=== PATIENT | female | born 1960 | race Caucasian/White ===

== ENCOUNTER 2016-05-10 14:48 | Inpatient (IN) ==
--- NOTE | 2016-05-10 15:36 | Emergency Department Note ---
Disposition Clinical Impression: Dehydration, Malignant neoplasm metastatic to colon, Weakness generalized Failure to thrive Qualifiers: Failure to thrive age range: in adult Qualified Code(s): R62.7 - Adult failure to thrive Disposition: Admitted As Inpatient Condition: Serious Referrals: NO,PCP [Non-Partnered Physician] - Forms: Work/School Release, ED Satisfaction Letter Time of Disposition: 17:13 Weakness HPI - General Chief complaint: ED General Medical Stated complaint: Dehydrated/nutrition from cancer center Time Seen by Provider: 05/10/16 15:34 Source: patient, family Limitations: no limitations Nursing Notes Reviewed: Yes Vital Signs Reviewed: Yes - History of Present Illness HPI Narrative: 55-year-old female with history of colorectal cancer, stage IV, presented with dehydration for the last few days and nausea to the oncology clinic to the care of Dr. Tovar, he evaluated the patient noted that she was very dehydrated and tachycardic and decided that she would be a good candidate for TPN at this time, sent her with her wheeling her wheelchair from the cancer center to [facility] ED for admission for TPN. Patient reports weight loss several pounds in last few weeks, denies chest pain abdominal pain headache, reports nausea some vomiting and some diarrhea. Pt Subjective Complaint: generalized weakness/fatigue Onset (ago): day(s) Duration: intermittent Location: generalized Pain Severity: mild Pain Scale: 6 Improves with: none Worsens with: none Context: new medication Associated symptoms: Reports: nausea/vomiting. Denies: chest pain, confusion, dark stools, diaphoresis, dysuria, easy bruising, fever/chills, loss of appetite - Related Data Home Medications Medication Instructions Recorded Confirmed Cyclosporine [Restasis] 1 drop OP BID 02/04/16 05/10/16 Fluticasone/Salmeterol [Advair 1 puff IH BID 02/04/16 05/10/16 250-50 Diskus] Omeprazole [PriLOSEC] 20 mg PO DAILY PRN 02/04/16 05/10/16 Docusate [Colace] 100 mg PO Q3-4D PRN 03/21/16 05/10/16 Multivits,Ca,Minerals/Iron/FA 1 each PO DAILY 03/21/16 05/10/16 [Women's Daily Formula Caplet] Sennosides/Docusate Sodium [Senna 1 each PO Q3-4D PRN 03/21/16 05/10/16 Plus] Bisacodyl [Dulcolax] 10 mg RC DAILY PRN 04/19/16 05/10/16 Magnesium Citrate [Citroma] 296 ml PO PRN PRN 04/19/16 05/10/16 Oxycodone HCl/Acetaminophen 1 each PO Q4-6H PRN 04/19/16 05/10/16 [Percocet 10-325 mg Tablet] Polyethylene Glycol 3350 [MiraLAX 1 scoop PO DAILY PRN 04/19/16 05/10/16 Powder Bulk 17.9 Oz] Prochlorperazine Maleate 10 mg PO Q8HR PRN 04/19/16 05/10/16 [Compazine] Dexamethasone [Decadron] 2 mg PO BID 05/10/16 05/10/16 Previous Rx's Medication Instructions Recorded Lidocaine/Prilocaine [Emla] 1 appl TP AD #30 gm 04/19/16 Magic Mouthwash 10 ml PO Q4H PRN #240 ml 04/19/16 Ondansetron HCl [Zofran] 4 mg PO Q6H PRN #60 tablet 04/19/16 Fluconazole [Diflucan] 100 mg PO DAILY #10 tablet 04/26/16 HydrOXYzine Pamoate [Vistaril] 100 mg PO BID PRN #60 capsule 04/26/16 Promethazine [Phenergan] 25 mg RC Q6HR PRN #30 supp.rect 04/27/16 Metoclopramide [Reglan] 10 mg PO Q6HR #120 tablet 05/05/16 Megestrol Acetate [Megace] 400 mg PO DAILY #300 mls 05/08/16 Dronabinol [Marinol] 5 mg PO TID #90 capsule 05/10/16 Fentanyl 50 mg TD Q72H #10 patch.td72 05/10/16 Allergies Allergy/AdvReac Type Severity Reaction Status Date / Time morphine AdvReac Abdominal Verified 04/19/16 09:44 Pain All systems ED: reviewed and negative except as stated. Constitutional: Reports: as per HPI, weakness. Denies: fever Cardiovascular: Denies: chest pain, palpitations Respiratory: Denies: cough, dyspnea Gastrointestinal: Reports: abdominal pain, nausea, vomiting, diarrhea Genitourinary: Denies: urgency, dysuria Musculoskeletal: Denies: back pain, neck pain Integumentary: Denies: rash Neurological: Reports: as per HPI, weakness. Denies: headache Psychiatric: Denies: anxiety, depression Endocrine: Reports: as per HPI, fatigue Past Medical History - Past Medical History Attestation: Yes The following information was validated with the patient. Source: patient Medical history: Reports: arthritis, asthma, cancer, other Surgical history: Reports: cholecystectomy, hysterectomy Psychiatric history: Reports: no psych history - Social History Smoking Status: Never smoker Alcohol use: Reports: rarely Drug use: Reports: none Physical Exam Constitutional: Frail cachectic female, is tachycardic in mild distress HEENT: NCAT, sclera anicteric, PERRLA bilaterally, normal external ears bilaterally, nasal septum nondeviated, average dentition, dry mucous membranes Neck: normal inspection, neck is supple, trachea midline Resp: normal chest inspection, CTA bilaterally, no resp distress CV: Tachycardia, no m/g/r GI: Moderate tenderness to palpation mid abdomen. No guarding or rigidity Back: normal inspection, no tenderness to palpation Skin: Poor skin turgor - General Limitations: no limitations General appearance: alert Course Course Narrative: 55-year-old female cachectic from the cancer center, for TPN per her oncologist , will check basic lab work, chest x-ray treated with IV fluid rehydration and antiemetics and reassessed - Reevaluation(s) Reevaluation #1: Accepted by the hospitalist, patient stable condition at the time of ED disposition, dietary and PICC line consult added Time: 17:12 Vital Signs Temperature 97.5 F L 05/10/16 15:03 Pulse Rate 124 05/10/16 15:03 Respiratory Rate 16 05/10/16 15:03 Blood Pressure 109/81 05/10/16 15:03 O2 Sat by Pulse Oximetry 99 05/10/16 15:03 Temperature 97.5 F L 05/10/16 15:03 Pulse Rate 94 05/10/16 17:03 Respiratory Rate 16 05/10/16 17:03 Blood Pressure 114/86 05/10/16 17:03 O2 Sat by Pulse Oximetry 97 05/10/16 17:03 Oxygen Delivery Oxygen Delivery Room Air Weakness - [facility] Narrative Medical decision making narrative: I examined this patient and my medical decision-making was reviewed with the RESEARCH FELLOW/PA/Advanced Practice Nurse/Resident Physician. I agree with the documented findings, disposition and treatment plan as described except to the extent set forth below. Patient was seen on arrival with Dr. Huang and myself, I agree with his evaluation and management plan, I supervised the care of the patient and stay. Patient was supposed to be a direct admit for PICC line and TPN and fluids. She is a cancer patient. Further no beds in the hospital so they sent her to the emergency department. We will go ahead and use her port which she has not place. We spoke with vascular access and they said they can put a line in her tomorrow. We will go fluids here check basic labs and then call for an admission with her. She is in agreement with this plan. - Differential Diagnosis Differential Diagnosis: Likely: anemia, hypoglycemia, sepsis/infection - Medical Records Medical records reviewed: Yes I reviewed the patient's medical records. - Lab Data Lab results reviewed: Yes I reviewed the patient's lab results. Result diagrams: 05/10/16 16:00 05/10/16 16:00 Lab Results 05/10/16 05/10/16 Range/Units 16:00 16:00 WBC 6.9 (4.3-11.1) K/mcL RBC 4.95 (3.82-4.97) M/mcL Hgb 11.9 (11.5-15.4) g/dL Hct 38.4 (35.3-44.9) % MCV 77.6 L (83.0-100.0) fL MCH 24.0 L (28.0-33.3) pg MCHC 31.0 L (31.6-35.5) g/dL RDW 18.6 H (11.5-14.5) % Plt Count 314 (140-400) K/mcL MPV 10.7 (9.4-12.4) fL Immature Gran % 0.3 (0-4) % Seg Neutrophils % 80.3 % Lymphocytes % 16.4 % Monocytes % 2.6 % Eosinophils % 0.4 % Basophils % 0.0 % Neutrophils # 5.6 (1.6-8.9) K/mcL Lymphocytes # 1.1 (0.6-4.6) K/mcL Monocytes # 0.2 (0.0-1.3) K/mcL Eosinophils # 0.0 (0.0-0.6) K/mcL Basophils # 0.0 (0.0-0.2) K/mcL Sodium 134 L (136-145) mEq/L Potassium 3.6 (3.5-4.5) mEq/L Chloride 96 L (98-109) mEq/L Carbon Dioxide 25 (19-29) mEq/L BUN 20 (7-20) mg/dL Creatinine 0.82 (0.57-1.11) mg/dL Est GFR ( Amer) > 60 (> 60) Est GFR (Non-Af Amer) > 60 (> 60) BUN/Creatinine Ratio 24 (6-26) Glucose 106 H (70-99) mg/dL Calculated Osmolality 281 (280-300) Calcium 9.4 (8.6-10.8) mg/dL Phosphorus 2.0 L (2.3-4.7) mg/dL Magnesium 1.7 (1.6-2.6) mg/dL Total Bilirubin 1.1 (0.2-1.2) mg/dL AST 25 (5-34) Units/L ALT 42 (0-55) Units/L Alkaline Phosphatase 256 H (38-126) Units/L Serum Total Protein 7.6 (6.0-8.3) g/dL Albumin 3.7 (3.5-5.0) g/dL Globulin 3.9 H (2.4-3.5) g/dL Albumin/Globulin Ratio 0.9 L (1.1-2.2) Lipase 37 (8-78) Units/L - Radiology Data Radiology results reviewed: Yes I reviewed the patient's radiology results. - EKG Data EKG attestation: Yes I reviewed and interpreted this EKG. EKG shows normal: sinus rhythm Rate: tachycardia (Rate 1 10 bpm [place] 137 QRS [address] segment depressions in V3 and V2 previous EKG) Interpretation: unchanged when compared to prior tracing (date) - Core Measures AMI Core Measures Followed: No
[2016-05-10] MEDS ORDERED: 0.9 % Sodium Chloride 1,000 ML IVC ONE (15:37)
[2016-05-10] MEDS ORDERED: Ondansetron 4 MG/2 ML VIAL IVP ONE (15:47)
[2016-05-10 16:14] LABS: Eosinophils % 0.4 %; Hematocrit 38.4 % (35.3-44.9); Hemoglobin 11.9 g/dL (11.5-15.4); Immature Granulocytes % 0.3 % (0-4); Lymphocytes # 1.1 K/mcL (0.6-4.6); Lymphocytes % 16.4 %; Mean Corpuscular Volume 77.6 fL (83.0-100.0); Mean Platelet Volume 10.7 fL (9.4-12.4); Monocytes # 0.2 K/mcL (0.0-1.3); Monocytes % 2.6 %; Neutrophils # 5.6 K/mcL (1.6-8.9); Platelet Count 314 K/mcL (140-400); Red Blood Count 4.95 M/mcL (3.82-4.97); Red Cell Distribution Width 18.6 % (11.5-14.5); Segmented Neutrophils % 80.3 %
[2016-05-10 16:26] LABS: Alanine Aminotransferase 42 Units/L (0-55); Albumin 3.7 g/dL (3.5-5.0); Albumin/Globulin Ratio 0.9 (1.1-2.2); Alkaline Phosphatase 256 Units/L (38-126); Aspartate Amino Transferase 25 Units/L (5-34); BUN/Creatinine Ratio 24 (6-26); Bilirubin,Total 1.1 mg/dL (0.2-1.2); Blood Urea Nitrogen 20 mg/dL (7-20); Calcium 9.4 mg/dL (8.6-10.8); Carbon Dioxide 25 mEq/L (19-29); Chloride 96 mEq/L (98-109); Globulin 3.9 g/dL (2.4-3.5); Glucose 106 mg/dL (70-99); Lipase 37 Units/L (8-78); Magnesium 1.7 mg/dL (1.6-2.6); Osmolality,Calculated 281 (280-300); Potassium 3.6 mEq/L (3.5-4.5); Sodium 134 mEq/L (136-145); Total Protein 7.6 g/dL (6.0-8.3); eGFR For African Americans > 60 (> 60); eGFR For Non-African Americans > 60 (> 60)
[2016-05-10] MEDS ORDERED: 0.9 % Sodium Chloride 1,000 ML IVC SCH (17:15)
[2016-05-10] MEDS ORDERED: Naloxone 0.4 MG/ML INJ IVP PRN (21:38)
[2016-05-10] MEDS ORDERED: Magic Mouthwash 10 ML UD Cup PO PRN (21:40)
[2016-05-10] MEDS ORDERED: Bisacodyl 10 MG RECTAL SUPPOSITORY RC PRN (21:40)
[2016-05-10] MEDS ORDERED: hydrOXYzine pamoate 25 MG CAPSULE PO PRN (21:40)
[2016-05-10] MEDS ORDERED: Magnesium Sulfate 1 GM in D5% in Water 100 ML IVPB ONE (21:46)
--- NOTE | 2016-05-10 21:50 | Internal Med History&Physical ---
Date of Encounter: 05/10/16 Time of Encounter: 21:47 Assessment and Plan (1) Adult failure to thrive Current visit: Yes Status: Acute Pt has intractable nausea; reduced PO intake and significant weight loss. Likely related to Metastatic disease and chemotherapy. 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 (3) Dehydration Current visit: Yes Status: Acute Possibly related to nausea and poor oral intake. IV fluids (4) Iron deficiency anemia Current visit: Yes Status: Chronic Possibly related to GI losses. Continue supplements. Qualifiers: Iron deficiency anemia type: other iron deficiency Qualified Code(s): D50.8 - Other iron deficiency anemias (5) Lung nodules Current visit: Yes Status: Chronic (6) Liver metastases Current visit: Yes Status: Chronic Internal Medicine - H&P: HPI Chief complaint: Intractable nausea Admitted From: Emergency Dept Plans for Post Hospital Care: Home History of present illness: Ms. 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 This is not also apparently had done Gastrografin study one week ago, which caused her diarrhea. Over the weekend she has been feeling nauseated with poor appetite and oral intake, with episodes of vomiting. She reports about a 20 pound weight loss in the last 2 months. She reports abdominal discomfort intermittently, but no abdominal pain and distention. She is able to pass gas but had no bowel movement in a few days. Denies hematemesis, melena , hematochezia. Denies dysuria or hematuria. Denies shortness of breath, chest pain, fever, chills. She was seen in Dr. Esteban office today and was thought to be dehydrated with failure to thrive she is admitted for volume repletion and TPN. Pat med Hx: s/p hysterectomy ; MITRAL VALVE PROLAPSE; ASTHMA; acute pancreatitis july 2013; Iron deficiency anemia Family Hx: Father: Lung cancer; Sister: Breast cancer Past Med Surg Social Fam HX - Past Medical History Medical history: arthritis, asthma, cancer, other Psychiatric history: no psych history - Past Surgical History Surgical History: cholecystectomy, hysterectomy - Social History Smoking Status: Never smoker Alcohol use: rarely Drug use: none Internal Medicine - H&P: Meds Cyclosporine [Restasis] 1 drop OP BID 02/04/16 [History] Fluticasone/Salmeterol [Advair 250-50 Diskus] 1 puff IH BID 02/04/16 [History] Omeprazole [PriLOSEC] 20 mg PO DAILY PRN 02/04/16 [History] Docusate [Colace] 100 mg PO Q3-4D PRN 03/21/16 [History] Multivits,Ca,Minerals/Iron/FA [Women's Daily Formula Caplet] 1 each PO DAILY [History] Sennosides/Docusate Sodium [Senna Plus] 1 each PO Q3-4D PRN 03/21/16 [History] Bisacodyl [Dulcolax] 10 mg RC DAILY PRN 04/19/16 [History] Lidocaine/Prilocaine [Emla] 1 appl TP AD #30 gm 04/19/16 [Rx] Magic Mouthwash 10 ml PO Q4H PRN #240 ml 04/19/16 [Rx] Magnesium Citrate [Citroma] 296 ml PO PRN PRN 04/19/16 [History] Ondansetron HCl [Zofran] 4 mg PO Q6H PRN #60 tablet 04/19/16 [Rx] Oxycodone HCl/Acetaminophen [Percocet 10-325 mg Tablet] 1 each PO Q4-6H PRN 03/07 [History] Polyethylene Glycol 3350 [MiraLAX Powder Bulk 17.9 Oz] 1 scoop PO DAILY PRN 03/07 [History] Prochlorperazine Maleate [Compazine] 10 mg PO Q8HR PRN 04/19/16 [History] Fluconazole [Diflucan] 100 mg PO DAILY #10 tablet 04/26/16 [Rx] HydrOXYzine Pamoate [Vistaril] 100 mg PO BID PRN #60 capsule 04/26/16 [Rx] Promethazine [Phenergan] 25 mg RC Q6HR PRN #30 supp.rect 04/27/16 [Rx] Metoclopramide [Reglan] 10 mg PO Q6HR #120 tablet 05/05/16 [Rx] Megestrol Acetate [Megace] 400 mg PO DAILY #300 mls 05/08/16 [Rx] Dexamethasone [Decadron] 2 mg PO BID 05/10/16 [History] Dronabinol [Marinol] 5 mg PO TID #90 capsule 05/10/16 [Rx] Fentanyl 50 mg TD Q72H #10 patch.td72 05/10/16 [Rx] Allergies morphine Adverse Reaction (Verified 04/19/16 09:44) Abdominal Pain and nausea All Systems PM: A 10-system review of systems was performed and is negative for pertinent findings except as documented above in the HPI. - Constitutional Vitals: Temp Pulse Resp BP Pulse Ox 98.3 F 85 16 115/85 100 05/10/16 19:35 05/10/16 19:35 05/10/16 19:35 05/10/16 19:35 05/10/16 19:35 Exam: General: Not in acute distress at the time of my evaluation HEENT: Oral mucosa is moist. No conjunctival palor or scleral icterus Neck: No obvious neck swellings Lungs: Clear to auscultation Cardiac: Regular rate and rhythm. No significant murmurs Abdomen: Soft, non tender. Bowel sounds present Genitourinary: No lake catheter Neurological: Alert and oriented. No gross localizing deficits Psych: Not aggressive or agitated Extremities: no significant leg edema Skin: No generalized rash Internal Med - H&P Results - Labs CBC & Chem 7: 05/11/16 05:15 05/11/16 05:15 - Impressions ITS Impressions Chest X-Ray 05/10/16 15:37 IMPRESSION: No acute process. D/ / Wesley Swann MD / Wesley Swann MD Interpreting Provider: Wesley Swann MD
[2016-05-10] MEDS: Pantoprazole 40 MG VIAL IVP SCH (22:33)
[2016-05-10] MEDS: *HR* Heparin 5,000 UNIT/ML VIAL SQ SCH (22:34)
[2016-05-10] MEDS: Ringers Solution, Lactated 1,000 ML IVC SCH (22:34)
[2016-05-10] MEDS: *HR* FentaNYL PATCH 50 MCG PATCH TD SCH (22:35)
[2016-05-11] MEDS: *HR* Heparin 5,000 UNIT/ML VIAL SQ SCH (05:20)
[2016-05-11] MEDS: *HR* OxyCODONE/APAP 10/325 TABLET PO PRN ×3 (05:20→13:51)
[2016-05-11 05:41] LABS: Mean Corpuscular HGB Conc 30.3 g/dL (31.6-35.5); Mean Corpuscular Hemoglobin 23.8 pg (28.0-33.3); Mean Corpuscular Volume 78.5 fL (83.0-100.0); Mean Platelet Volume 10.2 fL (9.4-12.4); Platelet Count 226 K/mcL (140-400); Red Blood Count 3.82 M/mcL (3.82-4.97); Red Cell Distribution Width 18.1 % (11.5-14.5)
[2016-05-11 05:43] LABS: Hemoglobin 9.1 g/dL (11.5-15.4)
[2016-05-11 05:56] LABS: BUN/Creatinine Ratio 22 (6-26); Blood Urea Nitrogen 14 mg/dL (7-20); Carbon Dioxide 24 mEq/L (19-29); Chloride 105 mEq/L (98-109); Glucose 88 mg/dL (70-99); Magnesium 1.8 mg/dL (1.6-2.6); Osmolality,Calculated 280 (280-300); Phosphorous 2.1 mg/dL (2.3-4.7); Potassium 3.6 mEq/L (3.5-4.5); Sodium 135 mEq/L (136-145); eGFR For African Americans > 60 (> 60); eGFR For Non-African Americans > 60 (> 60)
[2016-05-11 05:58] LABS: Calcium 7.8 mg/dL (8.6-10.8)
[2016-05-11] MEDS: Pantoprazole 40 MG VIAL IVP SCH (08:34)
[2016-05-11] MEDS: RESTASIS OPTHALMIC OP SCH ×2 (08:35→21:52)
[2016-05-11] MEDS: Ringers Solution, Lactated 1,000 ML IVC SCH (09:36)
[2016-05-11] MEDS ORDERED: D10% in Water 500 ML IVC PRN (10:56)
[2016-05-11] MEDS ORDERED: Potassium Phosphate 44 MEQ in 0.9 % Sodium Chloride 250 ML IVPB ONE (11:10)
[2016-05-11] MEDS ORDERED: Calcium Gluconate 1,000 MG in D5% in Water 100 ML IVPB ONE (11:11)
[2016-05-11] MEDS: Budesonide/Formoterol 80/4.5 MDI IH SCH ×2 (11:28→19:59)
[2016-05-11] MEDS: Ondansetron 4 MG/2 ML VIAL IVP PRN ×2 (12:57→19:54)
[2016-05-11] MEDS: *HR* Promethazine 25 MG/ML VIAL IVP PRN ×2 (13:43→22:27)
--- NOTE | 2016-05-11 14:02 | Internal Med Progress Note ---
Date of Encounter: 05/11/16 Time of Encounter: 14:00 - Assessment and plan (1) Dehydration Current Visit: Yes Status: Acute Assessment and plan: We will treat this with IV fluids. Replete electrolytes. Check BUN and creatinine the morning. Encourage oral hydration as much as tolerated. Treat nausea with Zofran and Phenergan. (2) Failure to thrive Current Visit: Yes Status: Acute Assessment and plan: She has had persistent nausea and severe abdominal pain her oncologist recommended TPN. We will consult nutrition and will request PICC line placement for TPN. Qualifiers: Failure to thrive age range: in adult Qualified Code(s): R62.7 - Adult failure to thrive (3) Abdominal pain Current Visit: No Status: Acute Assessment and plan: She takes oxycodone at home, she has a listed allergy to morphine. We will continue with her home meds. We will use fentanyl for severe pain uncontrolled with oral medication. Qualifiers: Abdominal location: generalized Qualified Code(s): R10.84 - Generalized abdominal pain (4) Malignant neoplasm metastatic to colon Current Visit: Yes Status: Acute Assessment and plan: Outpatient follow-up with oncology. (5) Cancer related pain Current Visit: Yes Status: Chronic (6) Liver metastases Current Visit: Yes Status: Chronic - Subjective Interval history: Pt reports severe nausea today w/ moderate abdominal pain, no fever, triggered by trying to eat, did not tolerate oral food. - Constitutional Vitals: Temp Pulse Resp BP Pulse Ox 98.3 F 83 18 134/92 98 05/11/16 11:39 05/11/16 11:39 05/11/16 11:39 05/11/16 11:39 05/11/16 11:39 General appearance: Present: A&O X 3 - Neck Neck exam general surgery: Present: supple, trachea midline. Absent: lymphadenopathy - Respiratory Respiratory exam: Present: CTAB. Absent: accessory muscle use, rales, rhonchi, wheezes - Cardiovascular Cardiovascular exam: Present: RRR, +S1, +S2. Absent: diastolic murmur, gallop, rubs, systolic murmur - GI/Abdominal GI/Abdominal exam: Present: normal bowel sounds, soft, no peritoneal signs. Absent: distended, tenderness - Extremities Exam Extremities exam: Present: warm, radial pulses palpable and symetrical. Absent : calf tenderness, cyanotic, pedal edema - Neurological Exam Neurological exam: Present: CN II-XII intact, oriented X3, no focal deficits. Absent: pronater drift, facial droop, speech deficit - Skin Skin exam: Present: dry, intact Internal Medicine: Result - Labs CBC & Chem 7: 05/11/16 05:15 05/11/16 05:15 Labs: Short CBC 05/11/16 Range/Units 05:15 WBC 5.4 (4.3-11.1) K/mcL Hgb 9.1 L D (11.5-15.4) g/dL Hct 30.0 L (35.3-44.9) % Plt Count 226 (140-400) K/mcL BMP 05/11/16 05:15 Sodium 135 L Potassium 3.6 Chloride 105 Carbon Dioxide 24 BUN 14 Creatinine 0.64 Glucose 88 Calcium 7.8 L D Consult Discharge Plan - Plan Referrals: Lambert Gandhi MD [Primary Care Provider] -
[2016-05-11] MEDS ORDERED: Bisacodyl 10 MG RECTAL SUPPOSITORY RC PRN (14:04)
[2016-05-11] MEDS ORDERED: Lidocaine -MPF 1% 5 ML AMPUL INFILT ONE (14:45)
--- NOTE | 2016-05-11 15:11 | Oncology Inp Consult Note ---
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 Last seen by Dr Tovar 05/10/16, when sent to ER for TPN consideration, dehydration and failure to thrive. Most recently seen by Dr Francisco Bruce on 04/27/16 as well for palliative radiation to spinal mets. She was treated for oral thrush and intractable nausea. She started palliative FOLFOX with Avastin cycle one on 05/04/2016 Oxaliplatin 85 mg/m day 1 area 5-FU and leucovorin 200 mg/m bolus, Avastin 5 mg per KG D1 Home 5-FU infusion 2400 mg/m over 46 hours Today, Palliative care consult ordered by me. We need to address goals of care, symptom management, as well as code status. I advised PC team. Dr Tovar to assess patient later today. We will follow along. Qualifiers: Colon location: unspecified part of colon Qualified Code(s): C18.9 - Malignant neoplasm of colon, unspecified (2) Adult failure to thrive Status: Acute (3) Dehydration Status: Acute - Data of Consult Patient: known to practice within the last 3 years Consult date: 05/11/16 Requesting Physician: Grabiel Umana MD Primary Care Provider: Lambert Gandhi MD - Consult Narrative Reason for consult: Dehydration stage IV colon cancer History of present illness: Ms. Chino is a 55 year old female patient at [facility] with Stage IV colorectal cancer with metastatic disease to the liver, bony structures, and carcinomatosis. She has recently received palliative radiation to lumbar and thoracic spine earlier this month. She was treated for oral thrush and intractable nausea as well. Oncologic history Metastatic adenocarcinoma, colorectal origin Cystic liver metastasis Bilateral subcentimeter lung nodules. Bone lesions in the T9-T10 and L2. Thickening of duodenum and proximal jejunum with constipation. She has right upper quadrant abdominal pain radiating to left side since December 2015. Has pain in the mid back and also in the posterior right axilla near the scapula Chromogranin mildly elevated at 360 on 03/21/2016 which is nonspecific Microsatellites stable 03/31/2016 Started palliative FOLFOX with Avastin cycle one on 05/04/2016 Oxaliplatin 85 mg/m day 1 area 5-FU and leucovorin 200 mg/m bolus, Avastin 5 mg per KG D1 Home 5-FU infusion 2400 mg/m over 46 hours Barium follow-through 05/04/2016 showed delayed gastric emptying. Also distention of duodenum concerning for SMA syndrome Discuss this findings. She is not interested in CT angiogram or other workup for SMA syndrome line there is no obvious evidence of obstruction Reglan 10 mg by mouth before meals and at bedtime. Advised to start with half a tablet and she did that and tolerated it well Failure to thrive massive weight loss and some abdominal pain. Mainly she has poor appetite and cannot eat much. She is in tears today and said she cannot go on like this We will admit her to the hospital for fluids and nutrition. She would be a good candidate for short-term TPN Significant iron deficiency anemia. Iron mal absorption 750 mg IV with B12 1000 g IM. Hemoglobin has improved to 11.9 on 05/10/2016 Pain control. Duragesic 50 g patch. Also Percocet. She claims Duragesic patch is helping her and she does not have to take much Percocet Chemotherapy may offer good palliation but she needs nutritional support and right now. She was sent to ER by Dr Tovar on 05/10/16 after office encounter for TPN consideration. Past Med Surg Social Fam HX - Past Medical History Medical history: arthritis, asthma, cancer, other Psychiatric history: no psych history - Past Surgical History Surgical History: cholecystectomy, hysterectomy - Social History Smoking Status: Never smoker Alcohol use: rarely Drug use: none Medications and Allergies Cyclosporine [Restasis] 1 drop OP BID 02/04/16 [History] Fluticasone/Salmeterol [Advair 250-50 Diskus] 1 puff IH BID 02/04/16 [History] Omeprazole [PriLOSEC] 20 mg PO DAILY PRN 02/04/16 [History] Docusate [Colace] 100 mg PO Q3-4D PRN 03/21/16 [History] Multivits,Ca,Minerals/Iron/FA [Women's Daily Formula Caplet] 1 each PO DAILY [History] Sennosides/Docusate Sodium [Senna Plus] 1 each PO Q3-4D PRN 03/21/16 [History] Bisacodyl [Dulcolax] 10 mg RC DAILY PRN 04/19/16 [History] Lidocaine/Prilocaine [Emla] 1 appl TP AD #30 gm 04/19/16 [Rx] Magic Mouthwash 10 ml PO Q4H PRN #240 ml 04/19/16 [Rx] Magnesium Citrate [Citroma] 296 ml PO PRN PRN 04/19/16 [History] Ondansetron HCl [Zofran] 4 mg PO Q6H PRN #60 tablet 04/19/16 [Rx] Oxycodone HCl/Acetaminophen [Percocet 10-325 mg Tablet] 1 each PO Q4-6H PRN 03/07 [History] Polyethylene Glycol 3350 [MiraLAX Powder Bulk 17.9 Oz] 1 scoop PO DAILY PRN 03/07 [History] Prochlorperazine Maleate [Compazine] 10 mg PO Q8HR PRN 04/19/16 [History] Fluconazole [Diflucan] 100 mg PO DAILY #10 tablet 04/26/16 [Rx] HydrOXYzine Pamoate [Vistaril] 100 mg PO BID PRN #60 capsule 04/26/16 [Rx] Promethazine [Phenergan] 25 mg RC Q6HR PRN #30 supp.rect 04/27/16 [Rx] Metoclopramide [Reglan] 10 mg PO Q6HR #120 tablet 05/05/16 [Rx] Megestrol Acetate [Megace] 400 mg PO DAILY #300 mls 05/08/16 [Rx] Dexamethasone [Decadron] 2 mg PO BID 05/10/16 [History] Dronabinol [Marinol] 5 mg PO TID #90 capsule 05/10/16 [Rx] Fentanyl 50 mg TD Q72H #10 patch.td72 05/10/16 [Rx] Allergies morphine Adverse Reaction (Verified 04/19/16 09:44) Abdominal Pain and nausea Gastrointestinal: Present: nausea Oncology - Exam - Constitutional Vitals: Temp Pulse Resp BP Pulse Ox 98.3 F 83 18 134/92 98 05/11/16 11:39 05/11/16 11:39 05/11/16 11:39 05/11/16 11:39 05/11/16 11:39 General appearance: no acute distress - Head Head exam: Present: atraumatic, normal inspection - Eye Eye exam: Present: normal appearance, PERRL - ENT ENT exam: Present: mucous membranes dry, normal exam - Neck Neck exam: Present: full ROM, normal inspection - Respiratory Respiratory exam: Present: CTAB - Cardiovascular Cardiovascular exam: Present: RRR, +S1, +S2 - GI/Abdominal GI/Abdominal exam: Present: normal bowel sounds, soft - Extremities Exam Extremities exam: Present: full ROM - Neurological Exam Neurological exam: Present: alert, oriented X3, no focal deficits - Psychiatric Psychiatric exam: Present: normal affect - Skin Skin exam: Present: dry, intact, warm Oncology - Results - Labs Labs: Short CBC 05/11/16 Range/Units 05:15 WBC 5.4 (4.3-11.1) K/mcL Hgb 9.1 L D (11.5-15.4) g/dL Hct 30.0 L (35.3-44.9) % Plt Count 226 (140-400) K/mcL [facility] 05/11/16 05:15 Sodium 135 L Potassium 3.6 Chloride 105 Carbon Dioxide 24 BUN 14 Creatinine 0.64 Glucose 88 Calcium 7.8 L D Consult Discharge Plan - Plan Referrals: Lambert Gandhi MD [Primary Care Provider] - 05/15/16 3:00 pm <Deepthi Tovar S - Last Filed: 05/12/16 18:18> - Data of Consult Requesting Physician: Grabiel Umana MD Primary Care Provider: Lambert Gandhi MD - Consult Narrative History of present illness: Ms. Chino is a 55 year old female Oncology - Exam - Constitutional Vitals: Temp Pulse Resp BP Pulse Ox 97.7 F 93 14 144/98 96 05/12/16 17:00 05/12/16 17:00 05/12/16 17:00 05/12/16 17:00 05/12/16 17:00 Oncology - Results - Labs Labs: [facility] 05/12/16 04:30 Sodium 133 L Potassium 3.8 Chloride 105 Carbon Dioxide 21 BUN 13 Creatinine 0.70 Glucose 155 H Calcium 8.4 L Urine 05/12/16 Range/Units 04:30 Urine Color Yellow (Yellow) Urine Clarity Cloudy A (Clear) Urine pH 6.0 (5.0-8.0) pH Units Ur Specific [place] 1.027 H (1.010-1.025) Urine Protein Trace (Neg-Trace) mg/dL Urine Glucose (UA) Normal (Normal) mg/dL - Attending Attestation Metastatic adenocarcinoma possibly GI origin She received her first cycle of chemotherapy FOLFOX Avastin on 05/04/2016. She has significant nausea even prior to that Barium follow-through showed delayed gastric emptying and also distended small bowel up to 3rd portion of duodenum concerning for SMA and do not especially given her rapid weight loss. We will continue TPN. Nausea is better since admission but still not completely better May consider NG suction to relieve nausea Order CT angiogram abdomen to characterize SMA better
[2016-05-11] MEDS: Pantoprazole 40 MG in 0.9 % Sodium Chloride Mini Bag 100 ML IVC SCH ×2 (16:47→21:28)
[2016-05-11] MEDS: *HR* Enoxaparin 40 MG/0.4 ML SYRINGE SQ SCH (16:57)
[2016-05-11] MEDS ORDERED: Clinimix E 5%-15% SOLUTION 2,000 ML with MVI, adult with vitamin K 10 ML IVC SCH (17:00)
--- NOTE | 2016-05-11 17:22 | Electrocardiograph Report ---
[place] [id number] Test Date: 2016-05-10 Pat Name: Sonya Chino Department: 104 Room: [facility] Gender: F Professional Programmer Analyst: : 1960 Requested By: Dillan Huang Order Number: [id number] Reading MD: Cody Vizcaino MD Measurements Intervals [place] Rate: 110 P: 51 OR: 137 QRS: -13 QRSD: 82 T: 28 QT: 339 QTc: 404 Interpretive Statements SINUS TACHYCARDIA BASELINE ARTIFACT LEFT ATRIAL ENLARGEMENT Electronically Signed On 05-11-2016 17:21:05 EDT by Cody Vizcaino MD
[2016-05-12] MEDS: Pantoprazole 40 MG in 0.9 % Sodium Chloride Mini Bag 100 ML IVC SCH ×3 (02:33→13:08)
[2016-05-12] MEDS: Ondansetron 4 MG/2 ML VIAL IVP PRN ×2 (04:15→10:59)
[2016-05-12 04:57] LABS: Bilirubin,Urine Negative (Negative); Blood,Urine Moderate (Negative); Clarity,Urine Cloudy (Clear); Color,Urine Yellow (Yellow); Glucose,Urine (UA) Normal (Normal); Ketones,Urine Negative (Negative); Leukocyte Esterase,Urine Negative (Negative); Nitrite,Urine Negative (Negative); Protein,Urine Trace mg/dL (Neg-Trace); Specific Gravity,Urine 1.027 (1.010-1.025); Urobilinogen,Urine Normal (Normal)
[2016-05-12 04:58] LABS: Bacteria,Urine None Seen per hpf (None-Few); Hyaline Casts,Urine None Seen per lpf (None-Few); Squamous Epithelial Cell,Urine Many per lpf (None-Few)
[2016-05-12 05:05] LABS: Ionized Calcium 1.14 mmol/L (1.15-1.35)
[2016-05-12 05:15] LABS: BUN/Creatinine Ratio 19 (6-26); Blood Urea Nitrogen 13 mg/dL (7-20); Calcium 8.4 mg/dL (8.6-10.8); Carbon Dioxide 21 mEq/L (19-29); Chloride 105 mEq/L (98-109); Glucose 155 mg/dL (70-99); Magnesium 1.9 mg/dL (1.6-2.6); Osmolality,Calculated 279 (280-300); Phosphorous 1.5 mg/dL (2.3-4.7); Potassium 3.8 mEq/L (3.5-4.5); Sodium 133 mEq/L (136-145); eGFR For African Americans > 60 (> 60); eGFR For Non-African Americans > 60 (> 60)
[2016-05-12] MEDS ORDERED: 0.9 % Sodium Chloride 1,000 ML IVC ONE (06:31)
[2016-05-12] MEDS: *HR* Promethazine 25 MG/ML VIAL IVP PRN (08:47)
[2016-05-12] MEDS ORDERED: Dexamethasone 4 MG/ML VIAL IVP ONE (10:32)
[2016-05-12] MEDS ORDERED: Fosaprepitant Dimeglumine 150 MG in 0.9 % Sodium Chloride 250 ML IVPB ONE (10:45)
[2016-05-12] MEDS ORDERED: D10% in Water 500 ML IVC PRN ×2 (10:51→10:53)
[2016-05-12] MEDS: *HR* Enoxaparin 40 MG/0.4 ML SYRINGE SQ SCH (11:00)
[2016-05-12] MEDS: RESTASIS OPTHALMIC OP SCH ×2 (11:07→21:32)
[2016-05-12] MEDS: Budesonide/Formoterol 80/4.5 MDI IH SCH ×2 (11:07→21:36)
--- NOTE | 2016-05-12 11:23 | Palliative - Consult Note ---
<Wesley Leal - Last Filed: 05/12/16 11:21> Date of Encounter: 05/12/16 Time of Encounter: 11:39 - Assessment and Plan (1) Nausea and vomiting Current Visit: Yes Status: Acute Assessment and plan: Multifactorial likely related to anticipatory nausea, labyrinthinial nausea, chemotherapy-induced nausea, nausea related to intra-abdominal tumor burden. The nausea is extremely severe and is the patient's main complaint. She has been able to eat for approximately a month. We will treat her nausea and vomiting and a multifactorial approach including scheduled Benadryl and Reglan, scheduled Decadron, scheduled Ativan. We will continue with when necessary Zofran and Phenergan. Compazine as been held. Patient is not having regular bowel movements and we will schedule her Dulcolax suppository daily, and add on a when necessary fleets enema. Advised the patient on the possibility of sedation with these medications and the patient was accepting of these side effects if it would help with her nausea. We will continually reassess. Qualifiers: Vomiting type: unspecified Vomiting Intractability: intractable Qualified Code(s): R11.2 - Nausea with vomiting, unspecified (2) Goals of care, counseling/discussion Current Visit: Yes Status: Acute Assessment and plan: I had a discussion with the patient regarding her diagnosis, long-term care plan. Records revealed the patient is currently undergoing palliative chemotherapy and radiation treatments. Discuss goals of care with the patient, she seemed to be at the point of where she would like to change her ultimate goals of care and care plan as she felt the chemotherapy was making her miserable. However she would like to discuss things with her which is certainly reasonable. We also discussed CODE STATUS as the patient is still full code. Again the patient seemed somewhat interested in pursuing a different CODE STATUS strategy but would like to discuss things with her first. The palliative care team will be available for any further discussions with the patient or family. The patient thinks she has a medical power of personal injury attorney established and stated that she wanted her be her medical power of personal injury attorney. (3) Dehydration Current Visit: Yes Status: Acute Assessment and plan: Continue fluid hydration with LR. (4) Cancer related pain Current Visit: Yes Status: Chronic Assessment and plan: Patient does report some mild low back pain related to her bony metastasis. She states her pain is under good control this time. Continue current pain regimen with fentanyl patch and Percocet for breakthrough. (5) Malignant neoplasm metastatic to colon Current Visit: Yes Status: Acute Assessment and plan: Currently receiving palliative chemotherapy and radiation at the cancer center. Will reassess goals of care as discussed above. Palliative-CN HPI - Data of Consult Consult date: 05/12/16 Requesting Physician: Grabiel Umana MD Primary Care Provider: Lambert Gandhi MD - Consult Narrative Reason for consult: Nausea/vomiting, goals of care History of present illness: Ms. Chino is a 55 year old female with history of stage IV colon cancer presented with poor by mouth intake and unrelenting nausea and vomiting. Patient states that she has not really been able to eat for the last month or so. She also reports almost constant nausea and vomiting for the past week or so since she completed her most recent round of chemotherapy. She reports she has nausea in anticipation of eating, nausea when she looks around or moves her head. She reports not having regular bowel movements, she does not remember when her last bowel movement was. She does report passing gas. She reports having a barium study approximately a week ago which revealed no bowel obstruction. She does report mild low back pain that is well-controlled at this time. Denies fever, chills, chest pain, shortness of breath CC: Grabiel Umana MD Past Med Surg Social Fam HX - Past Medical History Medical history: arthritis, asthma, cancer, other Psychiatric history: no psych history - Past Surgical History Surgical History: cholecystectomy, hysterectomy - Social History Smoking Status: Never smoker Alcohol use: rarely Drug use: none Medications and Allergies Cyclosporine [Restasis] 1 drop OP BID 02/04/16 [History] Fluticasone/Salmeterol [Advair 250-50 Diskus] 1 puff IH BID 02/04/16 [History] Omeprazole [PriLOSEC] 20 mg PO DAILY PRN 02/04/16 [History] Docusate [Colace] 100 mg PO Q3-4D PRN 03/21/16 [History] Multivits,Ca,Minerals/Iron/FA [Women's Daily Formula Caplet] 1 each PO DAILY [History] Sennosides/Docusate Sodium [Senna Plus] 1 each PO Q3-4D PRN 03/21/16 [History] Bisacodyl [Dulcolax] 10 mg RC DAILY PRN 04/19/16 [History] Lidocaine/Prilocaine [Emla] 1 appl TP AD #30 gm 04/19/16 [Rx] Magic Mouthwash 10 ml PO Q4H PRN #240 ml 04/19/16 [Rx] Magnesium Citrate [Citroma] 296 ml PO PRN PRN 04/19/16 [History] Ondansetron HCl [Zofran] 4 mg PO Q6H PRN #60 tablet 04/19/16 [Rx] Oxycodone HCl/Acetaminophen [Percocet 10-325 mg Tablet] 1 each PO Q4-6H PRN 03/07 [History] Polyethylene Glycol 3350 [MiraLAX Powder Bulk 17.9 Oz] 1 scoop PO DAILY PRN 03/07 [History] Prochlorperazine Maleate [Compazine] 10 mg PO Q8HR PRN 04/19/16 [History] Fluconazole [Diflucan] 100 mg PO DAILY #10 tablet 04/26/16 [Rx] HydrOXYzine Pamoate [Vistaril] 100 mg PO BID PRN #60 capsule 04/26/16 [Rx] Promethazine [Phenergan] 25 mg RC Q6HR PRN #30 supp.rect 04/27/16 [Rx] Metoclopramide [Reglan] 10 mg PO Q6HR #120 tablet 05/05/16 [Rx] Megestrol Acetate [Megace] 400 mg PO DAILY #300 mls 05/08/16 [Rx] Dexamethasone [Decadron] 2 mg PO BID 05/10/16 [History] Dronabinol [Marinol] 5 mg PO TID #90 capsule 05/10/16 [Rx] Fentanyl 50 mg TD Q72H #10 patch.td72 05/10/16 [Rx] Allergies morphine Adverse Reaction (Verified 04/19/16 09:44) Abdominal Pain and nausea All systems: reviewed and no additional remarkable complaints except as stated Palliative Care-Exam - Constitutional Vitals: Temp Pulse Resp BP Pulse Ox 97.9 F 100 15 126/90 97 05/12/16 04:00 05/12/16 07:00 05/12/16 07:00 05/12/16 07:00 05/12/16 07:00 General appearance: Present: no acute distress (But appears uncomfortable) - Eye Eye exam: Present: EOMI, PERRL - ENT ENT exam: Present: mucous membranes moist - Respiratory Respiratory exam: Present: CTAB. Absent: rales, rhonchi, wheezes - Cardiovascular Cardiovascular exam: Present: tachycardia. Absent: gallop, rubs, systolic murmur - GI/Abdominal Exam GI/Abdominal exam: Present: diminished bowel sounds, distended (Mild), soft. Absent: tenderness - Extremities Exam Extremities exam: Absent: pedal edema - Neurological Exam Neurological exam: Present: alert, oriented X3, no focal deficits Internal Medicine - CN: Reslt - Labs CBC & Chem 7: 05/11/16 05:15 05/12/16 04:30 Labs: BMP 05/12/16 04:30 Sodium 133 L Potassium 3.8 Chloride 105 Carbon Dioxide 21 BUN 13 Creatinine 0.70 Glucose 155 H Calcium 8.4 L Urine 05/12/16 Range/Units 04:30 Urine Color Yellow (Yellow) Urine Clarity Cloudy A (Clear) Urine pH 6.0 (5.0-8.0) pH Units Ur Specific [place] 1.027 H (1.010-1.025) Urine Protein Trace (Neg-Trace) mg/dL Urine Glucose (UA) Normal (Normal) mg/dL - Impressions Impressions KUB X-Ray 05/12/16 07:00 IMPRESSION: 1. Unremarkable bowel gas pattern. 2. Cholelithiasis. D/ / Vito Taveras MD / Vito Taveras MD Interpreting Provider: Vito Taveras MD Consult Discharge Plan - Plan Referrals: Lambert Gandhi MD [Primary Care Provider] - 05/15/16 3:00 pm Palliative Quality Palliative Quality: Screen for Code Status: Yes, Screen for Goals of Care: Yes, Screen for Pain: Yes, If Pain Regimen Started, Initiate Bowel Regimen: Yes, Screen for Nausea/Vomitting: Yes Code Status: 05/10/16 21:38 Resuscitation Status: Active [RES] Routine Comment: Resuscitation Status: Full Code <Lambert Perdomo - Last Filed: 05/12/16 11:46> - Assessment and Plan (1) Cancer related pain Current Visit: Yes Status: Chronic Palliative-CN HPI - Data of Consult Requesting Physician: Grabiel Umana MD Primary Care Provider: Lambert Gandhi MD - Consult Narrative History of present illness: Ms. Chino is a 55 year old female CC: Grabiel Umana MD Palliative Care-Exam - Constitutional Vitals: Temp Pulse Resp BP Pulse Ox 98.8 F 113 15 132/98 97 05/12/16 11:00 05/12/16 11:00 05/12/16 11:00 05/12/16 11:00 05/12/16 11:00 Internal Medicine - CN: Reslt - Labs CBC & Chem 7: 05/11/16 05:15 05/12/16 04:30 Labs: BMP 05/12/16 04:30 Sodium 133 L Potassium 3.8 Chloride 105 Carbon Dioxide 21 BUN 13 Creatinine 0.70 Glucose 155 H Calcium 8.4 L Urine 05/12/16 Range/Units 04:30 Urine Color Yellow (Yellow) Urine Clarity Cloudy A (Clear) Urine pH 6.0 (5.0-8.0) pH Units Ur Specific [place] 1.027 H (1.010-1.025) Urine Protein Trace (Neg-Trace) mg/dL Urine Glucose (UA) Normal (Normal) mg/dL - Impressions Impressions KUB X-Ray 05/12/16 07:00 IMPRESSION: 1. Unremarkable bowel gas pattern. 2. Cholelithiasis. D/ / Vito Taveras MD / Vito Taveras MD Interpreting Provider: Vito Taveras MD - Attending Attestation I examined this patient and my medical decision-making was reviewed with the CYBER SECURITY ENGINEER/PA/Advanced Practice Nurse/Resident Physician. I agree with the documented findings, disposition and treatment plan as described except to the extent set forth below. IV morphine has been added if patient cannot tolerate her oral meds Palliative Quality Code Status: 05/10/16 21:38 Resuscitation Status: Active [RES] Routine Comment: Resuscitation Status: Full Code
[2016-05-12] MEDS ORDERED: *HR* Morphine 2 MG/ML SYRINGE IVP PRN (11:36)
[2016-05-12] MEDS ORDERED: Metoclopramide 10 MG/2 ML VIAL IVP SCH ×2 (12:00→21:00)
[2016-05-12] MEDS: Bisacodyl 10 MG RECTAL SUPPOSITORY RC SCH (13:05)
[2016-05-12] MEDS: *HR* LORazepam 2 MG/ML VIAL IVP SCH ×3 (13:06→21:17)
[2016-05-12] MEDS: Metoclopramide 10 MG/2 ML VIAL IVP SCH ×2 (13:07→17:59)
[2016-05-12] MEDS: Dexamethasone 4 MG/ML VIAL IVP SCH ×3 (13:09→21:16)
[2016-05-12] MEDS ORDERED: Potassium Phosphate 44 MEQ in 0.9 % Sodium Chloride 250 ML IVPB ONE (14:56)
[2016-05-12] MEDS ORDERED: D5% in Water 1,000 ML IVC PRN (14:57)
[2016-05-12] MEDS ORDERED: *HR* Dextrose 50 % in Water (Syg) 50 ML SYRINGE IVP PRN (14:57)
[2016-05-12] MEDS ORDERED: Dextrose Gel 15 GM PO PRN ×2 (14:57)
[2016-05-12] MEDS ORDERED: Clinimix E 5%-15% SOLUTION 2,000 ML with MVI, adult with vitamin K 10 ML IVC SCH (17:00)
[2016-05-12] MEDS: Insulin LISPRO 300 UNITS/3 ML VIAL SQ SCH ×2 (17:13→21:17)
[2016-05-12] MEDS: Pantoprazole 40 MG VIAL IVP SCH (17:59)
--- NOTE | 2016-05-12 21:04 | Internal Med Progress Note ---
Date of Encounter: 05/12/16 Time of Encounter: 18:00 - Assessment and plan (1) Dehydration Current Visit: Yes Status: Acute Assessment and plan: We will treat this with IV fluids. Replete electrolytes. Check BUN and creatinine the morning. Encourage oral hydration as much as tolerated. Treat nausea with Zofran and Phenergan. (2) Failure to thrive Current Visit: Yes Status: Acute Assessment and plan: She has had persistent nausea and severe abdominal pain her oncologist recommended TPN. We will consult nutrition and will request PICC line placement for TPN. Started TPN. All check fingersticks. Qualifiers: Failure to thrive age range: in adult Qualified Code(s): R62.7 - Adult failure to thrive (3) Abdominal pain Current Visit: No Status: Acute Assessment and plan: She takes oxycodone at home, she has a listed allergy to morphine. We will continue with her home meds. We will use fentanyl for severe pain uncontrolled with oral medication. We will treat her intractable nausea and vomiting with Zofran and Phenergan. Add low-dose Ativan. I appreciate palliative service recommendations. Qualifiers: Abdominal location: generalized Qualified Code(s): R10.84 - Generalized abdominal pain (4) Malignant neoplasm metastatic to colon Current Visit: Yes Status: Acute Assessment and plan: Outpatient follow-up with oncology. (5) Cancer related pain Current Visit: Yes Status: Chronic (6) Liver metastases Current Visit: Yes Status: Chronic (7) Hypophosphatemia Current Visit: Yes Status: Acute Assessment and plan: She cannot take by mouth. Replete with IV phosphorus and magnesium. (8) Hypomagnesemia Current Visit: Yes Status: Acute - Subjective Interval history: Pt reports severe nausea today w/ moderate abdominal pain, no fever, triggered by trying to eat, did not tolerate oral food. - Constitutional Vitals: Temp Pulse Resp BP Pulse Ox 97.9 F 96 16 124/92 96 05/12/16 19:50 05/12/16 19:50 05/12/16 19:50 05/12/16 19:50 05/12/16 19:50 General appearance: Present: A&O X 3 Exam: ill-appearing - Eye Eye exam: Present: PERRL, conjuntiva pink, sclera anicteric Pupils: Present: PERRL Additional comments: Pale - Neck Neck exam general surgery: Present: supple, trachea midline. Absent: lymphadenopathy - Respiratory Respiratory exam: Present: CTAB. Absent: accessory muscle use, rales, rhonchi, wheezes - Cardiovascular Cardiovascular exam: Present: RRR, +S1, +S2. Absent: diastolic murmur, gallop, rubs, systolic murmur - GI/Abdominal GI/Abdominal exam: Present: normal bowel sounds, soft, no peritoneal signs. Absent: distended, tenderness Internal Medicine: Result - Labs CBC & Chem 7: 05/11/16 05:15 05/12/16 04:30 Labs: BMP 05/12/16 04:30 Sodium 133 L Potassium 3.8 Chloride 105 Carbon Dioxide 21 BUN 13 Creatinine 0.70 Glucose 155 H Calcium 8.4 L Urine 05/12/16 Range/Units 04:30 Urine Color Yellow (Yellow) Urine Clarity Cloudy A (Clear) Urine pH 6.0 (5.0-8.0) pH Units Ur Specific [place] 1.027 H (1.010-1.025) Urine Protein Trace (Neg-Trace) mg/dL Urine Glucose (UA) Normal (Normal) mg/dL - Impressions Impressions KUB X-Ray 05/12/16 07:00 IMPRESSION: 1. Unremarkable bowel gas pattern. 2. Cholelithiasis. D/ / Vito Taveras MD / Vito Taveras MD Interpreting Provider: Vito Taveras MD Consult Discharge Plan - Plan Referrals: Lambert Gandhi MD [Primary Care Provider] - 05/15/16 3:00 pm
[2016-05-13] MEDS: Metoclopramide 10 MG/2 ML VIAL IVP SCH ×5 (00:05→23:58)
[2016-05-13] MEDS: Insulin LISPRO 300 UNITS/3 ML VIAL SQ SCH ×6 (00:06→20:30)
[2016-05-13] MEDS: Pantoprazole 40 MG VIAL IVP SCH ×2 (05:01→17:45)
[2016-05-13 05:29] LABS: BUN/Creatinine Ratio 22 (6-26); Blood Urea Nitrogen 13 mg/dL (7-20); Calcium 8.1 mg/dL (8.6-10.8); Carbon Dioxide 23 mEq/L (19-29); Chloride 105 mEq/L (98-109); Glucose 186 mg/dL (70-99); Magnesium 1.7 mg/dL (1.6-2.6); Osmolality,Calculated 281 (280-300); Phosphorous 1.5 mg/dL (2.3-4.7); Potassium 3.8 mEq/L (3.5-4.5); Sodium 133 mEq/L (136-145); eGFR For African Americans > 60 (> 60); eGFR For Non-African Americans > 60 (> 60)
[2016-05-13] MEDS: Ringers Solution, Lactated 1,000 ML IVC SCH ×2 (05:52→19:00)
[2016-05-13] MEDS: *HR* Promethazine 25 MG/ML VIAL IVP PRN ×2 (08:18→21:42)
[2016-05-13] MEDS: *HR* Enoxaparin 40 MG/0.4 ML SYRINGE SQ SCH (09:35)
[2016-05-13] MEDS: *HR* LORazepam 2 MG/ML VIAL IVP SCH ×4 (09:36→21:27)
[2016-05-13] MEDS: Dexamethasone 4 MG/ML VIAL IVP SCH ×4 (09:37→21:28)
[2016-05-13] MEDS: Bisacodyl 10 MG RECTAL SUPPOSITORY RC SCH (09:50)
--- NOTE | 2016-05-13 10:10 | Palliative Progress Note ---
Date of Encounter: 05/13/16 Time of Encounter: 09:30 - Assessment and plan (1) Nausea and vomiting Current Visit: No Status: Acute Assessment and plan: Patient reports nausea has diminished and no active vomiting since yesterday. I/ O indicates 2000 ml of vomiting yesterday. Reports belching and passing flatus. Current regimen of scheduled Reglan helping. Also requested: Zofran x 2 in past 24 hrs Phenergan x 2 in past 24 hrs Benadryl x 3 doses in past 24 hrs. Educated on disease process and need to continue request for meds as needed. Discussed when she can have food again. I discussed that current regimen is just beginning to work and not likely going to attempt po fluids or food for couple of days yet to rest GI tract. Qualifiers: Vomiting type: unspecified Vomiting Intractability: intractable Qualified Code(s): R11.2 - Nausea with vomiting, unspecified (2) Cancer related pain Current Visit: No Status: Chronic Assessment and plan: Patient up in chair and ambulated well back to bed. Reports dull ache to lower L2 area. Tenderness to light palpation. Reports intensity at a 2/10 and no radiation of pain. Currently receiving 50 mcg patch fentanyl and morphine IV and po percocet for BTP. No request for either meds in past 24 hrs. Current regimen effective. Discussed non pharmacological aids for pain. Discussed heat pad if needed and positioning for comfort. Provided additional pillows for comfort to back. Denied desire to have heating pad or ice therapy but I instructed her to request if needed. (3) Constipation due to pain medication Current Visit: No Status: Acute Assessment and plan: Patient receiving colace and passing flatus. Patient NPO and on TPN and Fluids. Will monitor. (4) Goals of care, counseling/discussion Current Visit: Yes Status: Acute Assessment and plan: Patient is Full Code and still with generalized weakness and plans to discuss GOC with . She verbalizes that she is still unclear weather she will desire any additional chemotherapy in the future due to her nausea. I will facilitate discussion further once she is past feeling so weak and tired. (5) Dehydration Current Visit: Yes Status: Acute Assessment and plan: Fluids and TPN managed per medicine. (6) Malignant neoplasm metastatic to colon Current Visit: Yes Status: Acute - Time Spent With Patient Total time spent is greater than 50% in coordination of care (as documented) at patient's floor/unit and/or counseling patient: 25 - 35 minutes - Subjective Interval history: Patient sitting up in chair, at bedside. Chart reviewed and assessment complete. Patient reports less nausea but is experiencing belching. Reports passing gas. States that lower back with slight ache. Patient with metastatic colon cancer receiving palliative radiation to spinal mets and Oncology note reviewed. Medications and POC reviewed with patient. - Constitutional Vitals: Abnormal lab results Hgb 9.1 g/dL (11.5-15.4) L D 05/11/16 05:15 Hct 30.0 % (35.3-44.9) L 05/11/16 05:15 MCV 78.5 fL (83.0-100.0) L 05/11/16 05:15 MCH 23.8 pg (28.0-33.3) L 05/11/16 05:15 MCHC 30.3 g/dL (31.6-35.5) L 05/11/16 05:15 RDW 18.1 % (11.5-14.5) H 05/11/16 05:15 Sodium 133 mEq/L (136-145) L 05/13/16 04:19 Glucose 186 mg/dL (70-99) H 05/13/16 04:19 POC Glucose 177 (58-89) H 05/13/16 04:40 Calcium 8.1 mg/dL (8.6-10.8) L 05/13/16 04:19 Ionized Calcium 1.14 mmol/L (1.15-1.35) L 05/12/16 04:30 Phosphorus 1.5 mg/dL (2.3-4.7) L 05/13/16 04:19 Alkaline Phosphatase 256 Units/L (38-126) H 05/10/16 16:00 Globulin 3.9 g/dL (2.4-3.5) H 05/10/16 16:00 Albumin/Globulin Ratio 0.9 (1.1-2.2) L 05/10/16 16:00 Urine Clarity Cloudy (Clear) A 05/12/16 04:30 Ur Specific [place] 1.027 (1.010-1.025) H 05/12/16 04:30 Urine Blood Moderate (Negative) H 05/12/16 04:30 Urine Microscopic RBC 5-15 per hpf (0-3) H 05/12/16 04:30 Urine Microscopic WBC 5-15 per hpf (0-3) H 05/12/16 04:30 Ur Squamous Epith Cells Many per lpf (None-Few) H 05/12/16 04:30 Ur Culture Indicated? YES (NO) A 05/12/16 04:30 - Head Head exam: Present: atraumatic, normal inspection - Eye Eye exam: Present: PERRL Pupils: Present: PERRL - ENT ENT exam: Present: mucous membranes moist - Neck Neck exam: Present: full ROM - Respiratory Respiratory exam: Present: CTAB - Cardiovascular Cardiovascular exam: Present: RRR, +S1, +S2 - Expanded Cardiovascular Exam Peripheral pulses: 1+: Femoral (L) PM, Femoral (R) PM, Posterior Tibialis (L), Posterior Tibialis (R), 2+: Carotid (L) PM, Carotid (R) PM, Radial (L), Radial ( R), Dorsalis Pedis (L) PM, Dorsalis Pedis (R) PM - GI/Abdominal GI/Abdominal exam: Present: normal bowel sounds, soft, tenderness Additional comments: passing flatus - Rectal Rectal exam: Present: deferred - Extremities Exam Extremities exam: Present: full ROM - Expanded Lower Extremity Exam Hip exam: Present: full ROM Upper Leg exam: Present: full ROM Knee exam: Present: full ROM Lower leg exam: Present: full ROM Ankle exam: Present: full ROM Gait: Present: observed and normal (ambulated to the BR without diffulty) - Back Exam Back exam: Present: vertebral tenderness - Neurological Exam Neurological exam: Present: alert, CN II-XII intact, oriented X3 - Psychiatric Psychiatric exam: Present: normal affect Palliative Quality Palliative Quality: Screen for Code Status: Yes, Screen for Goals of Care: Yes, Screen for Pain: Yes, If Pain Regimen Started, Initiate Bowel Regimen: Yes, Screen for Nausea/Vomitting: Yes Code Status: Currently full code - Labs CBC & Chem 7: 05/11/16 05:15 05/13/16 04:19 Labs: Laboratory Results - last 24 hr 05/12/16 05/13/16 05/13/16 23:48 04:19 04:40 Sodium 133 L Potassium 3.8 Chloride 105 Carbon Dioxide 23 BUN 13 Creatinine 0.59 Est GFR ( Amer) > 60 Est GFR (Non-Af Amer) > 60 BUN/Creatinine Ratio 22 Glucose 186 H POC Glucose 188 H 177 H Calculated Osmolality 281 Calcium 8.1 L Phosphorus 1.5 L Magnesium 1.7 - Impressions Impressions Abdomen CTA 05/13/16 07:00 IMPRESSION: 1. Near the junction of the 2nd and 3rd portions of the duodenum there is a 3.6 cm mass lesion consistent with metastatic lesion resulting in high-grade malignant obstruction that has progressed since the small bowel follow-through 05/04/2016. 2. Interval progression of blastic skeletal metastasis, hepatic metastatic disease, and peritoneal carcinomatosis. Interval necrosis of the diffuse pulmonary metastatic nodules which appear essentially stable in size. D/ / Delvis Ribera MD / Delvis Ribera MD Interpreting Provider: Delvis Ribera MD Consult Discharge Plan - Plan Referrals: Lambert Gandhi MD [Primary Care Provider] - 05/15/16 3:00 pm
[2016-05-13] MEDS: Budesonide/Formoterol 80/4.5 MDI IH SCH ×2 (10:19→19:46)
[2016-05-13] MEDS: RESTASIS OPTHALMIC OP SCH ×2 (10:22→21:28)
[2016-05-13] MEDS ORDERED: chlorproMAZINE 25 MG TABLET PO ONE (16:25)
[2016-05-13] MEDS ORDERED: Sodium Phosphate 30 MMOL in D5% in Water 100 ML IVPB ONE (16:43)
[2016-05-13] MEDS ORDERED: chlorproMAZINE 25 MG in 0.9 % Sodium Chloride 100 ML IVPB ONE (16:52)
[2016-05-13] MEDS ORDERED: Clinimix E 5%-15% SOLUTION 2,000 ML with MVI, adult with vitamin K 10 ML IVC SCH (17:00)
[2016-05-13] MEDS: *HR* FentaNYL PATCH 50 MCG PATCH TD SCH (21:28)
--- NOTE | 2016-05-13 21:35 | Internal Med Progress Note ---
Date of Encounter: 05/13/16 Time of Encounter: 15:00 - Assessment and plan (1) Dehydration Current Visit: Yes Status: Acute Assessment and plan: We will treat this with IV fluids. Replete electrolytes. Check BUN and creatinine the morning. Encourage oral hydration as much as tolerated. Treat nausea with Zofran and Phenergan. (2) Failure to thrive Current Visit: Yes Status: Acute Assessment and plan: She has had persistent nausea and severe abdominal pain her oncologist recommended TPN. We will consult nutrition and will request PICC line placement for TPN. Started TPN. All check fingersticks. Qualifiers: Failure to thrive age range: in adult Qualified Code(s): R62.7 - Adult failure to thrive (3) Abdominal pain Current Visit: No Status: Acute Assessment and plan: She takes oxycodone at home, she has a listed allergy to morphine. We will continue with her home meds. We will use fentanyl for severe pain uncontrolled with oral medication. We will treat her intractable nausea and vomiting with Zofran and Phenergan. Add low-dose Ativan. I appreciate palliative service recommendations. Qualifiers: Abdominal location: generalized Qualified Code(s): R10.84 - Generalized abdominal pain (4) Malignant neoplasm metastatic to colon Current Visit: Yes Status: Acute Assessment and plan: Oncology consult following, will reassess treatment options with them. CT of the abdomen and pelvis shows progression through her first cycle of FolFox which she tolerated poorly. We will explore any other options with oncology. (5) Cancer related pain Current Visit: No Status: Chronic (6) Liver metastases Current Visit: Yes Status: Chronic (7) Hypophosphatemia Current Visit: Yes Status: Acute Assessment and plan: She cannot take by mouth. Replete with IV phosphorus and magnesium. (8) Hypomagnesemia Current Visit: Yes Status: Acute (9) Duodenal obstruction, acquired Current Visit: Yes Status: Acute Assessment and plan: CT of the abdomen reveals a grade duodenal obstruction. Upon review of imaging I find largely dilated and stomach and first and second part of duodenum with large amount of fluid. The complete malignant obstruction I have placed a nasal nasogastric tube which returned 2500 mL of bilious fluid. - Subjective Interval history: Pt reports severe nausea today w/ moderate abdominal pain, no fever, nausea is improved from yesterday slightly with nothing by mouth and IV nausea medication. - Constitutional Vitals: Temp Pulse Resp BP Pulse Ox 98.1 F 113 16 132/87 92 L 05/13/16 20:48 05/13/16 20:48 05/13/16 20:48 05/13/16 20:48 05/13/16 20:48 General appearance: Present: A&O X 3 - Eye Eye exam: Present: PERRL, conjuntiva pink, sclera anicteric Pupils: Present: PERRL - Respiratory Respiratory exam: Present: CTAB. Absent: accessory muscle use, rales, rhonchi, wheezes - Cardiovascular Cardiovascular exam: Present: RRR, +S1, +S2. Absent: diastolic murmur, gallop, rubs, systolic murmur - GI/Abdominal GI/Abdominal exam: Present: normal bowel sounds, soft, tenderness, no peritoneal signs. Absent: distended - Extremities Exam Extremities exam: Present: warm, radial pulses palpable and symetrical. Absent : calf tenderness, cyanotic, pedal edema - Skin Skin exam: Present: dry, intact Internal Medicine: Result - Labs CBC & Chem 7: 05/11/16 05:15 05/13/16 04:19 Labs: BMP 05/13/16 04:19 Sodium 133 L Potassium 3.8 Chloride 105 Carbon Dioxide 23 BUN 13 Creatinine 0.59 Glucose 186 H Calcium 8.1 L - Impressions Impressions Abdomen CTA 05/13/16 07:00 IMPRESSION: 1. Near the junction of the second and third portions of the duodenum there is a 3.6 cm mass lesion consistent with metastatic disease resulting in high-grade malignant obstruction that has progressed since the small bowel follow-through 05/04/2016. 2. Interval progression of blastic skeletal metastasis, hepatic metastatic disease, and peritoneal carcinomatosis. Interval necrosis of the diffuse pulmonary metastatic nodules which appear essentially stable in size. D/ / 05/13/2016 11:13:19 Delvis Ribera MD / kaiden Interpreting Provider: Delvis Ribera MD I have reviewed these images and find massive dilation of the stomach and first and second parts of the duodenum which are fluid-filled and sharp transition to a decompressed distal duodenum and small intestine consistent with high grade small bowel obstruction. Consult Discharge Plan - Plan Referrals: Lambert Gandhi MD [Primary Care Provider] - 05/15/16 3:00 pm
[2016-05-14] MEDS: Insulin LISPRO 300 UNITS/3 ML VIAL SQ SCH ×6 (00:21→21:33)
[2016-05-14 03:03] LABS: Hematocrit 28.2 % (35.3-44.9); Hemoglobin 8.8 g/dL (11.5-15.4); Immature Granulocytes % 1.4 % (0-4); Lymphocytes # 0.5 K/mcL (0.6-4.6); Lymphocytes % 5.7 %; Mean Corpuscular HGB Conc 31.2 g/dL (31.6-35.5); Mean Corpuscular Hemoglobin 24.3 pg (28.0-33.3); Mean Corpuscular Volume 77.9 fL (83.0-100.0); Mean Platelet Volume 9.5 fL (9.4-12.4); Monocytes # 0.6 K/mcL (0.0-1.3); Monocytes % 6.7 %; Neutrophils # 7.2 K/mcL (1.6-8.9); Platelet Count 195 K/mcL (140-400); Red Blood Count 3.62 M/mcL (3.82-4.97); Red Cell Distribution Width 19.2 % (11.5-14.5); Segmented Neutrophils % 86.2 %
[2016-05-14 03:16] LABS: BUN/Creatinine Ratio 20 (6-26); Blood Urea Nitrogen 11 mg/dL (7-20); Calcium 7.9 mg/dL (8.6-10.8); Carbon Dioxide 23 mEq/L (19-29); Chloride 108 mEq/L (98-109); Glucose 149 mg/dL (70-99); Magnesium 1.8 mg/dL (1.6-2.6); Osmolality,Calculated 286 (280-300); Potassium 3.7 mEq/L (3.5-4.5); Sodium 137 mEq/L (136-145); eGFR For African Americans > 60 (> 60); eGFR For Non-African Americans > 60 (> 60)
[2016-05-14 03:23] LABS: Phosphorous 2.4 mg/dL (2.3-4.7)
[2016-05-14] MEDS: Pantoprazole 40 MG VIAL IVP SCH ×2 (05:30→17:10)
[2016-05-14] MEDS: Metoclopramide 10 MG/2 ML VIAL IVP SCH ×3 (05:30→21:31)
[2016-05-14] MEDS: Budesonide/Formoterol 80/4.5 MDI IH SCH ×2 (07:33→21:07)
[2016-05-14] MEDS: Ringers Solution, Lactated 1,000 ML IVC SCH ×2 (08:37→21:31)
[2016-05-14] MEDS: *HR* LORazepam 2 MG/ML VIAL IVP SCH ×4 (08:39→21:31)
[2016-05-14] MEDS: Bisacodyl 10 MG RECTAL SUPPOSITORY RC SCH (08:40)
[2016-05-14] MEDS: *HR* Enoxaparin 40 MG/0.4 ML SYRINGE SQ SCH (08:40)
[2016-05-14] MEDS: Dexamethasone 4 MG/ML VIAL IVP SCH ×4 (08:40→21:32)
[2016-05-14] MEDS: RESTASIS OPTHALMIC OP SCH ×2 (08:41→22:35)
--- NOTE | 2016-05-14 10:33 | Palliative Progress Note ---
Date of Encounter: 05/14/16 Time of Encounter: 09:30 - Assessment and plan (1) Nausea and vomiting Current Visit: No Status: Acute Assessment and plan: Patient reports nausea has diminished due to insertion of NG. I/O indicates 2400 ml of GI drainage last night. Abdomen CTA reveals duodenal obstruction. Discussed with Dr. Umana. Current regimen of scheduled Reglan helping. Also requested: Zofran Phenergan Will await further recommendations from Oncology. Patient approved to have candy to suck on to facilitate oral comfort. Qualifiers: Vomiting type: unspecified Vomiting Intractability: intractable Qualified Code(s): R11.2 - Nausea with vomiting, unspecified (2) Cancer related pain Current Visit: No Status: Chronic Assessment and plan: Patient ambulated well back to bed. Reports dull ache to lower L2 area. Tenderness to light palpation. Reports intensity at a 3/10 and no radiation of pain. Currently receiving 50 mcg patch fentanyl and morphine IV and po percocet for BTP. No request for either meds in past 24 hrs. Current regimen effective. Discussed non pharmacological aids for pain. (3) Constipation due to pain medication Current Visit: No Status: Acute Assessment and plan: Patient with duodenal obstruction. Bowel rest. Patient NPO and on TPN and Fluids. Will monitor. (4) Goals of care, counseling/discussion Current Visit: Yes Status: Acute Assessment and plan: Patient is Full Code. Goals of care to be addressed further once Oncology has given recommendations based on Duodenal obstruction. Will continue to follow progress and address as needed. (5) Dehydration Current Visit: Yes Status: Acute Assessment and plan: Fluids and TPN managed per medicine. (6) Malignant neoplasm metastatic to colon Current Visit: Yes Status: Acute Assessment and plan: per Oncology - Time Spent With Patient Total time spent is greater than 50% in coordination of care (as documented) at patient's floor/unit and/or counseling patient: 25 - 35 minutes - Subjective Interval history: Patient ambulating in room from BR to bed. at bedside. Events from last night discussed at patient refused NG tube and reported that it was just to difficult to tolerate. Output noted and today states she feels better and no nausea related to NG drainage. Follow-up discussion regarding duodenal obstruction. I discussed with Dr. Umana and will await input from Oncology. Patient and aware that Oncology will see tomorrow and make recommendations for any additional beneficial treatment. Dr. Umana discussed possible palliative PEG placement for management of nausea related to obstruction. - Constitutional Vitals: Abnormal lab results RBC 3.62 M/mcL (3.82-4.97) L 05/14/16 02:55 Hgb 8.8 g/dL (11.5-15.4) L 05/14/16 02:55 Hct 28.2 % (35.3-44.9) L 05/14/16 02:55 MCV 77.9 fL (83.0-100.0) L 05/14/16 02:55 MCH 24.3 pg (28.0-33.3) L 05/14/16 02:55 MCHC 31.2 g/dL (31.6-35.5) L 05/14/16 02:55 RDW 19.2 % (11.5-14.5) H 05/14/16 02:55 Lymphocytes # 0.5 K/mcL (0.6-4.6) L 05/14/16 02:55 Creatinine 0.56 mg/dL (0.57-1.11) L 05/14/16 02:55 Glucose 149 mg/dL (70-99) H 05/14/16 02:55 POC Glucose 128 (58-89) H 05/13/16 16:38 Calcium 7.9 mg/dL (8.6-10.8) L 05/14/16 02:55 Ionized Calcium 1.14 mmol/L (1.15-1.35) L 05/12/16 04:30 Alkaline Phosphatase 256 Units/L (38-126) H 05/10/16 16:00 Globulin 3.9 g/dL (2.4-3.5) H 05/10/16 16:00 Albumin/Globulin Ratio 0.9 (1.1-2.2) L 05/10/16 16:00 Urine Clarity Cloudy (Clear) A 05/12/16 04:30 Ur Specific [place] 1.027 (1.010-1.025) H 05/12/16 04:30 Urine Blood Moderate (Negative) H 05/12/16 04:30 Urine Microscopic RBC 5-15 per hpf (0-3) H 05/12/16 04:30 Urine Microscopic WBC 5-15 per hpf (0-3) H 05/12/16 04:30 Ur Squamous Epith Cells Many per lpf (None-Few) H 05/12/16 04:30 Ur Culture Indicated? YES (NO) A 05/12/16 04:30 - Head Head exam: Present: atraumatic, normal inspection, normocephalic - Eye Eye exam: Present: PERRL Pupils: Present: PERRL - ENT ENT exam: Present: mucous membranes dry (ice chips for rinsing mouth) - Neck Neck exam: Present: full ROM - Respiratory Respiratory exam: Present: CTAB - Cardiovascular Cardiovascular exam: Present: RRR, +S1, +S2 - GI/Abdominal GI/Abdominal exam: Present: diminished bowel sounds, soft, tenderness - Extremities Exam Extremities exam: Present: full ROM - Back Exam Back exam: Present: full ROM, vertebral tenderness - Neurological Exam Neurological exam: Present: alert, CN II-XII intact, oriented X3 - Psychiatric Psychiatric exam: Present: normal affect - Skin Skin exam: Present: normal color, warm Palliative Quality Palliative Quality: Screen for Code Status: Yes, Screen for Goals of Care: Yes, Screen for Pain: Yes, If Pain Regimen Started, Initiate Bowel Regimen: Yes, Screen for Nausea/Vomitting: Yes - Labs CBC & Chem 7: 05/14/16 02:55 05/14/16 02:55 Labs: Laboratory Results - last 24 hr 05/13/16 05/13/16 05/13/16 07:34 11:31 16:38 WBC RBC Hgb Hct MCV MCH MCHC RDW Plt Count MPV Immature Gran % Seg Neutrophils % Lymphocytes % Monocytes % Eosinophils % Basophils % Neutrophils # Lymphocytes # Monocytes # Eosinophils # Basophils # Sodium Potassium Chloride Carbon Dioxide BUN Creatinine Est GFR ( Amer) Est GFR (Non-Af Amer) BUN/Creatinine Ratio Glucose POC Glucose 144 H 142 H 128 H Calculated Osmolality Calcium Phosphorus Magnesium 05/14/16 05/14/16 02:55 02:55 WBC 8.4 D RBC 3.62 L Hgb 8.8 L Hct 28.2 L MCV 77.9 L MCH 24.3 L MCHC 31.2 L RDW 19.2 H Plt Count 195 MPV 9.5 Immature Gran % 1.4 Seg Neutrophils % 86.2 Lymphocytes % 5.7 Monocytes % 6.7 Eosinophils % 0.0 Basophils % 0.0 Neutrophils # 7.2 Lymphocytes # 0.5 L Monocytes # 0.6 Eosinophils # 0.0 Basophils # 0.0 Sodium 137 Potassium 3.7 Chloride 108 Carbon Dioxide 23 BUN 11 Creatinine 0.56 L Est GFR ( Amer) > 60 Est GFR (Non-Af Amer) > 60 BUN/Creatinine Ratio 20 Glucose 149 H POC Glucose Calculated Osmolality 286 Calcium 7.9 L Phosphorus 2.4 D Magnesium 1.8 - Impressions Impressions Abdomen CTA 05/13/16 07:00 IMPRESSION: 1. Near the junction of the second and third portions of the duodenum there is a 3.6 cm mass lesion consistent with metastatic disease resulting in high-grade malignant obstruction that has progressed since the small bowel follow-through 05/04/2016. 2. Interval progression of blastic skeletal metastasis, hepatic metastatic disease, and peritoneal carcinomatosis. Interval necrosis of the diffuse pulmonary metastatic nodules which appear essentially stable in size. D/ / 05/13/2016 11:13:19 Delvis Ribera MD / [email or web address] Interpreting Provider: Delvis Ribera MD Consult Discharge Plan - Plan Referrals: Lambert Gandhi MD [Primary Care Provider] - 05/15/16 3:00 pm
[2016-05-14] MEDS ORDERED: Clinimix E 5%-15% SOLUTION 2,000 ML, Amino Acids 10% 0 ML with MVI, adult with vitami... IVC SCH (17:00)
[2016-05-14] MEDS: Clinimix E 5%-15% SOLUTION 2,000 ML with MVI, adult with vitamin K 10 ML IVC SCH (17:12)
--- NOTE | 2016-05-14 19:45 | Internal Med Progress Note ---
Date of Encounter: 05/14/16 Time of Encounter: 10:00 - Assessment and plan (1) Dehydration Current Visit: Yes Status: Acute Assessment and plan: We will treat this with IV fluids. Replete electrolytes. Check BUN and creatinine the morning. Encourage oral hydration as much as tolerated. Treat nausea with Zofran and Phenergan. (2) Failure to thrive Current Visit: Yes Status: Acute Assessment and plan: She has had persistent nausea and severe abdominal pain her oncologist recommended TPN. We will consult nutrition and will request PICC line placement for TPN. Started TPN. All check fingersticks. Qualifiers: Failure to thrive age range: in adult Qualified Code(s): R62.7 - Adult failure to thrive (3) Abdominal pain Current Visit: No Status: Acute Assessment and plan: She takes oxycodone at home, she has a listed allergy to morphine. We will continue with her home meds. We will use fentanyl for severe pain uncontrolled with oral medication. We will treat her intractable nausea and vomiting with Zofran and Phenergan. Add low-dose Ativan. I appreciate palliative service recommendations. Qualifiers: Abdominal location: generalized Qualified Code(s): R10.84 - Generalized abdominal pain (4) Malignant neoplasm metastatic to colon Current Visit: Yes Status: Acute Assessment and plan: Oncology consult following, will reassess treatment options with them. CT of the abdomen and pelvis shows progression through her first cycle of FolFox which she tolerated poorly. We will explore any other options with oncology. (5) Cancer related pain Current Visit: No Status: Chronic (6) Liver metastases Current Visit: Yes Status: Chronic (7) Hypophosphatemia Current Visit: Yes Status: Acute Assessment and plan: She cannot take by mouth. Replete with IV phosphorus and magnesium. (8) Hypomagnesemia Current Visit: Yes Status: Acute (9) Duodenal obstruction, acquired Current Visit: Yes Status: Acute Assessment and plan: she decided to discontinue her NG tube. At this point is draining gastrostomy tube would be an option as a palliative measure. We will discuss this with the patient family and oncology service. CT of the abdomen reveals a grade duodenal obstruction. Upon review of imaging I find largely dilated and stomach and first and second part of duodenum with large amount of fluid. The complete malignant obstruction I have placed a nasal nasogastric tube which returned 2500 mL of bilious fluid. - Subjective Interval history: Pt reports mild nausea today w/ moderate abdominal pain, no fever, nausea is improved from yesterday briefly after tube suction last night. She however did not tolerate the NG tube overnight and therefore it was discontinued. - Constitutional Vitals: Temp Pulse Resp BP Pulse Ox 97.8 F 95 18 126/80 97 05/14/16 16:00 05/14/16 16:00 05/14/16 16:00 05/14/16 16:00 05/14/16 16:00 General appearance: Present: A&O X 3 - Head Head exam: Present: atraumatic, normocephalic - Respiratory Respiratory exam: Present: CTAB. Absent: accessory muscle use, rales, rhonchi, wheezes - Cardiovascular Cardiovascular exam: Present: RRR, +S1, +S2. Absent: diastolic murmur, gallop, rubs, systolic murmur - GI/Abdominal GI/Abdominal exam: Present: diminished bowel sounds, soft, no peritoneal signs. Absent: distended, tenderness - Extremities Exam Extremities exam: Present: warm, radial pulses palpable and symetrical. Absent : calf tenderness, cyanotic, pedal edema Internal Medicine: Result - Labs CBC & Chem 7: 05/14/16 02:55 05/14/16 02:55 Labs: Short CBC 05/14/16 Range/Units 02:55 WBC 8.4 D (4.3-11.1) K/mcL Hgb 8.8 L (11.5-15.4) g/dL Hct 28.2 L (35.3-44.9) % Plt Count 195 (140-400) K/mcL Neutrophils # 7.2 (1.6-8.9) K/mcL BMP 05/14/16 02:55 Sodium 137 Potassium 3.7 Chloride 108 Carbon Dioxide 23 BUN 11 Creatinine 0.56 L Glucose 149 H Calcium 7.9 L Consult Discharge Plan - Plan Referrals: Lambert Gandhi MD [Primary Care Provider] - 05/15/16 3:00 pm
[2016-05-14] MEDS: *HR* Promethazine 25 MG/ML VIAL IVP PRN (22:27)
[2016-05-15] MEDS: Metoclopramide 10 MG/2 ML VIAL IVP SCH ×2 (00:49→05:23)
[2016-05-15] MEDS: Insulin LISPRO 300 UNITS/3 ML VIAL SQ SCH ×6 (00:49→21:11)
[2016-05-15 03:08] LABS: Hematocrit 29.6 % (35.3-44.9); Immature Granulocytes % 1.6 % (0-4); Immature Platelets 3.5 % (1.1-6.1); Lymphocytes # 0.5 K/mcL (0.6-4.6); Lymphocytes % 8.1 %; Mean Corpuscular HGB Conc 30.4 g/dL (31.6-35.5); Mean Corpuscular Hemoglobin 24.3 pg (28.0-33.3); Mean Platelet Volume 10.1 fL (9.4-12.4); Monocytes # 0.5 K/mcL (0.0-1.3); Neutrophils # 4.5 K/mcL (1.6-8.9); Nucleated Red Blood Cells 0.5 /100 WBC (0); Platelet Count 183 K/mcL (140-400); Red Cell Distribution Width 19.8 % (11.5-14.5); Segmented Neutrophils % 81.3 %
[2016-05-15 03:20] LABS: BUN/Creatinine Ratio 27 (6-26); Blood Urea Nitrogen 15 mg/dL (7-20); Calcium 8.1 mg/dL (8.6-10.8); Carbon Dioxide 22 mEq/L (19-29); Chloride 108 mEq/L (98-109); Glucose 143 mg/dL (70-99); Osmolality,Calculated 285 (280-300); Potassium 4.2 mEq/L (3.5-4.5); Sodium 136 mEq/L (136-145); eGFR For African Americans > 60 (> 60); eGFR For Non-African Americans > 60 (> 60)
[2016-05-15] MEDS: Pantoprazole 40 MG VIAL IVP SCH ×2 (05:23→17:27)
[2016-05-15] MEDS: Clinimix E 5%-15% SOLUTION 2,000 ML with MVI, adult with vitamin K 10 ML IVC SCH (08:44)
[2016-05-15] MEDS: *HR* LORazepam 2 MG/ML VIAL IVP SCH (10:53)
[2016-05-15] MEDS: Dexamethasone 4 MG/ML VIAL IVP SCH ×4 (10:54→21:08)
[2016-05-15] MEDS: Budesonide/Formoterol 80/4.5 MDI IH SCH ×2 (10:56→19:33)
[2016-05-15] MEDS: Hyoscyamine 0.5 MG/ML MLS IVP SCH ×4 (11:02→21:09)
[2016-05-15] MEDS: Bisacodyl 10 MG RECTAL SUPPOSITORY RC SCH (11:02)
[2016-05-15] MEDS: RESTASIS OPTHALMIC OP SCH ×2 (11:03→23:46)
[2016-05-15] MEDS: *HR* Enoxaparin 40 MG/0.4 ML SYRINGE SQ SCH (11:03)
--- NOTE | 2016-05-15 11:22 | Palliative Progress Note ---
Date of Encounter: 05/15/16 Time of Encounter: 11:20 - Assessment and plan (1) Cancer related pain Current Visit: No Status: Chronic Assessment and plan: Pain is under good control at this time. Will leave pain medications where they are at, had the patient on morphine, however she does have an allergy to it in that it causes increased abdominal pain so this is been stopped and she never got a dose. He continues to get her pills by mouth when she can tolerate it. We will consider using low-dose Dilaudid if necessary. (2) Dehydration Current Visit: Yes Status: Acute (3) Failure to thrive Current Visit: Yes Status: Acute Assessment and plan: The patient is currently on TPN, she is reporting feeling hungry. Feeding will be per the hospitalist team however. Qualifiers: Failure to thrive age range: in adult Qualified Code(s): R62.7 - Adult failure to thrive (4) Nausea and vomiting Current Visit: No Status: Acute Assessment and plan: This is markedly improved over Sunday. Patient did transiently have an NG tube in and vomited 2 L of fluid on Sunday and had 2-1/2 L roughly removed by tube on Sunday feeling much better on Sunday and continues to feel better today. Patient did have a CT scan which showed a high obstruction with possible to watch him and possibly complete obstruction therefore the scheduled Reglan has been stopped, placed with scheduled Phenergan, when necessary Zofran continues to be available also increase the Decadron and added Levsin to decrease the fluid in the stomach. (This is because the patient did not want to keep the NG tube in) the patient is waiting to hear from radiation and medical oncology as to what they have to offer today. At the time of this dictation radiation oncology is currently meeting with the patient. Qualifiers: Vomiting type: unspecified Vomiting Intractability: intractable Qualified Code(s): R11.2 - Nausea with vomiting, unspecified (5) Goals of care, counseling/discussion Current Visit: Yes Status: Acute Assessment and plan: Issues O status at this time is full she is reconsidering her CODE STATUS. Also care she wishes to talk to oncology and radiation oncology that what they have to offer. She may also wish to get a second opinion from Dr. James Kumar who is currently at the [facility] [place] at the [facility]. She is not sure of this but she had seen him in the past. We will decide what her goals of care are depending on what is offered to her. She does understand that she has metastatic colon cancer and all treatments at this time are palliative. So now understands where hospice fits in the picture and had a lot of questions regarding that this is an ongoing discussion. (6) Constipation due to pain medication Current Visit: No Status: Acute Assessment and plan: Continue Dulcolax suppositories constipation may in part be due to high-grade obstruction in the proximal to watch him. (7) Colon cancer Current Visit: No Status: Acute Assessment and plan: Patient is currently awaiting opinions from radiation oncology and medical oncology as to what further treatments that are available. Depending on what is available she may decide to discontinue aggressive care versus possible hospice care. Qualifiers: Colon location: unspecified part of colon Qualified Code(s): C18.9 - Malignant neoplasm of colon, unspecified - Time Spent With Patient Total time spent is greater than 50% in coordination of care (as documented) at patient's floor/unit and/or counseling patient: Greater than 35 minutes - Subjective Interval history: The patient is feeling much better today less nausea pain is under good control. She is able to open up her eyes move her head around and get up and walk around without too much trouble with nausea. Her bowels did move on Sunday , he has passed a very small amount of gas since then but cannot recall exactly when. - Constitutional Vitals: Abnormal lab results RBC 3.70 M/mcL (3.82-4.97) L 05/15/16 02:58 Hgb 9.0 g/dL (11.5-15.4) L 05/15/16 02:58 Hct 29.6 % (35.3-44.9) L 05/15/16 02:58 MCV 80.0 fL (83.0-100.0) L 05/15/16 02:58 MCH 24.3 pg (28.0-33.3) L 05/15/16 02:58 MCHC 30.4 g/dL (31.6-35.5) L 05/15/16 02:58 RDW 19.8 % (11.5-14.5) H 05/15/16 02:58 Lymphocytes # 0.5 K/mcL (0.6-4.6) L 05/15/16 02:58 Nucleated RBCs/100 WBC 0.5 /100 WBC (0) H 05/15/16 02:58 Creatinine 0.55 mg/dL (0.57-1.11) L 05/15/16 02:58 BUN/Creatinine Ratio 27 (6-26) H 05/15/16 02:58 Glucose 143 mg/dL (70-99) H 05/15/16 02:58 POC Glucose 158 (58-89) H 05/14/16 21:03 Calcium 8.1 mg/dL (8.6-10.8) L 05/15/16 02:58 Ionized Calcium 1.14 mmol/L (1.15-1.35) L 05/12/16 04:30 Phosphorus 2.0 mg/dL (2.3-4.7) L 05/15/16 02:58 Alkaline Phosphatase 256 Units/L (38-126) H 05/10/16 16:00 Globulin 3.9 g/dL (2.4-3.5) H 05/10/16 16:00 Albumin/Globulin Ratio 0.9 (1.1-2.2) L 05/10/16 16:00 Urine Clarity Cloudy (Clear) A 05/12/16 04:30 Ur Specific [place] 1.027 (1.010-1.025) H 05/12/16 04:30 Urine Blood Moderate (Negative) H 05/12/16 04:30 Urine Microscopic RBC 5-15 per hpf (0-3) H 05/12/16 04:30 Urine Microscopic WBC 5-15 per hpf (0-3) H 05/12/16 04:30 Ur Squamous Epith Cells Many per lpf (None-Few) H 05/12/16 04:30 Ur Culture Indicated? YES (NO) A 05/12/16 04:30 General appearance: Present: no acute distress - Head Head exam: Present: atraumatic, normal inspection - Eye Eye exam: Present: normal appearance - ENT ENT exam: Present: mucous membranes moist - Respiratory Respiratory exam: Present: CTAB - Cardiovascular Cardiovascular exam: Present: RRR, tachycardia - GI/Abdominal GI/Abdominal exam: Present: normal bowel sounds, soft. Absent: distended (No real distention instantly no hyperactive bowel sounds at this time. I also do not hear any high-pitched tinkles.), tenderness - Extremities Exam Extremities exam: Present: normal inspection. Absent: pedal edema, tenderness - Psychiatric Psychiatric exam: Present: normal affect, normal mood. Absent: agitated, anxious - Skin Skin exam: Present: dry, warm Palliative Quality Palliative Quality: Screen for Code Status: Yes, Screen for Goals of Care: Yes, Screen for Pain: Yes, If Pain Regimen Started, Initiate Bowel Regimen: Yes, Screen for Nausea/Vomitting: Yes - Labs CBC & Chem 7: 05/15/16 02:58 05/15/16 02:58 Labs: Laboratory Results - last 24 hr 05/13/16 05/14/16 05/14/16 21:24 00:14 04:18 WBC RBC Hgb Hct MCV MCH MCHC RDW Plt Count MPV Immature Gran % Seg Neutrophils % Lymphocytes % Monocytes % Eosinophils % Basophils % Neutrophils # Lymphocytes # Monocytes # Eosinophils # Basophils # Nucleated RBCs/100 WBC Immature Plt Fraction Sodium Potassium Chloride Carbon Dioxide BUN Creatinine Est GFR ( Amer) Est GFR (Non-Af Amer) BUN/Creatinine Ratio Glucose POC Glucose 191 H 164 H 153 H Calculated Osmolality Calcium Phosphorus Magnesium 05/14/16 05/14/16 05/14/16 07:06 11:59 16:14 WBC RBC Hgb Hct MCV MCH MCHC RDW Plt Count MPV Immature Gran % Seg Neutrophils % Lymphocytes % Monocytes % Eosinophils % Basophils % Neutrophils # Lymphocytes # Monocytes # Eosinophils # Basophils # Nucleated RBCs/100 WBC Immature Plt Fraction Sodium Potassium Chloride Carbon Dioxide BUN Creatinine Est GFR ( Amer) Est GFR (Non-Af Amer) BUN/Creatinine Ratio Glucose POC Glucose 146 H 134 H 97 H Calculated Osmolality Calcium Phosphorus Magnesium 05/14/16 05/15/16 05/15/16 21:03 02:58 02:58 WBC 5.6 RBC 3.70 L Hgb 9.0 L Hct 29.6 L MCV 80.0 L MCH 24.3 L MCHC 30.4 L RDW 19.8 H Plt Count 183 MPV 10.1 Immature Gran % 1.6 Seg Neutrophils % 81.3 Lymphocytes % 8.1 Monocytes % 9.0 Eosinophils % 0.0 Basophils % 0.0 Neutrophils # 4.5 Lymphocytes # 0.5 L Monocytes # 0.5 Eosinophils # 0.0 Basophils # 0.0 Nucleated RBCs/100 WBC 0.5 H Immature Plt Fraction 3.5 Sodium 136 Potassium 4.2 Chloride 108 Carbon Dioxide 22 BUN 15 Creatinine 0.55 L Est GFR ( Amer) > 60 Est GFR (Non-Af Amer) > 60 BUN/Creatinine Ratio 27 H Glucose 143 H POC Glucose 158 H Calculated Osmolality 285 Calcium 8.1 L Phosphorus 2.0 L Magnesium 2.0 Consult Discharge Plan - Plan Referrals: Lambert Gandhi MD [Primary Care Provider] - 05/15/16 3:00 pm
--- NOTE | 2016-05-15 11:52 | RAD Oncology Progress Note ---
Radiation Oncology Dictation Date of Service: 05/15/16 - Progress Note Comments: Ms. Chino was seen in the hospital today. Patient has duodenal obstruction. Patient recently had FOLFOX chemotherapy. Patient decompressed with an NG tube. She has had that removed and is taking ice chips without nausea. CT scan consistent with complete obstruction. Patient has bowel sounds distal to obstruction. I would recommend surgical bypass procedure or jejunal feeding tube depending on the opinion of surgery. If surgery is not an option, I would recommend radiating the obstruction/mass. Surgical consult placed. Encouraged patient to pursue treatment for obstruction as a palliative goal. Her side effects from her initial chemotherapy were likely secondary to obstruction AND chemotherapy side effects. Encouraged patient to reserve decision for final chemotherapy after obstruction has been treated. Dr. Tovar/[facility] to place surgical consult.
[2016-05-15] MEDS: (ADVAIR 250/50) IH SCH ×2 (13:16→23:45)
[2016-05-15] MEDS: *HR* Promethazine 25 MG/ML VIAL IVP SCH ×3 (13:16→23:47)
--- NOTE | 2016-05-15 13:37 | Oncology Inp Progress Note ---
<EsmeLeticia E - Last Filed: 05/15/16 13:35> Date of Encounter: 05/15/16 Time of Encounter: 11:20 (1) Failure to thrive Current Visit: Yes Status: Acute Assessment and plan: Currently receiving TPN Qualifiers: Failure to thrive age range: in adult Qualified Code(s): R62.7 - Adult failure to thrive (2) Duodenal obstruction, acquired Current Visit: Yes Status: Acute Assessment and plan: Surgical consult. Spoke with Dr. Aleman (3) Malignant neoplasm metastatic to colon Current Visit: Yes Status: Acute (4) Liver metastases Current Visit: Yes Status: Chronic Oncology: Subj Interval history: Patient seen and examined at bedside. Patient states that she is feeling much better. Nausea is being controlled very well with anti-emetics She denies having pain. Remains weak. She feels nausea following chemotherapy was all caused by treatment, tried to explain to her that it could have been associated with obstruction. SHe had NG on with 2400 ML and 550ml on 05/14 but this was removed at about 1 AM secondary to patients demand to have it removed. She stated that yesterday was the best she had felt for a long time. Spoke with the patient regarding surgical consult, to consider diversion. She was also seen by Dr. Gomez, radiation oncology -see his note. Patient very emotional during visit. Concerned about future treatments and quality of life. - Constitutional Vitals: Vital Signs Temp Pulse Resp BP Pulse Ox 05/15/16 12:32 98.1 F 94 16 108/75 97 05/15/16 09:00 98 05/15/16 08:03 98.4 F 112 18 109/77 97 05/15/16 06:16 99.4 F 73 14 116/71 98 05/14/16 20:19 97.9 F 92 20 129/83 94 L 05/14/16 16:00 97.8 F 95 18 126/80 97 Intake and Output 05/14/16 05/15/16 05/15/16 23:59 07:59 15:59 Intake Total 1160 / 1160 2099 / 2099 Output Total 50 / 50 Balance 1160 / 1160 2099 / 2099 -50 / -50 Intake: IV Fluids 1160 / 1160 2099 / 2099 Clinimix E 5%-15% 160 / 160 1850 / 1850 SOLUTION 2,000 ML @ 158 mls/hr IVC .[id number] PEPE with M.v.i. Adult 10 ml Rx#:[id number] Lactated Ringers 1,000 ML 1000 / 1000 @ 80 mls/hr IVC .[id number] PEPE Rx#:[id number] Intralipid 20% 250 ML @ 250 / 250 21 mls/hr IVPB DAILY@1700 [facility] Rx#:[id number] Output: Urine 50 / 50 Other: Weight 60.2 kg Blood Glucose* 158 151 100 Patient Weight 05/15/16 23:59 Weight 60.2 kg General appearance: cooperative, no acute distress - Head Head exam: Present: normal inspection - ENT ENT exam: Present: mucous membranes dry - Respiratory Respiratory exam: Present: CTAB - Cardiovascular Cardiovascular exam: Present: RRR - GI/Abdominal GI/Abdominal exam: Present: soft - Extremities Exam Extremities exam: Present: normal inspection - Neurological Exam Neurological exam: Present: alert, oriented X3 - Psychiatric Psychiatric exam: Present: anxious Oncology: Obj Data - Labs CBC & Chem 7: 05/15/16 02:58 05/15/16 02:58 Labs: Laboratory Results - last 24 hr 05/13/16 05/14/16 05/14/16 21:24 00:14 04:18 WBC RBC Hgb Hct MCV MCH MCHC RDW Plt Count MPV Immature Gran % Seg Neutrophils % Lymphocytes % Monocytes % Eosinophils % Basophils % Neutrophils # Lymphocytes # Monocytes # Eosinophils # Basophils # Nucleated RBCs/100 WBC Immature Plt Fraction Sodium Potassium Chloride Carbon Dioxide BUN Creatinine Est GFR ( Amer) Est GFR (Non-Af Amer) BUN/Creatinine Ratio Glucose POC Glucose 191 H 164 H 153 H Calculated Osmolality Calcium Phosphorus Magnesium 05/14/16 05/14/16 05/14/16 07:06 11:59 16:14 WBC RBC Hgb Hct MCV MCH MCHC RDW Plt Count MPV Immature Gran % Seg Neutrophils % Lymphocytes % Monocytes % Eosinophils % Basophils % Neutrophils # Lymphocytes # Monocytes # Eosinophils # Basophils # Nucleated RBCs/100 WBC Immature Plt Fraction Sodium Potassium Chloride Carbon Dioxide BUN Creatinine Est GFR ( Amer) Est GFR (Non-Af Amer) BUN/Creatinine Ratio Glucose POC Glucose 146 H 134 H 97 H Calculated Osmolality Calcium Phosphorus Magnesium 05/14/16 05/15/16 05/15/16 21:03 00:17 02:58 WBC RBC Hgb Hct MCV MCH MCHC RDW Plt Count MPV Immature Gran % Seg Neutrophils % Lymphocytes % Monocytes % Eosinophils % Basophils % Neutrophils # Lymphocytes # Monocytes # Eosinophils # Basophils # Nucleated RBCs/100 WBC Immature Plt Fraction Sodium 136 Potassium 4.2 Chloride 108 Carbon Dioxide 22 BUN 15 Creatinine 0.55 L Est GFR ( Amer) > 60 Est GFR (Non-Af Amer) > 60 BUN/Creatinine Ratio 27 H Glucose 143 H POC Glucose 158 H 147 H Calculated Osmolality 285 Calcium 8.1 L Phosphorus 2.0 L Magnesium 2.0 05/15/16 05/15/16 05/15/16 02:58 04:37 08:06 WBC 5.6 RBC 3.70 L Hgb 9.0 L Hct 29.6 L MCV 80.0 L MCH 24.3 L MCHC 30.4 L RDW 19.8 H Plt Count 183 MPV 10.1 Immature Gran % 1.6 Seg Neutrophils % 81.3 Lymphocytes % 8.1 Monocytes % 9.0 Eosinophils % 0.0 Basophils % 0.0 Neutrophils # 4.5 Lymphocytes # 0.5 L Monocytes # 0.5 Eosinophils # 0.0 Basophils # 0.0 Nucleated RBCs/100 WBC 0.5 H Immature Plt Fraction 3.5 Sodium Potassium Chloride Carbon Dioxide BUN Creatinine Est GFR ( Amer) Est GFR (Non-Af Amer) BUN/Creatinine Ratio Glucose POC Glucose 151 H 82 Calculated Osmolality Calcium Phosphorus Magnesium 05/15/16 05/15/16 09:07 12:35 WBC RBC Hgb Hct MCV MCH MCHC RDW Plt Count MPV Immature Gran % Seg Neutrophils % Lymphocytes % Monocytes % Eosinophils % Basophils % Neutrophils # Lymphocytes # Monocytes # Eosinophils # Basophils # Nucleated RBCs/100 WBC Immature Plt Fraction Sodium Potassium Chloride Carbon Dioxide BUN Creatinine Est GFR ( Amer) Est GFR (Non-Af Amer) BUN/Creatinine Ratio Glucose POC Glucose 80 100 H Calculated Osmolality Calcium Phosphorus Magnesium Consult Discharge Plan - Plan Referrals: Lambert Gandhi MD [Primary Care Provider] - 05/15/16 3:00 pm <Deepthi Tovar S - Last Filed: 05/16/16 08:37> - Constitutional Vitals: Vital Signs Temp Pulse Resp BP Pulse Ox 05/16/16 07:00 98.9 F 121 17 148/105 96 05/15/16 20:00 98.6 F 92 16 118/78 96 05/15/16 16:00 98.6 F 97 18 105/73 97 05/15/16 12:32 98.1 F 94 16 108/75 97 05/15/16 09:00 98 Intake and Output 05/15/16 05/16/16 05/16/16 23:59 07:59 15:59 Intake Total 0 / 0 2260 / 2260 Output Total 900 / 900 Balance 0 / 0 1360 / 1360 Intake: IV Fluids 2260 / 2260 Clinimix E 5%-15% 2009 SOLUTION 2,000 ML @ 50 mls/hr IVC .Q24H PEPE with M.v.i. Adult 10 ml Rx#: [id number] Intralipid 20% 250 ML @ 250 / 250 21 mls/hr IVPB DAILY@1700 PEPE Rx#:[id number] Oral 0 / 0 Output: Emesis 900 / 900 Other: Meal NPO Percent of Meal Consumed 0% Blood Glucose* 188 72 Oncology: Obj Data - Labs CBC & Chem 7: 05/16/16 05:35 05/16/16 05:35 Labs: Laboratory Results - last 24 hr 05/15/16 05/15/16 05/15/16 00:17 04:37 08:06 WBC RBC Hgb Hct MCV MCH MCHC RDW Plt Count MPV Immature Gran % Seg Neutrophils % Lymphocytes % Monocytes % Eosinophils % Basophils % Neutrophils # Lymphocytes # Monocytes # Eosinophils # Basophils # Nucleated RBCs/100 WBC Platelet Estimate Immature Plt Fraction Hypochromasia Anisocytosis Sodium Potassium Chloride Carbon Dioxide BUN Creatinine Est GFR ( Amer) Est GFR (Non-Af Amer) BUN/Creatinine Ratio Glucose POC Glucose 147 H 151 H 82 Calculated Osmolality Calcium Phosphorus Magnesium 05/15/16 05/15/16 05/15/16 09:07 12:35 15:59 WBC RBC Hgb Hct MCV MCH MCHC RDW Plt Count MPV Immature Gran % Seg Neutrophils % Lymphocytes % Monocytes % Eosinophils % Basophils % Neutrophils # Lymphocytes # Monocytes # Eosinophils # Basophils # Nucleated RBCs/100 WBC Platelet Estimate Immature Plt Fraction Hypochromasia Anisocytosis Sodium Potassium Chloride Carbon Dioxide BUN Creatinine Est GFR ( Amer) Est GFR (Non-Af Amer) BUN/Creatinine Ratio Glucose POC Glucose 80 100 H 95 H Calculated Osmolality Calcium Phosphorus Magnesium 05/15/16 05/15/1605/16/17 20:22 23:35 05:35 WBC 7.5 RBC 4.28 Hgb 10.6 L D Hct 34.5 L MCV 80.6 L MCH 24.8 L MCHC 30.7 L RDW 21.3 H Plt Count 203 MPV 9.8 Immature Gran % 0.9 Seg Neutrophils % 77.3 Lymphocytes % 9.5 Monocytes % 12.3 Eosinophils % 0.0 Basophils % 0.0 Neutrophils # 5.8 Lymphocytes # 0.7 Monocytes # 0.9 Eosinophils # 0.0 Basophils # 0.0 Nucleated RBCs/100 WBC 0.5 H Platelet Estimate Normal Immature Plt Fraction 3.4 Hypochromasia Present A Anisocytosis 2+ A Sodium Potassium Chloride Carbon Dioxide BUN Creatinine Est GFR ( Amer) Est GFR (Non-Af Amer) BUN/Creatinine Ratio Glucose POC Glucose 188 H 182 H Calculated Osmolality Calcium Phosphorus Magnesium 05/16/16 05:35 WBC RBC Hgb Hct MCV MCH MCHC RDW Plt Count MPV Immature Gran % Seg Neutrophils % Lymphocytes % Monocytes % Eosinophils % Basophils % Neutrophils # Lymphocytes # Monocytes # Eosinophils # Basophils # Nucleated RBCs/100 WBC Platelet Estimate Immature Plt Fraction Hypochromasia Anisocytosis Sodium 133 L Potassium 4.0 Chloride 104 Carbon Dioxide 21 BUN 19 Creatinine 0.61 Est GFR ( Amer) > 60 Est GFR (Non-Af Amer) > 60 BUN/Creatinine Ratio 31 H Glucose 155 H POC Glucose Calculated Osmolality 281 Calcium 8.0 L Phosphorus 1.8 L Magnesium 2.0 - Attending Attestation I examined this patient and my medical decision-making was reviewed with the Advanced Practice Nurse. I agree with the documented findings, disposition and treatment plan as described except to the extent set forth below. 1. Metastatic adenocarcinoma most likely GI primary She has widespread metastatic disease including liver metastasis and peritoneal metastasis. Her liver metastasis is increased since March 2016 She got first dose of chemotherapy FOLFOX Avastin 5 mg per KG on 05/04/2016 2. She has a section with the second part of duodenum with a hugely distended stomach. Her nausea got better after NG tube and aspiration of about 2400 mL of gastric juices. She is very uncomfortable with NG tube and was removed subsequently Treatment decision is more complex. The first priority is to relieve that obstruction which improves her nausea Dr. Gomez is planning to do 5 days of palliative radiation to the mass that is compressing the second part of duodenum She was examined by Dr. Frias. Palliative gastrojejunostomy is a good option to relieve obstruction. But with her peritoneal metastasis and recent Avastin wound healing may be a issue Dr. Gama will be talking to her as well on 05/16/2016 Currently nutrition is maintained through TPN If the radiation helps and if she can at least empty the gastric juices into the small bowel , will help the nausea and minimize electrolyte and fluid imbalance She is not interested in leaving NG tube in. The other option is to do a PEG tube and draining gastric juices that way which can lead to electrolyte and fluid imbalance We may wait for another 2 weeks to see if the radiation is going to relieve some of the obstruction. If not GJ would be the best option
[2016-05-15] MEDS ORDERED: Potassium Phosphate 44 MEQ in 0.9 % Sodium Chloride 250 ML IVPB ONE (15:19)
--- NOTE | 2016-05-15 16:18 | General Surgery Consult Note ---
Date of Encounter: 05/15/16 Time of Encounter: 15:00 Assessment and Plan (1) Duodenal obstruction Current Visit: Yes Status: Acute The patient has metastatic colorectal cancer with no evidence of obstruction of the colon. 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 Palliative exploration with gastrojejunostomy is reasonable. If the patient chooses a PEG tube for symptomatic decompression she will deteriorate rapidly. The patient also understands that palliative gastrojejunostomy may not adequately relieve her symptoms and she may not recover. I discussed the risks and benefits with her and she wishes to consider these options. History of Present Illness Consult date: 05/15/16 Reason for consult: other (Duodenal obstruction secondary to metastatic colorectal carcinoma) History of present illness: The patient became ill just after Thanksgiving. She initially had nausea back pain and a cough. She had upper endoscopy that really did not show much. She was referred to pulmonology. A CAT scan demonstrated possible metastatic disease. She underwent a metastatic workup with CAT scan of the head, neck, chest, abdomen. She has liver metastasis as well as pulmonary and bone metastasis. She has undergone 1 round of chemotherapy as well as radiation therapy to her spine. She has developed progressive nausea. Recent workup demonstrates a obstructing lesion in the duodenum with massive gastric distention. She also appears to have peritoneal metastasis. She has hepatic metastasis as well as a metastasis in the root of mesentery compressing the duodenum or directly invading the duodenum. General surgery consult to see if a palliative procedure is reasonable. The patient complains bitterly of nausea and vomiting. She has lost 40 pounds. Past Med Surg Social Fam HX - Past Medical History Medical history: arthritis, asthma, cancer, other Psychiatric history: no psych history - Past Surgical History Surgical History: cholecystectomy, hysterectomy - Social History Smoking Status: Never smoker Alcohol use: rarely Drug use: none Medications and Allergies Cyclosporine [Restasis] 1 drop OP BID 02/04/16 [History] Fluticasone/Salmeterol [Advair 250-50 Diskus] 1 puff IH BID 02/04/16 [History] Omeprazole [PriLOSEC] 20 mg PO DAILY PRN 02/04/16 [History] Docusate [Colace] 100 mg PO Q3-4D PRN 03/21/16 [History] Multivits,Ca,Minerals/Iron/FA [Women's Daily Formula Caplet] 1 each PO DAILY [History] Sennosides/Docusate Sodium [Senna Plus] 1 each PO Q3-4D PRN 03/21/16 [History] Bisacodyl [Dulcolax] 10 mg RC DAILY PRN 04/19/16 [History] Lidocaine/Prilocaine [Emla] 1 appl TP AD #30 gm 04/19/16 [Rx] Magic Mouthwash 10 ml PO Q4H PRN #240 ml 04/19/16 [Rx] Magnesium Citrate [Citroma] 296 ml PO PRN PRN 04/19/16 [History] Ondansetron HCl [Zofran] 4 mg PO Q6H PRN #60 tablet 04/19/16 [Rx] Oxycodone HCl/Acetaminophen [Percocet 10-325 mg Tablet] 1 each PO Q4-6H PRN 03/07 [History] Polyethylene Glycol 3350 [MiraLAX Powder Bulk 17.9 Oz] 1 scoop PO DAILY PRN 03/07 [History] Prochlorperazine Maleate [Compazine] 10 mg PO Q8HR PRN 04/19/16 [History] Fluconazole [Diflucan] 100 mg PO DAILY #10 tablet 04/26/16 [Rx] HydrOXYzine Pamoate [Vistaril] 100 mg PO BID PRN #60 capsule 04/26/16 [Rx] Promethazine [Phenergan] 25 mg RC Q6HR PRN #30 supp.rect 04/27/16 [Rx] Metoclopramide [Reglan] 10 mg PO Q6HR #120 tablet 05/05/16 [Rx] Megestrol Acetate [Megace] 400 mg PO DAILY #300 mls 05/08/16 [Rx] Dexamethasone [Decadron] 2 mg PO BID 05/10/16 [History] Dronabinol [Marinol] 5 mg PO TID #90 capsule 05/10/16 [Rx] Fentanyl 50 mg TD Q72H #10 patch.td72 05/10/16 [Rx] Allergies morphine Adverse Reaction (Verified 04/19/16 09:44) Abdominal Pain and nausea Review of Systems All systems PM: reviewed and no additional remarkable complaints except as stated All systems PM: A 10-system review of systems was performed and is negative for pertinent findings except as documented above in the HPI. General Surgery Exam Initial Vital Signs Temp Pulse Resp BP Pulse Ox 97.5 F L 124 16 109/81 99 05/10/16 15:03 05/10/16 15:03 05/10/16 15:03 05/10/16 15:03 05/10/16 15:03 - General physical appearance well developed, well nourished, no distress - Neck no masses, no bruits, trachea midline, no lymphadectomy, no venous distension - Respiratory normal expansion, normal respiratory effort, clear to percussion, clear to auscultation - Cardiovascular Cardiovascular exam: Present: RRR, 15, 16 - Abdomen Abdomen general surgery: Present: bowel sounds present, soft, non tender - Integumentary Integumentary general surgery: Present: warm and dry, no abnormal pigmentation - Neurologic Present: CN 2-12 grossly intact, normal coordination, normal sensation - Psychiatric Psychiatric general surgery: Present: appropriate, oriented to person, oriented to place, oriented to time, speech is normal, memory intact - Additional Findings The patient appears dehydrated and somewhat emaciated Exam Initial Vital Signs Temp Pulse Resp BP Pulse Ox 97.5 F L 124 16 109/81 99 05/10/16 15:03 05/10/16 15:03 05/10/16 15:03 05/10/16 15:03 05/10/16 15:03 Results - Labs 05/15/16 02:58 05/15/16 02:58 Abnormal lab results RBC 3.70 M/mcL (3.82-4.97) L 05/15/16 02:58 Hgb 9.0 g/dL (11.5-15.4) L 05/15/16 02:58 Hct 29.6 % (35.3-44.9) L 05/15/16 02:58 MCV 80.0 fL (83.0-100.0) L 05/15/16 02:58 MCH 24.3 pg (28.0-33.3) L 05/15/16 02:58 MCHC 30.4 g/dL (31.6-35.5) L 05/15/16 02:58 RDW 19.8 % (11.5-14.5) H 05/15/16 02:58 Lymphocytes # 0.5 K/mcL (0.6-4.6) L 05/15/16 02:58 Nucleated RBCs/100 WBC 0.5 /100 WBC (0) H 05/15/16 02:58 Creatinine 0.55 mg/dL (0.57-1.11) L 05/15/16 02:58 BUN/Creatinine Ratio 27 (6-26) H 05/15/16 02:58 Glucose 143 mg/dL (70-99) H 05/15/16 02:58 POC Glucose 100 (58-89) H 05/15/16 12:35 Calcium 8.1 mg/dL (8.6-10.8) L 05/15/16 02:58 Ionized Calcium 1.14 mmol/L (1.15-1.35) L 05/12/16 04:30 Phosphorus 2.0 mg/dL (2.3-4.7) L 05/15/16 02:58 Alkaline Phosphatase 256 Units/L (38-126) H 05/10/16 16:00 Globulin 3.9 g/dL (2.4-3.5) H 05/10/16 16:00 Albumin/Globulin Ratio 0.9 (1.1-2.2) L 05/10/16 16:00 Urine Clarity Cloudy (Clear) A 05/12/16 04:30 Ur Specific [place] 1.027 (1.010-1.025) H 05/12/16 04:30 Urine Blood Moderate (Negative) H 05/12/16 04:30 Urine Microscopic RBC 5-15 per hpf (0-3) H 05/12/16 04:30 Urine Microscopic WBC 5-15 per hpf (0-3) H 05/12/16 04:30 Ur Squamous Epith Cells Many per lpf (None-Few) H 05/12/16 04:30 Ur Culture Indicated? YES (NO) A 05/12/16 04:30 Diabetes panel 05/15/16 Range/Units 02:58 Sodium 136 (136-145) mEq/L Potassium 4.2 (3.5-4.5) mEq/L Chloride 108 (98-109) mEq/L Carbon Dioxide 22 (19-29) mEq/L BUN 15 (7-20) mg/dL Creatinine 0.55 L (0.57-1.11) mg/dL Glucose 143 H (70-99) mg/dL Calcium 8.1 L (8.6-10.8) mg/dL Calcium panel 05/15/16 Range/Units 02:58 Calcium 8.1 L (8.6-10.8) mg/dL Phosphorus 2.0 L (2.3-4.7) mg/dL Pituitary panel 05/15/16 Range/Units 02:58 Sodium 136 (136-145) mEq/L Potassium 4.2 (3.5-4.5) mEq/L Chloride 108 (98-109) mEq/L Carbon Dioxide 22 (19-29) mEq/L BUN 15 (7-20) mg/dL Creatinine 0.55 L (0.57-1.11) mg/dL Glucose 143 H (70-99) mg/dL Calcium 8.1 L (8.6-10.8) mg/dL Adrenal panel 05/15/16 Range/Units 02:58 Sodium 136 (136-145) mEq/L Potassium 4.2 (3.5-4.5) mEq/L Chloride 108 (98-109) mEq/L Carbon Dioxide 22 (19-29) mEq/L BUN 15 (7-20) mg/dL Creatinine 0.55 L (0.57-1.11) mg/dL Glucose 143 H (70-99) mg/dL Calcium 8.1 L (8.6-10.8) mg/dL All other labs normal. - Imaging Abdominal x-ray: image reviewed (I personally reviewed the KUB) CT scan - abdomen: image reviewed (I personally reviewed the CTA of the abdomen that clearly demonstrated duodenal mass resulting in gastric outlet obstruction and duodenal obstruction.) Consult Discharge Plan - Plan Referrals: Lambert Gandhi MD [Primary Care Provider] - 05/15/16 3:00 pm
[2016-05-15] MEDS ORDERED: Clinimix E 5%-15% SOLUTION 2,000 ML with MVI, adult with vitamin K 10 ML IVC SCH (17:00)
[2016-05-15] MEDS: *HR* LORazepam 2 MG/ML VIAL IVP PRN (21:27)
[2016-05-15] MEDS: Ondansetron 4 MG/2 ML VIAL IVP PRN (21:27)
--- NOTE | 2016-05-15 23:02 | Internal Med Progress Note ---
Date of Encounter: 05/15/16 Time of Encounter: 16:00 - Assessment and plan (1) Dehydration Current Visit: Yes Status: Acute Assessment and plan: We will treat this with IV fluids. Replete electrolytes. Check BUN and creatinine the morning. Encourage oral hydration as much as tolerated. Treat nausea with Zofran and Phenergan. (2) Failure to thrive Current Visit: Yes Status: Acute Assessment and plan: She has had persistent nausea and severe abdominal pain her oncologist recommended TPN. Continue with TPN. Follow-up with nutrition. Check fingerstick blood glucose. Check and replete magnesium and phosphorus daily. Qualifiers: Failure to thrive age range: in adult Qualified Code(s): R62.7 - Adult failure to thrive (3) Abdominal pain Current Visit: No Status: Acute Assessment and plan: She takes oxycodone at home, she has a listed allergy to morphine. We will continue with her home meds. We will use fentanyl for severe pain uncontrolled with oral medication. We will treat her intractable nausea and vomiting with Zofran and Phenergan. Add low-dose Ativan. I appreciate palliative service recommendations. Qualifiers: Abdominal location: generalized Qualified Code(s): R10.84 - Generalized abdominal pain (4) Malignant neoplasm metastatic to colon Current Visit: Yes Status: Acute Assessment and plan: Oncology following, will reassess treatment options with them. CT of the abdomen and pelvis shows progression through her first cycle of chemotherapy which she tolerated poorly. We will explore any other options with oncology. Gen. surgery consult for options on palliative hormonal bypass surgery. I have discussed the case with the general surgeon and a appreciated their recommendations. (5) Cancer related pain Current Visit: No Status: Chronic (6) Liver metastases Current Visit: Yes Status: Chronic (7) Hypophosphatemia Current Visit: Yes Status: Acute Assessment and plan: She cannot take by mouth. Replete with IV phosphorus and magnesium. (8) Hypomagnesemia Current Visit: Yes Status: Acute (9) Duodenal obstruction, acquired Current Visit: Yes Status: Acute Assessment and plan: Gen. surgery consulted for options on stricture bypass surgery. 05/13/2016: she decided to discontinue her NG tube. CT of the abdomen reveals a grade duodenal obstruction. Upon review of imaging I find largely dilated and stomach and first and second part of duodenum with large amount of fluid. The complete malignant obstruction I have placed a nasal nasogastric tube which returned 2500 mL of bilious fluid. - Subjective Interval history: Pt reports mild nausea today and mild abdominal pain, no fever, nausea is improved from yesterday briefly after nasogastric tube insertion 2 nights ago. She however did not tolerate the NG tube overnight and therefore it was discontinued. - Constitutional Vitals: Temp Pulse Resp BP Pulse Ox 98.6 F 92 16 118/78 96 05/15/16 20:00 05/15/16 20:00 05/15/16 20:00 05/15/16 20:00 05/15/16 20:00 General appearance: Present: A&O X 3 - Eye Eye exam: Present: PERRL, conjuntiva pink, sclera anicteric Pupils: Present: PERRL - Respiratory Respiratory exam: Present: CTAB. Absent: accessory muscle use, rales, rhonchi, wheezes - Cardiovascular Cardiovascular exam: Present: RRR, +S1, +S2. Absent: diastolic murmur, gallop, rubs, systolic murmur - GI/Abdominal GI/Abdominal exam: Present: normal bowel sounds, soft, no peritoneal signs. Absent: distended, tenderness - Extremities Exam Extremities exam: Present: warm, radial pulses palpable and symetrical. Absent : calf tenderness, cyanotic, pedal edema - Skin Skin exam: Present: pallor Internal Medicine: Result - Labs CBC & Chem 7: 05/15/16 02:58 05/15/16 02:58 Labs: Short CBC 05/15/16 Range/Units 02:58 WBC 5.6 (4.3-11.1) K/mcL Hgb 9.0 L (11.5-15.4) g/dL Hct 29.6 L (35.3-44.9) % Plt Count 183 (140-400) K/mcL Neutrophils # 4.5 (1.6-8.9) K/mcL BMP 05/15/16 02:58 Sodium 136 Potassium 4.2 Chloride 108 Carbon Dioxide 22 BUN 15 Creatinine 0.55 L Glucose 143 H Calcium 8.1 L Consult Discharge Plan - Plan Referrals: Lambert Gandhi MD [Primary Care Provider] - 05/15/16 3:00 pm
[2016-05-15] MEDS: Ringers Solution, Lactated 1,000 ML IVC SCH (23:43)
[2016-05-16] MEDS: *HR* LORazepam 2 MG/ML VIAL IVP PRN ×3 (01:29→19:55)
[2016-05-16] MEDS: Insulin LISPRO 300 UNITS/3 ML VIAL SQ SCH ×4 (03:07→12:12)
[2016-05-16 05:39] LABS: Hematocrit 34.5 % (35.3-44.9); Immature Granulocytes % 0.9 % (0-4); Immature Platelets 3.4 % (1.1-6.1); Lymphocytes # 0.7 K/mcL (0.6-4.6); Lymphocytes % 9.5 %; Mean Corpuscular HGB Conc 30.7 g/dL (31.6-35.5); Mean Corpuscular Hemoglobin 24.8 pg (28.0-33.3); Mean Corpuscular Volume 80.6 fL (83.0-100.0); Mean Platelet Volume 9.8 fL (9.4-12.4); Monocytes # 0.9 K/mcL (0.0-1.3); Monocytes % 12.3 %; Neutrophils # 5.8 K/mcL (1.6-8.9); Nucleated Red Blood Cells 0.5 /100 WBC (0); Platelet Count 203 K/mcL (140-400); Red Blood Count 4.28 M/mcL (3.82-4.97); Red Cell Distribution Width 21.3 % (11.5-14.5); Segmented Neutrophils % 77.3 %
[2016-05-16] MEDS: Pantoprazole 40 MG VIAL IVP SCH ×2 (05:41→17:40)
[2016-05-16] MEDS: *HR* Promethazine 25 MG/ML VIAL IVP SCH ×4 (05:42→23:52)
[2016-05-16 05:46] LABS: Hemoglobin 10.6 g/dL (11.5-15.4)
[2016-05-16 05:50] LABS: BUN/Creatinine Ratio 31 (6-26); Blood Urea Nitrogen 19 mg/dL (7-20); Carbon Dioxide 21 mEq/L (19-29); Chloride 104 mEq/L (98-109); Glucose 155 mg/dL (70-99); Osmolality,Calculated 281 (280-300); Phosphorous 1.8 mg/dL (2.3-4.7); Sodium 133 mEq/L (136-145); eGFR For African Americans > 60 (> 60); eGFR For Non-African Americans > 60 (> 60)
[2016-05-16 06:09] LABS: Anisocytosis 2+ (Not Present); Hypochromasia Present (Not Present); Platelet Estimate Normal (Normal)
[2016-05-16] MEDS: Dexamethasone 4 MG/ML VIAL IVP SCH ×4 (08:12→21:46)
[2016-05-16] MEDS: *HR* Enoxaparin 40 MG/0.4 ML SYRINGE SQ SCH (08:13)
[2016-05-16] MEDS: Bisacodyl 10 MG RECTAL SUPPOSITORY RC SCH (08:13)
[2016-05-16] MEDS: (ADVAIR 250/50) IH SCH ×2 (08:13→21:42)
[2016-05-16] MEDS: Hyoscyamine 0.5 MG/ML MLS IVP SCH (08:13)
[2016-05-16] MEDS: RESTASIS OPTHALMIC OP SCH ×2 (08:14→21:42)
--- NOTE | 2016-05-16 09:42 | Palliative Progress Note ---
<JaguarWesley miller - Last Filed: 05/16/16 10:08> Date of Encounter: 05/16/16 Time of Encounter: 10:09 - Assessment and plan (1) Nausea and vomiting Current Visit: No Status: Acute Assessment and plan: Patient had a recurrence of her significant nausea and vomiting overnight. Patient had approximately 1 L of nonbloody emesis. Patient remained significantly nauseous. She did this point is refusing an NG, however is ordered in the case that she may want it. Patient was started on Levsin yesterday in attempt to control secretions however this is ineffective so we have discontinued this and initiated octreotide. Patient was evaluated by surgery who gave the option of surgical intervention to bypass her duodenal obstruction. Patient and family are still debating on whether to proceed with surgery. Otherwise we will continue symptomatic relief with scheduled promethazine, octreotide, and Benadryl, when necessary Zofran and Ativan. Qualifiers: Vomiting type: unspecified Vomiting Intractability: intractable Qualified Code(s): R11.2 - Nausea with vomiting, unspecified (2) Goals of care, counseling/discussion Current Visit: Yes Status: Acute Assessment and plan: Patient's main goal of her care at this time is to relieve nausea and vomiting and have the least amount of procedures possible. We discussed the option of surgical intervention to relieve her obstruction as discussed above. Patient and family are still deliberating. We will hold off on further CODE STATUS discussion until the patient makes a determination about whether she would like to proceed with surgical intervention or not. (3) Dehydration Current Visit: Yes Status: Acute Assessment and plan: Continue fluid hydration and TPN. (4) Cancer related pain Current Visit: No Status: Chronic Assessment and plan: Pain is under good control this time with the fentanyl patch. Patient is currently not requiring any analgesics for breakthrough pain. (5) Malignant neoplasm metastatic to colon Current Visit: Yes Status: Acute - Time Spent With Patient Total time spent is greater than 50% in coordination of care (as documented) at patient's floor/unit and/or counseling patient: - Subjective Interval history: Patient seen and examined at bedside. Patient is extremely nauseous today and had episodes of vomiting overnight. Patient is lying still with her eyes closed. She denies any pain at this time. - Constitutional Vitals: Abnormal lab results Hgb 10.6 g/dL (11.5-15.4) L D 05/16/16 05:35 Hct 34.5 % (35.3-44.9) L 05/16/16 05:35 MCV 80.6 fL (83.0-100.0) L 05/16/16 05:35 MCH 24.8 pg (28.0-33.3) L 05/16/16 05:35 MCHC 30.7 g/dL (31.6-35.5) L 05/16/16 05:35 RDW 21.3 % (11.5-14.5) H 05/16/16 05:35 Nucleated RBCs/100 WBC 0.5 /100 WBC (0) H 05/16/16 05:35 Hypochromasia Present (Not Present) A 05/16/16 05:35 Anisocytosis 2+ (Not Present) A 05/16/16 05:35 Sodium 133 mEq/L (136-145) L 05/16/16 05:35 BUN/Creatinine Ratio 31 (6-26) H 05/16/16 05:35 Glucose 155 mg/dL (70-99) H 05/16/16 05:35 POC Glucose 182 (58-89) H 05/15/16 23:35 Calcium 8.0 mg/dL (8.6-10.8) L 05/16/16 05:35 Ionized Calcium 1.14 mmol/L (1.15-1.35) L 05/12/16 04:30 Phosphorus 1.8 mg/dL (2.3-4.7) L 05/16/16 05:35 Alkaline Phosphatase 256 Units/L (38-126) H 05/10/16 16:00 Globulin 3.9 g/dL (2.4-3.5) H 05/10/16 16:00 Albumin/Globulin Ratio 0.9 (1.1-2.2) L 05/10/16 16:00 Urine Clarity Cloudy (Clear) A 05/12/16 04:30 Ur Specific [place] 1.027 (1.010-1.025) H 05/12/16 04:30 Urine Blood Moderate (Negative) H 05/12/16 04:30 Urine Microscopic RBC 5-15 per hpf (0-3) H 05/12/16 04:30 Urine Microscopic WBC 5-15 per hpf (0-3) H 05/12/16 04:30 Ur Squamous Epith Cells Many per lpf (None-Few) H 05/12/16 04:30 Ur Culture Indicated? YES (NO) A 05/12/16 04:30 - ENT ENT exam: Present: mucous membranes dry - Respiratory Respiratory exam: Present: CTAB. Absent: rales, rhonchi, wheezes - Cardiovascular Cardiovascular exam: Present: tachycardia. Absent: gallop, irregular rhythm, rubs, systolic murmur - GI/Abdominal GI/Abdominal exam: Present: distended (mildly), soft Additional comments: Patient had normoactive bowel sounds in the epigastric region. Hypoactive bowel sounds in all other areas. - Neurological Exam Neurological exam: Present: alert, CN II-XII intact, oriented X3, no focal deficits Palliative Quality Palliative Quality: Screen for Code Status: Yes, Screen for Goals of Care: Yes, Screen for Pain: Yes, If Pain Regimen Started, Initiate Bowel Regimen: Yes, Screen for Nausea/Vomitting: Yes - Labs CBC & Chem 7: 05/16/16 05:35 05/16/16 05:35 Labs: Laboratory Results - last 24 hr 05/15/16 05/15/16 05/15/16 00:17 04:37 08:06 WBC RBC Hgb Hct MCV MCH MCHC RDW Plt Count MPV Immature Gran % Seg Neutrophils % Lymphocytes % Monocytes % Eosinophils % Basophils % Neutrophils # Lymphocytes # Monocytes # Eosinophils # Basophils # Nucleated RBCs/100 WBC Platelet Estimate Immature Plt Fraction Hypochromasia Anisocytosis Sodium Potassium Chloride Carbon Dioxide BUN Creatinine Est GFR ( Amer) Est GFR (Non-Af Amer) BUN/Creatinine Ratio Glucose POC Glucose 147 H 151 H 82 Calculated Osmolality Calcium Phosphorus Magnesium 05/15/16 05/15/16 05/15/16 09:07 12:35 15:59 WBC RBC Hgb Hct MCV MCH MCHC RDW Plt Count MPV Immature Gran % Seg Neutrophils % Lymphocytes % Monocytes % Eosinophils % Basophils % Neutrophils # Lymphocytes # Monocytes # Eosinophils # Basophils # Nucleated RBCs/100 WBC Platelet Estimate Immature Plt Fraction Hypochromasia Anisocytosis Sodium Potassium Chloride Carbon Dioxide BUN Creatinine Est GFR ( Amer) Est GFR (Non-Af Amer) BUN/Creatinine Ratio Glucose POC Glucose 80 100 H 95 H Calculated Osmolality Calcium Phosphorus Magnesium 05/15/16 05/15/16 05/16/16 20:22 23:35 05:35 WBC 7.5 RBC 4.28 Hgb 10.6 L D Hct 34.5 L MCV 80.6 L MCH 24.8 L MCHC 30.7 L RDW 21.3 H Plt Count 203 MPV 9.8 Immature Gran % 0.9 Seg Neutrophils % 77.3 Lymphocytes % 9.5 Monocytes % 12.3 Eosinophils % 0.0 Basophils % 0.0 Neutrophils # 5.8 Lymphocytes # 0.7 Monocytes # 0.9 Eosinophils # 0.0 Basophils # 0.0 Nucleated RBCs/100 WBC 0.5 H Platelet Estimate Normal Immature Plt Fraction 3.4 Hypochromasia Present A Anisocytosis 2+ A Sodium Potassium Chloride Carbon Dioxide BUN Creatinine Est GFR ( Amer) Est GFR (Non-Af Amer) BUN/Creatinine Ratio Glucose POC Glucose 188 H 182 H Calculated Osmolality Calcium Phosphorus Magnesium 05/16/16 05:35 WBC RBC Hgb Hct MCV MCH MCHC RDW Plt Count MPV Immature Gran % Seg Neutrophils % Lymphocytes % Monocytes % Eosinophils % Basophils % Neutrophils # Lymphocytes # Monocytes # Eosinophils # Basophils # Nucleated RBCs/100 WBC Platelet Estimate Immature Plt Fraction Hypochromasia Anisocytosis Sodium 133 L Potassium 4.0 Chloride 104 Carbon Dioxide 21 BUN 19 Creatinine 0.61 Est GFR ( Amer) > 60 Est GFR (Non-Af Amer) > 60 BUN/Creatinine Ratio 31 H Glucose 155 H POC Glucose Calculated Osmolality 281 Calcium 8.0 L Phosphorus 1.8 L Magnesium 2.0 Consult Discharge Plan - Plan Referrals: Lambert Gandhi MD [Primary Care Provider] - 05/15/16 3:00 pm <Lambert Perdomo - Last Filed: 05/16/16 10:32> - Assessment and plan (1) Cancer related pain Current Visit: No Status: Chronic (2) Dehydration Current Visit: Yes Status: Acute (3) Failure to thrive Current Visit: Yes Status: Acute Qualifiers: Failure to thrive age range: in adult Qualified Code(s): R62.7 - Adult failure to thrive (4) Nausea and vomiting Current Visit: No Status: Acute Qualifiers: Vomiting type: unspecified Vomiting Intractability: intractable Qualified Code(s): R11.2 - Nausea with vomiting, unspecified (5) Goals of care, counseling/discussion Current Visit: Yes Status: Acute (6) Constipation due to pain medication Current Visit: No Status: Acute (7) Colon cancer Current Visit: No Status: Acute Qualifiers: Colon location: unspecified part of colon Qualified Code(s): C18.9 - Malignant neoplasm of colon, unspecified - Time Spent With Patient Total time spent is greater than 50% in coordination of care (as documented) at patient's floor/unit and/or counseling patient: - Constitutional Vitals: Abnormal lab results Hgb 10.6 g/dL (11.5-15.4) L D 05/16/16 05:35 Hct 34.5 % (35.3-44.9) L 05/16/16 05:35 MCV 80.6 fL (83.0-100.0) L 05/16/16 05:35 MCH 24.8 pg (28.0-33.3) L 05/16/16 05:35 MCHC 30.7 g/dL (31.6-35.5) L 05/16/16 05:35 RDW 21.3 % (11.5-14.5) H 05/16/16 05:35 Nucleated RBCs/100 WBC 0.5 /100 WBC (0) H 05/16/16 05:35 Hypochromasia Present (Not Present) A 05/16/16 05:35 Anisocytosis 2+ (Not Present) A 05/16/16 05:35 Sodium 133 mEq/L (136-145) L 05/16/16 05:35 BUN/Creatinine Ratio 31 (6-26) H 05/16/16 05:35 Glucose 155 mg/dL (70-99) H 05/16/16 05:35 POC Glucose 182 (58-89) H 05/15/16 23:35 Calcium 8.0 mg/dL (8.6-10.8) L 05/16/16 05:35 Ionized Calcium 1.14 mmol/L (1.15-1.35) L 05/12/16 04:30 Phosphorus 1.8 mg/dL (2.3-4.7) L 05/16/16 05:35 Alkaline Phosphatase 256 Units/L (38-126) H 05/10/16 16:00 Globulin 3.9 g/dL (2.4-3.5) H 05/10/16 16:00 Albumin/Globulin Ratio 0.9 (1.1-2.2) L 05/10/16 16:00 Urine Clarity Cloudy (Clear) A 05/12/16 04:30 Ur Specific [place] 1.027 (1.010-1.025) H 05/12/16 04:30 Urine Blood Moderate (Negative) H 05/12/16 04:30 Urine Microscopic RBC 5-15 per hpf (0-3) H 05/12/16 04:30 Urine Microscopic WBC 5-15 per hpf (0-3) H 05/12/16 04:30 Ur Squamous Epith Cells Many per lpf (None-Few) H 05/12/16 04:30 Ur Culture Indicated? YES (NO) A 05/12/16 04:30 - Attending Attestation I examined this patient and my medical decision-making was reviewed with the METAL SPRAYER/PA/Advanced Practice Nurse/Resident Physician. I agree with the documented findings, disposition and treatment plan as described except to the extent set forth below. - Labs CBC & Chem 7: 05/16/16 05:35 05/16/16 05:35 Labs: Laboratory Results - last 24 hr 05/15/16 05/15/16 05/15/16 00:17 04:37 08:06 WBC RBC Hgb Hct MCV MCH MCHC RDW Plt Count MPV Immature Gran % Seg Neutrophils % Lymphocytes % Monocytes % Eosinophils % Basophils % Neutrophils # Lymphocytes # Monocytes # Eosinophils # Basophils # Nucleated RBCs/100 WBC Platelet Estimate Immature Plt Fraction Hypochromasia Anisocytosis Sodium Potassium Chloride Carbon Dioxide BUN Creatinine Est GFR ( Amer) Est GFR (Non-Af Amer) BUN/Creatinine Ratio Glucose POC Glucose 147 H 151 H 82 Calculated Osmolality Calcium Phosphorus Magnesium 05/15/16 05/15/16 05/15/16 09:07 12:35 15:59 WBC RBC Hgb Hct MCV MCH MCHC RDW Plt Count MPV Immature Gran % Seg Neutrophils % Lymphocytes % Monocytes % Eosinophils % Basophils % Neutrophils # Lymphocytes # Monocytes # Eosinophils # Basophils # Nucleated RBCs/100 WBC Platelet Estimate Immature Plt Fraction Hypochromasia Anisocytosis Sodium Potassium Chloride Carbon Dioxide BUN Creatinine Est GFR ( Amer) Est GFR (Non-Af Amer) BUN/Creatinine Ratio Glucose POC Glucose 80 100 H 95 H Calculated Osmolality Calcium Phosphorus Magnesium 05/15/16 05/15/16 05/16/16 20:22 23:35 05:35 WBC 7.5 RBC 4.28 Hgb 10.6 L D Hct 34.5 L MCV 80.6 L MCH 24.8 L MCHC 30.7 L RDW 21.3 H Plt Count 203 MPV 9.8 Immature Gran % 0.9 Seg Neutrophils % 77.3 Lymphocytes % 9.5 Monocytes % 12.3 Eosinophils % 0.0 Basophils % 0.0 Neutrophils # 5.8 Lymphocytes # 0.7 Monocytes # 0.9 Eosinophils # 0.0 Basophils # 0.0 Nucleated RBCs/100 WBC 0.5 H Platelet Estimate Normal Immature Plt Fraction 3.4 Hypochromasia Present A Anisocytosis 2+ A Sodium Potassium Chloride Carbon Dioxide BUN Creatinine Est GFR ( Amer) Est GFR (Non-Af Amer) BUN/Creatinine Ratio Glucose POC Glucose 188 H 182 H Calculated Osmolality Calcium Phosphorus Magnesium 05/16/16 05:35 WBC RBC Hgb Hct MCV MCH MCHC RDW Plt Count MPV Immature Gran % Seg Neutrophils % Lymphocytes % Monocytes % Eosinophils % Basophils % Neutrophils # Lymphocytes # Monocytes # Eosinophils # Basophils # Nucleated RBCs/100 WBC Platelet Estimate Immature Plt Fraction Hypochromasia Anisocytosis Sodium 133 L Potassium 4.0 Chloride 104 Carbon Dioxide 21 BUN 19 Creatinine 0.61 Est GFR ( Amer) > 60 Est GFR (Non-Af Amer) > 60 BUN/Creatinine Ratio 31 H Glucose 155 H POC Glucose Calculated Osmolality 281 Calcium 8.0 L Phosphorus 1.8 L Magnesium 2.0
[2016-05-16] MEDS ORDERED: Clinimix E 5%-15% SOLUTION 2,000 ML with MVI, adult with vitamin K 10 ML, Sodium Phos... IVC SCH (17:00)
--- NOTE | 2016-05-16 17:16 | Event Note ---
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 An opportunity to at length review the patient's CT scan images and reports, laboratory studies, prior EGD studies, and previous history and physical examinations. I will also at length performed a physical examination at the bedside. Patient denies any abdominal pain but has had abdominal distention and currently has an NG tube placed. She does not really have any bowel sounds on examination and has some mild distention. No upper abdominal incisions are noted on examination. There are no neck masses or lymphadenopathy present and no clubbing, cyanosis, or edema of the extremities. No cervical lymphadenopathy is appreciated. I have gone over the different types of procedures that can be performed to help alleviate her abdominal distention including PEG tube placement, jejunostomy feeding tubes, prolonged NG tube decompression and TPN while waiting for the chemotherapeutic agent effects to resolve, versus a gastrojejunostomy bypass. I also had the opportunity to talk with oncology regarding her treatment with Avastin. She had a low dose one time treatment on 05/02/2016. Given the risks and benefits of the various procedures and the comorbidities associated with that medication with respect to wound healing and healing of anastomosis I think the most appropriate and best course would be for her to undergo a gastrojejunostomy with the understanding that there would possibly be problems with wound healing or even possible problems with anastomotic leak. Overall I think this will give her the best possibility of quality of life given her cancer diagnosis. I will view my discussion with Dr. Aleman and the patient would like to think about what she would like to do next. Either myself or Dr. Aleman would be happy to perform the surgical procedure and I think it should be performed while she is an inpatient. Patient and verbalized their understanding.
[2016-05-16] MEDS: Ringers Solution, Lactated 1,000 ML IVC SCH (17:27)
--- NOTE | 2016-05-16 17:55 | Internal Med Progress Note ---
Date of Encounter: 05/16/16 Time of Encounter: 17:53 - Assessment and plan (1) Dehydration Current Visit: Yes Status: Acute Assessment and plan: We will treat this with IV fluids. Replete electrolytes. Check BUN and creatinine the morning. Encourage oral hydration as much as tolerated. Treat nausea with Zofran and Phenergan. 05/16/2016 will continue IV fluids labs in AM (2) Failure to thrive Current Visit: Yes Status: Acute Assessment and plan: She has had persistent nausea and severe abdominal pain her oncologist recommended TPN. Continue with TPN. Follow-up with nutrition. Check fingerstick blood glucose. Check and replete magnesium and phosphorus daily. 05/16/2016 secondary to duodenal obstruction. presently on TPN will cont TPN labs in AM. Qualifiers: Failure to thrive age range: in adult Qualified Code(s): R62.7 - Adult failure to thrive (3) Malignant neoplasm metastatic to colon Current Visit: Yes Status: Acute Assessment and plan: Oncology following, will reassess treatment options with them. CT of the abdomen and pelvis shows progression through her first cycle of chemotherapy which she tolerated poorly. We will explore any other options with oncology. Gen. surgery consult for options on palliative hormonal bypass surgery. I have discussed the case with the general surgeon and a appreciated their recommendations. 05/16/2016 Surgery on board and will wait for recommendations. (4) Hypophosphatemia Current Visit: Yes Status: Acute Assessment and plan: She cannot take by mouth. Replete with IV phosphorus and magnesium. 05/16/2016 will work with nutrition and will replace via TPN - Subjective Interval history: seen and examined. patient has occasional nausea. denies vomiting. at bedside. - Constitutional Vitals: Temp Pulse Resp BP Pulse Ox 98.0 F 96 14 128/96 96 05/16/16 11:18 05/16/16 15:00 05/16/16 15:00 05/16/16 15:00 05/16/16 15:00 General appearance: Present: A&O X 3 - Head Head exam: Present: atraumatic, normocephalic - Eye Eye exam: Present: PERRL, conjuntiva pink, sclera anicteric Pupils: Present: PERRL - Neck Neck exam general surgery: Present: supple, trachea midline. Absent: lymphadenopathy - Respiratory Respiratory exam: Present: CTAB. Absent: accessory muscle use, rales, rhonchi, wheezes - Cardiovascular Cardiovascular exam: Present: RRR, +S1, +S2. Absent: diastolic murmur, gallop, rubs, systolic murmur - GI/Abdominal GI/Abdominal exam: Present: normal bowel sounds, soft, no peritoneal signs. Absent: distended, tenderness - Extremities Exam Extremities exam: Present: warm, radial pulses palpable and symetrical. Absent : calf tenderness, cyanotic, pedal edema - Neurological Exam Neurological exam: Present: CN II-XII intact, oriented X3, no focal deficits. Absent: pronater drift, facial droop, speech deficit - Skin Skin exam: Present: dry, intact Internal Medicine: Result - Labs CBC & Chem 7: 05/16/16 05:35 05/16/16 05:35 Labs: Short CBC 05/16/16 Range/Units 05:35 WBC 7.5 (4.3-11.1) K/mcL Hgb 10.6 L D (11.5-15.4) g/dL Hct 34.5 L (35.3-44.9) % Plt Count 203 (140-400) K/mcL Neutrophils # 5.8 (1.6-8.9) K/mcL BMP 05/16/16 05:35 Sodium 133 L Potassium 4.0 Chloride 104 Carbon Dioxide 21 BUN 19 Creatinine 0.61 Glucose 155 H Calcium 8.0 L Consult Discharge Plan - Plan Referrals: Lambert Gandhi MD [Primary Care Provider] - 05/15/16 3:00 pm
[2016-05-16] MEDS: *HR* FentaNYL PATCH 50 MCG PATCH TD SCH (21:44)
[2016-05-17] MEDS: *HR* LORazepam 2 MG/ML VIAL IVP PRN ×2 (03:33→16:32)
[2016-05-17 04:13] LABS: BUN/Creatinine Ratio 28 (6-26); Blood Urea Nitrogen 17 mg/dL (7-20); Calcium 7.7 mg/dL (8.6-10.8); Carbon Dioxide 24 mEq/L (19-29); Chloride 106 mEq/L (98-109); Glucose 208 mg/dL (70-99); Osmolality,Calculated 286 (280-300); Potassium 4.1 mEq/L (3.5-4.5); Sodium 134 mEq/L (136-145); eGFR For African Americans > 60 (> 60); eGFR For Non-African Americans > 60 (> 60)
[2016-05-17] MEDS: Ringers Solution, Lactated 1,000 ML IVC SCH ×2 (05:31→23:20)
[2016-05-17] MEDS: Pantoprazole 40 MG VIAL IVP SCH (05:31)
[2016-05-17] MEDS: *HR* Promethazine 25 MG/ML VIAL IVP SCH (05:32)
--- NOTE | 2016-05-17 08:58 | Palliative Progress Note ---
Date of Encounter: 05/17/16 Time of Encounter: 07:40 - Assessment and plan (1) Cancer related pain Current Visit: No Status: Chronic Assessment and plan: Under good control at this time continue current medications. (2) Dehydration Current Visit: Yes Status: Acute Assessment and plan: On TPN, this will continue for the time being. This is being monitored by the hospitalist team. (3) Failure to thrive Current Visit: Yes Status: Acute Assessment and plan: The patient is currently on TPN, her nausea prevents her from feeling hungry at this point in time, patient is actively weighing surgical options. Qualifiers: Failure to thrive age range: in adult Qualified Code(s): R62.7 - Adult failure to thrive (4) Nausea and vomiting Current Visit: No Status: Acute Assessment and plan: This is markedly improved since yesterday. With the replacement of an NG tube. Patient is actively weighing her options. One of these options is a option which would bypass the obstruction and allow her stomach to drain into the small bowel. Discussed with her all the different options (after reviewing the notes from surgery and oncology) venting gastrostomy, the surgical option and medical only options and have recommended, based on her goals that she take the surgical option. At this point, I believe that the surgical option offered the best opportunity for her to achieve her goals having less nausea and possibly even being able to eat. She understands that there are no promises, he understands that surgery not achieve her goals, is actively weighing her options and will give her decision to surgery probably sometime today. Qualifiers: Vomiting type: unspecified Vomiting Intractability: intractable Qualified Code(s): R11.2 - Nausea with vomiting, unspecified (5) Goals of care, counseling/discussion Current Visit: Yes Status: Acute Assessment and plan: The patient is currently full code, we have had a code discussion with her, but since she is actively considering surgery we will table this discussion until after she has 80 decision regarding surgery, if she opts for surgery we will leave CODE STATUS where it is, revisit after the surgery. Goals of care he has made it clear to me that her #1 goal is to be as free of nausea as she can. He is under good control at this time she would like to have the least number of and the least invasive of procedures. I explained to her this morning that her goals are in conflict with each other at this time in that her stomach seems to be the most effective treatment for her and this is been established now twice with the NG tube coming out in between the medical option is not providing enough relief. I therefore recommended either the surgical option or to consider a venting gastrostomy the surgical option is not available to her does not work. At this time she is considering surgery which I have recommended I have assured her that regardless of her decisions will continue to work with her. She is hospice eligible, however at this time she is still seeking aggressive treatment and it is not appropriate for her. Hospice has been discussed with her, and she understands where in the treatment plan it fits for her right now. We will continue to follow this issue. (6) Constipation due to pain medication Current Visit: No Status: Acute Assessment and plan: Continue Dulcolax suppositories constipation may in part be due to high-grade obstruction in the proximal to watch him. (7) Colon cancer Current Visit: No Status: Acute Assessment and plan: Patient is currently awaiting opinions from radiation oncology and medical oncology as to what further treatments that are available. At this time the treatment of her nausea is the #1 concern, still wishes to have options available for the overall treatment she does understand that the treatment is palliative in nature.. Qualifiers: Colon location: unspecified part of colon Qualified Code(s): C18.9 - Malignant neoplasm of colon, unspecified - Time Spent With Patient Total time spent is greater than 50% in coordination of care (as documented) at patient's floor/unit and/or counseling patient: - Subjective Interval history: The patient is feeling better this morning with the NG tube and she is tolerating the NG tube. Is under control nausea is under reasonable control patient continues to be on TPN patient is considering surgery.. - Constitutional Vitals: Abnormal lab results Hgb 10.6 g/dL (11.5-15.4) L D 05/16/16 05:35 Hct 34.5 % (35.3-44.9) L 05/16/16 05:35 MCV 80.6 fL (83.0-100.0) L 05/16/16 05:35 MCH 24.8 pg (28.0-33.3) L 05/16/16 05:35 MCHC 30.7 g/dL (31.6-35.5) L 05/16/16 05:35 RDW 21.3 % (11.5-14.5) H 05/16/16 05:35 Nucleated RBCs/100 WBC 0.5 /100 WBC (0) H 05/16/16 05:35 Hypochromasia Present (Not Present) A 05/16/16 05:35 Anisocytosis 2+ (Not Present) A 05/16/16 05:35 Sodium 134 mEq/L (136-145) L 05/17/16 03:40 BUN/Creatinine Ratio 28 (6-26) H 05/17/16 03:40 Glucose 208 mg/dL (70-99) H 05/17/16 03:40 POC Glucose 212 (58-89) H 05/16/16 20:31 Calcium 7.7 mg/dL (8.6-10.8) L 05/17/16 03:40 Ionized Calcium 1.14 mmol/L (1.15-1.35) L 05/12/16 04:30 Alkaline Phosphatase 256 Units/L (38-126) H 05/10/16 16:00 Globulin 3.9 g/dL (2.4-3.5) H 05/10/16 16:00 Albumin/Globulin Ratio 0.9 (1.1-2.2) L 05/10/16 16:00 Urine Clarity Cloudy (Clear) A 05/12/16 04:30 Ur Specific [place] 1.027 (1.010-1.025) H 05/12/16 04:30 Urine Blood Moderate (Negative) H 05/12/16 04:30 Urine Microscopic RBC 5-15 per hpf (0-3) H 05/12/16 04:30 Urine Microscopic WBC 5-15 per hpf (0-3) H 05/12/16 04:30 Ur Squamous Epith Cells Many per lpf (None-Few) H 05/12/16 04:30 Ur Culture Indicated? YES (NO) A 05/12/16 04:30 General appearance: Present: no acute distress - Head Head exam: Present: atraumatic, normal inspection - Eye Eye exam: Present: normal appearance - ENT ENT exam: Present: mucous membranes dry - Neck Neck exam: Present: normal inspection - Respiratory Respiratory exam: Present: CTAB - Cardiovascular Cardiovascular exam: Present: RRR - GI/Abdominal GI/Abdominal exam: Present: hypoactive bowel sounds, soft. Absent: tenderness - Extremities Exam Extremities exam: Present: normal inspection. Absent: pedal edema, tenderness - Neurological Exam Neurological exam: Present: alert, oriented X3 - Psychiatric Psychiatric exam: Present: normal affect, normal mood. Absent: agitated, anxious - Skin Skin exam: Present: dry, warm Palliative Quality Palliative Quality: Screen for Code Status: Yes, Screen for Goals of Care: Yes, Screen for Pain: Yes, If Pain Regimen Started, Initiate Bowel Regimen: Yes, Screen for Nausea/Vomitting: Yes - Labs CBC & Chem 7: 05/16/16 05:35 05/17/16 03:40 Labs: Laboratory Results - last 24 hr 05/16/16 05/16/16 05/16/16 07:35 09:00 16:16 Sodium Potassium Chloride Carbon Dioxide BUN Creatinine Est GFR ( Amer) Est GFR (Non-Af Amer) BUN/Creatinine Ratio Glucose POC Glucose 72 95 H 76 Calculated Osmolality Calcium Phosphorus 05/16/16 05/17/16 20:31 03:40 Sodium 134 L Potassium 4.1 Chloride 106 Carbon Dioxide 24 BUN 17 Creatinine 0.61 Est GFR ( Amer) > 60 Est GFR (Non-Af Amer) > 60 BUN/Creatinine Ratio 28 H Glucose 208 H POC Glucose 212 H Calculated Osmolality 286 Calcium 7.7 L Phosphorus 3.0 D Consult Discharge Plan - Plan Referrals: Lambert Gandhi MD [Primary Care Provider] - 05/15/16 3:00 pm
[2016-05-17] MEDS: (ADVAIR 250/50) IH SCH (09:33)
[2016-05-17] MEDS: Dexamethasone 4 MG/ML VIAL IVP SCH ×4 (09:36→20:48)
--- NOTE | 2016-05-17 10:37 | Event Note ---
Date of Encounter: 05/17/16 Time of Encounter: 10:36 Risks, benefits, alternatives and expected outcomes reviewed with the patient regarding gastrojejunostomy and she is in agreement to proceed with surgery with Dr. Aleman this afternoon. Consent completed.
[2016-05-17] MEDS: Bisacodyl 10 MG RECTAL SUPPOSITORY RC SCH (12:15)
[2016-05-17] MEDS: *HR* Enoxaparin 40 MG/0.4 ML SYRINGE SQ SCH (12:15)
[2016-05-17] MEDS: RESTASIS OPTHALMIC OP SCH (12:15)
[2016-05-17] MEDS ORDERED: *HR* Promethazine 25 MG/ML VIAL IVP PRN (13:46)
--- NOTE | 2016-05-17 14:27 | Internal Med Progress Note ---
Date of Encounter: 05/17/16 Time of Encounter: 14:25 - Assessment and plan (1) Malignant neoplasm metastatic to colon Current Visit: Yes Status: Acute Assessment and plan: Oncology following, will reassess treatment options with them. CT of the abdomen and pelvis shows progression through her first cycle of chemotherapy which she tolerated poorly. We will explore any other options with oncology. Gen. surgery consult for options on palliative hormonal bypass surgery. I have discussed the case with the general surgeon and a appreciated their recommendations. 05/16/2016 Surgery on board and will wait for recommendations. 05/17/2016. Patient and family had a long talk with surgery department. patient is going for surgery this evening. (2) Dehydration Current Visit: Yes Status: Acute Assessment and plan: We will treat this with IV fluids. Replete electrolytes. Check BUN and creatinine the morning. Encourage oral hydration as much as tolerated. Treat nausea with Zofran and Phenergan. 05/16/2016 will continue IV fluids labs in AM 05/17/2016 Will continue IV fluids for now. BUN/creatinine is within normal limits. (3) Failure to thrive Current Visit: Yes Status: Acute Assessment and plan: She has had persistent nausea and severe abdominal pain her oncologist recommended TPN. Continue with TPN. Follow-up with nutrition. Check fingerstick blood glucose. Check and replete magnesium and phosphorus daily. 05/16/2016 secondary to duodenal obstruction. presently on TPN will cont TPN labs in AM. Qualifiers: Failure to thrive age range: in adult Qualified Code(s): R62.7 - Adult failure to thrive (4) Hypophosphatemia Current Visit: Yes Status: Acute Assessment and plan: She cannot take by mouth. Replete with IV phosphorus and magnesium. 05/16/2016 will work with nutrition and will replace via TPN - Subjective Interval history: seen and examined. patient has occasional nausea. denies vomiting. at bedside. 05/17/2016. Patient seen and examined. Patient has still occasional nausea. Noted that NG tube is placed in. Patient denies vomiting, abdominal pain or diarrhea. - Constitutional Vitals: Temp Pulse Resp BP Pulse Ox 98.9 F 96 18 119/74 97 05/17/16 12:12 05/17/16 12:12 05/17/16 12:12 05/17/16 12:12 05/17/16 12:12 General appearance: Present: A&O X 3 - Head Head exam: Present: atraumatic, normocephalic - Eye Eye exam: Present: PERRL, conjuntiva pink, sclera anicteric Pupils: Present: PERRL - Neck Neck exam general surgery: Present: supple, trachea midline. Absent: lymphadenopathy - Respiratory Respiratory exam: Present: CTAB. Absent: accessory muscle use, rales, rhonchi, wheezes - Cardiovascular Cardiovascular exam: Present: RRR, +S1, +S2. Absent: diastolic murmur, gallop, rubs, systolic murmur - GI/Abdominal GI/Abdominal exam: Present: normal bowel sounds, soft, no peritoneal signs. Absent: distended, tenderness - Extremities Exam Extremities exam: Present: warm, radial pulses palpable and symetrical. Absent : calf tenderness, cyanotic, pedal edema - Neurological Exam Neurological exam: Present: CN II-XII intact, oriented X3, no focal deficits. Absent: pronater drift, facial droop, speech deficit - Skin Skin exam: Present: dry, intact Internal Medicine: Result - Labs CBC & Chem 7: 05/16/16 05:35 05/17/16 03:40 Labs: BMP 05/17/16 03:40 Sodium 134 L Potassium 4.1 Chloride 106 Carbon Dioxide 24 BUN 17 Creatinine 0.61 Glucose 208 H Calcium 7.7 L Consult Discharge Plan - Plan Referrals: Lambert Gandhi MD [Primary Care Provider] - 05/15/16 3:00 pm
[2016-05-17] MEDS ORDERED: CefOXitin 1,000 MG VIAL ONE (15:11)
[2016-05-17] MEDS ORDERED: *HR* FentaNYL (PF) 100 MCG/2 ML VIAL ONE (16:43)
[2016-05-17] MEDS ORDERED: *HR* Propofol 200 MG/20 ML VIAL IVP ONE (16:44)
--- NOTE | 2016-05-17 16:44 | Anesthesia Evaluation PreOp ---
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) Anesthesia History: Problems (Neck and throat pain from past intubation) : No Alcohol Use: rarely Drug use: none Medications and Allergies Cyclosporine [Restasis] 1 drop OP BID 02/04/16 [History] Fluticasone/Salmeterol [Advair 250-50 Diskus] 1 puff IH BID 02/04/16 [History] Omeprazole [PriLOSEC] 20 mg PO DAILY PRN 02/04/16 [History] Docusate [Colace] 100 mg PO Q3-4D PRN 03/21/16 [History] Multivits,Ca,Minerals/Iron/FA [Women's Daily Formula Caplet] 1 each PO DAILY [History] Sennosides/Docusate Sodium [Senna Plus] 1 each PO Q3-4D PRN 03/21/16 [History] Bisacodyl [Dulcolax] 10 mg RC DAILY PRN 04/19/16 [History] Lidocaine/Prilocaine [Emla] 1 appl TP AD #30 gm 04/19/16 [Rx] Magic Mouthwash 10 ml PO Q4H PRN #240 ml 04/19/16 [Rx] Magnesium Citrate [Citroma] 296 ml PO PRN PRN 04/19/16 [History] Ondansetron HCl [Zofran] 4 mg PO Q6H PRN #60 tablet 04/19/16 [Rx] Oxycodone HCl/Acetaminophen [Percocet 10-325 mg Tablet] 1 each PO Q4-6H PRN 03/07 [History] Polyethylene Glycol 3350 [MiraLAX Powder Bulk 17.9 Oz] 1 scoop PO DAILY PRN 03/07 [History] Prochlorperazine Maleate [Compazine] 10 mg PO Q8HR PRN 04/19/16 [History] Fluconazole [Diflucan] 100 mg PO DAILY #10 tablet 04/26/16 [Rx] HydrOXYzine Pamoate [Vistaril] 100 mg PO BID PRN #60 capsule 04/26/16 [Rx] Promethazine [Phenergan] 25 mg RC Q6HR PRN #30 supp.rect 04/27/16 [Rx] Metoclopramide [Reglan] 10 mg PO Q6HR #120 tablet 05/05/16 [Rx] Megestrol Acetate [Megace] 400 mg PO DAILY #300 mls 05/08/16 [Rx] Dexamethasone [Decadron] 2 mg PO BID 05/10/16 [History] Dronabinol [Marinol] 5 mg PO TID #90 capsule 05/10/16 [Rx] Fentanyl 50 mg TD Q72H #10 patch.td72 05/10/16 [Rx] Allergies morphine Adverse Reaction (Verified 04/19/16 09:44) Abdominal Pain and nausea - Meds/Allergy Pre-op Review Medications Reviewed: Yes Allergies Reviewed: Yes Beta Blockers on Current Med List: No Anesthesia Results - Labs 05/16/16 05:35 05/17/16 03:40 Laboratory Tests 05/16/16 05/16/16 05/17/16 05:35 05:35 03:40 Hgb 10.6 L D Hct 34.5 L Plt Count 203 Sodium 134 L Potassium 4.1 BUN 17 Creatinine 0.61 Magnesium 2.0 - Imaging EKG: report reviewed (Sinus Tach) Anesthesia Exam O2 Sat Weight 58.5 kg O2 Sat by Pulse Oximetry 96 O2 Sat by Pulse Oximetry 97 O2 Sat by Pulse Oximetry 97 O2 Sat by Pulse Oximetry 96 O2 Sat by Pulse Oximetry 96 Vital Signs Temp Pulse Resp BP Pulse Ox 97.5 F L 124 16 109/81 99 05/10/16 15:03 05/10/16 15:03 05/10/16 15:03 05/10/16 15:03 05/10/16 15:03 Height: 5'3 Weight: 128 lbs NPO (# of Hours): MN Pain Scale: 2 - HEENT Pupil (Motor): Pupils equal, EOMI Mallampati: III Teeth: Normal Oral Opening: Less than or equal to 3 - DRILL OPERATOR LOC: Oriented DRILL OPERATOR Motor: Normal RUE, Normal LUE, Normal RLE, Normal LLE, Normal Face DRILL OPERATOR Sensory: Normal: RUE, LUE, RLE, LLE, Face - Cardiac Rhythm: Regular Murmur: None JVD: No Carotid Bruit: No - Pulmonary Breath Sounds: bilateral Clear Respiratory Effort: Symmetrical Anesthesia Assess/Plan ASA Score: 3 (Asthma Adenocarcinoma mets to liver lungs, and colon Anemia) Modified Hammond Scale for Level of Consciousness: Cooperative, oriented, and tranquil Anesthetic Plan: General Monitoring Plan: Standard Monitors Recovery Plan: PACU (Discused GA, agrees to proceed)
[2016-05-17] MEDS ORDERED: *HR* Midazolam HCl 2 MG/2 ML VIAL ONE (16:53)
[2016-05-17] MEDS ORDERED: Dexamethasone 4 MG/ML VIAL ONE (16:54)
[2016-05-17] MEDS ORDERED: Ondansetron 4 MG/2 ML VIAL ONE (16:54)
[2016-05-17] MEDS ORDERED: Clinimix E 5%-15% SOLUTION 2,000 ML with MVI, adult with vitamin K 10 ML, Sodium Phos... IVC SCH ×3 (17:00→19:23)
[2016-05-17] MEDS ORDERED: CefOXitin 2,000 MG VIAL IVPB ONE (17:17)
[2016-05-17] MEDS ORDERED: *HR* Rocuronium Bromide 50 MG/5 ML VIAL ONE (17:24)
[2016-05-17] MEDS ORDERED: *HR* HYDROmorphone 2 MG/ML SYRINGE ONE (17:35)
[2016-05-17] MEDS ORDERED: Ondansetron 4 MG/2 ML VIAL IVP ONE (18:16)
[2016-05-17] MEDS ORDERED: *HR* HYDROmorphone (PF) 1 MG/ML SYRINGE IVP PRN (18:16)
--- NOTE | 2016-05-17 18:16 | Operative Note ---
Date of procedure: 05/17/16 Pre-op diagnosis: Duodenal obstruction from metastatic colorectal cancer Post-op diagnosis: same Procedure: Gastrojejunostomy, palliative Anesthesia: EULOGIO Surgeon: Enrique Aleman Estimated blood loss (cc): 10 Condition: stable Disposition: PACU Procedure in Detail: After informed consent the patient was taken to the major operative suite placed in the supine position and given adequate general endotracheal anesthesia. Timeout was taken patient was identified. I made a small midline incision from just above to just below the umbilicus. I entered the abdomen. 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 I found an area of the antrum of the stomach and grasped this with [place]. I found the ligament of Treitz and followed down the jejunum 20 or 30 cm and then brought this into parallel orientation with the antrum. This was an antecolic anastomosis secondary to the root of the mesentery being obstructed with metastatic tumor. The jejunum was ranged in isoperistaltic fashion. I placed a back wall of 2-0 silk stitches. The stomach was tremendously thickened and hypertrophic secondary to chronic obstruction. 8 stitches were placed on the back wall of the anastomosis as seromuscular. I then opened the jejunum and opened the stomach with electrocautery. The mucosal anastomosis was carried out with 2-0 chromic. Running locking stitch was used on the back wall and baseball stitch on the front wall. This gave an excellent technical anastomosis. The front seromuscular stitches were placed with 2-0 silk proximally 10 were used. His gave an excellent technical result for gastrojejunostomy. The abdomen was irrigated with copious amounts of antibiotic containing solution. The midline was closed with looped 0 PDS. The skin with interrupted 2-0 Vicryl and skin clips. She tolerated the procedure well.
--- NOTE | 2016-05-17 18:50 | Anesthesia Evaluation Post Op ---
Date of Encounter: 05/17/16 Time of Encounter: 19:00 - Vital Signs Vital Signs: Vital Signs/O2 Sat/Glucose, Most Current Temp Pulse Resp BP Pulse Ox 05/17/16 18:41 68 12 117/76 99 05/17/16 18:31 67 10 114/77 100 05/17/16 18:21 98.5 F 72 10 111/75 100 05/17/16 16:00 18 121/79 96 05/17/16 15:43 98.7 F 90 18 121/79 96 - Lungs Lungs: Clear Ascult./Percussion - Airway Airway: Non-obstructed - Cardiovascular Regular Rate - Mental Status Mental Status: Alert & Oriented, Answers Appropriately - Pain Pain Scale: 1 - Nausea Vomiting Nausea Vomiting: Not Present - Hydration Hydration: NPO - Discharge PostOp Status: Transfer Patient to floor
[2016-05-17] MEDS ORDERED: Magic Mouthwash 10 ML UD Cup PO PRN (19:23)
[2016-05-17] MEDS ORDERED: D10% in Water 500 ML IVC PRN (19:23)
[2016-05-17] MEDS ORDERED: Dextrose Gel 15 GM PO PRN ×2 (19:23)
[2016-05-17] MEDS ORDERED: Naloxone 0.4 MG/ML INJ IVP PRN (19:23)
[2016-05-17] MEDS ORDERED: D5% in Water 1,000 ML IVC PRN (19:23)
[2016-05-17] MEDS ORDERED: *HR* Dextrose 50 % in Water (Syg) 50 ML SYRINGE IVP PRN (19:23)
[2016-05-17] MEDS: *HR* HYDROmorphone (PF) 1 MG/ML SYRINGE IVP PRN ×2 (20:44→23:20)
[2016-05-17] MEDS: ADVAIR 250/50 IH SCH (20:49)
[2016-05-17] MEDS: RESTASIS OPTH OP SCH (20:50)
[2016-05-17] MEDS: cefOXitin 2,000 MG in D5% in Water (Mini-Bag+) 100 ML IVPB SCH (23:31)
[2016-05-17] MEDS: Ondansetron 4 MG/2 ML VIAL IVP PRN (23:31)
[2016-05-18] MEDS: *HR* HYDROmorphone (PF) 1 MG/ML SYRINGE IVP PRN ×8 (03:50→23:41)
[2016-05-18 03:55] LABS: Hematocrit 29.9 % (35.3-44.9); Immature Granulocytes % 0.4 % (0-4); Lymphocytes # 0.3 K/mcL (0.6-4.6); Lymphocytes % 3.6 %; Mean Corpuscular HGB Conc 30.1 g/dL (31.6-35.5); Mean Corpuscular Hemoglobin 24.8 pg (28.0-33.3); Mean Corpuscular Volume 82.4 fL (83.0-100.0); Mean Platelet Volume 9.6 fL (9.4-12.4); Monocytes # 0.4 K/mcL (0.0-1.3); Monocytes % 6.3 %; Neutrophils # 6.3 K/mcL (1.6-8.9); Platelet Count 143 K/mcL (140-400); Red Blood Count 3.63 M/mcL (3.82-4.97); Red Cell Distribution Width 21.4 % (11.5-14.5); Segmented Neutrophils % 89.7 %
[2016-05-18 04:07] LABS: Magnesium 1.8 mg/dL (1.6-2.6); Phosphorous 3.1 mg/dL (2.3-4.7)
[2016-05-18 04:09] LABS: Alanine Aminotransferase 26 Units/L (0-55); Albumin 2.1 g/dL (3.5-5.0); Albumin/Globulin Ratio 0.8 (1.1-2.2); Alkaline Phosphatase 223 Units/L (38-126); Aspartate Amino Transferase 16 Units/L (5-34); BUN/Creatinine Ratio 32 (6-26); Bilirubin,Total 0.4 mg/dL (0.2-1.2); Blood Urea Nitrogen 20 mg/dL (7-20); Calcium 7.8 mg/dL (8.6-10.8); Carbon Dioxide 24 mEq/L (19-29); Chloride 102 mEq/L (98-109); Globulin 2.6 g/dL (2.4-3.5); Glucose 231 mg/dL (70-99); Osmolality,Calculated 282 (280-300); Potassium 4.2 mEq/L (3.5-4.5); Sodium 131 mEq/L (136-145); Total Protein 4.7 g/dL (6.0-8.3); eGFR For African Americans > 60 (> 60); eGFR For Non-African Americans > 60 (> 60)
[2016-05-18] MEDS: Pantoprazole 40 MG VIAL IVP SCH ×2 (06:05→17:58)
[2016-05-18] MEDS: cefOXitin 2,000 MG in D5% in Water (Mini-Bag+) 100 ML IVPB SCH (08:27)
[2016-05-18] MEDS: *HR* Enoxaparin 40 MG/0.4 ML SYRINGE SQ SCH (08:27)
[2016-05-18] MEDS: Dexamethasone 4 MG/ML VIAL IVP SCH (08:29)
[2016-05-18] MEDS: ADVAIR 250/50 IH SCH (08:30)
[2016-05-18] MEDS: RESTASIS OPTH OP SCH ×2 (08:30→23:32)
[2016-05-18] MEDS: Ringers Solution, Lactated 1,000 ML IVC SCH ×2 (08:52→21:49)
[2016-05-18] MEDS ORDERED: D10% in Water 500 ML IVC PRN (09:02)
--- NOTE | 2016-05-18 09:37 | General Surgery Progress Note ---
Date of Encounter: 05/18/16 Time of Encounter: 09:35 - Assessment and Plan (1) Duodenal obstruction, acquired Current Visit: Yes Status: Acute POD#1 Gastrojejunostomy, palliative Pt. tolerated the procedure well. Having expected post-op ileus. No bowel sounds yet. NG in place. Will follow NG output and remove when appropriate. Ambulate TID if she tolerates. Afebrile. WBC 7.0 Plan: NPO, antiemetics, pain control, ambulate TID, TPN (managed by flower shop laborer/designer), NG to LIWS, trend WBC. Subjective Patient reports: afebrile Narrative: Patient seen and examined. POD#1 Gastrojejunostomy, palliative. Feeling sore this am, as expected. No bowel sounds either, but this is an expected post-op ileus. Objective Vital Signs - Last 8 Hours Temp Pulse Resp BP Pulse Ox 05/18/16 08:42 98 05/18/16 07:54 97.9 F 76 18 108/68 99 05/18/16 05:19 97.5 F L 83 17 120/87 96 Intake and Output 05/17/16 05/18/16 05/18/16 23:59 07:59 15:59 Intake Total 1100 / 1100 Output Total 560 / 560 350 / 350 300 / 300 Balance -560 / -560 -350 / -350 800 / 800 Intake: IV Fluids 1100 / 1100 Lactated Ringers 1,000 ML 1000 / 1000 @ 80 mls/hr IVC .[id number] PEPE Rx#:[id number] Mefoxin 2,000 MG In 100 / 100 Dextrose 5% (Minibag+) 100 ML 100 ML @ 200 mls/ hr IVPB Q8HR PEPE Rx#: [id number] Output: Urine 250 / 250 350 / 350 Estimated Blood Loss 10 / 10 Gastric Drainage 300 / 300 300 / 300 Left Nare 300 / 300 Other: Weight 61.7 kg Blood Glucose* 86 Patient Weight 05/18/16 23:59 Weight 61.7 kg - General physical appearance chronically ill - Eyes normal ocular movement - Neck Neck exam: trachea midline - Respiratory clear to auscultation - Cardiovascular Cardiovascular exam: Present: RRR, no murmurs/rubs/gallops - Abdomen Abdomen: Present: soft. Absent: bowel sounds present (expected post-op ileus) - Incision Incision: Present: clean and dry, intact - Neurologic CN 2-12 grossly intact - Psychiatric oriented to time, oriented to person, oriented to place - Labs 05/18/16 03:39 05/18/16 03:39 Diabetes panel 05/18/16 Range/Units 03:39 Sodium 131 L (136-145) mEq/L Potassium 4.2 (3.5-4.5) mEq/L Chloride 102 (98-109) mEq/L Carbon Dioxide 24 (19-29) mEq/L BUN 20 (7-20) mg/dL Creatinine 0.62 (0.57-1.11) mg/dL Glucose 231 H (70-99) mg/dL Calcium 7.8 L (8.6-10.8) mg/dL AST 16 (5-34) Units/L ALT 26 (0-55) Units/L Alkaline Phosphatase 223 H (38-126) Units/L Albumin 2.1 L (3.5-5.0) g/dL Calcium panel 05/18/16 05/18/16 Range/Units 03:39 03:39 Calcium 7.8 L (8.6-10.8) mg/dL Phosphorus 3.1 (2.3-4.7) mg/dL Albumin 2.1 L (3.5-5.0) g/dL Pituitary panel 05/18/16 Range/Units 03:39 Sodium 131 L (136-145) mEq/L Potassium 4.2 (3.5-4.5) mEq/L Chloride 102 (98-109) mEq/L Carbon Dioxide 24 (19-29) mEq/L BUN 20 (7-20) mg/dL Creatinine 0.62 (0.57-1.11) mg/dL Glucose 231 H (70-99) mg/dL Calcium 7.8 L (8.6-10.8) mg/dL Adrenal panel 05/18/16 Range/Units 03:39 Sodium 131 L (136-145) mEq/L Potassium 4.2 (3.5-4.5) mEq/L Chloride 102 (98-109) mEq/L Carbon Dioxide 24 (19-29) mEq/L BUN 20 (7-20) mg/dL Creatinine 0.62 (0.57-1.11) mg/dL Glucose 231 H (70-99) mg/dL Calcium 7.8 L (8.6-10.8) mg/dL Total Bilirubin 0.4 (0.2-1.2) mg/dL AST 16 (5-34) Units/L ALT 26 (0-55) Units/L Alkaline Phosphatase 223 H (38-126) Units/L Albumin 2.1 L (3.5-5.0) g/dL - VTE Documentation of Mechanical Device: Intermittent pneumatic compression device Consult Discharge Plan - Plan Referrals: Lambert Gandhi MD [Primary Care Provider] - 05/15/16 3:00 pm - Attending Attestation I examined this patient and my medical decision-making was reviewed with the LITHARGE SUPERVISOR/PA/Advanced Practice Nurse/Resident Physician. I agree with the documented findings, disposition and treatment plan as described except to the extent set forth below. The patient is seen and evaluated on morning rounds with the resident. She is comfortable and stable. There are no bowel sounds. We will continue nasogastric tube drainage today. Enrique Aleman MD FACS
--- NOTE | 2016-05-18 09:38 | Palliative Progress Note ---
<Wesley Leal - Last Filed: 05/18/16 09:35> Date of Encounter: 05/17/16 Time of Encounter: 09:35 - Assessment and plan (1) Nausea and vomiting Current Visit: No Status: Acute Assessment and plan: Improved after procedure. NG tube is in place, will be managed by surgery team. We will continue with antinausea medicines at this time, we will reevaluate the patient is able to eat. Patient is having some nausea when her Decadron was administered so we will decrease this to her home dose. (2) Goals of care, counseling/discussion Current Visit: Yes Status: Acute Assessment and plan: CODE STATUS was discussed yesterday and patient would ultimately like to be a DNR CCA however we have held off on making superficial change given her surgery yesterday in the immediate postop period. We will allow the patient recovered from surgery and discuss this at a later time. The plan was discussed with the patient verbalized understanding. (3) Dehydration Current Visit: Yes Status: Acute Assessment and plan: Continue fluid hydration and TPN. (4) Cancer related pain Current Visit: No Status: Chronic Assessment and plan: Pain related to cancer is under good control this time with the fentanyl patch. Patient is having some postoperative pain is well-controlled with Dilaudid. (5) Malignant neoplasm metastatic to colon Current Visit: Yes Status: Acute - Time Spent With Patient Total time spent is greater than 50% in coordination of care (as documented) at patient's floor/unit and/or counseling patient: - Subjective Interval history: Patient seen and examined at bedside. Patient is postop day 1 from palliative intestinal bypass procedure. Patient states she is feeling pretty good, she has mild pain at her surgical incision sites. She states her nausea is improved. She denies any vomiting since the procedure. - Constitutional Vitals: Abnormal lab results RBC 3.63 M/mcL (3.82-4.97) L 05/18/16 03:39 Hgb 9.0 g/dL (11.5-15.4) L D 05/18/16 03:39 Hct 29.9 % (35.3-44.9) L 05/18/16 03:39 MCV 82.4 fL (83.0-100.0) L 05/18/16 03:39 MCH 24.8 pg (28.0-33.3) L 05/18/16 03:39 MCHC 30.1 g/dL (31.6-35.5) L 05/18/16 03:39 RDW 21.4 % (11.5-14.5) H 05/18/16 03:39 Lymphocytes # 0.3 K/mcL (0.6-4.6) L 05/18/16 03:39 Nucleated RBCs/100 WBC 0.5 /100 WBC (0) H 05/16/16 05:35 Hypochromasia Present (Not Present) A 05/16/16 05:35 Anisocytosis 2+ (Not Present) A 05/16/16 05:35 Sodium 131 mEq/L (136-145) L 05/18/16 03:39 BUN/Creatinine Ratio 32 (6-26) H 05/18/16 03:39 Glucose 231 mg/dL (70-99) H 05/18/16 03:39 POC Glucose 212 (58-89) H 05/16/16 20:31 Calcium 7.8 mg/dL (8.6-10.8) L 05/18/16 03:39 Ionized Calcium 1.14 mmol/L (1.15-1.35) L 05/12/16 04:30 Alkaline Phosphatase 223 Units/L (38-126) H 05/18/16 03:39 Serum Total Protein 4.7 g/dL (6.0-8.3) L 05/18/16 03:39 Albumin 2.1 g/dL (3.5-5.0) L 05/18/16 03:39 Albumin/Globulin Ratio 0.8 (1.1-2.2) L 05/18/16 03:39 Urine Clarity Cloudy (Clear) A 05/12/16 04:30 Ur Specific [place] 1.027 (1.010-1.025) H 05/12/16 04:30 Urine Blood Moderate (Negative) H 05/12/16 04:30 Urine Microscopic RBC 5-15 per hpf (0-3) H 05/12/16 04:30 Urine Microscopic WBC 5-15 per hpf (0-3) H 05/12/16 04:30 Ur Squamous Epith Cells Many per lpf (None-Few) H 05/12/16 04:30 Ur Culture Indicated? YES (NO) A 05/12/16 04:30 - ENT ENT exam: Present: mucous membranes dry - Respiratory Respiratory exam: Present: CTAB. Absent: rales, rhonchi, wheezes - Cardiovascular Cardiovascular exam: Present: RRR. Absent: gallop, rubs, systolic murmur - GI/Abdominal GI/Abdominal exam: Present: hypoactive bowel sounds, soft. Absent: distended, tenderness - Extremities Exam Extremities exam: Absent: pedal edema - Neurological Exam Neurological exam: Present: alert, CN II-XII intact, oriented X3, no focal deficits Palliative Quality Palliative Quality: Screen for Code Status: Yes, Screen for Goals of Care: Yes, Screen for Pain: Yes, If Pain Regimen Started, Initiate Bowel Regimen: Yes, Screen for Nausea/Vomitting: Yes - Labs CBC & Chem 7: 05/18/16 03:39 05/18/16 03:39 Labs: Laboratory Results - last 24 hr 05/18/16 05/18/16 05/18/16 03:39 03:39 03:39 WBC 7.0 RBC 3.63 L Hgb 9.0 L D Hct 29.9 L MCV 82.4 L MCH 24.8 L MCHC 30.1 L RDW 21.4 H Plt Count 143 MPV 9.6 Immature Gran % 0.4 Seg Neutrophils % 89.7 Lymphocytes % 3.6 Monocytes % 6.3 Eosinophils % 0.0 Basophils % 0.0 Neutrophils # 6.3 Lymphocytes # 0.3 L Monocytes # 0.4 Eosinophils # 0.0 Basophils # 0.0 Sodium 131 L Potassium 4.2 Chloride 102 Carbon Dioxide 24 BUN 20 Creatinine 0.62 Est GFR ( Amer) > 60 Est GFR (Non-Af Amer) > 60 BUN/Creatinine Ratio 32 H Glucose 231 H Calculated Osmolality 282 Calcium 7.8 L Phosphorus 3.1 Magnesium 1.8 Total Bilirubin 0.4 AST 16 ALT 26 Alkaline Phosphatase 223 H Serum Total Protein 4.7 L Albumin 2.1 L Globulin 2.6 Albumin/Globulin Ratio 0.8 L Consult Discharge Plan - Plan Referrals: Lambert Gandhi MD [Primary Care Provider] - 05/15/16 3:00 pm <Lambert Perdomo - Last Filed: 05/18/16 10:34> Date of Encounter: 05/17/16 - Assessment and plan (1) Cancer related pain Current Visit: No Status: Chronic (2) Dehydration Current Visit: Yes Status: Acute (3) Failure to thrive Current Visit: Yes Status: Acute Qualifiers: Failure to thrive age range: in adult Qualified Code(s): R62.7 - Adult failure to thrive (4) Nausea and vomiting Current Visit: No Status: Acute Qualifiers: Vomiting type: unspecified Vomiting Intractability: intractable Qualified Code(s): R11.2 - Nausea with vomiting, unspecified (5) Goals of care, counseling/discussion Current Visit: Yes Status: Acute (6) Constipation due to pain medication Current Visit: No Status: Acute (7) Colon cancer Current Visit: No Status: Acute Qualifiers: Colon location: unspecified part of colon Qualified Code(s): C18.9 - Malignant neoplasm of colon, unspecified - Time Spent With Patient Total time spent is greater than 50% in coordination of care (as documented) at patient's floor/unit and/or counseling patient: - Constitutional Vitals: Abnormal lab results RBC 3.63 M/mcL (3.82-4.97) L 05/18/16 03:39 Hgb 9.0 g/dL (11.5-15.4) L D 05/18/16 03:39 Hct 29.9 % (35.3-44.9) L 05/18/16 03:39 MCV 82.4 fL (83.0-100.0) L 05/18/16 03:39 MCH 24.8 pg (28.0-33.3) L 05/18/16 03:39 MCHC 30.1 g/dL (31.6-35.5) L 05/18/16 03:39 RDW 21.4 % (11.5-14.5) H 05/18/16 03:39 Lymphocytes # 0.3 K/mcL (0.6-4.6) L 05/18/16 03:39 Nucleated RBCs/100 WBC 0.5 /100 WBC (0) H 05/16/16 05:35 Hypochromasia Present (Not Present) A 05/16/16 05:35 Anisocytosis 2+ (Not Present) A 05/16/16 05:35 Sodium 131 mEq/L (136-145) L 05/18/16 03:39 BUN/Creatinine Ratio 32 (6-26) H 05/18/16 03:39 Glucose 231 mg/dL (70-99) H 05/18/16 03:39 POC Glucose 212 (58-89) H 05/16/16 20:31 Calcium 7.8 mg/dL (8.6-10.8) L 05/18/16 03:39 Ionized Calcium 1.14 mmol/L (1.15-1.35) L 05/12/16 04:30 Alkaline Phosphatase 223 Units/L (38-126) H 05/18/16 03:39 Serum Total Protein 4.7 g/dL (6.0-8.3) L 05/18/16 03:39 Albumin 2.1 g/dL (3.5-5.0) L 05/18/16 03:39 Albumin/Globulin Ratio 0.8 (1.1-2.2) L 05/18/16 03:39 Urine Clarity Cloudy (Clear) A 05/12/16 04:30 Ur Specific [place] 1.027 (1.010-1.025) H 05/12/16 04:30 Urine Blood Moderate (Negative) H 05/12/16 04:30 Urine Microscopic RBC 5-15 per hpf (0-3) H 05/12/16 04:30 Urine Microscopic WBC 5-15 per hpf (0-3) H 05/12/16 04:30 Ur Squamous Epith Cells Many per lpf (None-Few) H 05/12/16 04:30 Ur Culture Indicated? YES (NO) A 05/12/16 04:30 - Attending Attestation I examined this patient and my medical decision-making was reviewed with the HAIR PREPARER/PA/Advanced Practice Nurse/Resident Physician. I agree with the documented findings, disposition and treatment plan as described except to the extent set forth below. - Labs CBC & Chem 7: 05/18/16 03:39 05/18/16 03:39 Labs: Laboratory Results - last 24 hr 05/18/16 05/18/16 05/18/16 03:39 03:39 03:39 WBC 7.0 RBC 3.63 L Hgb 9.0 L D Hct 29.9 L MCV 82.4 L MCH 24.8 L MCHC 30.1 L RDW 21.4 H Plt Count 143 MPV 9.6 Immature Gran % 0.4 Seg Neutrophils % 89.7 Lymphocytes % 3.6 Monocytes % 6.3 Eosinophils % 0.0 Basophils % 0.0 Neutrophils # 6.3 Lymphocytes # 0.3 L Monocytes # 0.4 Eosinophils # 0.0 Basophils # 0.0 Sodium 131 L Potassium 4.2 Chloride 102 Carbon Dioxide 24 BUN 20 Creatinine 0.62 Est GFR ( Amer) > 60 Est GFR (Non-Af Amer) > 60 BUN/Creatinine Ratio 32 H Glucose 231 H Calculated Osmolality 282 Calcium 7.8 L Phosphorus 3.1 Magnesium 1.8 Total Bilirubin 0.4 AST 16 ALT 26 Alkaline Phosphatase 223 H Serum Total Protein 4.7 L Albumin 2.1 L Globulin 2.6 Albumin/Globulin Ratio 0.8 L
--- NOTE | 2016-05-18 14:16 | Internal Med Progress Note ---
Date of Encounter: 05/17/16 Time of Encounter: 14:13 - Assessment and plan (1) Malignant neoplasm metastatic to colon Current Visit: Yes Status: Acute Assessment and plan: Oncology following, will reassess treatment options with them. CT of the abdomen and pelvis shows progression through her first cycle of chemotherapy which she tolerated poorly. We will explore any other options with oncology. Gen. surgery consult for options on palliative hormonal bypass surgery. I have discussed the case with the general surgeon and a appreciated their recommendations. 05/16/2016 Surgery on board and will wait for recommendations. 05/17/2016. Patient and family had a long talk with surgery department. patient is going for surgery this evening. 05/18/2016 Postoperative day #1 Patient underwent surgery yesterday. She had a duodenal obstruction from metastatic colon cancer. She underwent gastrojejunostomy which is mainly for palliative reasons. Patient appears more alert and answers all questions appropriately. Surgery on the board and we will follow their recommendations. (2) Dehydration Current Visit: Yes Status: Acute Assessment and plan: We will treat this with IV fluids. Replete electrolytes. Check BUN and creatinine the morning. Encourage oral hydration as much as tolerated. Treat nausea with Zofran and Phenergan. 05/16/2016 will continue IV fluids labs in AM 05/17/2016 Will continue IV fluids for now. BUN/creatinine is within normal limits. 05/18/2016. We will continue IV fluids. Will continue TPN. (3) Failure to thrive Current Visit: Yes Status: Acute Assessment and plan: She has had persistent nausea and severe abdominal pain her oncologist recommended TPN. Continue with TPN. Follow-up with nutrition. Check fingerstick blood glucose. Check and replete magnesium and phosphorus daily. 05/16/2016 secondary to duodenal obstruction. presently on TPN will cont TPN labs in AM. Qualifiers: Failure to thrive age range: in adult Qualified Code(s): R62.7 - Adult failure to thrive (4) Hypophosphatemia Current Visit: Yes Status: Acute Assessment and plan: She cannot take by mouth. Replete with IV phosphorus and magnesium. 05/16/2016 will work with nutrition and will replace via TPN - Subjective Interval history: seen and examined. patient has occasional nausea. denies vomiting. at bedside. 05/17/2016. Patient seen and examined. Patient has still occasional nausea. Noted that NG tube is placed in. Patient denies vomiting, abdominal pain or diarrhea. 05/18/2016 Patient seen and examined. Postoperative day1 Patient denies any nausea, vomiting, abdominal pain She is taking ice chips. - Constitutional Vitals: Temp Pulse Resp BP Pulse Ox 97.6 F 81 18 101/70 95 05/18/16 12:00 05/18/16 12:00 05/18/16 12:00 05/18/16 12:00 05/18/16 12:00 General appearance: Present: A&O X 3 - Head Head exam: Present: atraumatic, normocephalic - Eye Eye exam: Present: PERRL, conjuntiva pink, sclera anicteric Pupils: Present: PERRL - Neck Neck exam general surgery: Present: supple, trachea midline. Absent: lymphadenopathy - Respiratory Respiratory exam: Present: CTAB. Absent: accessory muscle use, rales, rhonchi, wheezes - Cardiovascular Cardiovascular exam: Present: RRR, +S1, +S2. Absent: diastolic murmur, gallop, rubs, systolic murmur - GI/Abdominal GI/Abdominal exam: Present: normal bowel sounds, soft, no peritoneal signs. Absent: distended, tenderness - Extremities Exam Extremities exam: Present: warm, radial pulses palpable and symetrical. Absent : calf tenderness, cyanotic, pedal edema - Neurological Exam Neurological exam: Present: CN II-XII intact, oriented X3, no focal deficits. Absent: pronater drift, facial droop, speech deficit - Skin Skin exam: Present: dry, intact Internal Medicine: Result - Labs CBC & Chem 7: 05/18/16 03:39 05/18/16 03:39 Labs: Short CBC 05/18/16 Range/Units 03:39 WBC 7.0 (4.3-11.1) K/mcL Hgb 9.0 L D (11.5-15.4) g/dL Hct 29.9 L (35.3-44.9) % Plt Count 143 (140-400) K/mcL Neutrophils # 6.3 (1.6-8.9) K/mcL BMP 05/18/16 03:39 Sodium 131 L Potassium 4.2 Chloride 102 Carbon Dioxide 24 BUN 20 Creatinine 0.62 Glucose 231 H Calcium 7.8 L Liver Function 05/18/16 Range/Units 03:39 Total Bilirubin 0.4 (0.2-1.2) mg/dL AST 16 (5-34) Units/L ALT 26 (0-55) Units/L Alkaline Phosphatase 223 H (38-126) Units/L Albumin 2.1 L (3.5-5.0) g/dL - VTE Documentation of Mechanical Device: Intermittent pneumatic compression device Consult Discharge Plan - Plan Referrals: Lambert Gandhi MD [Primary Care Provider] - 05/15/16 3:00 pm
[2016-05-18] MEDS ORDERED: Clinimix E 5%-15% SOLUTION 2,000 ML with MVI, adult with vitamin K 10 ML, Sodium Phos... IVC SCH (17:00)
[2016-05-18] MEDS: Dexamethasone 10 MG/ML VIAL IVP SCH (21:47)
[2016-05-19] MEDS: *HR* HYDROmorphone (PF) 1 MG/ML SYRINGE IVP PRN ×7 (02:55→21:03)
[2016-05-19] MEDS: Ondansetron 4 MG/2 ML VIAL IVP PRN ×2 (06:28→13:45)
[2016-05-19 06:45] LABS: Basophils % 0.1 %; Eosinophils % 0.1 %; Hematocrit 33.7 % (35.3-44.9); Hemoglobin 10.2 g/dL (11.5-15.4); Immature Granulocytes % 0.9 % (0-4); Lymphocytes # 0.6 K/mcL (0.6-4.6); Lymphocytes % 8.2 %; Mean Corpuscular HGB Conc 30.3 g/dL (31.6-35.5); Mean Corpuscular Hemoglobin 25.1 pg (28.0-33.3); Mean Corpuscular Volume 82.8 fL (83.0-100.0); Mean Platelet Volume 11.3 fL (9.4-12.4); Monocytes # 0.7 K/mcL (0.0-1.3); Monocytes % 10.7 %; Neutrophils # 5.5 K/mcL (1.6-8.9); Platelet Count 167 K/mcL (140-400); Red Blood Count 4.07 M/mcL (3.82-4.97); Red Cell Distribution Width 22.1 % (11.5-14.5)
--- NOTE | 2016-05-19 08:17 | General Surgery Progress Note ---
Date of Encounter: 05/22/16 Time of Encounter: 08:15 - Assessment and Plan (1) Duodenal obstruction, acquired Current Visit: Yes Status: Acute POD#2 Gastrojejunostomy, palliative Pt. tolerated the procedure well. Having expected post-op ileus, but beginning to have bowel sounds today. Still no BM or flatus yet. NG in place. Apparently the sump was covered overnight which blocks the inflow of air and the NG tube does not function properly. This am the NG was fixed. She will require one more day of NG to LIWS. If she tolerates this well and has minimal NG output and no nausea will place NG to gravity tomorrow with the hope that the NG tube can be removed on Sunday. Ambulate TID if she tolerates. Afebrile. WBC 7.0>6.9 Plan: NPO, antiemetics, pain control, ambulate TID, TPN (managed by household manager), NG to LIWS, trend WBC. Subjective Patient reports: no flatus, no bowel movement Narrative: Patient seen and examined. She does have some bowel sounds this am, but no flatus or bm. Objective Vital Signs - Last 8 Hours Temp Pulse Resp BP Pulse Ox 05/19/16 07:06 97.8 F 85 16 108/66 97 05/19/16 05:30 98.9 F 75 14 95/66 96 Intake and Output 05/18/16 05/19/16 05/19/16 23:59 07:59 15:59 Intake Total 1000 / 1000 Output Total 200 / 200 600 / 600 Balance 800 / 800 -600 / -600 Intake: IV Fluids 1000 / 1000 Lactated Ringers 1,000 ML 1000 / 1000 @ 80 mls/hr IVC .[id number] PEPE Rx#:[id number] Oral 0 / 0 Output: Urine 0 / 0 600 / 600 Gastric Drainage 200 / 200 Left Nare 200 / 200 Other: Meal NPO # Voids 1 Weight 61.4 kg Blood Glucose* 157 97 Patient Weight 05/19/16 23:59 Weight 61.4 kg - Additional Exam - General physical appearance chronically ill - Eyes normal ocular movement - Neck Neck exam: trachea midline - Respiratory clear to auscultation - Cardiovascular Cardiovascular exam: Present: RRR, no murmurs/rubs/gallops - Abdomen Abdomen: Present: soft. Absent: bowel sounds present (expected post-op ileus) - Incision Incision: Present: clean and dry, intact - Neurologic CN 2-12 grossly intact - Psychiatric oriented to time, oriented to person, oriented to place - Labs 05/19/16 06:17 05/22/16 03:20 - VTE Documentation of Mechanical Device: Intermittent pneumatic compression device Consult Discharge Plan - Plan Referrals: Lambert Gandhi MD [Primary Care Provider] - - Attending Attestation I examined this patient and my medical decision-making was reviewed with the NEW CAR SALESPERSON/PA/Advanced Practice Nurse/Resident Physician. I agree with the documented findings, disposition and treatment plan as described except to the extent set forth below. The patient is seen and evaluated with the resident on morning rounds. She has had palliative gastrojejunostomy. Nasogastric tube is falling off area and I will remove the nasogastric tube today. We will keep her nothing by mouth until she is passing flatus. Enrique Aleman MD FACS
[2016-05-19 09:00] LABS: Alanine Aminotransferase 46 Units/L (0-55); Albumin 2.3 g/dL (3.5-5.0); Albumin/Globulin Ratio 0.8 (1.1-2.2); Alkaline Phosphatase 275 Units/L (38-126); Aspartate Amino Transferase 27 Units/L (5-34); BUN/Creatinine Ratio 35 (6-26); Bilirubin,Total 0.2 mg/dL (0.2-1.2); Blood Urea Nitrogen 19 mg/dL (7-20); Calcium 7.6 mg/dL (8.6-10.8); Carbon Dioxide 22 mEq/L (19-29); Globulin 2.9 g/dL (2.4-3.5); Glucose 86 mg/dL (70-99); Magnesium 1.9 mg/dL (1.6-2.6); Phosphorous 2.6 mg/dL (2.3-4.7); Total Protein 5.2 g/dL (6.0-8.3); Triglycerides 113 mg/dL (< 150); eGFR For African Americans > 60 (> 60); eGFR For Non-African Americans > 60 (> 60)
[2016-05-19] MEDS: *HR* Enoxaparin 40 MG/0.4 ML SYRINGE SQ SCH (09:27)
[2016-05-19] MEDS: Pantoprazole 40 MG VIAL IVP SCH ×2 (09:27→17:22)
[2016-05-19] MEDS: Dexamethasone 10 MG/ML VIAL IVP SCH ×2 (09:28→21:03)
[2016-05-19] MEDS: ADVAIR 250/50 IH SCH ×2 (09:29→20:54)
[2016-05-19] MEDS: RESTASIS OPTH OP SCH ×2 (09:29→20:58)
[2016-05-19 10:30] LABS: Chloride 105 mEq/L (98-109); Osmolality,Calculated 278 (280-300); Potassium 3.9 mEq/L (3.5-4.5); Sodium 133 mEq/L (136-145)
[2016-05-19] MEDS: *HR* Promethazine 25 MG/ML VIAL IVP PRN ×2 (11:08→17:20)
--- NOTE | 2016-05-19 12:08 | Event Note ---
Date of Encounter: 05/18/16 Time of Encounter: 11:00 Patient will uneventful night. Surgical noted some bowel sounds, no flatus as of yet. Patient getting ready to get out of bed to bathroom. She does report nausea and "funny feeling like a head hart" immediantly after receiving Dilaudid , and is still requiring some antiemetics. She states these have been helpful. Discussed with bedside nurse Janelle boyce,ministering IV pain medication slowly to avoid the sensation she has been experiencing. and son at bedside with no questions.
[2016-05-19] MEDS: Ringers Solution, Lactated 1,000 ML IVC SCH (13:44)
--- NOTE | 2016-05-19 16:44 | Internal Med Progress Note ---
Date of Encounter: 05/19/16 Time of Encounter: 16:41 - Assessment and plan (1) Malignant neoplasm metastatic to colon Current Visit: Yes Status: Acute Assessment and plan: Oncology following, will reassess treatment options with them. CT of the abdomen and pelvis shows progression through her first cycle of chemotherapy which she tolerated poorly. We will explore any other options with oncology. Gen. surgery consult for options on palliative hormonal bypass surgery. I have discussed the case with the general surgeon and a appreciated their recommendations. 05/16/2016 Surgery on board and will wait for recommendations. 05/17/2016. Patient and family had a long talk with surgery department. patient is going for surgery this evening. 05/18/2016 Postoperative day #1 Patient underwent surgery yesterday. She had a duodenal obstruction from metastatic colon cancer. She underwent gastrojejunostomy which is mainly for palliative reasons. Patient appears more alert and answers all questions appropriately. Surgery on the board and we will follow their recommendations. 05/01/2016. Postoperative day #2. Patient underwent surgery for metastatic neoplasm of colon: As a debulking procedure. Patient tolerated procedure well. Currently she is taking total parenteral nutrition. Surgery/dietitian to manage total parenteral nutrition. (2) Dehydration Current Visit: Yes Status: Acute Assessment and plan: We will treat this with IV fluids. Replete electrolytes. Check BUN and creatinine the morning. Encourage oral hydration as much as tolerated. Treat nausea with Zofran and Phenergan. 05/16/2016 will continue IV fluids labs in AM 05/17/2016 Will continue IV fluids for now. BUN/creatinine is within normal limits. 05/18/2016. We will continue IV fluids. Will continue TPN. (3) Failure to thrive Current Visit: Yes Status: Acute Assessment and plan: She has had persistent nausea and severe abdominal pain her oncologist recommended TPN. Continue with TPN. Follow-up with nutrition. Check fingerstick blood glucose. Check and replete magnesium and phosphorus daily. 05/16/2016 secondary to duodenal obstruction. presently on TPN will cont TPN labs in AM. Qualifiers: Failure to thrive age range: in adult Qualified Code(s): R62.7 - Adult failure to thrive (4) Hypophosphatemia Current Visit: Yes Status: Acute Assessment and plan: She cannot take by mouth. Replete with IV phosphorus and magnesium. 05/16/2016 will work with nutrition and will replace via TPN - Subjective Interval history: seen and examined. patient has occasional nausea. denies vomiting. at bedside. 05/17/2016. Patient seen and examined. Patient has still occasional nausea. Noted that NG tube is placed in. Patient denies vomiting, abdominal pain or diarrhea. 05/18/2016 Patient seen and examined. Postoperative day1 Patient denies any nausea, vomiting, abdominal pain She is taking ice chips. 05/19/2016. Patient seen and examined. Postoperative day 2. Patient denies any chest pain, nausea, vomiting, abdominal pain. Her appetite is much better as compared to yesterday. - Constitutional Vitals: Temp Pulse Resp BP Pulse Ox 98.1 F 89 15 108/85 97 05/19/16 15:13 05/19/16 15:13 05/19/16 15:13 05/19/16 15:13 05/19/16 07:06 General appearance: Present: A&O X 3, no acute distress, answers questions appropriately - Head Head exam: Present: atraumatic, normocephalic - Eye Eye exam: Present: PERRL, conjuntiva pink, sclera anicteric Pupils: Present: PERRL - Neck Neck exam general surgery: Present: supple, trachea midline. Absent: lymphadenopathy - Respiratory Respiratory exam: Present: CTAB. Absent: accessory muscle use, rales, rhonchi, wheezes - Cardiovascular Cardiovascular exam: Present: RRR, +S1, +S2. Absent: diastolic murmur, gallop, rubs, systolic murmur - GI/Abdominal GI/Abdominal exam: Present: normal bowel sounds, soft, no peritoneal signs. Absent: distended, tenderness - Extremities Exam Extremities exam: Present: warm, radial pulses palpable and symetrical. Absent : calf tenderness, cyanotic, pedal edema - Neurological Exam Neurological exam: Present: CN II-XII intact, oriented X3, no focal deficits. Absent: pronater drift, facial droop, speech deficit - Skin Skin exam: Present: dry, intact Internal Medicine: Result - Labs CBC & Chem 7: 05/19/16 06:17 05/19/16 06:17 Labs: Short CBC 05/19/16 Range/Units 06:17 WBC 6.9 (4.3-11.1) K/mcL Hgb 10.2 L (11.5-15.4) g/dL Hct 33.7 L (35.3-44.9) % Plt Count 167 (140-400) K/mcL Neutrophils # 5.5 (1.6-8.9) K/mcL BMP 05/19/16 06:17 Sodium 133 L Potassium 3.9 Chloride 105 Carbon Dioxide 22 BUN 19 Creatinine 0.54 L Glucose 86 Calcium 7.6 L Liver Function 05/19/16 Range/Units 06:17 Total Bilirubin 0.2 (0.2-1.2) mg/dL AST 27 (5-34) Units/L ALT 46 (0-55) Units/L Alkaline Phosphatase 275 H (38-126) Units/L Albumin 2.3 L (3.5-5.0) g/dL - VTE Documentation of Mechanical Device: Intermittent pneumatic compression device Consult Discharge Plan - Plan Referrals: Lambert Gandhi MD [Primary Care Provider] - 05/15/16 3:00 pm
[2016-05-19] MEDS ORDERED: Clinimix E 5%-15% SOLUTION 2,000 ML with MVI, adult with vitamin K 10 ML, Trace Eleme... IVC SCH (17:00)
[2016-05-19] MEDS: *HR* FentaNYL PATCH 50 MCG PATCH TD SCH (21:01)
[2016-05-20] MEDS: *HR* HYDROmorphone (PF) 1 MG/ML SYRINGE IVP PRN ×7 (03:06→21:40)
[2016-05-20] MEDS: Ringers Solution, Lactated 1,000 ML IVC SCH ×2 (03:06→21:41)
[2016-05-20 03:34] LABS: BUN/Creatinine Ratio 33 (6-26); Blood Urea Nitrogen 19 mg/dL (7-20); Calcium 7.8 mg/dL (8.6-10.8); Carbon Dioxide 24 mEq/L (19-29); Chloride 105 mEq/L (98-109); Glucose 116 mg/dL (70-99); Osmolality,Calculated 287 (280-300); Phosphorous 3.1 mg/dL (2.3-4.7); Sodium 137 mEq/L (136-145); eGFR For African Americans > 60 (> 60); eGFR For Non-African Americans > 60 (> 60)
[2016-05-20] MEDS: *HR* LORazepam 2 MG/ML VIAL IVP PRN (04:36)
[2016-05-20] MEDS: Pantoprazole 40 MG VIAL IVP SCH ×2 (06:09→17:09)
[2016-05-20] MEDS: Dexamethasone 10 MG/ML VIAL IVP SCH ×2 (08:30→21:40)
[2016-05-20] MEDS: *HR* Enoxaparin 40 MG/0.4 ML SYRINGE SQ SCH (08:33)
[2016-05-20] MEDS: RESTASIS OPTH OP SCH ×2 (08:34→21:31)
--- NOTE | 2016-05-20 08:53 | Palliative Progress Note ---
<MelWesley Ramos - Last Filed: 05/20/16 08:50> Date of Encounter: 05/20/16 Time of Encounter: 08:50 - Assessment and plan (1) Nausea and vomiting Current Visit: No Status: Acute Assessment and plan: Improved after procedure. Patient is progressing nicely, feels like she has not this time. She does have hypoactive bowel sounds. NG tube is in place, will be managed by surgery team. We will continue with antinausea medicines at this time, we will reevaluate the patient is able to eat. Qualifiers: Vomiting type: unspecified Vomiting Intractability: intractable Qualified Code(s): R11.2 - Nausea with vomiting, unspecified (2) Goals of care, counseling/discussion Current Visit: Yes Status: Acute Assessment and plan: CODE STATUS was discussed again today the patient, she reiterated her wish to be a DNR CCA. The state DNR form has been filled out to reflect this and the orders were in place in the computer. This change was passed along to the primary team as well as the surgery team. Patient continues to wish to pursue any options that may help alleviate her symptoms. (3) Dehydration Current Visit: Yes Status: Acute Assessment and plan: Continue fluid hydration and TPN. (4) Cancer related pain Current Visit: No Status: Chronic Assessment and plan: Pain related to cancer is under good control this time with the fentanyl patch. Patient is having some postoperative pain is well-controlled with Dilaudid. (5) Malignant neoplasm metastatic to colon Current Visit: Yes Status: Acute - Time Spent With Patient Total time spent is greater than 50% in coordination of care (as documented) at patient's floor/unit and/or counseling patient: - Subjective Interval history: Patient seen and examined at bedside. Patient is postop day 3 from palliative intestinal bypass procedure. Patient states she is feeling pretty good, she feels like she continues to improve. She has minimal pain at her surgical incision site that is well controlled with pain medication. She thinks she may have passed a small amount of gas yesterday but is not regularly passing gas at this time. She denies nausea at this time and feels like she is beginning to get an appetite back. - Constitutional Vitals: Abnormal lab results Hgb 10.2 g/dL (11.5-15.4) L 05/19/16 06:17 Hct 33.7 % (35.3-44.9) L 05/19/16 06:17 MCV 82.8 fL (83.0-100.0) L 05/19/16 06:17 MCH 25.1 pg (28.0-33.3) L 05/19/16 06:17 MCHC 30.3 g/dL (31.6-35.5) L 05/19/16 06:17 RDW 22.1 % (11.5-14.5) H 05/19/16 06:17 Nucleated RBCs/100 WBC 0.5 /100 WBC (0) H 05/16/16 05:35 Hypochromasia Present (Not Present) A 05/16/16 05:35 Anisocytosis 2+ (Not Present) A 05/16/16 05:35 BUN/Creatinine Ratio 33 (6-26) H 05/20/16 03:10 Glucose 116 mg/dL (70-99) H 05/20/16 03:10 Calcium 7.8 mg/dL (8.6-10.8) L 05/20/16 03:10 Ionized Calcium 1.14 mmol/L (1.15-1.35) L 05/12/16 04:30 Alkaline Phosphatase 275 Units/L (38-126) H 05/19/16 06:17 Serum Total Protein 5.2 g/dL (6.0-8.3) L 05/19/16 06:17 Albumin 2.3 g/dL (3.5-5.0) L 05/19/16 06:17 Albumin/Globulin Ratio 0.8 (1.1-2.2) L 05/19/16 06:17 Urine Clarity Cloudy (Clear) A 05/12/16 04:30 Ur Specific [place] 1.027 (1.010-1.025) H 05/12/16 04:30 Urine Blood Moderate (Negative) H 05/12/16 04:30 Urine Microscopic RBC 5-15 per hpf (0-3) H 05/12/16 04:30 Urine Microscopic WBC 5-15 per hpf (0-3) H 05/12/16 04:30 Ur Squamous Epith Cells Many per lpf (None-Few) H 05/12/16 04:30 Ur Culture Indicated? YES (NO) A 05/12/16 04:30 - ENT ENT exam: Present: mucous membranes moist - Respiratory Respiratory exam: Present: CTAB. Absent: rales, respiratory distress, rhonchi, wheezes, tachypnea - Cardiovascular Cardiovascular exam: Present: RRR. Absent: gallop, rubs, systolic murmur - GI/Abdominal GI/Abdominal exam: Present: hypoactive bowel sounds, soft. Absent: distended, tenderness - Extremities Exam Extremities exam: Present: pedal edema (Trace) - Neurological Exam Neurological exam: Present: alert, oriented X3, no focal deficits Palliative Quality Palliative Quality: Screen for Code Status: Yes, Screen for Goals of Care: Yes, Screen for Pain: Yes, If Pain Regimen Started, Initiate Bowel Regimen: Yes, Screen for Nausea/Vomitting: Yes Code Status: 05/20/16 08:49 CODE [Resuscitation Status: Active] [RES] Routine Comment: Resuscitation Status: DNR-Comfort Care-Arrest - Labs CBC & Chem 7: 05/19/16 06:17 05/20/16 03:10 Labs: Laboratory Results - last 24 hr 05/18/16 05/19/16 05/19/16 23:30 06:17 07:07 Sodium 133 L Potassium 3.9 Chloride 105 Carbon Dioxide 22 BUN 19 Creatinine 0.54 L Est GFR ( Amer) > 60 Est GFR (Non-Af Amer) > 60 BUN/Creatinine Ratio 35 H Glucose 86 POC Glucose 157 H 97 H Calculated Osmolality 278 L Calcium 7.6 L Phosphorus 2.6 Magnesium 1.9 Total Bilirubin 0.2 AST 27 ALT 46 Alkaline Phosphatase 275 H Serum Total Protein 5.2 L Albumin 2.3 L Globulin 2.9 Albumin/Globulin Ratio 0.8 L Prealbumin Triglycerides 113 05/19/16 05/19/16 05/20/16 11:40 16:19 00:51 Sodium Potassium Chloride Carbon Dioxide BUN Creatinine Est GFR ( Amer) Est GFR (Non-Af Amer) BUN/Creatinine Ratio Glucose POC Glucose 91 H 82 207 H Calculated Osmolality Calcium Phosphorus Magnesium Total Bilirubin AST ALT Alkaline Phosphatase Serum Total Protein Albumin Globulin Albumin/Globulin Ratio Prealbumin Triglycerides 05/20/16 05/20/16 05/20/16 03:10 03:10 07:47 Sodium 137 Potassium 4.0 Chloride 105 Carbon Dioxide 24 BUN 19 Creatinine 0.57 Est GFR ( Amer) > 60 Est GFR (Non-Af Amer) > 60 BUN/Creatinine Ratio 33 H Glucose 116 H POC Glucose 74 Calculated Osmolality 287 Calcium 7.8 L Phosphorus 3.1 Magnesium Total Bilirubin AST ALT Alkaline Phosphatase Serum Total Protein Albumin Globulin Albumin/Globulin Ratio Prealbumin 21.0 Triglycerides Consult Discharge Plan - Plan Referrals: Lambert Gandhi MD [Primary Care Provider] - 05/15/16 3:00 pm <Lambert Perdomo - Last Filed: 05/20/16 09:02> Date of Encounter: 05/20/16 - Assessment and plan (1) Cancer related pain Current Visit: No Status: Chronic (2) Dehydration Current Visit: Yes Status: Acute (3) Failure to thrive Current Visit: Yes Status: Acute Qualifiers: Failure to thrive age range: in adult Qualified Code(s): R62.7 - Adult failure to thrive (4) Nausea and vomiting Current Visit: No Status: Acute Qualifiers: Vomiting type: unspecified Vomiting Intractability: intractable Qualified Code(s): R11.2 - Nausea with vomiting, unspecified (5) Goals of care, counseling/discussion Current Visit: Yes Status: Acute (6) Constipation due to pain medication Current Visit: No Status: Acute (7) Colon cancer Current Visit: No Status: Acute Qualifiers: Colon location: unspecified part of colon Qualified Code(s): C18.9 - Malignant neoplasm of colon, unspecified - Time Spent With Patient Total time spent is greater than 50% in coordination of care (as documented) at patient's floor/unit and/or counseling patient: - Constitutional Vitals: Abnormal lab results Hgb 10.2 g/dL (11.5-15.4) L 05/19/16 06:17 Hct 33.7 % (35.3-44.9) L 05/19/16 06:17 MCV 82.8 fL (83.0-100.0) L 05/19/16 06:17 MCH 25.1 pg (28.0-33.3) L 05/19/16 06:17 MCHC 30.3 g/dL (31.6-35.5) L 05/19/16 06:17 RDW 22.1 % (11.5-14.5) H 05/19/16 06:17 Nucleated RBCs/100 WBC 0.5 /100 WBC (0) H 05/16/16 05:35 Hypochromasia Present (Not Present) A 05/16/16 05:35 Anisocytosis 2+ (Not Present) A 05/16/16 05:35 BUN/Creatinine Ratio 33 (6-26) H 05/20/16 03:10 Glucose 116 mg/dL (70-99) H 05/20/16 03:10 Calcium 7.8 mg/dL (8.6-10.8) L 05/20/16 03:10 Ionized Calcium 1.14 mmol/L (1.15-1.35) L 05/12/16 04:30 Alkaline Phosphatase 275 Units/L (38-126) H 05/19/16 06:17 Serum Total Protein 5.2 g/dL (6.0-8.3) L 05/19/16 06:17 Albumin 2.3 g/dL (3.5-5.0) L 05/19/16 06:17 Albumin/Globulin Ratio 0.8 (1.1-2.2) L 05/19/16 06:17 Urine Clarity Cloudy (Clear) A 05/12/16 04:30 Ur Specific [place] 1.027 (1.010-1.025) H 05/12/16 04:30 Urine Blood Moderate (Negative) H 05/12/16 04:30 Urine Microscopic RBC 5-15 per hpf (0-3) H 05/12/16 04:30 Urine Microscopic WBC 5-15 per hpf (0-3) H 05/12/16 04:30 Ur Squamous Epith Cells Many per lpf (None-Few) H 05/12/16 04:30 Ur Culture Indicated? YES (NO) A 05/12/16 04:30 - Attending Attestation I examined this patient and my medical decision-making was reviewed with the ONLINE MEDIA DIRECTOR/PA/Advanced Practice Nurse/Resident Physician. I agree with the documented findings, disposition and treatment plan as described except to the extent set forth below. Palliative Quality Code Status: 05/20/16 08:49 CODE [Resuscitation Status: Active] [RES] Routine Comment: Resuscitation Status: DNR-Comfort Care-Arrest - Labs CBC & Chem 7: 05/19/16 06:17 05/20/16 03:10 Labs: Laboratory Results - last 24 hr 05/18/16 05/19/16 05/19/16 23:30 06:17 07:07 Sodium 133 L Potassium 3.9 Chloride 105 Carbon Dioxide BUN Creatinine Est GFR ( Amer) Est GFR (Non-Af Amer) BUN/Creatinine Ratio Glucose POC Glucose 157 H 97 H Calculated Osmolality 278 L Calcium Phosphorus Prealbumin 05/19/16 05/19/16 05/20/16 11:40 16:19 00:51 Sodium Potassium Chloride Carbon Dioxide BUN Creatinine Est GFR ( Amer) Est GFR (Non-Af Amer) BUN/Creatinine Ratio Glucose POC Glucose 91 H 82 207 H Calculated Osmolality Calcium Phosphorus Prealbumin 05/20/16 05/20/16 05/20/16 03:10 03:10 07:47 Sodium 137 Potassium 4.0 Chloride 105 Carbon Dioxide 24 BUN 19 Creatinine 0.57 Est GFR ( Amer) > 60 Est GFR (Non-Af Amer) > 60 BUN/Creatinine Ratio 33 H Glucose 116 H POC Glucose 74 Calculated Osmolality 287 Calcium 7.8 L Phosphorus 3.1 Prealbumin 21.0
--- NOTE | 2016-05-20 14:04 | Internal Med Progress Note ---
Date of Encounter: 05/20/16 Time of Encounter: 14:02 - Assessment and plan (1) Malignant neoplasm metastatic to colon Current Visit: Yes Status: Acute Assessment and plan: Oncology following, will reassess treatment options with them. CT of the abdomen and pelvis shows progression through her first cycle of chemotherapy which she tolerated poorly. We will explore any other options with oncology. Gen. surgery consult for options on palliative hormonal bypass surgery. I have discussed the case with the general surgeon and a appreciated their recommendations. 05/16/2016 Surgery on board and will wait for recommendations. 05/17/2016. Patient and family had a long talk with surgery department. patient is going for surgery this evening. 05/18/2016 Postoperative day #1 Patient underwent surgery yesterday. She had a duodenal obstruction from metastatic colon cancer. She underwent gastrojejunostomy which is mainly for palliative reasons. Patient appears more alert and answers all questions appropriately. Surgery on the board and we will follow their recommendations. 05/01/2016. Postoperative day #2. Patient underwent surgery for metastatic neoplasm of colon: As a debulking procedure. Patient tolerated procedure well. Currently she is taking total parenteral nutrition. Surgery/dietitian to manage total parenteral nutrition. 05/20/2016 Post operative Day 3 No new complaints ongoing paraentral nutrition. (2) Dehydration Current Visit: Yes Status: Acute Assessment and plan: We will treat this with IV fluids. Replete electrolytes. Check BUN and creatinine the morning. Encourage oral hydration as much as tolerated. Treat nausea with Zofran and Phenergan. 05/16/2016 will continue IV fluids labs in AM 05/17/2016 Will continue IV fluids for now. BUN/creatinine is within normal limits. 05/18/2016. We will continue IV fluids. Will continue TPN. (3) Failure to thrive Current Visit: Yes Status: Acute Assessment and plan: She has had persistent nausea and severe abdominal pain her oncologist recommended TPN. Continue with TPN. Follow-up with nutrition. Check fingerstick blood glucose. Check and replete magnesium and phosphorus daily. 05/16/2016 secondary to duodenal obstruction. presently on TPN will cont TPN labs in AM. Qualifiers: Failure to thrive age range: in adult Qualified Code(s): R62.7 - Adult failure to thrive (4) Hypophosphatemia Current Visit: Yes Status: Acute Assessment and plan: She cannot take by mouth. Replete with IV phosphorus and magnesium. 05/16/2016 will work with nutrition and will replace via TPN - Subjective Interval history: seen and examined. patient has occasional nausea. denies vomiting. at bedside. 05/17/2016. Patient seen and examined. Patient has still occasional nausea. Noted that NG tube is placed in. Patient denies vomiting, abdominal pain or diarrhea. 05/18/2016 Patient seen and examined. Postoperative day1 Patient denies any nausea, vomiting, abdominal pain She is taking ice chips. 05/19/2016. Patient seen and examined. Postoperative day 2. Patient denies any chest pain, nausea, vomiting, abdominal pain. Her appetite is much better as compared to yesterday. 05/20/2016 seen and examined Post operative Day : 3 walking around the floor with support no new complaints. - Constitutional Vitals: Temp Pulse Resp BP Pulse Ox 97.6 F 73 14 100/68 95 05/20/16 04:41 05/20/16 07:00 05/20/16 07:00 05/20/16 07:00 05/20/16 07:00 General appearance: Present: A&O X 3, no acute distress, answers questions appropriately - Head Head exam: Present: atraumatic, normocephalic - Eye Eye exam: Present: PERRL, conjuntiva pink, sclera anicteric Pupils: Present: PERRL - Neck Neck exam general surgery: Present: supple, trachea midline. Absent: lymphadenopathy - Respiratory Respiratory exam: Present: CTAB. Absent: accessory muscle use, rales, rhonchi, wheezes - Cardiovascular Cardiovascular exam: Present: RRR, +S1, +S2. Absent: diastolic murmur, gallop, rubs, systolic murmur - GI/Abdominal GI/Abdominal exam: Present: normal bowel sounds, soft, no peritoneal signs. Absent: distended, tenderness - Extremities Exam Extremities exam: Present: warm, radial pulses palpable and symetrical. Absent : calf tenderness, cyanotic, pedal edema - Neurological Exam Neurological exam: Present: CN II-XII intact, oriented X3, no focal deficits. Absent: pronater drift, facial droop, speech deficit - Skin Skin exam: Present: dry, intact Internal Medicine: Result - Labs CBC & Chem 7: 05/19/16 06:17 05/20/16 03:10 Labs: [facility] 05/20/16 03:10 Sodium 137 Potassium 4.0 Chloride 105 Carbon Dioxide 24 BUN 19 Creatinine 0.57 Glucose 116 H Calcium 7.8 L - VTE Documentation of Mechanical Device: Intermittent pneumatic compression device Consult Discharge Plan - Plan Referrals: Lambert Gandhi MD [Primary Care Provider] - 05/15/16 3:00 pm
[2016-05-20] MEDS: ADVAIR 250/50 IH SCH ×2 (15:29→21:31)
--- NOTE | 2016-05-20 16:45 | General Surgery Progress Note ---
Date of Encounter: 05/20/16 Time of Encounter: 16:45 - Assessment and Plan (1) H/O bypass gastrojejunostomy Current Visit: Yes Status: Acute ngt with still decent amount of output, some may be ice chips no flatus or bm does have bowel sounds abdominal pain well controlled incision D/C/I no nausea await return of bowel function told pt ok to chew gum OOB ambulate (2) Weakness generalized Current Visit: Yes Status: Acute (3) Duodenal obstruction Current Visit: Yes Status: Acute bypassed with gastrojejunostomy (4) Liver metastases Current Visit: Yes Status: Chronic (5) Colon cancer Current Visit: No Status: Acute Qualifiers: Colon location: unspecified part of colon Qualified Code(s): C18.9 - Malignant neoplasm of colon, unspecified Subjective Narrative: pain improved no nausea no flatus or bm Objective Vital Signs - Last 8 Hours Temp Pulse Resp BP Pulse Ox 05/20/16 15:00 97.5 F L 78 17 104/73 97 Intake and Output 05/20/16 05/20/16 05/20/16 07:59 15:59 23:59 Intake Total 1000 / 1000 Output Total 200 / 200 Balance 1000 / 1000 -200 / -200 Intake: IV Fluids 1000 / 1000 Lactated Ringers 1,000 ML 1000 / 1000 @ 80 mls/hr IVC .[id number] PEPE Rx#:[id number] Output: Gastric Drainage 200 / 200 Other: Weight 62.2 kg Blood Glucose* 74 Patient Weight 05/20/16 23:59 Weight 62.2 kg - General physical appearance well developed, well nourished, no distress - Eyes PERRL, normal ocular movement - ENT normal mucosa - Neck Neck exam: trachea midline - Respiratory normal expansion, clear to auscultation - Cardiovascular Cardiovascular exam: Present: RRR - Abdomen Abdomen: Present: bowel sounds present, soft, tender (appropriate post op tenderness) - Incision Incision: Present: clean and dry, intact - Integumentary no rash, no growths - Neurologic CN 2-12 grossly intact - Musculoskeletal normal posture - Psychiatric oriented to time, oriented to person, memory intact - Labs 05/19/16 06:17 05/20/16 03:10 BMP 05/20/16 Range/Units 03:10 Sodium 137 (136-145) mEq/L Potassium 4.0 (3.5-4.5) mEq/L Chloride 105 (98-109) mEq/L Carbon Dioxide 24 (19-29) mEq/L BUN 19 (7-20) mg/dL Creatinine 0.57 (0.57-1.11) mg/dL Glucose 116 H (70-99) mg/dL Calcium 7.8 L (8.6-10.8) mg/dL Vital Signs Temp Pulse Resp BP Pulse Ox 05/20/16 15:00 97.5 F L 78 17 104/73 97 05/20/16 07:00 73 14 100/68 95 05/20/16 04:41 97.6 F 73 16 103/73 97 05/19/16 20:25 97.1 F L 78 16 107/70 96 Intake and Output 05/20/16 05/20/16 05/20/16 07:59 15:59 23:59 Intake Total 1000 / 1000 Output Total 200 / 200 Balance 1000 / 1000 -200 / -200 Intake: IV Fluids 1000 / 1000 Lactated Ringers 1,000 ML 1000 / 1000 @ 80 mls/hr IVC .[id number] PEPE Rx#:[id number] Output: Gastric Drainage 200 / 200 Other: Weight 62.2 kg Blood Glucose* 74 Patient Weight 05/20/16 23:59 Weight 62.2 kg - VTE Documentation of Mechanical Device: Intermittent pneumatic compression device Consult Discharge Plan - Plan Referrals: Lambert Gandhi MD [Primary Care Provider] - 05/15/16 3:00 pm
[2016-05-20] MEDS ORDERED: Clinimix E 5%-15% SOLUTION 2,000 ML with MVI, adult with vitamin K 10 ML, Trace Eleme... IVC SCH (17:00)
[2016-05-21] MEDS: *HR* HYDROmorphone (PF) 1 MG/ML SYRINGE IVP PRN ×7 (00:28→23:43)
[2016-05-21] MEDS: Pantoprazole 40 MG VIAL IVP SCH ×2 (05:54→17:29)
--- NOTE | 2016-05-21 08:07 | Palliative Progress Note ---
Date of Encounter: 05/21/16 Time of Encounter: 07:00 - Assessment and plan (1) Cancer related pain Current Visit: No Status: Chronic Assessment and plan: Under good control at this time continue current medications. Surgery is managing pain medications due to postop status. (2) Dehydration Current Visit: Yes Status: Acute Assessment and plan: On TPN, this will continue for the time being. This is being monitored by the hospitalist team. (3) Failure to thrive Current Visit: Yes Status: Acute Assessment and plan: The patient is currently on TPN, patient is postop, doing well awaiting the removal of the NG tube and trying to eat. Will be per surgery team. Qualifiers: Failure to thrive age range: in adult Qualified Code(s): R62.7 - Adult failure to thrive (4) Nausea and vomiting Current Visit: No Status: Acute Assessment and plan: Under good control at this time with the NG tube and medications. The patient is hoping to remove the NG tube soon this will be per the surgery team.. Qualifiers: Vomiting type: unspecified Vomiting Intractability: intractable Qualified Code(s): R11.2 - Nausea with vomiting, unspecified (5) Goals of care, counseling/discussion Current Visit: Yes Status: Acute Assessment and plan: The patient requested prior to surgery that she be made DNR CCA, I explained to her that she would need remain a full code during surgery after surgery, at her request we did change the CODE STATUS. I sent a text message to the surgeon of record Dr. Aleman to let him know as well. She understands that all treatment she has received is palliative in nature. She is hospice eligible, however at this time she is still seeking aggressive treatment and it is not appropriate for her. Hospice has been discussed with her, and she understands where in the treatment plan it fits for her right now. We will continue to follow this issue. (6) Constipation due to pain medication Current Visit: No Status: Acute Assessment and plan: No flatus no BM at this time. Surgery is watching. (7) Colon cancer Current Visit: No Status: Acute Assessment and plan: Patient is currently postop. All other plans are on hold until after the immediate postoperative period... Qualifiers: Colon location: unspecified part of colon Qualified Code(s): C18.9 - Malignant neoplasm of colon, unspecified - Time Spent With Patient Total time spent is greater than 50% in coordination of care (as documented) at patient's floor/unit and/or counseling patient: - Subjective Interval history: The patient is feeling better this morning she is tolerating the NG tube, but states that most of her discomfort is coming from the NG tube and not the incision. As been up and walking reading exercises. He would like to get her to the NG tube as soon as possible. She denies any nausea this morning. Pain is under good control as already noted is primarily from the NG tube and not from the surgical incision. - Constitutional Vitals: Abnormal lab results Hgb 10.2 g/dL (11.5-15.4) L 05/19/16 06:17 Hct 33.7 % (35.3-44.9) L 05/19/16 06:17 MCV 82.8 fL (83.0-100.0) L 05/19/16 06:17 MCH 25.1 pg (28.0-33.3) L 05/19/16 06:17 MCHC 30.3 g/dL (31.6-35.5) L 05/19/16 06:17 RDW 22.1 % (11.5-14.5) H 05/19/16 06:17 Nucleated RBCs/100 WBC 0.5 /100 WBC (0) H 05/16/16 05:35 Hypochromasia Present (Not Present) A 05/16/16 05:35 Anisocytosis 2+ (Not Present) A 05/16/16 05:35 BUN/Creatinine Ratio 33 (6-26) H 05/20/16 03:10 Glucose 116 mg/dL (70-99) H 05/20/16 03:10 Calcium 7.8 mg/dL (8.6-10.8) L 05/20/16 03:10 Ionized Calcium 1.14 mmol/L (1.15-1.35) L 05/12/16 04:30 Alkaline Phosphatase 275 Units/L (38-126) H 05/19/16 06:17 Serum Total Protein 5.2 g/dL (6.0-8.3) L 05/19/16 06:17 Albumin 2.3 g/dL (3.5-5.0) L 05/19/16 06:17 Albumin/Globulin Ratio 0.8 (1.1-2.2) L 05/19/16 06:17 Urine Clarity Cloudy (Clear) A 05/12/16 04:30 Ur Specific [place] 1.027 (1.010-1.025) H 05/12/16 04:30 Urine Blood Moderate (Negative) H 05/12/16 04:30 Urine Microscopic RBC 5-15 per hpf (0-3) H 05/12/16 04:30 Urine Microscopic WBC 5-15 per hpf (0-3) H 05/12/16 04:30 Ur Squamous Epith Cells Many per lpf (None-Few) H 05/12/16 04:30 Ur Culture Indicated? YES (NO) A 05/12/16 04:30 General appearance: Present: no acute distress - Head Head exam: Present: atraumatic, normal inspection - Eye Eye exam: Present: normal appearance - ENT ENT exam: Present: mucous membranes moist - Respiratory Respiratory exam: Present: CTAB - Cardiovascular Cardiovascular exam: Present: RRR - GI/Abdominal GI/Abdominal exam: Present: hypoactive bowel sounds, soft. Absent: tenderness ( Wound is healing well) - Extremities Exam Extremities exam: Absent: tenderness - Neurological Exam Neurological exam: Present: alert, oriented X3 - Psychiatric Psychiatric exam: Present: normal affect, normal mood. Absent: agitated, anxious - Skin Skin exam: Present: dry, warm Palliative Quality Palliative Quality: Screen for Code Status: Yes, Screen for Goals of Care: Yes, Screen for Pain: Yes, If Pain Regimen Started, Initiate Bowel Regimen: Yes, Screen for Nausea/Vomitting: Yes Code Status: 05/20/16 08:49 CODE [Resuscitation Status: Active] [RES] Routine Comment: Resuscitation Status: DNR-Comfort Care-Arrest - Labs CBC & Chem 7: 05/19/16 06:17 05/20/16 03:10 Labs: Laboratory Results - last 24 hr 05/20/16 07:47 POC Glucose 74 Consult Discharge Plan - Plan Referrals: Lambert Gandhi MD [Primary Care Provider] - 05/15/16 3:00 pm
[2016-05-21] MEDS: Dexamethasone 10 MG/ML VIAL IVP SCH ×2 (08:16→20:52)
[2016-05-21] MEDS: *HR* Enoxaparin 40 MG/0.4 ML SYRINGE SQ SCH (08:17)
--- NOTE | 2016-05-21 11:09 | General Surgery Progress Note ---
Date of Encounter: 05/21/16 Time of Encounter: 10:40 - Assessment and Plan (1) H/O bypass gastrojejunostomy Current Visit: Yes Status: Acute ngt with still decent amount of output, some may be ice chips no flatus or bm no bowel sounds today abdominal pain well controlled incision D/C/I no nausea await return of bowel function OOB ambulate wash incision with soap and water daily, apply abd and tape, change daily (2) Weakness generalized Current Visit: Yes Status: Acute (3) Duodenal obstruction Current Visit: Yes Status: Acute bypassed with gastrojejunostomy awaiting return of bowel function (4) Liver metastases Current Visit: Yes Status: Chronic (5) Colon cancer Current Visit: No Status: Acute Qualifiers: Colon location: unspecified part of colon Qualified Code(s): C18.9 - Malignant neoplasm of colon, unspecified Subjective Narrative: patient with no significant complaints of pain, has runny nose today no nausea or emesis no flatus or bm ambulating Objective Vital Signs - Last 8 Hours Temp Pulse Resp BP Pulse Ox 05/21/16 07:00 86 15 136/90 96 05/21/16 04:41 98.4 F 79 17 122/80 97 Intake and Output 05/20/16 05/21/16 05/21/16 23:59 07:59 15:59 Intake Total 1000 / 1000 0 / 0 Output Total 1000 / 1000 Balance 0 / 0 0 / 0 Intake: IV Fluids 1000 / 1000 Lactated Ringers 1,000 ML 1000 / 1000 @ 80 mls/hr IVC .[id number] [facility] Rx#:[id number] Oral 0 / 0 Output: Gastric Drainage 1000 / 1000 Other: # Voids 1 Blood Glucose* 119 - General physical appearance well developed, no distress, no pain - Eyes PERRL, normal ocular movement - ENT normal mucosa, normocephalic - Neck Neck exam: trachea midline - Respiratory normal expansion, clear to auscultation - Cardiovascular Cardiovascular exam: Present: RRR - Abdomen Abdomen: Present: soft, tender (appropriate post op tenderness). Absent: bowel sounds present - Incision Incision: Present: clean and dry, intact - Integumentary no rash, no growths - Neurologic CN 2-12 grossly intact - Musculoskeletal normal gait, normal posture - Psychiatric oriented to time, oriented to person, oriented to place, speech is normal, memory intact - Labs 05/19/16 06:17 05/20/16 03:10 - VTE Documentation of Mechanical Device: Intermittent pneumatic compression device Consult Discharge Plan - Plan Referrals: Lambert Gandhi MD [Primary Care Provider] - 05/15/16 3:00 pm
[2016-05-21] MEDS: RESTASIS OPTH OP SCH ×2 (13:17→20:50)
[2016-05-21] MEDS: ADVAIR 250/50 IH SCH ×2 (13:18→20:49)
[2016-05-21] MEDS: Ringers Solution, Lactated 1,000 ML IVC SCH (14:14)
--- NOTE | 2016-05-21 15:06 | Internal Med Progress Note ---
Date of Encounter: 05/21/16 Time of Encounter: 15:04 - Assessment and plan (1) Malignant neoplasm metastatic to colon Current Visit: Yes Status: Acute Assessment and plan: Oncology following, will reassess treatment options with them. CT of the abdomen and pelvis shows progression through her first cycle of chemotherapy which she tolerated poorly. We will explore any other options with oncology. Gen. surgery consult for options on palliative hormonal bypass surgery. I have discussed the case with the general surgeon and a appreciated their recommendations. 05/16/2016 Surgery on board and will wait for recommendations. 05/17/2016. Patient and family had a long talk with surgery department. patient is going for surgery this evening. 05/18/2016 Postoperative day #1 Patient underwent surgery yesterday. She had a duodenal obstruction from metastatic colon cancer. She underwent gastrojejunostomy which is mainly for palliative reasons. Patient appears more alert and answers all questions appropriately. Surgery on the board and we will follow their recommendations. 05/01/2016. Postoperative day #2. Patient underwent surgery for metastatic neoplasm of colon: As a debulking procedure. Patient tolerated procedure well. Currently she is taking total parenteral nutrition. Surgery/dietitian to manage total parenteral nutrition. 05/20/2016 Post operative Day 3 No new complaints ongoing paraentral nutrition. 05/21/2016. Postoperative day 4 Patient was occasionally nauseous. Surgery on the board. We will follow the recommendations from surgery. (2) Dehydration Current Visit: Yes Status: Acute Assessment and plan: We will treat this with IV fluids. Replete electrolytes. Check BUN and creatinine the morning. Encourage oral hydration as much as tolerated. Treat nausea with Zofran and Phenergan. 05/16/2016 will continue IV fluids labs in AM 05/17/2016 Will continue IV fluids for now. BUN/creatinine is within normal limits. 05/18/2016. We will continue IV fluids. Will continue TPN. (3) Failure to thrive Current Visit: Yes Status: Acute Assessment and plan: She has had persistent nausea and severe abdominal pain her oncologist recommended TPN. Continue with TPN. Follow-up with nutrition. Check fingerstick blood glucose. Check and replete magnesium and phosphorus daily. 05/16/2016 secondary to duodenal obstruction. presently on TPN will cont TPN labs in AM. Qualifiers: Failure to thrive age range: in adult Qualified Code(s): R62.7 - Adult failure to thrive (4) Hypophosphatemia Current Visit: Yes Status: Acute Assessment and plan: She cannot take by mouth. Replete with IV phosphorus and magnesium. 05/16/2016 will work with nutrition and will replace via TPN - Subjective Interval history: seen and examined. patient has occasional nausea. denies vomiting. at bedside. 05/17/2016. Patient seen and examined. Patient has still occasional nausea. Noted that NG tube is placed in. Patient denies vomiting, abdominal pain or diarrhea. 05/18/2016 Patient seen and examined. Postoperative day1 Patient denies any nausea, vomiting, abdominal pain She is taking ice chips. 05/19/2016. Patient seen and examined. Postoperative day 2. Patient denies any chest pain, nausea, vomiting, abdominal pain. Her appetite is much better as compared to yesterday. 05/20/2016 seen and examined Post operative Day : 3 walking around the floor with support no new complaints. 05/21/2016 Seen and examined. Postoperative day: 4 Walking around the floor. She was occasionally nauseous. Surgery on the board - Constitutional Vitals: Temp Pulse Resp BP Pulse Ox 98.4 F 86 15 136/90 96 05/21/16 04:41 05/21/16 07:00 05/21/16 07:00 05/21/16 07:00 05/21/16 07:00 General appearance: Present: A&O X 3, no acute distress, answers questions appropriately - Head Head exam: Present: atraumatic, normocephalic - Eye Eye exam: Present: PERRL, conjuntiva pink, sclera anicteric Pupils: Present: PERRL - Neck Neck exam general surgery: Present: supple, trachea midline. Absent: lymphadenopathy - Respiratory Respiratory exam: Present: CTAB. Absent: accessory muscle use, rales, rhonchi, wheezes - Cardiovascular Cardiovascular exam: Present: RRR, +S1, +S2. Absent: diastolic murmur, gallop, rubs, systolic murmur - GI/Abdominal GI/Abdominal exam: Present: normal bowel sounds, soft, no peritoneal signs. Absent: distended, tenderness - Extremities Exam Extremities exam: Present: warm, radial pulses palpable and symetrical. Absent : calf tenderness, cyanotic, pedal edema - Neurological Exam Neurological exam: Present: CN II-XII intact, oriented X3, no focal deficits. Absent: pronater drift, facial droop, speech deficit - Skin Skin exam: Present: dry, intact Internal Medicine: Result - Labs CBC & Chem 7: 05/19/16 06:17 05/20/16 03:10 - VTE Documentation of Mechanical Device: Intermittent pneumatic compression device Consult Discharge Plan - Plan Referrals: Lambert Gandhi MD [Primary Care Provider] - 05/15/16 3:00 pm
[2016-05-21] MEDS ORDERED: Clinimix E 5%-15% SOLUTION 2,000 ML with MVI, adult with vitamin K 10 ML, Trace Eleme... IVC SCH (17:00)
[2016-05-22] MEDS: *HR* HYDROmorphone (PF) 1 MG/ML SYRINGE IVP PRN ×4 (02:26→14:25)
[2016-05-22 03:43] LABS: BUN/Creatinine Ratio 36 (6-26); Blood Urea Nitrogen 20 mg/dL (7-20); Calcium 7.8 mg/dL (8.6-10.8); Carbon Dioxide 24 mEq/L (19-29); Chloride 103 mEq/L (98-109); Glucose 118 mg/dL (70-99); Magnesium 1.9 mg/dL (1.6-2.6); Osmolality,Calculated 282 (280-300); Phosphorous 3.4 mg/dL (2.3-4.7); Potassium 4.1 mEq/L (3.5-4.5); Sodium 134 mEq/L (136-145); eGFR For African Americans > 60 (> 60); eGFR For Non-African Americans > 60 (> 60)
[2016-05-22] MEDS: Pantoprazole 40 MG VIAL IVP SCH ×2 (04:48→18:24)
[2016-05-22] MEDS: Dexamethasone 10 MG/ML VIAL IVP SCH ×2 (08:56→22:18)
[2016-05-22] MEDS: Metoclopramide 20 MG in 0.9 % Sodium Chloride 50 ML IVPB SCH ×2 (08:56→18:22)
[2016-05-22] MEDS: *HR* Enoxaparin 40 MG/0.4 ML SYRINGE SQ SCH (08:57)
[2016-05-22] MEDS: *HR* LORazepam 2 MG/ML VIAL IVP PRN ×2 (09:42→22:20)
[2016-05-22] MEDS: ADVAIR 250/50 IH SCH ×2 (10:11→22:07)
[2016-05-22] MEDS: RESTASIS OPTH OP SCH ×2 (10:12→22:07)
--- NOTE | 2016-05-22 10:30 | Palliative Progress Note ---
Date of Encounter: 05/22/16 Time of Encounter: 08:40 - Assessment and plan (1) Cancer related pain Current Visit: No Status: Chronic Assessment and plan: Under good control at this time continue current medications. Surgery is managing pain medications due to postop status. No changes today. (2) Dehydration Current Visit: Yes Status: Acute Assessment and plan: On TPN, this will continue for the time being. This is being monitored by the hospitalist team. NG tube should be coming out today. Advancement of diet per surgery. (3) Failure to thrive Current Visit: Yes Status: Acute Assessment and plan: The patient is currently on TPN, NG tube coming out today, advancement of diet per surgery. Qualifiers: Failure to thrive age range: in adult Qualified Code(s): R62.7 - Adult failure to thrive (4) Nausea and vomiting Current Visit: No Status: Acute Assessment and plan: Under good control at this time NG tube coming out this morning continue to watch closely. Qualifiers: Vomiting type: unspecified Vomiting Intractability: intractable Qualified Code(s): R11.2 - Nausea with vomiting, unspecified (5) Goals of care, counseling/discussion Current Visit: Yes Status: Acute Assessment and plan: ER comfort care arrest, patient's goals are to return home. NG tube coming out today advancement of diet per surgery. He is very motivated and would like to eat as soon as they will allow it. (6) Constipation due to pain medication Current Visit: No Status: Acute (7) Colon cancer Current Visit: No Status: Acute Qualifiers: Colon location: unspecified part of colon Qualified Code(s): C18.9 - Malignant neoplasm of colon, unspecified - Time Spent With Patient Total time spent is greater than 50% in coordination of care (as documented) at patient's floor/unit and/or counseling patient: - Subjective Interval history: The patient is feeling better this morning she is tolerating the NG tube, she is very excited as she was just told by the surgeon that she will begin be able to get the NG tube out this morning. Other complaints other than getting the NG tube out.. - Constitutional Vitals: Abnormal lab results Hgb 10.2 g/dL (11.5-15.4) L 05/19/16 06:17 Hct 33.7 % (35.3-44.9) L 05/19/16 06:17 MCV 82.8 fL (83.0-100.0) L 05/19/16 06:17 MCH 25.1 pg (28.0-33.3) L 05/19/16 06:17 MCHC 30.3 g/dL (31.6-35.5) L 05/19/16 06:17 RDW 22.1 % (11.5-14.5) H 05/19/16 06:17 Nucleated RBCs/100 WBC 0.5 /100 WBC (0) H 05/16/16 05:35 Hypochromasia Present (Not Present) A 05/16/16 05:35 Anisocytosis 2+ (Not Present) A 05/16/16 05:35 Sodium 134 mEq/L (136-145) L 05/22/16 03:20 Creatinine 0.55 mg/dL (0.57-1.11) L 05/22/16 03:20 BUN/Creatinine Ratio 36 (6-26) H 05/22/16 03:20 Glucose 118 mg/dL (70-99) H 05/22/16 03:20 POC Glucose 183 (58-89) H 05/21/16 23:59 Calcium 7.8 mg/dL (8.6-10.8) L 05/22/16 03:20 Ionized Calcium 1.14 mmol/L (1.15-1.35) L 05/12/16 04:30 Alkaline Phosphatase 275 Units/L (38-126) H 05/19/16 06:17 Serum Total Protein 5.2 g/dL (6.0-8.3) L 05/19/16 06:17 Albumin 2.3 g/dL (3.5-5.0) L 05/19/16 06:17 Albumin/Globulin Ratio 0.8 (1.1-2.2) L 05/19/16 06:17 Urine Clarity Cloudy (Clear) A 05/12/16 04:30 Ur Specific [place] 1.027 (1.010-1.025) H 05/12/16 04:30 Urine Blood Moderate (Negative) H 05/12/16 04:30 Urine Microscopic RBC 5-15 per hpf (0-3) H 05/12/16 04:30 Urine Microscopic WBC 5-15 per hpf (0-3) H 05/12/16 04:30 Ur Squamous Epith Cells Many per lpf (None-Few) H 05/12/16 04:30 Ur Culture Indicated? YES (NO) A 05/12/16 04:30 Palliative Quality Palliative Quality: Screen for Code Status: Yes, Screen for Goals of Care: Yes, Screen for Pain: Yes, If Pain Regimen Started, Initiate Bowel Regimen: Yes, Screen for Nausea/Vomitting: Yes Code Status: 05/20/16 08:49 CODE [Resuscitation Status: Active] [RES] Routine Comment: Resuscitation Status: DNR-Comfort Care-Arrest - Labs CBC & Chem 7: 05/19/16 06:17 05/22/16 03:20 Labs: Laboratory Results - last 24 hr 05/21/16 05/21/16 05/21/16 01:09 05:42 11:38 Sodium Potassium Chloride Carbon Dioxide BUN Creatinine Est GFR ( Amer) Est GFR (Non-Af Amer) BUN/Creatinine Ratio Glucose POC Glucose 164 H 119 H 109 H Calculated Osmolality Calcium Phosphorus Magnesium 05/21/16 05/22/16 23:59 03:20 Sodium 134 L Potassium 4.1 Chloride 103 Carbon Dioxide 24 BUN 20 Creatinine 0.55 L Est GFR ( Amer) > 60 Est GFR (Non-Af Amer) > 60 BUN/Creatinine Ratio 36 H Glucose 118 H POC Glucose 183 H Calculated Osmolality 282 Calcium 7.8 L Phosphorus 3.4 Magnesium 1.9 Consult Discharge Plan - Plan Referrals: Lambert Gandhi MD [Primary Care Provider] -
[2016-05-22] MEDS ORDERED: Acetaminophen 325 MG TABLET PO ONE (10:45)
--- NOTE | 2016-05-22 11:45 | General Surgery Progress Note ---
Date of Encounter: 05/22/16 Time of Encounter: 11:40 - Assessment and Plan (1) Duodenal obstruction, acquired Current Visit: Yes Status: Acute POD#5 Gastrojejunostomy, palliative Pt. tolerated the procedure well. Bowel sounds present. No flatus or bm yet. NG has had substantial drop off during past few days. Will remove NG today and keep patient NPO. Will give Reglan to stimulate bowels Afebrile. Plan: Reglan 20mg IV q8h x 4 doses, NPO, antiemetics, pain control, ambulate TID, TPN@ 50ml/hr (managed by cigarette catcher), protonix, lovenox. Subjective Narrative: Patient seen and examined. NG output has dropped off. Patient with good bowel sounds. No flatus or bm yet. denies n/v. Objective Vital Signs - Last 8 Hours Temp Pulse Resp BP Pulse Ox 05/22/16 10:55 97.4 F L 88 16 115/70 98 05/22/16 07:30 97.7 F 72 16 110/74 100 05/22/16 04:51 98.9 F 81 15 122/85 96 Intake and Output 05/21/16 05/22/16 05/22/16 23:59 07:59 15:59 Intake Total 250 / 250 54 / 54 Output Total 250 / 250 650 / 650 300 / 300 Balance -250 / -250 -400 / -400 -246 / -246 Intake: IV Fluids 250 / 250 54 / 54 Intralipid 20% 250 ML @ 250 / 250 21 mls/hr IVPB DAILY@1700 [facility] Rx#:[id number] Reglan 20 MG In 0.9 % 54 / 54 Sodium Chloride 50 ML @ 108 mls/hr IVPB Q8H [facility] Rx#:[id number] Output: Gastric Drainage 250 / 250 650 / 650 300 / 300 Left Nare 300 / 300 Other: Weight 63.1 kg Blood Glucose* 153 72 Patient Weight 05/22/16 23:59 Weight 63.1 kg - Additional Exam - General physical appearance chronically ill - Eyes normal ocular movement - Neck Neck exam: trachea midline - Respiratory clear to auscultation - Cardiovascular Cardiovascular exam: Present: RRR, no murmurs/rubs/gallops - Abdomen Abdomen: Present: soft. Absent: bowel sounds present (expected post-op ileus) - Incision Incision: Present: clean and dry, intact - Neurologic CN 2-12 grossly intact - Psychiatric oriented to time, oriented to person, oriented to place - Labs 05/19/16 06:17 05/22/16 03:20 Diabetes panel 05/22/16 Range/Units 03:20 Sodium 134 L (136-145) mEq/L Potassium 4.1 (3.5-4.5) mEq/L Chloride 103 (98-109) mEq/L Carbon Dioxide 24 (19-29) mEq/L BUN 20 (7-20) mg/dL Creatinine 0.55 L (0.57-1.11) mg/dL Glucose 118 H (70-99) mg/dL Calcium 7.8 L (8.6-10.8) mg/dL Calcium panel 05/22/16 Range/Units 03:20 Calcium 7.8 L (8.6-10.8) mg/dL Phosphorus 3.4 (2.3-4.7) mg/dL Pituitary panel 05/22/16 Range/Units 03:20 Sodium 134 L (136-145) mEq/L Potassium 4.1 (3.5-4.5) mEq/L Chloride 103 (98-109) mEq/L Carbon Dioxide 24 (19-29) mEq/L BUN 20 (7-20) mg/dL Creatinine 0.55 L (0.57-1.11) mg/dL Glucose 118 H (70-99) mg/dL Calcium 7.8 L (8.6-10.8) mg/dL Adrenal panel 05/22/16 Range/Units 03:20 Sodium 134 L (136-145) mEq/L Potassium 4.1 (3.5-4.5) mEq/L Chloride 103 (98-109) mEq/L Carbon Dioxide 24 (19-29) mEq/L BUN 20 (7-20) mg/dL Creatinine 0.55 L (0.57-1.11) mg/dL Glucose 118 H (70-99) mg/dL Calcium 7.8 L (8.6-10.8) mg/dL - VTE Documentation of Mechanical Device: Intermittent pneumatic compression device Consult Discharge Plan - Plan Referrals: Lambert Gandhi MD [Primary Care Provider] - - Attending Attestation I examined this patient and my medical decision-making was reviewed with the POLITICAL DIRECTOR/PA/Advanced Practice Nurse/Resident Physician. I agree with the documented findings, disposition and treatment plan as described except to the extent set forth below. The patient is seen and evaluated on morning rounds with the resident. She is recovering her bowel function. Nasogastric tube drainage has fallen off. I will remove the nasogastric tube today. Enrique Aleman MD FACS
[2016-05-22] MEDS ORDERED: Clinimix E 5%-15% SOLUTION 2,000 ML with MVI, adult with vitamin K 10 ML, Trace Eleme... IVC SCH (17:00)
--- NOTE | 2016-05-22 17:15 | Internal Med Progress Note ---
Date of Encounter: 05/22/16 Time of Encounter: 17:13 - Assessment and plan (1) Malignant neoplasm metastatic to colon Current Visit: Yes Status: Acute Assessment and plan: Oncology following, will reassess treatment options with them. CT of the abdomen and pelvis shows progression through her first cycle of chemotherapy which she tolerated poorly. We will explore any other options with oncology. Gen. surgery consult for options on palliative hormonal bypass surgery. I have discussed the case with the general surgeon and a appreciated their recommendations. 05/16/2016 Surgery on board and will wait for recommendations. 05/17/2016. Patient and family had a long talk with surgery department. patient is going for surgery this evening. 05/18/2016 Postoperative day #1 Patient underwent surgery yesterday. She had a duodenal obstruction from metastatic colon cancer. She underwent gastrojejunostomy which is mainly for palliative reasons. Patient appears more alert and answers all questions appropriately. Surgery on the board and we will follow their recommendations. 05/01/2016. Postoperative day #2. Patient underwent surgery for metastatic neoplasm of colon: As a debulking procedure. Patient tolerated procedure well. Currently she is taking total parenteral nutrition. Surgery/dietitian to manage total parenteral nutrition. 05/20/2016 Post operative Day 3 No new complaints ongoing paraentral nutrition. 05/21/2016. Postoperative day 4 Patient was occasionally nauseous. Surgery on the board. We will follow the recommendations from surgery. 05/22/2016 Post operative day:5 off NG tube plan is to start clear liquid by tomorrow all questions answered. (2) Dehydration Current Visit: Yes Status: Acute Assessment and plan: We will treat this with IV fluids. Replete electrolytes. Check BUN and creatinine the morning. Encourage oral hydration as much as tolerated. Treat nausea with Zofran and Phenergan. 05/16/2016 will continue IV fluids labs in AM 05/17/2016 Will continue IV fluids for now. BUN/creatinine is within normal limits. 05/18/2016. We will continue IV fluids. Will continue TPN. (3) Failure to thrive Current Visit: Yes Status: Acute Assessment and plan: She has had persistent nausea and severe abdominal pain her oncologist recommended TPN. Continue with TPN. Follow-up with nutrition. Check fingerstick blood glucose. Check and replete magnesium and phosphorus daily. 05/16/2016 secondary to duodenal obstruction. presently on TPN will cont TPN labs in AM. Qualifiers: Failure to thrive age range: in adult Qualified Code(s): R62.7 - Adult failure to thrive (4) Hypophosphatemia Current Visit: Yes Status: Acute Assessment and plan: She cannot take by mouth. Replete with IV phosphorus and magnesium. 05/16/2016 will work with nutrition and will replace via TPN - Subjective Interval history: seen and examined. patient has occasional nausea. denies vomiting. at bedside. 05/17/2016. Patient seen and examined. Patient has still occasional nausea. Noted that NG tube is placed in. Patient denies vomiting, abdominal pain or diarrhea. 05/18/2016 Patient seen and examined. Postoperative day1 Patient denies any nausea, vomiting, abdominal pain She is taking ice chips. 05/19/2016. Patient seen and examined. Postoperative day 2. Patient denies any chest pain, nausea, vomiting, abdominal pain. Her appetite is much better as compared to yesterday. 05/20/2016 seen and examined Post operative Day : 3 walking around the floor with support no new complaints. 05/21/2016 Seen and examined. Postoperative day: 4 Walking around the floor. She was occasionally nauseous. Surgery on the board 05/22/2016 seen and examined. postoperative day:5 walking around the floor. Off NG noted surgery on the board. - Constitutional Vitals: Temp Pulse Resp BP Pulse Ox 98.1 F 88 14 98/68 98 05/22/16 14:44 05/22/16 10:55 05/22/16 14:44 05/22/16 14:44 05/22/16 10:55 General appearance: Present: A&O X 3, no acute distress, answers questions appropriately - Head Head exam: Present: atraumatic, normocephalic - Eye Eye exam: Present: PERRL, conjuntiva pink, sclera anicteric Pupils: Present: PERRL - Neck Neck exam general surgery: Present: supple, trachea midline. Absent: lymphadenopathy - Respiratory Respiratory exam: Present: CTAB. Absent: accessory muscle use, rales, rhonchi, wheezes - Cardiovascular Cardiovascular exam: Present: RRR, +S1, +S2. Absent: diastolic murmur, gallop, rubs, systolic murmur - GI/Abdominal GI/Abdominal exam: Present: normal bowel sounds, soft, no peritoneal signs. Absent: distended, tenderness - Extremities Exam Extremities exam: Present: warm, radial pulses palpable and symetrical. Absent : calf tenderness, cyanotic, pedal edema - Neurological Exam Neurological exam: Present: CN II-XII intact, oriented X3, no focal deficits. Absent: pronater drift, facial droop, speech deficit - Skin Skin exam: Present: dry, intact Internal Medicine: Result - Labs CBC & Chem 7: 05/19/16 06:17 05/22/16 03:20 Labs: BMP 05/22/16 03:20 Sodium 134 L Potassium 4.1 Chloride 103 Carbon Dioxide 24 BUN 20 Creatinine 0.55 L Glucose 118 H Calcium 7.8 L - VTE Documentation of Mechanical Device: Intermittent pneumatic compression device Consult Discharge Plan - Plan Referrals: Lambert Gandhi MD [Primary Care Provider] -
[2016-05-22] MEDS: *HR* FentaNYL PATCH 50 MCG PATCH TD SCH (22:19)
[2016-05-23] MEDS: Metoclopramide 20 MG in 0.9 % Sodium Chloride 50 ML IVPB SCH (00:06)
[2016-05-23] MEDS: Pantoprazole 40 MG VIAL IVP SCH ×2 (05:26→17:17)
[2016-05-23] MEDS: *HR* LORazepam 2 MG/ML VIAL IVP PRN ×2 (05:33→17:19)
[2016-05-23 05:51] LABS: Hematocrit 31.5 % (35.3-44.9); Hemoglobin 9.8 g/dL (11.5-15.4); Immature Granulocytes % 1.6 % (0-4); Lymphocytes # 0.5 K/mcL (0.6-4.6); Lymphocytes % 10.5 %; Mean Corpuscular HGB Conc 31.1 g/dL (31.6-35.5); Mean Corpuscular Hemoglobin 25.9 pg (28.0-33.3); Mean Corpuscular Volume 83.1 fL (83.0-100.0); Monocytes # 0.6 K/mcL (0.0-1.3); Monocytes % 12.6 %; Neutrophils # 3.7 K/mcL (1.6-8.9); Platelet Count 199 K/mcL (140-400); Red Blood Count 3.79 M/mcL (3.82-4.97); Red Cell Distribution Width 23.2 % (11.5-14.5); Segmented Neutrophils % 75.3 %
[2016-05-23 06:10] LABS: Anisocytosis 2+ (Not Present); Microcytosis Present (Not Present); Platelet Estimate Normal (Normal)
[2016-05-23 06:12] LABS: BUN/Creatinine Ratio 35 (6-26); Blood Urea Nitrogen 19 mg/dL (7-20); Calcium 7.8 mg/dL (8.6-10.8); Carbon Dioxide 22 mEq/L (19-29); Chloride 105 mEq/L (98-109); Glucose 99 mg/dL (70-99); Osmolality,Calculated 282 (280-300); Potassium 3.9 mEq/L (3.5-4.5); Sodium 135 mEq/L (136-145); eGFR For African Americans > 60 (> 60); eGFR For Non-African Americans > 60 (> 60)
[2016-05-23 06:16] LABS: Alanine Aminotransferase 42 Units/L (0-55); Albumin 2.1 g/dL (3.5-5.0); Albumin/Globulin Ratio 0.7 (1.1-2.2); Alkaline Phosphatase 343 Units/L (38-126); Aspartate Amino Transferase 19 Units/L (5-34); BUN/Creatinine Ratio 35 (6-26); Bilirubin,Total 0.4 mg/dL (0.2-1.2); Blood Urea Nitrogen 19 mg/dL (7-20); Calcium 7.9 mg/dL (8.6-10.8); Carbon Dioxide 22 mEq/L (19-29); Chloride 104 mEq/L (98-109); Globulin 3.1 g/dL (2.4-3.5); Glucose 102 mg/dL (70-99); Osmolality,Calculated 280 (280-300); Potassium 3.9 mEq/L (3.5-4.5); Sodium 134 mEq/L (136-145); Total Protein 5.2 g/dL (6.0-8.3); eGFR For African Americans > 60 (> 60); eGFR For Non-African Americans > 60 (> 60)
[2016-05-23] MEDS: Dexamethasone 10 MG/ML VIAL IVP SCH ×2 (09:31→22:13)
[2016-05-23] MEDS: RESTASIS OPTH OP SCH ×2 (09:34→22:17)
[2016-05-23] MEDS: *HR* Enoxaparin 40 MG/0.4 ML SYRINGE SQ SCH (09:34)
--- NOTE | 2016-05-23 09:53 | Palliative Progress Note ---
<Wesley Leal - Last Filed: 05/23/16 09:51> Date of Encounter: 05/23/16 Time of Encounter: 08:30 - Assessment and plan (1) Nausea and vomiting Current Visit: No Status: Acute Assessment and plan: Improved after procedure. Patient is progressing nicely, NG was removed yesterday and a clear liquid diet has been placed this morning per surgery. Patient received Reglan. Will reevaluate patient's nausea and vomiting after she is able to begin her clear liquid diet. Qualifiers: Vomiting type: unspecified Vomiting Intractability: intractable Qualified Code(s): R11.2 - Nausea with vomiting, unspecified (2) Goals of care, counseling/discussion Current Visit: Yes Status: Acute Assessment and plan: Patient's goals of care continue to return home. CODE STATUS remains DNR CCA. (3) Dehydration Current Visit: Yes Status: Acute Assessment and plan: Improving. Continue fluid hydration and TPN, encourage by mouth intake as tolerated. (4) Cancer related pain Current Visit: No Status: Chronic Assessment and plan: Pain related to cancer is under good control this time with the fentanyl patch. Postsurgical pain is minimal this time. (5) Malignant neoplasm metastatic to colon Current Visit: Yes Status: Acute - Time Spent With Patient Total time spent is greater than 50% in coordination of care (as documented) at patient's floor/unit and/or counseling patient: - Subjective Interval history: Patient seen and examined at bedside. Patient states she feels pretty good today. Patient on the NG tube removed yesterday. She states she feels hungry at this time. Denies pain, nausea, vomiting, flatus, bowel movement. Patient has been up walking around frequently. - Constitutional Vitals: Abnormal lab results RBC 3.79 M/mcL (3.82-4.97) L 05/23/16 05:25 Hgb 9.8 g/dL (11.5-15.4) L 05/23/16 05:25 Hct 31.5 % (35.3-44.9) L 05/23/16 05:25 MCH 25.9 pg (28.0-33.3) L 05/23/16 05:25 MCHC 31.1 g/dL (31.6-35.5) L 05/23/16 05:25 RDW 23.2 % (11.5-14.5) H 05/23/16 05:25 Lymphocytes # 0.5 K/mcL (0.6-4.6) L 05/23/16 05:25 Nucleated RBCs/100 WBC 0.5 /100 WBC (0) H 05/16/16 05:35 Hypochromasia Present (Not Present) A 05/16/16 05:35 Anisocytosis 2+ (Not Present) A 05/23/16 05:25 Microcytosis Present (Not Present) A 05/23/16 05:25 Sodium 134 mEq/L (136-145) L 05/23/16 05:25 Creatinine 0.54 mg/dL (0.57-1.11) L 05/23/16 05:25 BUN/Creatinine Ratio 35 (6-26) H 05/23/16 05:25 Glucose 102 mg/dL (70-99) H 05/23/16 05:25 POC Glucose 98 (58-89) H 05/22/16 16:39 Calcium 7.9 mg/dL (8.6-10.8) L 05/23/16 05:25 Ionized Calcium 1.14 mmol/L (1.15-1.35) L 05/12/16 04:30 Alkaline Phosphatase 343 Units/L (38-126) H 05/23/16 05:25 Serum Total Protein 5.2 g/dL (6.0-8.3) L 05/23/16 05:25 Albumin 2.1 g/dL (3.5-5.0) L 05/23/16 05:25 Albumin/Globulin Ratio 0.7 (1.1-2.2) L 05/23/16 05:25 Urine Clarity Cloudy (Clear) A 05/12/16 04:30 Ur Specific Steele 1.027 (1.010-1.025) H 05/12/16 04:30 Urine Blood Moderate (Negative) H 05/12/16 04:30 Urine Microscopic RBC 5-15 per hpf (0-3) H 05/12/16 04:30 Urine Microscopic WBC 5-15 per hpf (0-3) H 05/12/16 04:30 Ur Squamous Epith Cells Many per lpf (None-Few) H 05/12/16 04:30 Ur Culture Indicated? YES (NO) A 05/12/16 04:30 - ENT ENT exam: Present: mucous membranes moist - Respiratory Respiratory exam: Present: CTAB. Absent: rales, rhonchi, wheezes - Cardiovascular Cardiovascular exam: Present: RRR. Absent: gallop, rubs, systolic murmur - GI/Abdominal GI/Abdominal exam: Present: normal bowel sounds, soft. Absent: distended, tenderness - Extremities Exam Extremities exam: Absent: pedal edema - Neurological Exam Neurological exam: Present: alert, CN II-XII intact, oriented X3, no focal deficits Palliative Quality Palliative Quality: Screen for Code Status: Yes, Screen for Goals of Care: Yes, Screen for Pain: Yes, If Pain Regimen Started, Initiate Bowel Regimen: Yes, Screen for Nausea/Vomitting: Yes Code Status: 05/20/16 08:49 CODE [Resuscitation Status: Active] [RES] Routine Comment: Resuscitation Status: DNR-Comfort Care-Arrest - Labs CBC & Chem 7: 05/23/16 05:25 05/23/16 05:25 Labs: Laboratory Results - last 24 hr 05/22/16 05/22/16 05/22/16 04:50 11:02 16:39 WBC RBC Hgb Hct MCV MCH MCHC RDW Plt Count MPV Immature Gran % Seg Neutrophils % Lymphocytes % Monocytes % Eosinophils % Basophils % Neutrophils # Lymphocytes # Monocytes # Eosinophils # Basophils # Platelet Estimate Anisocytosis Microcytosis Sodium Potassium Chloride Carbon Dioxide BUN Creatinine Est GFR ( Amer) Est GFR (Non-Af Amer) BUN/Creatinine Ratio Glucose POC Glucose 153 H 72 98 H Calculated Osmolality Calcium Total Bilirubin AST ALT Alkaline Phosphatase Serum Total Protein Albumin Globulin Albumin/Globulin Ratio 05/23/16 05/23/16 05/23/16 05:25 05:25 05:25 WBC 4.9 RBC 3.79 L Hgb 9.8 L Hct 31.5 L MCV 83.1 MCH 25.9 L MCHC 31.1 L RDW 23.2 H Plt Count 199 MPV 11.0 Immature Gran % 1.6 Seg Neutrophils % 75.3 Lymphocytes % 10.5 Monocytes % 12.6 Eosinophils % 0.0 Basophils % 0.0 Neutrophils # 3.7 Lymphocytes # 0.5 L Monocytes # 0.6 Eosinophils # 0.0 Basophils # 0.0 Platelet Estimate Normal Anisocytosis 2+ A Microcytosis Present A Sodium 135 L 134 L Potassium 3.9 3.9 Chloride 105 104 Carbon Dioxide 22 22 BUN 19 19 Creatinine 0.55 L 0.54 L Est GFR ( Amer) > 60 > 60 Est GFR (Non-Af Amer) > 60 > 60 BUN/Creatinine Ratio 35 H 35 H Glucose 99 102 H POC Glucose Calculated Osmolality 282 280 Calcium 7.8 L 7.9 L Total Bilirubin 0.4 AST 19 ALT 42 Alkaline Phosphatase 343 H Serum Total Protein 5.2 L Albumin 2.1 L Globulin 3.1 Albumin/Globulin Ratio 0.7 L Consult Discharge Plan - Plan Referrals: Lambert Gandhi MD [Primary Care Provider] - <Lambert Perdomo - Last Filed: 05/23/16 10:09> Date of Encounter: 05/23/16 - Assessment and plan (1) Cancer related pain Current Visit: No Status: Chronic (2) Dehydration Current Visit: Yes Status: Acute (3) Failure to thrive Current Visit: Yes Status: Acute Qualifiers: Failure to thrive age range: in adult Qualified Code(s): R62.7 - Adult failure to thrive (4) Nausea and vomiting Current Visit: No Status: Acute Qualifiers: Vomiting type: unspecified Vomiting Intractability: intractable Qualified Code(s): R11.2 - Nausea with vomiting, unspecified (5) Goals of care, counseling/discussion Current Visit: Yes Status: Acute (6) Constipation due to pain medication Current Visit: No Status: Acute (7) Colon cancer Current Visit: No Status: Acute Qualifiers: Colon location: unspecified part of colon Qualified Code(s): C18.9 - Malignant neoplasm of colon, unspecified - Time Spent With Patient Total time spent is greater than 50% in coordination of care (as documented) at patient's floor/unit and/or counseling patient: - Constitutional Vitals: Abnormal lab results RBC 3.79 M/mcL (3.82-4.97) L 05/23/16 05:25 Hgb 9.8 g/dL (11.5-15.4) L 05/23/16 05:25 Hct 31.5 % (35.3-44.9) L 05/23/16 05:25 MCH 25.9 pg (28.0-33.3) L 05/23/16 05:25 MCHC 31.1 g/dL (31.6-35.5) L 05/23/16 05:25 RDW 23.2 % (11.5-14.5) H 05/23/16 05:25 Lymphocytes # 0.5 K/mcL (0.6-4.6) L 05/23/16 05:25 Nucleated RBCs/100 WBC 0.5 /100 WBC (0) H 05/16/16 05:35 Hypochromasia Present (Not Present) A 05/16/16 05:35 Anisocytosis 2+ (Not Present) A 05/23/16 05:25 Microcytosis Present (Not Present) A 05/23/16 05:25 Sodium 134 mEq/L (136-145) L 05/23/16 05:25 Creatinine 0.54 mg/dL (0.57-1.11) L 05/23/16 05:25 BUN/Creatinine Ratio 35 (6-26) H 05/23/16 05:25 Glucose 102 mg/dL (70-99) H 05/23/16 05:25 POC Glucose 98 (58-89) H 05/22/16 16:39 Calcium 7.9 mg/dL (8.6-10.8) L 05/23/16 05:25 Ionized Calcium 1.14 mmol/L (1.15-1.35) L 05/12/16 04:30 Alkaline Phosphatase 343 Units/L (38-126) H 05/23/16 05:25 Serum Total Protein 5.2 g/dL (6.0-8.3) L 05/23/16 05:25 Albumin 2.1 g/dL (3.5-5.0) L 05/23/16 05:25 Albumin/Globulin Ratio 0.7 (1.1-2.2) L 05/23/16 05:25 Urine Clarity Cloudy (Clear) A 05/12/16 04:30 Ur Specific Steele 1.027 (1.010-1.025) H 05/12/16 04:30 Urine Blood Moderate (Negative) H 05/12/16 04:30 Urine Microscopic RBC 5-15 per hpf (0-3) H 05/12/16 04:30 Urine Microscopic WBC 5-15 per hpf (0-3) H 05/12/16 04:30 Ur Squamous Epith Cells Many per lpf (None-Few) H 05/12/16 04:30 Ur Culture Indicated? YES (NO) A 05/12/16 04:30 - Attending Attestation I examined this patient and my medical decision-making was reviewed with the BOILERS INSPECTOR/PA/Advanced Practice Nurse/Resident Physician. I agree with the documented findings, disposition and treatment plan as described except to the extent set forth below. Palliative Quality Code Status: 05/20/16 08:49 CODE [Resuscitation Status: Active] [RES] Routine Comment: Resuscitation Status: DNR-Comfort Care-Arrest - Labs CBC & Chem 7: 05/23/16 05:25 05/23/16 05:25 Labs: Laboratory Results - last 24 hr 05/22/16 05/22/16 05/22/16 04:50 11:02 16:39 WBC RBC Hgb Hct MCV MCH MCHC RDW Plt Count MPV Immature Gran % Seg Neutrophils % Lymphocytes % Monocytes % Eosinophils % Basophils % Neutrophils # Lymphocytes # Monocytes # Eosinophils # Basophils # Platelet Estimate Anisocytosis Microcytosis Sodium Potassium Chloride Carbon Dioxide BUN Creatinine Est GFR ( Amer) Est GFR (Non-Af Amer) BUN/Creatinine Ratio Glucose POC Glucose 153 H 72 98 H Calculated Osmolality Calcium Total Bilirubin AST ALT Alkaline Phosphatase Serum Total Protein Albumin Globulin Albumin/Globulin Ratio 05/23/16 05/23/16 05/23/16 05:25 05:25 05:25 WBC 4.9 RBC 3.79 L Hgb 9.8 L Hct 31.5 L MCV 83.1 MCH 25.9 L MCHC 31.1 L RDW 23.2 H Plt Count 199 MPV 11.0 Immature Gran % 1.6 Seg Neutrophils % 75.3 Lymphocytes % 10.5 Monocytes % 12.6 Eosinophils % 0.0 Basophils % 0.0 Neutrophils # 3.7 Lymphocytes # 0.5 L Monocytes # 0.6 Eosinophils # 0.0 Basophils # 0.0 Platelet Estimate Normal Anisocytosis 2+ A Microcytosis Present A Sodium 135 L 134 L Potassium 3.9 3.9 Chloride 105 104 Carbon Dioxide 22 22 BUN 19 19 Creatinine 0.55 L 0.54 L Est GFR ( Amer) > 60 > 60 Est GFR (Non-Af Amer) > 60 > 60 BUN/Creatinine Ratio 35 H 35 H Glucose 99 102 H POC Glucose Calculated Osmolality 282 280 Calcium 7.8 L 7.9 L Total Bilirubin 0.4 AST 19 ALT 42 Alkaline Phosphatase 343 H Serum Total Protein 5.2 L Albumin 2.1 L Globulin 3.1 Albumin/Globulin Ratio 0.7 L
--- NOTE | 2016-05-23 10:52 | General Surgery Progress Note ---
Date of Encounter: 05/23/16 Time of Encounter: 10:45 - Assessment and Plan (1) Duodenal obstruction, acquired Current Visit: Yes Status: Acute POD#6 Gastrojejunostomy, palliative Pt. tolerated the procedure well. Bowel sounds present. She is having flatus, but no BM yet. She has tolerated NG removal without nausea/vomiting. Will advance diet to clear liquid diet. Afebrile. Plan: clear liquid diet, antiemetics, pain control, ambulate TID, TPN@50ml/hr ( managed by black top paver operator), protonix, lovenox. Subjective Narrative: Patient seen and examined. Well this morning. Tolerated NG removal. Not having any nausea or vomiting. Passing flatus, no BM yet. Will advance feeds to clear liquids. Objective Vital Signs - Last 8 Hours Temp Pulse Resp BP Pulse Ox 05/23/16 08:00 97.1 F L 77 16 108/71 97 05/23/16 04:00 97.4 F L 76 16 113/75 98 Intake and Output 05/22/16 05/23/16 05/23/16 23:59 07:59 15:59 Intake Total 54 / 54 304 / 304 Output Total 450 / 450 Balance 54 / 54 -146 / -146 Intake: IV Fluids 54 / 54 304 / 304 Intralipid 20% 250 ML @ 250 / 250 21 mls/hr IVPB DAILY@1700 [facility] Rx#:[id number] Reglan 20 MG In 0.9 % 54 / 54 54 / 54 Sodium Chloride 50 ML @ 108 mls/hr IVPB Q8H [facility] Rx#:[id number] Output: Urine 450 / 450 Other: Weight 58.7 kg Blood Glucose* 98 89 Patient Weight 05/23/16 23:59 Weight 58.7 kg - Additional Exam - General physical appearance chronically ill - Eyes normal ocular movement - Neck Neck exam: trachea midline - Respiratory clear to auscultation - Cardiovascular Cardiovascular exam: Present: RRR, no murmurs/rubs/gallops - Abdomen Abdomen: Present: soft. Absent: bowel sounds present - Incision Incision: Present: clean and dry, intact - Neurologic CN 2-12 grossly intact - Psychiatric oriented to time, oriented to person, oriented to place - Labs 05/24/16 05:15 05/24/16 05:15 Diabetes panel 05/23/16 05/23/16 Range/Units 05:25 05:25 Sodium 135 L 134 L (136-145) mEq/L Potassium 3.9 3.9 (3.5-4.5) mEq/L Chloride 105 104 (98-109) mEq/L Carbon Dioxide 22 22 (19-29) mEq/L BUN 19 19 (7-20) mg/dL Creatinine 0.55 L 0.54 L (0.57-1.11) mg/dL Glucose 99 102 H (70-99) mg/dL Calcium 7.8 L 7.9 L (8.6-10.8) mg/dL AST 19 (5-34) Units/L ALT 42 (0-55) Units/L Alkaline Phosphatase 343 H (38-126) Units/L Albumin 2.1 L (3.5-5.0) g/dL Calcium panel 05/23/16 05/23/16 Range/Units 05:25 05:25 Calcium 7.8 L 7.9 L (8.6-10.8) mg/dL Albumin 2.1 L (3.5-5.0) g/dL Pituitary panel 05/23/16 05/23/16 Range/Units 05:25 05:25 Sodium 135 L 134 L (136-145) mEq/L Potassium 3.9 3.9 (3.5-4.5) mEq/L Chloride 105 104 (98-109) mEq/L Carbon Dioxide 22 22 (19-29) mEq/L BUN 19 19 (7-20) mg/dL Creatinine 0.55 L 0.54 L (0.57-1.11) mg/dL Glucose 99 102 H (70-99) mg/dL Calcium 7.8 L 7.9 L (8.6-10.8) mg/dL Adrenal panel 05/23/16 05/23/16 Range/Units 05:25 05:25 Sodium 135 L 134 L (136-145) mEq/L Potassium 3.9 3.9 (3.5-4.5) mEq/L Chloride 105 104 (98-109) mEq/L Carbon Dioxide 22 22 (19-29) mEq/L BUN 19 19 (7-20) mg/dL Creatinine 0.55 L 0.54 L (0.57-1.11) mg/dL Glucose 99 102 H (70-99) mg/dL Calcium 7.8 L 7.9 L (8.6-10.8) mg/dL Total Bilirubin 0.4 (0.2-1.2) mg/dL AST 19 (5-34) Units/L ALT 42 (0-55) Units/L Alkaline Phosphatase 343 H (38-126) Units/L Albumin 2.1 L (3.5-5.0) g/dL - VTE Documentation of Mechanical Device: Intermittent pneumatic compression device Consult Discharge Plan - Plan Referrals: Lambert Gandhi MD [Primary Care Provider] - - Attending Attestation I examined this patient and my medical decision-making was reviewed with the NAPPER TENDER/PA/Advanced Practice Nurse/Resident Physician. I agree with the documented findings, disposition and treatment plan as described except to the extent set forth below. The patient is seen and evaluated on morning rounds with a resident. Improved off NG Doing well Enrique Aleman MD FACS
[2016-05-23] MEDS: Ondansetron 4 MG/2 ML VIAL IVP PRN ×2 (13:22→22:25)
[2016-05-23] MEDS ORDERED: Clinimix E 5%-15% SOLUTION 2,000 ML with MVI, adult with vitamin K 10 ML, Trace Eleme... IVC SCH (17:00)
--- NOTE | 2016-05-23 18:20 | Internal Med Progress Note ---
Date of Encounter: 05/23/16 Time of Encounter: 18:17 - Assessment and plan (1) Malignant neoplasm metastatic to colon Current Visit: Yes Status: Acute Assessment and plan: Oncology following, will reassess treatment options with them. CT of the abdomen and pelvis shows progression through her first cycle of chemotherapy which she tolerated poorly. We will explore any other options with oncology. Gen. surgery consult for options on palliative hormonal bypass surgery. I have discussed the case with the general surgeon and a appreciated their recommendations. 05/16/2016 Surgery on board and will wait for recommendations. 05/17/2016. Patient and family had a long talk with surgery department. patient is going for surgery this evening. 05/18/2016 Postoperative day #1 Patient underwent surgery yesterday. She had a duodenal obstruction from metastatic colon cancer. She underwent gastrojejunostomy which is mainly for palliative reasons. Patient appears more alert and answers all questions appropriately. Surgery on the board and we will follow their recommendations. 05/01/2016. Postoperative day #2. Patient underwent surgery for metastatic neoplasm of colon: As a debulking procedure. Patient tolerated procedure well. Currently she is taking total parenteral nutrition. Surgery/dietitian to manage total parenteral nutrition. 05/20/2016 Post operative Day 3 No new complaints ongoing paraentral nutrition. 05/21/2016. Postoperative day 4 Patient was occasionally nauseous. Surgery on the board. We will follow the recommendations from surgery. 05/22/2016 Post operative day:5 off NG tube plan is to start clear liquid by tomorrow all questions answered. 05/23/2016 POD : 6 started clear liquid. did not finish even half of the liquid served. has nausea. did not vomit. if we discharge her, possibility that she will return back is almost 100% close observation will update surgery tomorrow and will treat her symptomatically. (2) Dehydration Current Visit: Yes Status: Acute Assessment and plan: We will treat this with IV fluids. Replete electrolytes. Check BUN and creatinine the morning. Encourage oral hydration as much as tolerated. Treat nausea with Zofran and Phenergan. 05/16/2016 will continue IV fluids labs in AM 05/17/2016 Will continue IV fluids for now. BUN/creatinine is within normal limits. 05/18/2016. We will continue IV fluids. Will continue TPN. (3) Failure to thrive Current Visit: Yes Status: Acute Assessment and plan: She has had persistent nausea and severe abdominal pain her oncologist recommended TPN. Continue with TPN. Follow-up with nutrition. Check fingerstick blood glucose. Check and replete magnesium and phosphorus daily. 05/16/2016 secondary to duodenal obstruction. presently on TPN will cont TPN labs in AM. Qualifiers: Failure to thrive age range: in adult Qualified Code(s): R62.7 - Adult failure to thrive (4) Hypophosphatemia Current Visit: Yes Status: Acute Assessment and plan: She cannot take by mouth. Replete with IV phosphorus and magnesium. 05/16/2016 will work with nutrition and will replace via TPN - Subjective Interval history: seen and examined. patient has occasional nausea. denies vomiting. at bedside. 05/17/2016. Patient seen and examined. Patient has still occasional nausea. Noted that NG tube is placed in. Patient denies vomiting, abdominal pain or diarrhea. 05/18/2016 Patient seen and examined. Postoperative day1 Patient denies any nausea, vomiting, abdominal pain She is taking ice chips. 05/19/2016. Patient seen and examined. Postoperative day 2. Patient denies any chest pain, nausea, vomiting, abdominal pain. Her appetite is much better as compared to yesterday. 05/20/2016 seen and examined Post operative Day : 3 walking around the floor with support no new complaints. 05/21/2016 Seen and examined. Postoperative day: 4 Walking around the floor. She was occasionally nauseous. Surgery on the board 05/22/2016 seen and examined. postoperative day:5 walking around the floor. Off NG noted surgery on the board. 05/23/2016 POD : 6 started clear liquid today has nausea. feels like vomiting but did not vomit. will continue to observe - Constitutional Vitals: Temp Pulse Resp BP Pulse Ox 98.6 F 84 18 117/79 97 05/23/16 17:02 05/23/16 17:02 05/23/16 17:02 05/23/16 17:02 05/23/16 17:02 General appearance: Present: A&O X 3, no acute distress, answers questions appropriately - Head Head exam: Present: atraumatic, normocephalic - Eye Eye exam: Present: PERRL, conjuntiva pink, sclera anicteric Pupils: Present: PERRL - Neck Neck exam general surgery: Present: supple, trachea midline. Absent: lymphadenopathy - Respiratory Respiratory exam: Present: CTAB. Absent: accessory muscle use, rales, rhonchi, wheezes - Cardiovascular Cardiovascular exam: Present: RRR, +S1, +S2. Absent: diastolic murmur, gallop, rubs, systolic murmur - GI/Abdominal GI/Abdominal exam: Present: normal bowel sounds, soft, no peritoneal signs. Absent: distended, tenderness - Extremities Exam Extremities exam: Present: warm, radial pulses palpable and symetrical. Absent : calf tenderness, cyanotic, pedal edema - Neurological Exam Neurological exam: Present: CN II-XII intact, oriented X3, no focal deficits. Absent: pronater drift, facial droop, speech deficit - Skin Skin exam: Present: dry, intact Internal Medicine: Result - Labs CBC & Chem 7: 05/23/16 05:25 05/23/16 05:25 Labs: Short CBC 05/23/16 Range/Units 05:25 WBC 4.9 (4.3-11.1) K/mcL Hgb 9.8 L (11.5-15.4) g/dL Hct 31.5 L (35.3-44.9) % Plt Count 199 (140-400) K/mcL Neutrophils # 3.7 (1.6-8.9) K/mcL BMP 05/23/16 05/23/16 05:25 05:25 Sodium 135 L 134 L Potassium 3.9 3.9 Chloride 105 104 Carbon Dioxide 22 22 BUN 19 19 Creatinine 0.55 L 0.54 L Glucose 99 102 H Calcium 7.8 L 7.9 L Liver Function 05/23/16 Range/Units 05:25 Total Bilirubin 0.4 (0.2-1.2) mg/dL AST 19 (5-34) Units/L ALT 42 (0-55) Units/L Alkaline Phosphatase 343 H (38-126) Units/L Albumin 2.1 L (3.5-5.0) g/dL - VTE Documentation of Mechanical Device: Intermittent pneumatic compression device Consult Discharge Plan - Plan Referrals: Lambert Gandhi MD [Primary Care Provider] -
[2016-05-23] MEDS: ADVAIR 250/50 IH SCH (22:17)
[2016-05-24] MEDS: Ondansetron 4 MG/2 ML VIAL IVP PRN (05:21)
[2016-05-24] MEDS: Pantoprazole 40 MG VIAL IVP SCH ×2 (05:21→17:33)
[2016-05-24 05:27] LABS: Eosinophils % 0.2 %; Hematocrit 33.1 % (35.3-44.9); Hemoglobin 10.2 g/dL (11.5-15.4); Immature Granulocytes % 1.6 % (0-4); Lymphocytes # 0.5 K/mcL (0.6-4.6); Mean Corpuscular HGB Conc 30.8 g/dL (31.6-35.5); Mean Corpuscular Hemoglobin 25.8 pg (28.0-33.3); Mean Corpuscular Volume 83.8 fL (83.0-100.0); Mean Platelet Volume 10.2 fL (9.4-12.4); Monocytes # 0.5 K/mcL (0.0-1.3); Monocytes % 8.7 %; Platelet Count 200 K/mcL (140-400); Red Blood Count 3.95 M/mcL (3.82-4.97); Red Cell Distribution Width 23.9 % (11.5-14.5); Segmented Neutrophils % 80.5 %
[2016-05-24 05:36] LABS: Neutrophils # 4.7 K/mcL (1.6-8.9)
[2016-05-24 05:43] LABS: Alanine Aminotransferase 51 Units/L (0-55); Albumin 2.3 g/dL (3.5-5.0); Albumin/Globulin Ratio 0.8 (1.1-2.2); Alkaline Phosphatase 350 Units/L (38-126); Aspartate Amino Transferase 21 Units/L (5-34); BUN/Creatinine Ratio 40 (6-26); Bilirubin,Total 0.4 mg/dL (0.2-1.2); Blood Urea Nitrogen 25 mg/dL (7-20); Calcium 7.7 mg/dL (8.6-10.8); Carbon Dioxide 24 mEq/L (19-29); Chloride 103 mEq/L (98-109); Glucose 143 mg/dL (70-99); Osmolality,Calculated 281 (280-300); Potassium 4.2 mEq/L (3.5-4.5); Sodium 132 mEq/L (136-145); Total Protein 5.3 g/dL (6.0-8.3); eGFR For African Americans > 60 (> 60); eGFR For Non-African Americans > 60 (> 60)
[2016-05-24 06:25] LABS: Anisocytosis 2+ (Not Present); Microcytosis Present (Not Present); Ovalocytes 1+ (Not Present)
[2016-05-24 06:26] LABS: Platelet Estimate Normal (Normal)
--- NOTE | 2016-05-24 07:29 | General Surgery Progress Note ---
Date of Encounter: 05/24/16 Time of Encounter: 07:27 - Assessment and Plan (1) Duodenal obstruction, acquired Current Visit: Yes Status: Acute POD#7 Gastrojejunostomy, palliative Pt. tolerated the procedure well. Bowel sounds present. She is having flatus. She has began having bowel movements (diarrhea). She is having nausea. NG remains out. Continue clear diet. Afebrile. We will continue the Reglan for 36 hours. Plan: Reglan, clear liquid diet, antiemetics, pain control, ambulate TID, TPN@50ml/hr (managed by fixed wing aircraft flight engineer), protonix, lovenox. Subjective Patient reports: flatus, diarrhea, nausea, afebrile Narrative: Patient seen and examined. She is having nausea this am. She has not had any emesis. She has good bowel sounds, is passing flatus, and is having diarrhea. Objective Vital Signs - Last 8 Hours Temp Pulse Resp BP Pulse Ox 05/24/16 05:24 97.3 F L 85 16 100/64 98 Intake and Output 05/23/16 05/23/16 05/24/16 15:59 23:59 07:59 Intake Total 120 / 120 240 / 240 120 / 120 Balance 120 / 120 240 / 240 120 / 120 Intake: Oral 120 / 120 240 / 240 120 / 120 Infusion Intake 0 / 0 Other: Meal Lunch Percent of Meal Consumed 50% # Voids 0 1 Weight 57.8 kg Blood Glucose* 99 155 130 Patient Weight 05/24/16 23:59 Weight 57.8 kg - General physical appearance moderate distress, chronically ill - Eyes normal ocular movement - Neck Neck exam: trachea midline - Respiratory normal expansion, clear to auscultation - Cardiovascular Cardiovascular exam: Present: RRR, no murmurs/rubs/gallops - Abdomen Abdomen: Present: bowel sounds present, soft - Neurologic CN 2-12 grossly intact - Psychiatric oriented to time, oriented to person, oriented to place - Labs 05/24/16 05:15 05/24/16 05:15 Diabetes panel 05/24/16 Range/Units 05:15 Sodium 132 L (136-145) mEq/L Potassium 4.2 (3.5-4.5) mEq/L Chloride 103 (98-109) mEq/L Carbon Dioxide 24 (19-29) mEq/L BUN 25 H (7-20) mg/dL Creatinine 0.62 (0.57-1.11) mg/dL Glucose 143 H (70-99) mg/dL Calcium 7.7 L (8.6-10.8) mg/dL AST 21 (5-34) Units/L ALT 51 (0-55) Units/L Alkaline Phosphatase 350 H (38-126) Units/L Albumin 2.3 L (3.5-5.0) g/dL Calcium panel 05/24/16 Range/Units 05:15 Calcium 7.7 L (8.6-10.8) mg/dL Albumin 2.3 L (3.5-5.0) g/dL Pituitary panel 05/24/16 Range/Units 05:15 Sodium 132 L (136-145) mEq/L Potassium 4.2 (3.5-4.5) mEq/L Chloride 103 (98-109) mEq/L Carbon Dioxide 24 (19-29) mEq/L BUN 25 H (7-20) mg/dL Creatinine 0.62 (0.57-1.11) mg/dL Glucose 143 H (70-99) mg/dL Calcium 7.7 L (8.6-10.8) mg/dL Adrenal panel 05/24/16 Range/Units 05:15 Sodium 132 L (136-145) mEq/L Potassium 4.2 (3.5-4.5) mEq/L Chloride 103 (98-109) mEq/L Carbon Dioxide 24 (19-29) mEq/L BUN 25 H (7-20) mg/dL Creatinine 0.62 (0.57-1.11) mg/dL Glucose 143 H (70-99) mg/dL Calcium 7.7 L (8.6-10.8) mg/dL Total Bilirubin 0.4 (0.2-1.2) mg/dL AST 21 (5-34) Units/L ALT 51 (0-55) Units/L Alkaline Phosphatase 350 H (38-126) Units/L Albumin 2.3 L (3.5-5.0) g/dL - VTE Documentation of Mechanical Device: Intermittent pneumatic compression device Consult Discharge Plan - Plan Referrals: Lambert Gandhi MD [Primary Care Provider] - - Attending Attestation I examined this patient and my medical decision-making was reviewed with the EXTRUDING MACHINE OPERATOR/PA/Advanced Practice Nurse/Resident Physician. I agree with the documented findings, disposition and treatment plan as described except to the extent set forth below. The patient was seen and evaluated with the resident on morning rounds. She is stable but nauseated. She is passing flatus and diarrhea. She is not taking much by mouth intake. Continue supportive care. Enrique Aleman MD FACS
--- NOTE | 2016-05-24 08:48 | Oncology Inp Progress Note ---
Date of Encounter: 05/23/16 Time of Encounter: 18:30 (1) Duodenal obstruction, acquired Current Visit: Yes Status: Acute Assessment and plan: Status post-gastrojejunostomy. Currently on TPN. Hopefully with bowel sounds being active she may be able to be eat betterbe able to go off of TPN (2) Liver metastases Current Visit: Yes Status: Chronic Assessment and plan: Metastatic adenocarcinoma most likely GI primary. If she gets better maze to resume chemotherapy FOLFOX. She just received one cycle of chemotherapy. Hold Avastin for at least the next 6 weeks or so. Oncology: Subj Interval history: Patient was sleeping. Talked to the . She is resting better. Nausea is manageable and NG tube out. Passing flatus. Appetite not good but able to tolerate liquid feedings. - Constitutional Vitals: Vital Signs Temp Pulse Resp BP Pulse Ox 05/24/16 05:24 97.3 F L 85 16 100/64 98 05/23/16 19:43 97.3 F L 62 16 101/71 97 05/23/16 17:02 98.6 F 84 18 117/79 97 05/23/16 12:00 96.4 F L 85 16 109/79 97 Intake and Output 05/23/16 05/24/16 05/24/16 23:59 07:59 15:59 Intake Total 240 / 240 120 / 120 Balance 240 / 240 120 / 120 Intake: Oral 240 / 240 120 / 120 Infusion Intake 0 / 0 Other: # Voids 0 1 Weight 57.8 kg Blood Glucose* 155 130 Patient Weight 05/24/16 23:59 Weight 57.8 kg Oncology: Obj Data - Labs CBC & Chem 7: 05/24/16 05:15 05/24/16 05:15 Labs: Laboratory Results - last 24 hr 05/23/16 05/23/16 05/23/16 00:21 06:25 12:26 WBC RBC Hgb Hct MCV MCH MCHC RDW Plt Count MPV Immature Gran % Seg Neutrophils % Lymphocytes % Monocytes % Eosinophils % Basophils % Neutrophils # Lymphocytes # Monocytes # Eosinophils # Basophils # Platelet Estimate Anisocytosis Microcytosis Ovalocytes Sodium Potassium Chloride Carbon Dioxide BUN Creatinine Est GFR ( Amer) Est GFR (Non-Af Amer) BUN/Creatinine Ratio Glucose POC Glucose 191 H 89 99 H Calculated Osmolality Calcium Total Bilirubin AST ALT Alkaline Phosphatase Serum Total Protein Albumin Globulin Albumin/Globulin Ratio 05/23/16 05/24/16 05/24/16 18:20 00:02 05:15 WBC 5.8 RBC 3.95 Hgb 10.2 L Hct 33.1 L MCV 83.8 MCH 25.8 L MCHC 30.8 L RDW 23.9 H Plt Count 200 MPV 10.2 Immature Gran % 1.6 Seg Neutrophils % 80.5 Lymphocytes % 9.0 Monocytes % 8.7 Eosinophils % 0.2 Basophils % 0.0 Neutrophils # 4.7 Lymphocytes # 0.5 L Monocytes # 0.5 Eosinophils # 0.0 Basophils # 0.0 Platelet Estimate Normal Anisocytosis 2+ A Microcytosis Present A Ovalocytes 1+ A Sodium Potassium Chloride Carbon Dioxide BUN Creatinine Est GFR ( Amer) Est GFR (Non-Af Amer) BUN/Creatinine Ratio Glucose POC Glucose 108 H 155 H Calculated Osmolality Calcium Total Bilirubin AST ALT Alkaline Phosphatase Serum Total Protein Albumin Globulin Albumin/Globulin Ratio 05/24/16 05/24/16 05:15 05:34 WBC RBC Hgb Hct MCV MCH MCHC RDW Plt Count MPV Immature Gran % Seg Neutrophils % Lymphocytes % Monocytes % Eosinophils % Basophils % Neutrophils # Lymphocytes # Monocytes # Eosinophils # Basophils # Platelet Estimate Anisocytosis Microcytosis Ovalocytes Sodium 132 L Potassium 4.2 Chloride 103 Carbon Dioxide 24 BUN 25 H Creatinine 0.62 Est GFR ( Amer) > 60 Est GFR (Non-Af Amer) > 60 BUN/Creatinine Ratio 40 H Glucose 143 H POC Glucose 130 H Calculated Osmolality 281 Calcium 7.7 L Total Bilirubin 0.4 AST 21 ALT 51 Alkaline Phosphatase 350 H Serum Total Protein 5.3 L Albumin 2.3 L Globulin 3.0 Albumin/Globulin Ratio 0.8 L Consult Discharge Plan - Plan Referrals: Lambert Gandhi MD [Primary Care Provider] -
[2016-05-24] MEDS: *HR* LORazepam 2 MG/ML VIAL IVP PRN ×2 (09:12→20:25)
[2016-05-24] MEDS: Metoclopramide 20 MG in 0.9 % Sodium Chloride 50 ML IVPB SCH ×3 (09:19→23:31)
[2016-05-24] MEDS: Dexamethasone 10 MG/ML VIAL IVP SCH ×2 (09:23→22:35)
[2016-05-24] MEDS: *HR* Enoxaparin 40 MG/0.4 ML SYRINGE SQ SCH (09:25)
[2016-05-24] MEDS: RESTASIS OPTH OP SCH ×2 (09:33→22:35)
--- NOTE | 2016-05-24 09:45 | Palliative Progress Note ---
Date of Encounter: 05/24/16 Time of Encounter: 09:00 - Assessment and plan (1) Cancer related pain Current Visit: No Status: Chronic Assessment and plan: Under good control at this time continue current medications. Surgery is managing pain medications due to postop status. He well overall. Continue current medications (2) Dehydration Current Visit: Yes Status: Acute Assessment and plan: On TPN, this will continue for the time being. Now tolerating clears tube is out.. (3) Failure to thrive Current Visit: Yes Status: Acute Assessment and plan: The patient is currently on TPN, NG tube is out, advancement of diet per surgery.. Qualifiers: Failure to thrive age range: in adult Qualified Code(s): R62.7 - Adult failure to thrive (4) Nausea and vomiting Current Visit: No Status: Acute Assessment and plan: Having some nausea at this time but not actual vomiting. Patient is on Reglan, when necessary Zofran as well as Ativan. I believe that a lot of this is a 20 nausea and I recommended her using the Ativan. Qualifiers: Vomiting type: unspecified Vomiting Intractability: intractable Qualified Code(s): R11.2 - Nausea with vomiting, unspecified (5) Goals of care, counseling/discussion Current Visit: Yes Status: Acute Assessment and plan: ER comfort care arrest, patient's goals are to return home. sHe is very motivated and is not progressing as fast as she would like and she views this as a setback. Discussed this with her at length and pointed out the amount of progress she has made thus far. Radha follow. (6) Constipation due to pain medication Current Visit: No Status: Acute Assessment and plan: She is passing gas and having very small amounts of stool. Surgery is following per the patient's surgery is very happy with the progress she has made thus far. (7) Colon cancer Current Visit: No Status: Acute Assessment and plan: Patient is currently postop. Her oncology the patient will be able to return to chemotherapy if she desires after the postop period. Qualifiers: Colon location: unspecified part of colon Qualified Code(s): C18.9 - Malignant neoplasm of colon, unspecified - Time Spent With Patient Total time spent is greater than 50% in coordination of care (as documented) at patient's floor/unit and/or counseling patient: - Subjective Interval history: The patient is feeling she has had a small setback this morning. NG tube is out and she is tolerating that well, however she is trying to eat she is doing like something is not quite right in her stomach. Not sure if it is really nausea or not, also seems to be an anticipatory aspect to it. She is passing gas and actually having small amounts of bowel movement. He states surgery overall is happy with the progress... - Constitutional Vitals: Abnormal lab results Hgb 10.2 g/dL (11.5-15.4) L 05/24/16 05:15 Hct 33.1 % (35.3-44.9) L 05/24/16 05:15 MCH 25.8 pg (28.0-33.3) L 05/24/16 05:15 MCHC 30.8 g/dL (31.6-35.5) L 05/24/16 05:15 RDW 23.9 % (11.5-14.5) H 05/24/16 05:15 Lymphocytes # 0.5 K/mcL (0.6-4.6) L 05/24/16 05:15 Nucleated RBCs/100 WBC 0.5 /100 WBC (0) H 05/16/16 05:35 Hypochromasia Present (Not Present) A 05/16/16 05:35 Anisocytosis 2+ (Not Present) A 05/24/16 05:15 Microcytosis Present (Not Present) A 05/24/16 05:15 Ovalocytes 1+ (Not Present) A 05/24/16 05:15 Sodium 132 mEq/L (136-145) L 05/24/16 05:15 BUN 25 mg/dL (7-20) H 05/24/16 05:15 BUN/Creatinine Ratio 40 (6-26) H 05/24/16 05:15 Glucose 143 mg/dL (70-99) H 05/24/16 05:15 POC Glucose 130 (58-89) H 05/24/16 05:34 Calcium 7.7 mg/dL (8.6-10.8) L 05/24/16 05:15 Ionized Calcium 1.14 mmol/L (1.15-1.35) L 05/12/16 04:30 Alkaline Phosphatase 350 Units/L (38-126) H 05/24/16 05:15 Serum Total Protein 5.3 g/dL (6.0-8.3) L 05/24/16 05:15 Albumin 2.3 g/dL (3.5-5.0) L 05/24/16 05:15 Albumin/Globulin Ratio 0.8 (1.1-2.2) L 05/24/16 05:15 Urine Clarity Cloudy (Clear) A 05/12/16 04:30 Ur Specific [place] 1.027 (1.010-1.025) H 05/12/16 04:30 Urine Blood Moderate (Negative) H 05/12/16 04:30 Urine Microscopic RBC 5-15 per hpf (0-3) H 05/12/16 04:30 Urine Microscopic WBC 5-15 per hpf (0-3) H 05/12/16 04:30 Ur Squamous Epith Cells Many per lpf (None-Few) H 05/12/16 04:30 Ur Culture Indicated? YES (NO) A 05/12/16 04:30 General appearance: Present: no acute distress - Head Head exam: Present: atraumatic, normal inspection - ENT ENT exam: Present: mucous membranes moist - Respiratory Respiratory exam: Present: CTAB - Cardiovascular Cardiovascular exam: Present: RRR - GI/Abdominal GI/Abdominal exam: Present: normal bowel sounds, soft, tenderness (In area of incision.) - Extremities Exam Extremities exam: Present: normal inspection. Absent: tenderness - Neurological Exam Neurological exam: Present: alert, oriented X3 - Psychiatric Psychiatric exam: Present: anxious (At times), normal affect, normal mood. Absent: agitated - Skin Skin exam: Present: dry, warm Palliative Quality Palliative Quality: Screen for Code Status: Yes, Screen for Goals of Care: Yes, Screen for Pain: Yes, If Pain Regimen Started, Initiate Bowel Regimen: Yes, Screen for Nausea/Vomitting: Yes Code Status: 05/20/16 08:49 CODE [Resuscitation Status: Active] [RES] Routine Comment: Resuscitation Status: DNR-Comfort Care-Arrest - Labs CBC & Chem 7: 05/24/16 05:15 05/24/16 05:15 Labs: Laboratory Results - last 24 hr 05/23/16 05/23/16 05/23/16 00:21 06:25 12:26 WBC RBC Hgb Hct MCV MCH MCHC RDW Plt Count MPV Immature Gran % Seg Neutrophils % Lymphocytes % Monocytes % Eosinophils % Basophils % Neutrophils # Lymphocytes # Monocytes # Eosinophils # Basophils # Platelet Estimate Anisocytosis Microcytosis Ovalocytes Sodium Potassium Chloride Carbon Dioxide BUN Creatinine Est GFR ( Amer) Est GFR (Non-Af Amer) BUN/Creatinine Ratio Glucose POC Glucose 191 H 89 99 H Calculated Osmolality Calcium Total Bilirubin AST ALT Alkaline Phosphatase Serum Total Protein Albumin Globulin Albumin/Globulin Ratio 05/23/16 05/24/16 05/24/16 18:20 00:02 05:15 WBC 5.8 RBC 3.95 Hgb 10.2 L Hct 33.1 L MCV 83.8 MCH 25.8 L MCHC 30.8 L RDW 23.9 H Plt Count 200 MPV 10.2 Immature Gran % 1.6 Seg Neutrophils % 80.5 Lymphocytes % 9.0 Monocytes % 8.7 Eosinophils % 0.2 Basophils % 0.0 Neutrophils # 4.7 Lymphocytes # 0.5 L Monocytes # 0.5 Eosinophils # 0.0 Basophils # 0.0 Platelet Estimate Normal Anisocytosis 2+ A Microcytosis Present A Ovalocytes 1+ A Sodium Potassium Chloride Carbon Dioxide BUN Creatinine Est GFR ( Amer) Est GFR (Non-Af Amer) BUN/Creatinine Ratio Glucose POC Glucose 108 H 155 H Calculated Osmolality Calcium Total Bilirubin AST ALT Alkaline Phosphatase Serum Total Protein Albumin Globulin Albumin/Globulin Ratio 05/24/16 05/24/16 05:15 05:34 WBC RBC Hgb Hct MCV MCH MCHC RDW Plt Count MPV Immature Gran % Seg Neutrophils % Lymphocytes % Monocytes % Eosinophils % Basophils % Neutrophils # Lymphocytes # Monocytes # Eosinophils # Basophils # Platelet Estimate Anisocytosis Microcytosis Ovalocytes Sodium 132 L Potassium 4.2 Chloride 103 Carbon Dioxide 24 BUN 25 H Creatinine 0.62 Est GFR ( Amer) > 60 Est GFR (Non-Af Amer) > 60 BUN/Creatinine Ratio 40 H Glucose 143 H POC Glucose 130 H Calculated Osmolality 281 Calcium 7.7 L Total Bilirubin 0.4 AST 21 ALT 51 Alkaline Phosphatase 350 H Serum Total Protein 5.3 L Albumin 2.3 L Globulin 3.0 Albumin/Globulin Ratio 0.8 L Consult Discharge Plan - Plan Referrals: Lambert Gandhi MD [Primary Care Provider] -
[2016-05-24] MEDS: ADVAIR 250/50 IH SCH ×3 (14:58→22:35)
[2016-05-24] MEDS ORDERED: Clinimix E 5%-15% SOLUTION 2,000 ML with MVI, adult with vitamin K 10 ML, Sodium Phos... IVC SCH (17:00)
[2016-05-25] MEDS: Pantoprazole 40 MG VIAL IVP SCH ×2 (05:35→17:18)
[2016-05-25 05:49] LABS: Basophils % 0.2 %; Eosinophils % 0.3 %; Hematocrit 32.9 % (35.3-44.9); Hemoglobin 10.2 g/dL (11.5-15.4); Lymphocytes # 0.6 K/mcL (0.6-4.6); Lymphocytes % 10.5 %; Mean Corpuscular Volume 83.9 fL (83.0-100.0); Monocytes # 0.5 K/mcL (0.0-1.3); Monocytes % 7.7 %; Neutrophils # 4.8 K/mcL (1.6-8.9); Platelet Count 199 K/mcL (140-400); Red Blood Count 3.92 M/mcL (3.82-4.97); Red Cell Distribution Width 24.2 % (11.5-14.5); Segmented Neutrophils % 79.3 %
[2016-05-25 06:02] LABS: Alanine Aminotransferase 45 Units/L (0-55); Albumin 2.2 g/dL (3.5-5.0); Albumin/Globulin Ratio 0.7 (1.1-2.2); Alkaline Phosphatase 384 Units/L (38-126); Aspartate Amino Transferase 23 Units/L (5-34); BUN/Creatinine Ratio 40 (6-26); Bilirubin,Total 0.5 mg/dL (0.2-1.2); Blood Urea Nitrogen 23 mg/dL (7-20); Calcium 7.8 mg/dL (8.6-10.8); Carbon Dioxide 21 mEq/L (19-29); Chloride 104 mEq/L (98-109); Globulin 3.1 g/dL (2.4-3.5); Glucose 125 mg/dL (70-99); Osmolality,Calculated 283 (280-300); Phosphorous 3.3 mg/dL (2.3-4.7); Potassium 4.1 mEq/L (3.5-4.5); Sodium 134 mEq/L (136-145); Total Protein 5.3 g/dL (6.0-8.3); eGFR For African Americans > 60 (> 60); eGFR For Non-African Americans > 60 (> 60)
[2016-05-25 06:37] LABS: Anisocytosis 1+ (Not Present); Hypochromasia Present (Not Present); Macrocytosis Present (Not Present)
[2016-05-25 06:38] LABS: Large Platelets Present (Not Present); Ovalocytes 1+ (Not Present); Platelet Estimate Normal (Normal)
--- NOTE | 2016-05-25 07:55 | General Surgery Progress Note ---
Date of Encounter: 05/25/16 Time of Encounter: 07:44 - Assessment and Plan (1) Duodenal obstruction, acquired Current Visit: Yes Status: Acute POD#8 Gastrojejunostomy, palliative Normal bowel sounds present. She is having flatus and diarrhea. Her nausea is improved from yesterday, but still persists. Will advance diet to full liquids. Afebrile. Plan: full liquid diet, antiemetics, pain control, ambulate TID, TPN@50ml/hr (managed by doctor of audiology), protonix, lovenox. Subjective Narrative: She is crying this am. Nausea is less than yesterday but she is upset that it is still persisting. She feels like the clear liquids are not satisfactory. She has normal bowel sounds and is having diarrhea. Objective Vital Signs - Last 8 Hours Temp Pulse Resp BP Pulse Ox 05/25/16 05:47 98.9 F 70 14 97/59 93 Intake and Output 05/24/16 05/24/16 05/25/16 15:59 23:59 07:59 Intake Total 308 / 308 120 / 120 Balance 308 / 308 120 / 120 Intake: IV Fluids 108 / 108 Reglan 20 MG In 0.9 % 108 / 108 Sodium Chloride 50 ML @ 108 mls/hr IVPB Q8H PEPE Rx#:[id number] Oral 200 / 200 120 / 120 Other: Weight 57.5 kg Blood Glucose* 85 99 Patient Weight 05/25/16 23:59 Weight 57.5 kg - General physical appearance chronically ill - Eyes normal ocular movement - Neck Neck exam: trachea midline - Respiratory normal expansion, clear to auscultation - Cardiovascular Cardiovascular exam: Present: RRR - Abdomen Abdomen: Present: bowel sounds present, soft - Neurologic CN 2-12 grossly intact - Psychiatric oriented to time, oriented to person, oriented to place - Labs 05/25/16 05:30 05/26/16 06:15 Diabetes panel 05/25/16 Range/Units 05:30 Sodium 134 L (136-145) mEq/L Potassium 4.1 (3.5-4.5) mEq/L Chloride 104 (98-109) mEq/L Carbon Dioxide 21 (19-29) mEq/L BUN 23 H (7-20) mg/dL Creatinine 0.58 (0.57-1.11) mg/dL Glucose 125 H (70-99) mg/dL Calcium 7.8 L (8.6-10.8) mg/dL AST 23 (5-34) Units/L ALT 45 (0-55) Units/L Alkaline Phosphatase 384 H (38-126) Units/L Albumin 2.2 L (3.5-5.0) g/dL Calcium panel 05/25/16 Range/Units 05:30 Calcium 7.8 L (8.6-10.8) mg/dL Phosphorus 3.3 (2.3-4.7) mg/dL Albumin 2.2 L (3.5-5.0) g/dL Pituitary panel 05/25/16 Range/Units 05:30 Sodium 134 L (136-145) mEq/L Potassium 4.1 (3.5-4.5) mEq/L Chloride 104 (98-109) mEq/L Carbon Dioxide 21 (19-29) mEq/L BUN 23 H (7-20) mg/dL Creatinine 0.58 (0.57-1.11) mg/dL Glucose 125 H (70-99) mg/dL Calcium 7.8 L (8.6-10.8) mg/dL Adrenal panel 05/25/16 Range/Units 05:30 Sodium 134 L (136-145) mEq/L Potassium 4.1 (3.5-4.5) mEq/L Chloride 104 (98-109) mEq/L Carbon Dioxide 21 (19-29) mEq/L BUN 23 H (7-20) mg/dL Creatinine 0.58 (0.57-1.11) mg/dL Glucose 125 H (70-99) mg/dL Calcium 7.8 L (8.6-10.8) mg/dL Total Bilirubin 0.5 (0.2-1.2) mg/dL AST 23 (5-34) Units/L ALT 45 (0-55) Units/L Alkaline Phosphatase 384 H (38-126) Units/L Albumin 2.2 L (3.5-5.0) g/dL - VTE Documentation of Mechanical Device: Intermittent pneumatic compression device Consult Discharge Plan - Plan Referrals: Lambert Gandhi MD [Primary Care Provider] - - Attending Attestation I examined this patient and my medical decision-making was reviewed with the STEM ROLLER/PA/Advanced Practice Nurse/Resident Physician. I agree with the documented findings, disposition and treatment plan as described except to the extent set forth below. The patient is seen and evaluated with the resident on morning rounds. She continues to complain of nausea. She is slowly progressing with her diet. She has had no other vomiting. Her gastrojejunostomy appears to be open Enrique Aleman MD FACS
--- NOTE | 2016-05-25 10:02 | Palliative Progress Note ---
<Wesley Leal - Last Filed: 05/25/16 10:00> Date of Encounter: 05/25/16 Time of Encounter: 10:00 - Assessment and plan (1) Nausea and vomiting Current Visit: No Status: Acute Assessment and plan: Improved after procedure. Patient is progressing nicely despite her frustrations. She is now on a full liquid diet and tolerating this well. We will continue to supplement. Continue with current antinausea regimen, advance diet per surgery. Qualifiers: Vomiting type: unspecified Vomiting Intractability: intractable Qualified Code(s): R11.2 - Nausea with vomiting, unspecified (2) Goals of care, counseling/discussion Current Visit: Yes Status: Acute Assessment and plan: Patient's goals of care continue to return home. CODE STATUS remains DNR CCA. (3) Dehydration Current Visit: Yes Status: Acute Assessment and plan: Improving. Continue fluid hydration and TPN, encourage by mouth intake as tolerated. (4) Cancer related pain Current Visit: No Status: Chronic Assessment and plan: Pain related to cancer is under good control this time with the fentanyl patch. Postsurgical pain is nonexistent at this time. (5) Malignant neoplasm metastatic to colon Current Visit: Yes Status: Acute - Time Spent With Patient Total time spent is greater than 50% in coordination of care (as documented) at patient's floor/unit and/or counseling patient: - Subjective Interval history: Patient seen and examined at bedside. Patient states she feels ok today. Patient denies nausea but states that she feels extremely hungry. The current clear liquid diet from yesterday did not satisfy her hunger and this is frustrating to her. She denies pain, vomiting. - Constitutional Vitals: Abnormal lab results Hgb 10.2 g/dL (11.5-15.4) L 05/25/16 05:30 Hct 32.9 % (35.3-44.9) L 05/25/16 05:30 MCH 26.0 pg (28.0-33.3) L 05/25/16 05:30 MCHC 31.0 g/dL (31.6-35.5) L 05/25/16 05:30 RDW 24.2 % (11.5-14.5) H 05/25/16 05:30 Nucleated RBCs/100 WBC 0.5 /100 WBC (0) H 05/16/16 05:35 Large Platelets Present (Not Present) A 05/25/16 05:30 Hypochromasia Present (Not Present) A 05/25/16 05:30 Anisocytosis 1+ (Not Present) A 05/25/16 05:30 Microcytosis Present (Not Present) A 05/24/16 05:15 Macrocytosis Present (Not Present) A 05/25/16 05:30 Ovalocytes 1+ (Not Present) A 05/25/16 05:30 Sodium 134 mEq/L (136-145) L 05/25/16 05:30 BUN 23 mg/dL (7-20) H 05/25/16 05:30 BUN/Creatinine Ratio 40 (6-26) H 05/25/16 05:30 Glucose 125 mg/dL (70-99) H 05/25/16 05:30 POC Glucose 139 (58-89) H 05/25/16 00:04 Calcium 7.8 mg/dL (8.6-10.8) L 05/25/16 05:30 Ionized Calcium 1.14 mmol/L (1.15-1.35) L 05/12/16 04:30 Alkaline Phosphatase 384 Units/L (38-126) H 05/25/16 05:30 Serum Total Protein 5.3 g/dL (6.0-8.3) L 05/25/16 05:30 Albumin 2.2 g/dL (3.5-5.0) L 05/25/16 05:30 Albumin/Globulin Ratio 0.7 (1.1-2.2) L 05/25/16 05:30 Urine Clarity Cloudy (Clear) A 05/12/16 04:30 Ur Specific Mcintosh 1.027 (1.010-1.025) H 05/12/16 04:30 Urine Blood Moderate (Negative) H 05/12/16 04:30 Urine Microscopic RBC 5-15 per hpf (0-3) H 05/12/16 04:30 Urine Microscopic WBC 5-15 per hpf (0-3) H 05/12/16 04:30 Ur Squamous Epith Cells Many per lpf (None-Few) H 05/12/16 04:30 Ur Culture Indicated? YES (NO) A 05/12/16 04:30 - ENT ENT exam: Present: mucous membranes moist - Respiratory Respiratory exam: Present: CTAB. Absent: rales, rhonchi, wheezes - Cardiovascular Cardiovascular exam: Present: RRR. Absent: gallop, rubs, systolic murmur - GI/Abdominal GI/Abdominal exam: Present: normal bowel sounds, soft. Absent: distended, tenderness - Extremities Exam Extremities exam: Absent: pedal edema - Neurological Exam Neurological exam: Present: alert, CN II-XII intact, oriented X3, no focal deficits Palliative Quality Palliative Quality: Screen for Code Status: Yes, Screen for Goals of Care: Yes, Screen for Pain: Yes, If Pain Regimen Started, Initiate Bowel Regimen: Yes, Screen for Nausea/Vomitting: Yes Code Status: 05/20/16 08:49 CODE [Resuscitation Status: Active] [RES] Routine Comment: Resuscitation Status: DNR-Comfort Care-Arrest - Labs CBC & Chem 7: 05/25/16 05:30 05/25/16 05:30 Labs: Laboratory Results - last 24 hr 05/24/16 05/25/16 05/25/16 14:39 00:04 05:30 WBC 6.1 RBC 3.92 Hgb 10.2 L Hct 32.9 L MCV 83.9 MCH 26.0 L MCHC 31.0 L RDW 24.2 H Plt Count 199 MPV 11.0 Immature Gran % 2.0 Seg Neutrophils % 79.3 Lymphocytes % 10.5 Monocytes % 7.7 Eosinophils % 0.3 Basophils % 0.2 Neutrophils # 4.8 Lymphocytes # 0.6 Monocytes # 0.5 Eosinophils # 0.0 Basophils # 0.0 Platelet Estimate Normal Large Platelets Present A Hypochromasia Present A Anisocytosis 1+ A Macrocytosis Present A Ovalocytes 1+ A Sodium Potassium Chloride Carbon Dioxide BUN Creatinine Est GFR ( Amer) Est GFR (Non-Af Amer) BUN/Creatinine Ratio Glucose POC Glucose 85 139 H Calculated Osmolality Calcium Phosphorus Total Bilirubin AST ALT Alkaline Phosphatase Serum Total Protein Albumin Globulin Albumin/Globulin Ratio 05/25/16 05:30 WBC RBC Hgb Hct MCV MCH MCHC RDW Plt Count MPV Immature Gran % Seg Neutrophils % Lymphocytes % Monocytes % Eosinophils % Basophils % Neutrophils # Lymphocytes # Monocytes # Eosinophils # Basophils # Platelet Estimate Large Platelets Hypochromasia Anisocytosis Macrocytosis Ovalocytes Sodium 134 L Potassium 4.1 Chloride 104 Carbon Dioxide 21 BUN 23 H Creatinine 0.58 Est GFR ( Amer) > 60 Est GFR (Non-Af Amer) > 60 BUN/Creatinine Ratio 40 H Glucose 125 H POC Glucose Calculated Osmolality 283 Calcium 7.8 L Phosphorus 3.3 Total Bilirubin 0.5 AST 23 ALT 45 Alkaline Phosphatase 384 H Serum Total Protein 5.3 L Albumin 2.2 L Globulin 3.1 Albumin/Globulin Ratio 0.7 L Consult Discharge Plan - Plan Referrals: Lambert Gandhi MD [Primary Care Provider] - <Lambert Perdomo - Last Filed: 05/25/16 10:19> Date of Encounter: 05/25/16 - Assessment and plan (1) Cancer related pain Current Visit: No Status: Chronic (2) Dehydration Current Visit: Yes Status: Acute (3) Failure to thrive Current Visit: Yes Status: Acute Qualifiers: Failure to thrive age range: in adult Qualified Code(s): R62.7 - Adult failure to thrive (4) Nausea and vomiting Current Visit: No Status: Acute Qualifiers: Vomiting type: unspecified Vomiting Intractability: intractable Qualified Code(s): R11.2 - Nausea with vomiting, unspecified (5) Goals of care, counseling/discussion Current Visit: Yes Status: Acute (6) Constipation due to pain medication Current Visit: No Status: Acute (7) Colon cancer Current Visit: No Status: Acute Qualifiers: Colon location: unspecified part of colon Qualified Code(s): C18.9 - Malignant neoplasm of colon, unspecified - Time Spent With Patient Total time spent is greater than 50% in coordination of care (as documented) at patient's floor/unit and/or counseling patient: - Constitutional Vitals: Abnormal lab results Hgb 10.2 g/dL (11.5-15.4) L 05/25/16 05:30 Hct 32.9 % (35.3-44.9) L 05/25/16 05:30 MCH 26.0 pg (28.0-33.3) L 05/25/16 05:30 MCHC 31.0 g/dL (31.6-35.5) L 05/25/16 05:30 RDW 24.2 % (11.5-14.5) H 05/25/16 05:30 Nucleated RBCs/100 WBC 0.5 /100 WBC (0) H 05/16/16 05:35 Large Platelets Present (Not Present) A 05/25/16 05:30 Hypochromasia Present (Not Present) A 05/25/16 05:30 Anisocytosis 1+ (Not Present) A 05/25/16 05:30 Microcytosis Present (Not Present) A 05/24/16 05:15 Macrocytosis Present (Not Present) A 05/25/16 05:30 Ovalocytes 1+ (Not Present) A 05/25/16 05:30 Sodium 134 mEq/L (136-145) L 05/25/16 05:30 BUN 23 mg/dL (7-20) H 05/25/16 05:30 BUN/Creatinine Ratio 40 (6-26) H 05/25/16 05:30 Glucose 125 mg/dL (70-99) H 05/25/16 05:30 POC Glucose 139 (58-89) H 05/25/16 00:04 Calcium 7.8 mg/dL (8.6-10.8) L 05/25/16 05:30 Ionized Calcium 1.14 mmol/L (1.15-1.35) L 05/12/16 04:30 Alkaline Phosphatase 384 Units/L (38-126) H 05/25/16 05:30 Serum Total Protein 5.3 g/dL (6.0-8.3) L 05/25/16 05:30 Albumin 2.2 g/dL (3.5-5.0) L 05/25/16 05:30 Albumin/Globulin Ratio 0.7 (1.1-2.2) L 05/25/16 05:30 Urine Clarity Cloudy (Clear) A 05/12/16 04:30 Ur Specific Mcintosh 1.027 (1.010-1.025) H 05/12/16 04:30 Urine Blood Moderate (Negative) H 05/12/16 04:30 Urine Microscopic RBC 5-15 per hpf (0-3) H 05/12/16 04:30 Urine Microscopic WBC 5-15 per hpf (0-3) H 05/12/16 04:30 Ur Squamous Epith Cells Many per lpf (None-Few) H 05/12/16 04:30 Ur Culture Indicated? YES (NO) A 05/12/16 04:30 - Attending Attestation I examined this patient and my medical decision-making was reviewed with the CHIEF EMBALMER/PA/Advanced Practice Nurse/Resident Physician. I agree with the documented findings, disposition and treatment plan as described except to the extent set forth below. Palliative Quality Code Status: 05/20/16 08:49 CODE [Resuscitation Status: Active] [RES] Routine Comment: Resuscitation Status: DNR-Comfort Care-Arrest - Labs CBC & Chem 7: 05/25/16 05:30 05/25/16 05:30 Labs: Laboratory Results - last 24 hr 05/24/16 05/25/16 05/25/16 14:39 00:04 05:30 WBC 6.1 RBC 3.92 Hgb 10.2 L Hct 32.9 L MCV 83.9 MCH 26.0 L MCHC 31.0 L RDW 24.2 H Plt Count 199 MPV 11.0 Immature Gran % 2.0 Seg Neutrophils % 79.3 Lymphocytes % 10.5 Monocytes % 7.7 Eosinophils % 0.3 Basophils % 0.2 Neutrophils # 4.8 Lymphocytes # 0.6 Monocytes # 0.5 Eosinophils # 0.0 Basophils # 0.0 Platelet Estimate Normal Large Platelets Present A Hypochromasia Present A Anisocytosis 1+ A Macrocytosis Present A Ovalocytes 1+ A Sodium Potassium Chloride Carbon Dioxide BUN Creatinine Est GFR ( Amer) Est GFR (Non-Af Amer) BUN/Creatinine Ratio Glucose POC Glucose 85 139 H Calculated Osmolality Calcium Phosphorus Total Bilirubin AST ALT Alkaline Phosphatase Serum Total Protein Albumin Globulin Albumin/Globulin Ratio 05/25/16 05:30 WBC RBC Hgb Hct MCV MCH MCHC RDW Plt Count MPV Immature Gran % Seg Neutrophils % Lymphocytes % Monocytes % Eosinophils % Basophils % Neutrophils # Lymphocytes # Monocytes # Eosinophils # Basophils # Platelet Estimate Large Platelets Hypochromasia Anisocytosis Macrocytosis Ovalocytes Sodium 134 L Potassium 4.1 Chloride 104 Carbon Dioxide 21 BUN 23 H Creatinine 0.58 Est GFR ( Amer) > 60 Est GFR (Non-Af Amer) > 60 BUN/Creatinine Ratio 40 H Glucose 125 H POC Glucose Calculated Osmolality 283 Calcium 7.8 L Phosphorus 3.3 Total Bilirubin 0.5 AST 23 ALT 45 Alkaline Phosphatase 384 H Serum Total Protein 5.3 L Albumin 2.2 L Globulin 3.1 Albumin/Globulin Ratio 0.7 L
[2016-05-25] MEDS: Dexamethasone 10 MG/ML VIAL IVP SCH ×2 (10:50→21:03)
[2016-05-25] MEDS: *HR* Enoxaparin 40 MG/0.4 ML SYRINGE SQ SCH (10:55)
[2016-05-25] MEDS: ADVAIR 250/50 IH SCH ×2 (10:55→21:04)
[2016-05-25] MEDS: RESTASIS OPTH OP SCH ×2 (10:57→21:04)
[2016-05-25] MEDS: *HR* LORazepam 2 MG/ML VIAL IVP PRN ×2 (14:33→21:04)
[2016-05-25] MEDS: Ondansetron 4 MG/2 ML VIAL IVP PRN ×2 (14:37→21:04)
--- NOTE | 2016-05-25 16:34 | Internal Med Progress Note ---
Date of Encounter: 05/25/16 Time of Encounter: 16:32 - Assessment and plan (1) Malignant neoplasm metastatic to colon Current Visit: Yes Status: Acute Assessment and plan: Oncology following, will reassess treatment options with them. CT of the abdomen and pelvis shows progression through her first cycle of chemotherapy which she tolerated poorly. We will explore any other options with oncology. Gen. surgery consult for options on palliative hormonal bypass surgery. I have discussed the case with the general surgeon and a appreciated their recommendations. 05/16/2016 Surgery on board and will wait for recommendations. 05/17/2016. Patient and family had a long talk with surgery department. patient is going for surgery this evening. 05/18/2016 Postoperative day #1 Patient underwent surgery yesterday. She had a duodenal obstruction from metastatic colon cancer. She underwent gastrojejunostomy which is mainly for palliative reasons. Patient appears more alert and answers all questions appropriately. Surgery on the board and we will follow their recommendations. 05/01/2016. Postoperative day #2. Patient underwent surgery for metastatic neoplasm of colon: As a debulking procedure. Patient tolerated procedure well. Currently she is taking total parenteral nutrition. Surgery/dietitian to manage total parenteral nutrition. 05/20/2016 Post operative Day 3 No new complaints ongoing paraentral nutrition. 05/21/2016. Postoperative day 4 Patient was occasionally nauseous. Surgery on the board. We will follow the recommendations from surgery. 05/22/2016 Post operative day:5 off NG tube plan is to start clear liquid by tomorrow all questions answered. 05/23/2016 POD : 6 started clear liquid. did not finish even half of the liquid served. has nausea. did not vomit. if we discharge her, possibility that she will return back is almost 100% close observation will update surgery tomorrow and will treat her symptomatically. 05/25/2016 no vomiting. started full liquid and will see how she tolerates. will observe closely. (2) Dehydration Current Visit: Yes Status: Acute Assessment and plan: We will treat this with IV fluids. Replete electrolytes. Check BUN and creatinine the morning. Encourage oral hydration as much as tolerated. Treat nausea with Zofran and Phenergan. 05/16/2016 will continue IV fluids labs in AM 05/17/2016 Will continue IV fluids for now. BUN/creatinine is within normal limits. 05/18/2016. We will continue IV fluids. Will continue TPN. (3) Failure to thrive Current Visit: Yes Status: Acute Assessment and plan: She has had persistent nausea and severe abdominal pain her oncologist recommended TPN. Continue with TPN. Follow-up with nutrition. Check fingerstick blood glucose. Check and replete magnesium and phosphorus daily. 05/16/2016 secondary to duodenal obstruction. presently on TPN will cont TPN labs in AM. Qualifiers: Failure to thrive age range: in adult Qualified Code(s): R62.7 - Adult failure to thrive (4) Hypophosphatemia Current Visit: Yes Status: Acute Assessment and plan: She cannot take by mouth. Replete with IV phosphorus and magnesium. 05/16/2016 will work with nutrition and will replace via TPN - Subjective Interval history: seen and examined. patient has occasional nausea. denies vomiting. at bedside. 05/17/2016. Patient seen and examined. Patient has still occasional nausea. Noted that NG tube is placed in. Patient denies vomiting, abdominal pain or diarrhea. 05/18/2016 Patient seen and examined. Postoperative day1 Patient denies any nausea, vomiting, abdominal pain She is taking ice chips. 05/19/2016. Patient seen and examined. Postoperative day 2. Patient denies any chest pain, nausea, vomiting, abdominal pain. Her appetite is much better as compared to yesterday. 05/20/2016 seen and examined Post operative Day : 3 walking around the floor with support no new complaints. 05/21/2016 Seen and examined. Postoperative day: 4 Walking around the floor. She was occasionally nauseous. Surgery on the board 05/22/2016 seen and examined. postoperative day:5 walking around the floor. Off NG noted surgery on the board. 05/23/2016 POD : 6 started clear liquid today has nausea. feels like vomiting but did not vomit. will continue to observe 05/25/2016 POD: Day 7 sitting up in bed and walking around in hallway. but has persistent nausea. started on full liquid and will see how she tolerates. - Constitutional Vitals: Temp Pulse Resp BP Pulse Ox 99.4 F 70 16 109/76 93 05/25/16 15:00 05/25/16 05:47 05/25/16 15:00 05/25/16 15:00 05/25/16 05:47 General appearance: Present: A&O X 3, no acute distress, answers questions appropriately - Head Head exam: Present: atraumatic, normocephalic - Eye Eye exam: Present: PERRL, conjuntiva pink, sclera anicteric Pupils: Present: PERRL - Neck Neck exam general surgery: Present: supple, trachea midline. Absent: lymphadenopathy - Respiratory Respiratory exam: Present: CTAB. Absent: accessory muscle use, rales, rhonchi, wheezes - Cardiovascular Cardiovascular exam: Present: RRR, +S1, +S2. Absent: diastolic murmur, gallop, rubs, systolic murmur - GI/Abdominal GI/Abdominal exam: Present: normal bowel sounds, soft, no peritoneal signs. Absent: distended, tenderness - Extremities Exam Extremities exam: Present: warm, radial pulses palpable and symetrical. Absent : calf tenderness, cyanotic, pedal edema - Neurological Exam Neurological exam: Present: CN II-XII intact, oriented X3, no focal deficits. Absent: pronater drift, facial droop, speech deficit - Skin Skin exam: Present: dry, intact Internal Medicine: Result - Labs CBC & Chem 7: 05/25/16 05:30 05/25/16 05:30 Labs: Short CBC 05/25/16 Range/Units 05:30 WBC 6.1 (4.3-11.1) K/mcL Hgb 10.2 L (11.5-15.4) g/dL Hct 32.9 L (35.3-44.9) % Plt Count 199 (140-400) K/mcL Neutrophils # 4.8 (1.6-8.9) K/mcL BMP 05/25/16 05:30 Sodium 134 L Potassium 4.1 Chloride 104 Carbon Dioxide 21 BUN 23 H Creatinine 0.58 Glucose 125 H Calcium 7.8 L Liver Function 05/25/16 Range/Units 05:30 Total Bilirubin 0.5 (0.2-1.2) mg/dL AST 23 (5-34) Units/L ALT 45 (0-55) Units/L Alkaline Phosphatase 384 H (38-126) Units/L Albumin 2.2 L (3.5-5.0) g/dL - VTE Documentation of Mechanical Device: Intermittent pneumatic compression device Consult Discharge Plan - Plan Referrals: Lambert Gandhi MD [Primary Care Provider] -
--- NOTE | 2016-05-25 16:41 | Internal Med Progress Note ---
Date of Encounter: 05/25/16 Time of Encounter: 16:39 - Assessment and plan (1) Malignant neoplasm metastatic to colon Current Visit: Yes Status: Acute Assessment and plan: Oncology following, will reassess treatment options with them. CT of the abdomen and pelvis shows progression through her first cycle of chemotherapy which she tolerated poorly. We will explore any other options with oncology. Gen. surgery consult for options on palliative hormonal bypass surgery. I have discussed the case with the general surgeon and a appreciated their recommendations. 05/16/2016 Surgery on board and will wait for recommendations. 05/17/2016. Patient and family had a long talk with surgery department. patient is going for surgery this evening. 05/18/2016 Postoperative day #1 Patient underwent surgery yesterday. She had a duodenal obstruction from metastatic colon cancer. She underwent gastrojejunostomy which is mainly for palliative reasons. Patient appears more alert and answers all questions appropriately. Surgery on the board and we will follow their recommendations. 05/01/2016. Postoperative day #2. Patient underwent surgery for metastatic neoplasm of colon: As a debulking procedure. Patient tolerated procedure well. Currently she is taking total parenteral nutrition. Surgery/dietitian to manage total parenteral nutrition. 05/20/2016 Post operative Day 3 No new complaints ongoing paraentral nutrition. 05/21/2016. Postoperative day 4 Patient was occasionally nauseous. Surgery on the board. We will follow the recommendations from surgery. 05/22/2016 Post operative day:5 off NG tube plan is to start clear liquid by tomorrow all questions answered. 05/23/2016 POD : 6 started clear liquid. did not finish even half of the liquid served. has nausea. did not vomit. if we discharge her, possibility that she will return back is almost 100% close observation will update surgery tomorrow and will treat her symptomatically. 05/24/2016 clear liquid tolerating well will closely observe. (2) Dehydration Current Visit: Yes Status: Acute Assessment and plan: We will treat this with IV fluids. Replete electrolytes. Check BUN and creatinine the morning. Encourage oral hydration as much as tolerated. Treat nausea with Zofran and Phenergan. 05/16/2016 will continue IV fluids labs in AM 05/17/2016 Will continue IV fluids for now. BUN/creatinine is within normal limits. 05/18/2016. We will continue IV fluids. Will continue TPN. (3) Failure to thrive Current Visit: Yes Status: Acute Assessment and plan: She has had persistent nausea and severe abdominal pain her oncologist recommended TPN. Continue with TPN. Follow-up with nutrition. Check fingerstick blood glucose. Check and replete magnesium and phosphorus daily. 05/16/2016 secondary to duodenal obstruction. presently on TPN will cont TPN labs in AM. Qualifiers: Failure to thrive age range: in adult Qualified Code(s): R62.7 - Adult failure to thrive (4) Hypophosphatemia Current Visit: Yes Status: Acute Assessment and plan: She cannot take by mouth. Replete with IV phosphorus and magnesium. 05/16/2016 will work with nutrition and will replace via TPN - Subjective Interval history: seen and examined. patient has occasional nausea. denies vomiting. at bedside. 05/17/2016. Patient seen and examined. Patient has still occasional nausea. Noted that NG tube is placed in. Patient denies vomiting, abdominal pain or diarrhea. 05/18/2016 Patient seen and examined. Postoperative day1 Patient denies any nausea, vomiting, abdominal pain She is taking ice chips. 05/19/2016. Patient seen and examined. Postoperative day 2. Patient denies any chest pain, nausea, vomiting, abdominal pain. Her appetite is much better as compared to yesterday. 05/20/2016 seen and examined Post operative Day : 3 walking around the floor with support no new complaints. 05/21/2016 Seen and examined. Postoperative day: 4 Walking around the floor. She was occasionally nauseous. Surgery on the board 05/22/2016 seen and examined. postoperative day:5 walking around the floor. Off NG noted surgery on the board. 05/23/2016 POD : 6 started clear liquid today has nausea. feels like vomiting but did not vomit. will continue to observe 05/24/2016 tolerating well will closely observe This is retrospective note sign ed on 05/25/2016 but patient was seen on 05/24/2016 - Constitutional Vitals: Temp Pulse Resp BP Pulse Ox 99.4 F 70 16 109/76 93 05/25/16 15:00 05/25/16 05:47 05/25/16 15:00 05/25/16 15:00 05/25/16 05:47 General appearance: Present: A&O X 3, no acute distress, answers questions appropriately - Head Head exam: Present: atraumatic, normocephalic - Eye Eye exam: Present: PERRL, conjuntiva pink, sclera anicteric Pupils: Present: PERRL - Neck Neck exam general surgery: Present: supple, trachea midline. Absent: lymphadenopathy - Respiratory Respiratory exam: Present: CTAB. Absent: accessory muscle use, rales, rhonchi, wheezes - Cardiovascular Cardiovascular exam: Present: RRR, +S1, +S2. Absent: diastolic murmur, gallop, rubs, systolic murmur - GI/Abdominal GI/Abdominal exam: Present: normal bowel sounds, soft, no peritoneal signs. Absent: distended, tenderness - Extremities Exam Extremities exam: Present: warm, radial pulses palpable and symetrical. Absent : calf tenderness, cyanotic, pedal edema - Neurological Exam Neurological exam: Present: CN II-XII intact, oriented X3, no focal deficits. Absent: pronater drift, facial droop, speech deficit - Skin Skin exam: Present: dry, intact Internal Medicine: Result - Labs CBC & Chem 7: 05/25/16 05:30 05/25/16 05:30 Labs: Short CBC 05/25/16 Range/Units 05:30 WBC 6.1 (4.3-11.1) K/mcL Hgb 10.2 L (11.5-15.4) g/dL Hct 32.9 L (35.3-44.9) % Plt Count 199 (140-400) K/mcL Neutrophils # 4.8 (1.6-8.9) K/mcL BMP 05/25/16 05:30 Sodium 134 L Potassium 4.1 Chloride 104 Carbon Dioxide 21 BUN 23 H Creatinine 0.58 Glucose 125 H Calcium 7.8 L Liver Function 05/25/16 Range/Units 05:30 Total Bilirubin 0.5 (0.2-1.2) mg/dL AST 23 (5-34) Units/L ALT 45 (0-55) Units/L Alkaline Phosphatase 384 H (38-126) Units/L Albumin 2.2 L (3.5-5.0) g/dL - VTE Documentation of Mechanical Device: Intermittent pneumatic compression device Consult Discharge Plan - Plan Referrals: Lambert Gandhi MD [Primary Care Provider] -
[2016-05-25] MEDS ORDERED: Clinimix E 5%-15% SOLUTION 2,000 ML with MVI, adult with vitamin K 10 ML IVC SCH ×2 (17:00)
[2016-05-25] MEDS: *HR* FentaNYL PATCH 50 MCG PATCH TD SCH (21:04)
[2016-05-26] MEDS: Ondansetron 4 MG/2 ML VIAL IVP PRN (02:34)
[2016-05-26] MEDS: Pantoprazole 40 MG VIAL IVP SCH ×2 (06:07→17:19)
[2016-05-26 06:43] LABS: BUN/Creatinine Ratio 27 (6-26); Blood Urea Nitrogen 16 mg/dL (7-20); Calcium 7.9 mg/dL (8.6-10.8); Carbon Dioxide 25 mEq/L (19-29); Chloride 104 mEq/L (98-109); Glucose 121 mg/dL (70-99); Magnesium 1.9 mg/dL (1.6-2.6); Osmolality,Calculated 280 (280-300); Phosphorous 2.9 mg/dL (2.3-4.7); Potassium 4.2 mEq/L (3.5-4.5); Sodium 134 mEq/L (136-145); eGFR For African Americans > 60 (> 60); eGFR For Non-African Americans > 60 (> 60)
[2016-05-26] MEDS: Dexamethasone 10 MG/ML VIAL IVP SCH ×2 (09:02→21:26)
[2016-05-26] MEDS: *HR* Enoxaparin 40 MG/0.4 ML SYRINGE SQ SCH (09:02)
[2016-05-26] MEDS: ADVAIR 250/50 IH SCH ×2 (09:04→21:39)
[2016-05-26] MEDS: RESTASIS OPTH OP SCH ×2 (09:04→21:39)
--- NOTE | 2016-05-26 10:42 | Palliative Progress Note ---
Date of Encounter: 05/26/16 Time of Encounter: 10:39 - Assessment and plan (1) Adult failure to thrive Current Visit: Yes Status: Acute Assessment and plan: Ms. Chino has very little oral intake. She describes her eating technique and "licking the spoon". Night cycle TPN managed per Dietitian. Discussed options for stimulating appetite. (2) Nausea and vomiting Current Visit: No Status: Acute Assessment and plan: Nausea requiring the use of Zofran 1-2 times per day. Consider changing to oral Zofran to test patient's tolerance. Recommend discontinuing Benadryl. Qualifiers: Vomiting type: unspecified Vomiting Intractability: intractable Qualified Code(s): R11.2 - Nausea with vomiting, unspecified (3) Goals of care, counseling/discussion Current Visit: Yes Status: Acute Assessment and plan: Goals of care established. Plan to return home with home health care. Discussed case in PCR rounds and with surgery team. Advance to oral medications as tolerated. Encourage activity and food as tolerated. Discussed with dietitian. Appetite is not likely to return in the next 1-2 days. (4) Abdominal pain Current Visit: No Status: Acute Assessment and plan: Pain currently managed with the use of Fentanyl patch. She has PRN hydromorphone, but has not used a dose since 05/22/16. Recommend changing to oral medications (home med was Percocet every 4 hours as needed). Percocet for severe pain, acetaminophen for mild-moderate pain. Qualifiers: Abdominal location: generalized Qualified Code(s): R10.84 - Generalized abdominal pain (5) Cancer related pain Current Visit: No Status: Chronic Assessment and plan: Continue with Fentanyl patch. (6) Anxiety about health Current Visit: Yes Status: Acute Assessment and plan: Anxiety related to prognosis and food aversion. Will d/c IV lorazepam and switch to oral hydroxyzine (home medication) for management of anxiety. 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 (7) Weakness generalized Current Visit: Yes Status: Acute Assessment and plan: Physical therapy consult per patient request. - Time Spent With Patient Total time spent is greater than 50% in coordination of care (as documented) at patient's floor/unit and/or counseling patient: - Subjective Interval history: Ms. Chino is sitting up in bed with spouse at bedside. Denies abdominal pain related to surgery. Continues to have a food aversion and describes her eating techniques as "licking the spoon". - Constitutional Vitals: Abnormal lab results Hgb 10.2 g/dL (11.5-15.4) L 05/25/16 05:30 Hct 32.9 % (35.3-44.9) L 05/25/16 05:30 MCH 26.0 pg (28.0-33.3) L 05/25/16 05:30 MCHC 31.0 g/dL (31.6-35.5) L 05/25/16 05:30 RDW 24.2 % (11.5-14.5) H 05/25/16 05:30 Nucleated RBCs/100 WBC 0.5 /100 WBC (0) H 05/16/16 05:35 Large Platelets Present (Not Present) A 05/25/16 05:30 Hypochromasia Present (Not Present) A 05/25/16 05:30 Anisocytosis 1+ (Not Present) A 05/25/16 05:30 Microcytosis Present (Not Present) A 05/24/16 05:15 Macrocytosis Present (Not Present) A 05/25/16 05:30 Ovalocytes 1+ (Not Present) A 05/25/16 05:30 Sodium 134 mEq/L (136-145) L 05/26/16 06:15 BUN/Creatinine Ratio 27 (6-26) H 05/26/16 06:15 Glucose 121 mg/dL (70-99) H 05/26/16 06:15 POC Glucose 98 (58-89) H 05/25/16 18:19 Calcium 7.9 mg/dL (8.6-10.8) L 05/26/16 06:15 Ionized Calcium 1.14 mmol/L (1.15-1.35) L 05/12/16 04:30 Alkaline Phosphatase 384 Units/L (38-126) H 05/25/16 05:30 Serum Total Protein 5.3 g/dL (6.0-8.3) L 05/25/16 05:30 Albumin 2.2 g/dL (3.5-5.0) L 05/25/16 05:30 Albumin/Globulin Ratio 0.7 (1.1-2.2) L 05/25/16 05:30 Urine Clarity Cloudy (Clear) A 05/12/16 04:30 Ur Specific [place] 1.027 (1.010-1.025) H 05/12/16 04:30 Urine Blood Moderate (Negative) H 05/12/16 04:30 Urine Microscopic RBC 5-15 per hpf (0-3) H 05/12/16 04:30 Urine Microscopic WBC 5-15 per hpf (0-3) H 05/12/16 04:30 Ur Squamous Epith Cells Many per lpf (None-Few) H 05/12/16 04:30 Ur Culture Indicated? YES (NO) A 05/12/16 04:30 General appearance: Present: cooperative, no acute distress - Respiratory Respiratory exam: Present: CTAB - Cardiovascular Cardiovascular exam: Present: RRR. Absent: tachycardia - GI/Abdominal GI/Abdominal exam: Present: normal bowel sounds, soft. Absent: firm, guarding, tenderness - Extremities Exam Extremities exam: Present: normal inspection - Neurological Exam Neurological exam: Present: alert, oriented X3, no focal deficits, strengths equal and symetr throughout - Psychiatric Psychiatric exam: Present: anxious. Absent: agitated - Skin Skin exam: Present: dry, warm Palliative Quality Palliative Quality: Screen for Code Status: Yes, Screen for Goals of Care: Yes, Screen for Pain: Yes, If Pain Regimen Started, Initiate Bowel Regimen: Yes, Screen for Nausea/Vomitting: Yes Code Status: 05/20/16 08:49 CODE [Resuscitation Status: Active] [RES] Routine Comment: Resuscitation Status: DNR-Comfort Care-Arrest - Labs CBC & Chem 7: 05/25/16 05:30 05/26/16 06:15 Labs: Laboratory Results - last 24 hr 05/25/16 05/25/16 05/25/16 05:42 11:46 18:19 Sodium Potassium Chloride Carbon Dioxide BUN Creatinine Est GFR ( Amer) Est GFR (Non-Af Amer) BUN/Creatinine Ratio Glucose POC Glucose 99 H 91 H 98 H Calculated Osmolality Calcium Phosphorus Magnesium Prealbumin 05/26/16 05/26/16 06:15 06:15 Sodium 134 L Potassium 4.2 Chloride 104 Carbon Dioxide 25 BUN 16 Creatinine 0.60 Est GFR ( Amer) > 60 Est GFR (Non-Af Amer) > 60 BUN/Creatinine Ratio 27 H Glucose 121 H POC Glucose Calculated Osmolality 280 Calcium 7.9 L Phosphorus 2.9 Magnesium 1.9 Prealbumin 25.0 Consult Discharge Plan - Plan Referrals: Lambert Gandhi MD [Primary Care Provider] -
[2016-05-26] MEDS ORDERED: *HR* OxyCODONE/APAP 5/325 TABLET PO PRN (11:42)
[2016-05-26] MEDS ORDERED: hydrOXYzine pamoate 25 MG CAPSULE PO PRN (11:42)
[2016-05-26] MEDS ORDERED: Acetaminophen 325 MG TABLET PO PRN (11:48)
--- NOTE | 2016-05-26 13:12 | General Surgery Progress Note ---
Date of Encounter: 05/26/16 Time of Encounter: 07:05 - Assessment and Plan (1) Duodenal obstruction, acquired Current Visit: Yes Status: Acute POD#8 Gastrojejunostomy, palliative Normal bowel sounds present. She is having flatus and diarrhea. Her nausea is improved from yesterday, but still persists. Will advance diet to full liquids. Afebrile. Plan: full liquid diet, antiemetics, pain control, ambulate TID, TPN@50ml/hr (managed by parts classifier), protonix, lovenox. 05/26/2016 The patient has had interval improvement in her nausea but she still has early satiety. There is no evidence of vomiting. Discharge under palliative care is a reasonable option Subjective Narrative: The patient has improved her complaints overnight. She is still not able to eat very much. She is not having any vomiting the palliative team is exploring the possibility of sending her home. I think this is completely reasonable. Objective Vital Signs - Last 8 Hours Temp Pulse Resp BP Pulse Ox 05/26/16 07:00 97.8 F 78 15 108/89 96 Intake and Output 05/25/16 05/26/16 05/26/16 23:59 07:59 15:59 Intake Total 100 / 100 200 / 200 Balance 100 / 100 200 / 200 Intake: Oral 100 / 100 200 / 200 Other: Meal Dinner Breakfast Percent of Meal Consumed 5% Weight 56.6 kg Blood Glucose* 98 140 101 Patient Weight 05/26/16 23:59 Weight 56.6 kg - General physical appearance chronically ill - Respiratory normal expansion, normal respiratory effort, clear to percussion, clear to auscultation - Cardiovascular Cardiovascular exam: Present: RRR, distant heart sounds - Abdomen Abdomen: Present: distended - Incision Incision: Present: clean and dry - Psychiatric oriented to time, oriented to person, oriented to place, speech is normal, memory intact - Labs 05/25/16 05:30 05/26/16 06:15 Diabetes panel 05/26/16 Range/Units 06:15 Sodium 134 L (136-145) mEq/L Potassium 4.2 (3.5-4.5) mEq/L Chloride 104 (98-109) mEq/L Carbon Dioxide 25 (19-29) mEq/L BUN 16 (7-20) mg/dL Creatinine 0.60 (0.57-1.11) mg/dL Glucose 121 H (70-99) mg/dL Calcium 7.9 L (8.6-10.8) mg/dL Calcium panel 05/26/16 Range/Units 06:15 Calcium 7.9 L (8.6-10.8) mg/dL Phosphorus 2.9 (2.3-4.7) mg/dL Pituitary panel 05/26/16 Range/Units 06:15 Sodium 134 L (136-145) mEq/L Potassium 4.2 (3.5-4.5) mEq/L Chloride 104 (98-109) mEq/L Carbon Dioxide 25 (19-29) mEq/L BUN 16 (7-20) mg/dL Creatinine 0.60 (0.57-1.11) mg/dL Glucose 121 H (70-99) mg/dL Calcium 7.9 L (8.6-10.8) mg/dL Adrenal panel 05/26/16 Range/Units 06:15 Sodium 134 L (136-145) mEq/L Potassium 4.2 (3.5-4.5) mEq/L Chloride 104 (98-109) mEq/L Carbon Dioxide 25 (19-29) mEq/L BUN 16 (7-20) mg/dL Creatinine 0.60 (0.57-1.11) mg/dL Glucose 121 H (70-99) mg/dL Calcium 7.9 L (8.6-10.8) mg/dL - VTE Documentation of Mechanical Device: Intermittent pneumatic compression device Consult Discharge Plan - Plan Referrals: Lambert Gandhi MD [Primary Care Provider] -
[2016-05-26] MEDS ORDERED: Clinimix E 5%-15% SOLUTION 2,000 ML with MVI, adult with vitamin K 10 ML IVC SCH ×2 (17:00)
--- NOTE | 2016-05-26 17:12 | Internal Med Progress Note ---
Date of Encounter: 05/26/16 Time of Encounter: 17:09 - Assessment and plan (1) Malignant neoplasm metastatic to colon Current Visit: Yes Status: Acute Assessment and plan: Oncology following, will reassess treatment options with them. CT of the abdomen and pelvis shows progression through her first cycle of chemotherapy which she tolerated poorly. We will explore any other options with oncology. Gen. surgery consult for options on palliative hormonal bypass surgery. I have discussed the case with the general surgeon and a appreciated their recommendations. 05/16/2016 Surgery on board and will wait for recommendations. 05/17/2016. Patient and family had a long talk with surgery department. patient is going for surgery this evening. 05/18/2016 Postoperative day #1 Patient underwent surgery yesterday. She had a duodenal obstruction from metastatic colon cancer. She underwent gastrojejunostomy which is mainly for palliative reasons. Patient appears more alert and answers all questions appropriately. Surgery on the board and we will follow their recommendations. 05/01/2016. Postoperative day #2. Patient underwent surgery for metastatic neoplasm of colon: As a debulking procedure. Patient tolerated procedure well. Currently she is taking total parenteral nutrition. Surgery/dietitian to manage total parenteral nutrition. 05/20/2016 Post operative Day 3 No new complaints ongoing paraentral nutrition. 05/21/2016. Postoperative day 4 Patient was occasionally nauseous. Surgery on the board. We will follow the recommendations from surgery. 05/22/2016 Post operative day:5 off NG tube plan is to start clear liquid by tomorrow all questions answered. 05/23/2016 POD : 6 started clear liquid. did not finish even half of the liquid served. has nausea. did not vomit. if we discharge her, possibility that she will return back is almost 100% close observation will update surgery tomorrow and will treat her symptomatically. 05/24/2016 clear liquid tolerating well will closely observe. This is a retrospective note from 05/24/2016 05/26/2016 Patient seen and examined. She is very tired. Postoperative day 8: Gastrojejunostomy, palliative Patient has persistent nausea. In last 24 hours patient denied any vomiting. Presently on TPN. Management of TPN as per dietitian. Patient had suicidal thoughts yesterday. Symptoms this morning she denies any suicidal thoughts. Very supportive family. At this point I do not think we should involve psychiatry. Would like to observe her very closely for next 24 hours. 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 (2) Dehydration Current Visit: Yes Status: Acute Assessment and plan: We will treat this with IV fluids. Replete electrolytes. Check BUN and creatinine the morning. Encourage oral hydration as much as tolerated. Treat nausea with Zofran and Phenergan. 05/16/2016 will continue IV fluids labs in AM 05/17/2016 Will continue IV fluids for now. BUN/creatinine is within normal limits. 05/18/2016. We will continue IV fluids. Will continue TPN. (3) Failure to thrive Current Visit: Yes Status: Acute Assessment and plan: She has had persistent nausea and severe abdominal pain her oncologist recommended TPN. Continue with TPN. Follow-up with nutrition. Check fingerstick blood glucose. Check and replete magnesium and phosphorus daily. 05/16/2016 secondary to duodenal obstruction. presently on TPN will cont TPN labs in AM. Qualifiers: Failure to thrive age range: in adult Qualified Code(s): R62.7 - Adult failure to thrive (4) Hypophosphatemia Current Visit: Yes Status: Acute Assessment and plan: She cannot take by mouth. Replete with IV phosphorus and magnesium. 05/16/2016 will work with nutrition and will replace via TPN - Subjective Interval history: seen and examined. patient has occasional nausea. denies vomiting. at bedside. 05/17/2016. Patient seen and examined. Patient has still occasional nausea. Noted that NG tube is placed in. Patient denies vomiting, abdominal pain or diarrhea. 05/18/2016 Patient seen and examined. Postoperative day1 Patient denies any nausea, vomiting, abdominal pain She is taking ice chips. 05/19/2016. Patient seen and examined. Postoperative day 2. Patient denies any chest pain, nausea, vomiting, abdominal pain. Her appetite is much better as compared to yesterday. 05/20/2016 seen and examined Post operative Day : 3 walking around the floor with support no new complaints. 05/21/2016 Seen and examined. Postoperative day: 4 Walking around the floor. She was occasionally nauseous. Surgery on the board 05/22/2016 seen and examined. postoperative day:5 walking around the floor. Off NG noted surgery on the board. 05/23/2016 POD : 6 started clear liquid today has nausea. feels like vomiting but did not vomit. will continue to observe 05/24/2016 tolerating well will closely observe This is retrospective note sign ed on 05/25/2016 but patient was seen on 05/24/2016 05/26/2016 seen and examined Patient is very emotionally depressed. Noted she had very stormy day in terms of her emotions. She expressed couple of times to commit suicide. This morning she denies any kind of suicidal thought. Surgery on the board. At this point I do not think we should involve psychiatry but would like to observe her for next 24-48 hours. - Constitutional Vitals: Temp Pulse Resp BP Pulse Ox 97.6 F 73 16 93/73 97 05/26/16 15:00 05/26/16 15:00 05/26/16 15:00 05/26/16 15:00 05/26/16 15:00 General appearance: Present: A&O X 3, no acute distress, answers questions appropriately - Head Head exam: Present: atraumatic, normocephalic - Eye Eye exam: Present: PERRL, conjuntiva pink, sclera anicteric Pupils: Present: PERRL - Neck Neck exam general surgery: Present: supple, trachea midline. Absent: lymphadenopathy - Respiratory Respiratory exam: Present: CTAB. Absent: accessory muscle use, rales, rhonchi, wheezes - Cardiovascular Cardiovascular exam: Present: RRR, +S1, +S2. Absent: diastolic murmur, gallop, rubs, systolic murmur - GI/Abdominal GI/Abdominal exam: Present: normal bowel sounds, soft, no peritoneal signs. Absent: distended, tenderness - Extremities Exam Extremities exam: Present: warm, radial pulses palpable and symetrical. Absent : calf tenderness, cyanotic, pedal edema - Neurological Exam Neurological exam: Present: CN II-XII intact, oriented X3, no focal deficits. Absent: pronater drift, facial droop, speech deficit - Skin Skin exam: Present: dry, intact Internal Medicine: Result - Labs CBC & Chem 7: 05/25/16 05:30 05/26/16 06:15 Labs: BMP 05/26/16 06:15 Sodium 134 L Potassium 4.2 Chloride 104 Carbon Dioxide 25 BUN 16 Creatinine 0.60 Glucose 121 H Calcium 7.9 L - VTE Documentation of Mechanical Device: Intermittent pneumatic compression device Consult Discharge Plan - Plan Referrals: Lambert Gandhi MD [Primary Care Provider] -
[2016-05-27] MEDS: Ondansetron ODT 4 MG TAB.RAPDIS SL PRN (00:10)
[2016-05-27] MEDS ORDERED: Ondansetron 4 MG/2 ML VIAL ONE (00:32)
[2016-05-27] MEDS: Ondansetron 4 MG/2 ML VIAL IVP PRN ×4 (00:39→21:22)
[2016-05-27 05:23] LABS: BUN/Creatinine Ratio 28 (6-26); Blood Urea Nitrogen 17 mg/dL (7-20); Carbon Dioxide 22 mEq/L (19-29); Chloride 104 mEq/L (98-109); Glucose 136 mg/dL (70-99); Potassium 4.1 mEq/L (3.5-4.5); Sodium 134 mEq/L (136-145); eGFR For African Americans > 60 (> 60); eGFR For Non-African Americans > 60 (> 60)
[2016-05-27 05:24] LABS: Calcium 8.2 mg/dL (8.6-10.8); Osmolality,Calculated 282 (280-300)
[2016-05-27] MEDS: Pantoprazole 40 MG VIAL IVP SCH ×2 (06:28→17:07)
[2016-05-27] MEDS: *HR* Enoxaparin 40 MG/0.4 ML SYRINGE SQ SCH (09:43)
[2016-05-27] MEDS: Dexamethasone 10 MG/ML VIAL IVP SCH ×2 (09:44→21:22)
[2016-05-27] MEDS: ADVAIR 250/50 IH SCH ×2 (09:45→21:23)
[2016-05-27] MEDS: RESTASIS OPTH OP SCH ×2 (09:45→21:23)
--- NOTE | 2016-05-27 10:40 | Internal Med Progress Note ---
Date of Encounter: 05/27/16 Time of Encounter: 10:37 - Assessment and plan (1) Malignant neoplasm metastatic to colon Current Visit: Yes Status: Acute Assessment and plan: Oncology following, will reassess treatment options with them. CT of the abdomen and pelvis shows progression through her first cycle of chemotherapy which she tolerated poorly. We will explore any other options with oncology. Gen. surgery consult for options on palliative hormonal bypass surgery. I have discussed the case with the general surgeon and a appreciated their recommendations. 05/16/2016 Surgery on board and will wait for recommendations. 05/17/2016. Patient and family had a long talk with surgery department. patient is going for surgery this evening. 05/18/2016 Postoperative day #1 Patient underwent surgery yesterday. She had a duodenal obstruction from metastatic colon cancer. She underwent gastrojejunostomy which is mainly for palliative reasons. Patient appears more alert and answers all questions appropriately. Surgery on the board and we will follow their recommendations. 05/01/2016. Postoperative day #2. Patient underwent surgery for metastatic neoplasm of colon: As a debulking procedure. Patient tolerated procedure well. Currently she is taking total parenteral nutrition. Surgery/dietitian to manage total parenteral nutrition. 05/20/2016 Post operative Day 3 No new complaints ongoing paraentral nutrition. 05/21/2016. Postoperative day 4 Patient was occasionally nauseous. Surgery on the board. We will follow the recommendations from surgery. 05/22/2016 Post operative day:5 off NG tube plan is to start clear liquid by tomorrow all questions answered. 05/23/2016 POD : 6 started clear liquid. did not finish even half of the liquid served. has nausea. did not vomit. if we discharge her, possibility that she will return back is almost 100% close observation will update surgery tomorrow and will treat her symptomatically. 05/24/2016 clear liquid tolerating well will closely observe. This is a retrospective note from 05/24/2016 05/26/2016 Patient seen and examined. She is very tired. Postoperative day 8: Gastrojejunostomy, palliative Patient has persistent nausea. In last 24 hours patient denied any vomiting. Presently on TPN. Management of TPN as per dietitian. Patient had suicidal thoughts yesterday. Symptoms this morning she denies any suicidal thoughts. Very supportive family. At this point I do not think we should involve psychiatry. Would like to observe her very closely for next 24 hours. We will get her emotional support from her family members, advent members, international trade manager from the hospital. 05/27/2016 She had an episode of vomiting last night. Was unable to sleep last night. At this point she has a very low moral. She is thinking of hospice. Palliative is on the board and presently talking to her. Possible home on Sunday. Regarding hospice will follow the opinion from palliative care. (2) Dehydration Current Visit: Yes Status: Acute Assessment and plan: We will treat this with IV fluids. Replete electrolytes. Check BUN and creatinine the morning. Encourage oral hydration as much as tolerated. Treat nausea with Zofran and Phenergan. 05/16/2016 will continue IV fluids labs in AM 05/17/2016 Will continue IV fluids for now. BUN/creatinine is within normal limits. 05/18/2016. We will continue IV fluids. Will continue TPN. (3) Failure to thrive Current Visit: Yes Status: Acute Assessment and plan: She has had persistent nausea and severe abdominal pain her oncologist recommended TPN. Continue with TPN. Follow-up with nutrition. Check fingerstick blood glucose. Check and replete magnesium and phosphorus daily. 05/16/2016 secondary to duodenal obstruction. presently on TPN will cont TPN labs in AM. Qualifiers: Failure to thrive age range: in adult Qualified Code(s): R62.7 - Adult failure to thrive (4) Hypophosphatemia Current Visit: Yes Status: Acute Assessment and plan: She cannot take by mouth. Replete with IV phosphorus and magnesium. 05/16/2016 will work with nutrition and will replace via TPN - Subjective Interval history: seen and examined. patient has occasional nausea. denies vomiting. at bedside. 05/17/2016. Patient seen and examined. Patient has still occasional nausea. Noted that NG tube is placed in. Patient denies vomiting, abdominal pain or diarrhea. 05/18/2016 Patient seen and examined. Postoperative day1 Patient denies any nausea, vomiting, abdominal pain She is taking ice chips. 05/19/2016. Patient seen and examined. Postoperative day 2. Patient denies any chest pain, nausea, vomiting, abdominal pain. Her appetite is much better as compared to yesterday. 05/20/2016 seen and examined Post operative Day : 3 walking around the floor with support no new complaints. 05/21/2016 Seen and examined. Postoperative day: 4 Walking around the floor. She was occasionally nauseous. Surgery on the board 05/22/2016 seen and examined. postoperative day:5 walking around the floor. Off NG noted surgery on the board. 05/23/2016 POD : 6 started clear liquid today has nausea. feels like vomiting but did not vomit. will continue to observe 05/24/2016 tolerating well will closely observe This is retrospective note sign ed on 05/25/2016 but patient was seen on 05/24/2016 05/26/2016 seen and examined Patient is very emotionally depressed. Noted she had very stormy day in terms of her emotions. She expressed couple of times to commit suicide. This morning she denies any kind of suicidal thought. Surgery on the board. At this point I do not think we should involve psychiatry but would like to observe her for next 24-48 hours. 05/27/2016 Patient seen and examined. Chart reviewed. She had an episode of vomiting last night. Was unable to sleep last night. At this point she has a very low moral. She is thinking of hospice. Palliative is on the board and presently talking to her. - Constitutional Vitals: Temp Pulse Resp BP Pulse Ox 97.1 F L 81 16 104/70 97 05/27/16 06:54 05/27/16 05:43 05/27/16 06:54 05/27/16 06:54 05/27/16 06:54 General appearance: Present: A&O X 3, no acute distress, answers questions appropriately - Head Head exam: Present: atraumatic, normocephalic - Eye Eye exam: Present: PERRL, conjuntiva pink, sclera anicteric Pupils: Present: PERRL - Neck Neck exam general surgery: Present: supple, trachea midline. Absent: lymphadenopathy - Respiratory Respiratory exam: Present: CTAB. Absent: accessory muscle use, rales, rhonchi, wheezes - Cardiovascular Cardiovascular exam: Present: RRR, +S1, +S2. Absent: diastolic murmur, gallop, rubs, systolic murmur - GI/Abdominal GI/Abdominal exam: Present: normal bowel sounds, soft, no peritoneal signs. Absent: distended, tenderness - Extremities Exam Extremities exam: Present: warm, radial pulses palpable and symetrical. Absent : calf tenderness, cyanotic, pedal edema - Neurological Exam Neurological exam: Present: CN II-XII intact, oriented X3, no focal deficits. Absent: pronater drift, facial droop, speech deficit - Skin Skin exam: Present: dry, intact Internal Medicine: Result - Labs CBC & Chem 7: 05/25/16 05:30 05/27/16 04:55 Labs: BMP 05/27/16 04:55 Sodium 134 L Potassium 4.1 Chloride 104 Carbon Dioxide 22 BUN 17 Creatinine 0.60 Glucose 136 H Calcium 8.2 L - VTE Documentation of Mechanical Device: Intermittent pneumatic compression device Consult Discharge Plan - Plan Referrals: Enrique Aleman MD [Partnered Physician] - 06/06/16 9:45 am Lambert Gandhi MD [Primary Care Provider] -
[2016-05-27] MEDS ORDERED: Ondansetron 4 MG/2 ML VIAL IV ONE (12:12)
--- NOTE | 2016-05-27 13:40 | Palliative Progress Note ---
Date of Encounter: 05/27/16 Time of Encounter: 10:30 - Assessment and plan (1) Adult failure to thrive Current Visit: Yes Status: Acute Assessment and plan: Ms. Chino has very little oral intake. She describes her eating technique and "licking the spoon". Night cycle TPN managed per Dietitian. Discussed options for stimulating appetite. Marinol started yesterday. Following episode of vomiting, patient is extremely reluctant to advance diet past patient's chips. (2) Nausea and vomiting Current Visit: No Status: Acute Assessment and plan: Nausea requiring the use of IV Zofran last night. Patient reports inability to tolerate oral dissolvable tablets of Zofran. Will consider adding Phenergan rectal suppositories in the event of nausea upon discharge. Qualifiers: Vomiting type: unspecified Vomiting Intractability: intractable Qualified Code(s): R11.2 - Nausea with vomiting, unspecified (3) Goals of care, counseling/discussion Current Visit: Yes Status: Acute Assessment and plan: Goals of care discussion with the patient. Ms. Chino is not suicidal, denies suicidal ideations. She complains of "feeling sick and tired of being sick and tired". She initiated conversation regarding hospice care. Discussed hospice philosophy, support, indications. Patient would like to discuss hospice services with her significant other and body fitter. Spiritual support provided by patient's personal body fitter. Discussed oral intake. Hospice services will not support her continued use of TPN. Discussed concerns of maintaining adequate nutrition and hydration if TPN support is discontinued. Patient is also well aware of the infection risk of home TPN. Discussed personal goals and desires. The palliative care team will follow up with further discussions once patient has consulted her family. Reviewed case with hospitalist. Discussed possible discharge options of home palliative care to maintain TPN support versus home with hospice care. Further discharge disposition pending decision from patient. (4) Abdominal pain Current Visit: No Status: Acute Assessment and plan: Percocet for severe pain, acetaminophen for mild-moderate pain. Fentanyl patch for cancer associated pain. Continue to monitor. Qualifiers: Abdominal location: generalized Qualified Code(s): R10.84 - Generalized abdominal pain (5) Cancer related pain Current Visit: Yes Status: Chronic Assessment and plan: Continue with Fentanyl patch. (6) Anxiety about health Current Visit: Yes Status: Acute Assessment and plan: Oral hydroxyzine (home medication) for management of anxiety. Consider starting Zoloft for terminal gauger management as she has taken this in the past. (7) Weakness generalized Current Visit: Yes Status: Acute Assessment and plan: Physical therapy consult per patient request. - Time Spent With Patient Total time spent is greater than 50% in coordination of care (as documented) at patient's floor/unit and/or counseling patient: - Subjective Interval history: Ms. Chino is sitting up on a couch facing the window. She reports an episode of nausea with vomiting last night requiring the use of IV Zofran. She is unwilling to advance diet past the use of ice chips at this point. TPN continues. Ms. Chino denies suicidal ideations. - Constitutional Vitals: Abnormal lab results Hgb 10.2 g/dL (11.5-15.4) L 05/25/16 05:30 Hct 32.9 % (35.3-44.9) L 05/25/16 05:30 MCH 26.0 pg (28.0-33.3) L 05/25/16 05:30 MCHC 31.0 g/dL (31.6-35.5) L 05/25/16 05:30 RDW 24.2 % (11.5-14.5) H 05/25/16 05:30 Nucleated RBCs/100 WBC 0.5 /100 WBC (0) H 05/16/16 05:35 Large Platelets Present (Not Present) A 05/25/16 05:30 Hypochromasia Present (Not Present) A 05/25/16 05:30 Anisocytosis 1+ (Not Present) A 05/25/16 05:30 Microcytosis Present (Not Present) A 05/24/16 05:15 Macrocytosis Present (Not Present) A 05/25/16 05:30 Ovalocytes 1+ (Not Present) A 05/25/16 05:30 Sodium 134 mEq/L (136-145) L 05/27/16 04:55 BUN/Creatinine Ratio 28 (6-26) H 05/27/16 04:55 Glucose 136 mg/dL (70-99) H 05/27/16 04:55 POC Glucose 124 (58-89) H 05/27/16 05:41 Calcium 8.2 mg/dL (8.6-10.8) L 05/27/16 04:55 Ionized Calcium 1.14 mmol/L (1.15-1.35) L 05/12/16 04:30 Alkaline Phosphatase 384 Units/L (38-126) H 05/25/16 05:30 Serum Total Protein 5.3 g/dL (6.0-8.3) L 05/25/16 05:30 Albumin 2.2 g/dL (3.5-5.0) L 05/25/16 05:30 Albumin/Globulin Ratio 0.7 (1.1-2.2) L 05/25/16 05:30 Urine Clarity Cloudy (Clear) A 05/12/16 04:30 Ur Specific [place] 1.027 (1.010-1.025) H 05/12/16 04:30 Urine Blood Moderate (Negative) H 05/12/16 04:30 Urine Microscopic RBC 5-15 per hpf (0-3) H 05/12/16 04:30 Urine Microscopic WBC 5-15 per hpf (0-3) H 05/12/16 04:30 Ur Squamous Epith Cells Many per lpf (None-Few) H 05/12/16 04:30 Ur Culture Indicated? YES (NO) A 05/12/16 04:30 General appearance: Present: cooperative, no acute distress - Eye Eye exam: Present: EOMI - ENT ENT exam: Present: mucous membranes dry - Respiratory Respiratory exam: Present: CTAB. Absent: respiratory distress - Cardiovascular Cardiovascular exam: Present: RRR - GI/Abdominal GI/Abdominal exam: Present: normal bowel sounds, soft, tenderness. Absent: distended, guarding - Extremities Exam Extremities exam: Present: normal inspection. Absent: pedal edema - Neurological Exam Neurological exam: Present: alert, no focal deficits, strengths equal and symetr throughout - Psychiatric Psychiatric exam: Present: depressed, flat affect. Absent: suicidal ideation - Skin Skin exam: Present: dry, warm Palliative Quality Palliative Quality: Screen for Code Status: Yes, Screen for Goals of Care: Yes, Screen for Pain: Yes, If Pain Regimen Started, Initiate Bowel Regimen: Yes, Screen for Nausea/Vomitting: Yes Code Status: 05/20/16 08:49 CODE [Resuscitation Status: Active] [RES] Routine Comment: Resuscitation Status: DNR-Comfort Care-Arrest - Labs CBC & Chem 7: 05/25/16 05:30 05/27/16 04:55 Labs: Laboratory Results - last 24 hr 05/26/16 05/26/16 05/26/16 03:12 11:19 17:40 Sodium Potassium Chloride Carbon Dioxide BUN Creatinine Est GFR ( Amer) Est GFR (Non-Af Amer) BUN/Creatinine Ratio Glucose POC Glucose 140 H 101 H 90 H Calculated Osmolality Calcium 05/26/16 05/27/16 05/27/16 23:51 04:55 05:41 Sodium 134 L Potassium 4.1 Chloride 104 Carbon Dioxide 22 BUN 17 Creatinine 0.60 Est GFR ( Amer) > 60 Est GFR (Non-Af Amer) > 60 BUN/Creatinine Ratio 28 H Glucose 136 H POC Glucose 114 H 124 H Calculated Osmolality 282 Calcium 8.2 L Consult Discharge Plan - Plan Referrals: Enrique Aleman MD [Partnered Physician] - 06/06/16 9:45 am Lambert Gandhi MD [Primary Care Provider] -
[2016-05-27] MEDS ORDERED: Clinimix E 5%-15% SOLUTION 2,000 ML with MVI, adult with vitamin K 10 ML IVC SCH ×2 (17:00)
[2016-05-27] MEDS ORDERED: Ondansetron Oral Soln 2 MG/2.5 ML ORAL.SYG PO PRN (18:04)
[2016-05-28] MEDS ORDERED: *HR* HYDROmorphone (PF) 1 MG/ML SYRINGE IVP PRN (00:47)
[2016-05-28] MEDS: Pantoprazole 40 MG VIAL IVP SCH ×2 (05:09→18:45)
[2016-05-28] MEDS: Ondansetron 4 MG/2 ML VIAL IVP PRN ×3 (05:09→21:59)
[2016-05-28] MEDS: Dexamethasone 10 MG/ML VIAL IVP SCH ×2 (09:53→22:00)
[2016-05-28] MEDS: *HR* Enoxaparin 40 MG/0.4 ML SYRINGE SQ SCH (09:53)
[2016-05-28] MEDS: RESTASIS OPTH OP SCH ×2 (09:54→22:06)
[2016-05-28] MEDS: ADVAIR 250/50 IH SCH ×2 (09:54→21:00)
--- NOTE | 2016-05-28 09:56 | Internal Med Progress Note ---
Date of Encounter: 06/05/16 Time of Encounter: 09:54 - Assessment and plan (1) Malignant neoplasm metastatic to colon Status: Acute Assessment and plan: Oncology following, will reassess treatment options with them. CT of the abdomen and pelvis shows progression through her first cycle of chemotherapy which she tolerated poorly. We will explore any other options with oncology. Gen. surgery consult for options on palliative hormonal bypass surgery. I have discussed the case with the general surgeon and a appreciated their recommendations. 05/16/2016 Surgery on board and will wait for recommendations. 05/17/2016. Patient and family had a long talk with surgery department. patient is going for surgery this evening. 05/18/2016 Postoperative day #1 Patient underwent surgery yesterday. She had a duodenal obstruction from metastatic colon cancer. She underwent gastrojejunostomy which is mainly for palliative reasons. Patient appears more alert and answers all questions appropriately. Surgery on the board and we will follow their recommendations. 05/01/2016. Postoperative day #2. Patient underwent surgery for metastatic neoplasm of colon: As a debulking procedure. Patient tolerated procedure well. Currently she is taking total parenteral nutrition. Surgery/dietitian to manage total parenteral nutrition. 05/20/2016 Post operative Day 3 No new complaints ongoing paraentral nutrition. 05/21/2016. Postoperative day 4 Patient was occasionally nauseous. Surgery on the board. We will follow the recommendations from surgery. 05/22/2016 Post operative day:5 off NG tube plan is to start clear liquid by tomorrow all questions answered. 05/23/2016 POD : 6 started clear liquid. did not finish even half of the liquid served. has nausea. did not vomit. if we discharge her, possibility that she will return back is almost 100% close observation will update surgery tomorrow and will treat her symptomatically. 05/24/2016 clear liquid tolerating well will closely observe. This is a retrospective note from 05/24/2016 05/26/2016 Patient seen and examined. She is very tired. Postoperative day 8: Gastrojejunostomy, palliative Patient has persistent nausea. In last 24 hours patient denied any vomiting. Presently on TPN. Management of TPN as per dietitian. Patient had suicidal thoughts yesterday. Symptoms this morning she denies any suicidal thoughts. Very supportive family. At this point I do not think we should involve psychiatry. Would like to observe her very closely for next 24 hours. We will get her emotional support from her family members, restorationism members, farmer cash grain from the hospital. 05/27/2016 She had an episode of vomiting last night. Was unable to sleep last night. At this point she has a very low moral. She is thinking of hospice. Palliative is on the board and presently talking to her. Possible home on Sunday. Regarding hospice will follow the opinion from palliative care. 05/28/2016 My vomiting in the last 24 hours. Manage to get some sleep last night. We will talk to family/patient today. Possible discharge tomorrow. (2) Dehydration Status: Acute Assessment and plan: We will treat this with IV fluids. Replete electrolytes. Check BUN and creatinine the morning. Encourage oral hydration as much as tolerated. Treat nausea with Zofran and Phenergan. 05/16/2016 will continue IV fluids labs in AM 05/17/2016 Will continue IV fluids for now. BUN/creatinine is within normal limits. 05/18/2016. We will continue IV fluids. Will continue TPN. (3) Failure to thrive Status: Acute Assessment and plan: She has had persistent nausea and severe abdominal pain her oncologist recommended TPN. Continue with TPN. Follow-up with nutrition. Check fingerstick blood glucose. Check and replete magnesium and phosphorus daily. 05/16/2016 secondary to duodenal obstruction. presently on TPN will cont TPN labs in AM. Qualifiers: Failure to thrive age range: in adult Qualified Code(s): R62.7 - Adult failure to thrive (4) Hypophosphatemia Status: Acute Assessment and plan: She cannot take by mouth. Replete with IV phosphorus and magnesium. 05/16/2016 will work with nutrition and will replace via TPN - Subjective Interval history: seen and examined. patient has occasional nausea. denies vomiting. at bedside. 05/17/2016. Patient seen and examined. Patient has still occasional nausea. Noted that NG tube is placed in. Patient denies vomiting, abdominal pain or diarrhea. 05/18/2016 Patient seen and examined. Postoperative day1 Patient denies any nausea, vomiting, abdominal pain She is taking ice chips. 05/19/2016. Patient seen and examined. Postoperative day 2. Patient denies any chest pain, nausea, vomiting, abdominal pain. Her appetite is much better as compared to yesterday. 05/20/2016 seen and examined Post operative Day : 3 walking around the floor with support no new complaints. 05/21/2016 Seen and examined. Postoperative day: 4 Walking around the floor. She was occasionally nauseous. Surgery on the board 05/22/2016 seen and examined. postoperative day:5 walking around the floor. Off NG noted surgery on the board. 05/23/2016 POD : 6 started clear liquid today has nausea. feels like vomiting but did not vomit. will continue to observe 05/24/2016 tolerating well will closely observe This is retrospective note sign ed on 05/25/2016 but patient was seen on 05/24/2016 05/26/2016 seen and examined Patient is very emotionally depressed. Noted she had very stormy day in terms of her emotions. She expressed couple of times to commit suicide. This morning she denies any kind of suicidal thought. Surgery on the board. At this point I do not think we should involve psychiatry but would like to observe her for next 24-48 hours. 05/27/2016 Patient seen and examined. Chart reviewed. She had an episode of vomiting last night. Was unable to sleep last night. At this point she has a very low moral. She is thinking of hospice. Palliative is on the board and presently talking to her. 05/28/2016 Patient seen and examined. Charts reviewed. Patient did not have any episode of vomiting last night. patient took ensure this morning and she tolerated this pretty well. - Constitutional Vitals: Temp Pulse Resp BP Pulse Ox 98.1 F 80 16 89/64 97 05/28/16 06:05 05/28/16 06:05 05/28/16 06:05 05/28/16 06:05 05/28/16 06:05 General appearance: Present: A&O X 3, no acute distress, answers questions appropriately - Head Head exam: Present: atraumatic, normocephalic - Eye Eye exam: Present: PERRL, conjuntiva pink, sclera anicteric Pupils: Present: PERRL - Neck Neck exam general surgery: Present: supple, trachea midline. Absent: lymphadenopathy - Respiratory Respiratory exam: Present: CTAB. Absent: accessory muscle use, rales, rhonchi, wheezes - Cardiovascular Cardiovascular exam: Present: RRR, +S1, +S2. Absent: diastolic murmur, gallop, rubs, systolic murmur - GI/Abdominal GI/Abdominal exam: Present: normal bowel sounds, soft, no peritoneal signs. Absent: distended, tenderness - Extremities Exam Extremities exam: Present: warm, radial pulses palpable and symetrical. Absent : calf tenderness, cyanotic, pedal edema - Neurological Exam Neurological exam: Present: CN II-XII intact, oriented X3, no focal deficits. Absent: pronater drift, facial droop, speech deficit - Skin Skin exam: Present: dry, intact Internal Medicine: Result - Labs CBC & Chem 7: 05/29/16 06:00 05/29/16 06:00 - VTE Documentation of Mechanical Device: Intermittent pneumatic compression device Consult Discharge Plan - Plan Instructions: Oxycodone/Acetaminophen (By mouth) Referrals: Enrique Aleman MD [Partnered Physician] - 06/06/16 9:45 am Leticia Victoria CNP [Partnered Physician] - 05/31/16 10:30 am Lambert Gandhi MD [Primary Care Provider] - Prescriptions: OxyCODONE/APAP 5/325 [Percocet 5/325 MG] 1 each PO Q6HR PRN #10 tablet PRN Reason: Severe Pain rated 7-10 Hydroxyzine HCl 25 mg PO Q6H PRN #30 tab PRN Reason: anxiety/itch Ondansetron Oral Soln [Zofran Oral Soln] 4 mg PO Q4H PRN #60 l PRN Reason: n/v OxyCODONE Immed Rel [Roxicodone 5 MG] 5 mg PO Q2H PRN #30 tab PRN Reason: Pain
--- NOTE | 2016-05-28 14:58 | Palliative Progress Note ---
Date of Encounter: 05/29/16 Time of Encounter: 14:56 - Assessment and plan (1) Adult failure to thrive Current Visit: Yes Status: Acute Assessment and plan: Ms. Chino has very little oral intake. She describes her eating technique and "licking the spoon". Night cycle TPN managed per Dietitian. Discussed options for stimulating appetite. Marinol started. Patient is extremely reluctant to advance diet past patient's chips, but did tolerate some Ensure and Sherbet with the coaching of her son. (2) Nausea and vomiting Current Visit: No Status: Acute Assessment and plan: Will consider adding Phenergan rectal suppositories in the event of nausea upon discharge. Qualifiers: Vomiting type: unspecified Vomiting Intractability: intractable Qualified Code(s): R11.2 - Nausea with vomiting, unspecified (3) Goals of care, counseling/discussion Current Visit: Yes Status: Acute Assessment and plan: Goals of care discussion with the patient and her son-Colin. She continues to complain of "feeling sick and tired of being sick and tired". She initiated conversation regarding hospice care. Discussed hospice philosophy, support, indications. Patient would like to discuss hospice services with her significant other. Spiritual support provided by patient's personal hair stylist. Discussed oral intake. Hospice services will not support her continued use of TPN. Discussed concerns of maintaining adequate nutrition and hydration if TPN support is discontinued. Patient is also well aware of the infection risk of home TPN. Discussed personal goals and desires. The palliative care team will follow up with further discussions once patient has consulted her family. Reviewed case with hospitalist. Discussed possible discharge options of home palliative care to maintain TPN support versus home with hospice care. Further discharge disposition pending decision from patient. (4) Abdominal pain Current Visit: No Status: Acute Assessment and plan: Percocet for severe pain, acetaminophen for mild-moderate pain. Patient reluctant to take oral medications, and requested an order for IV medications last night. Fentanyl patch for cancer associated pain. Continue to monitor. Qualifiers: Abdominal location: generalized Qualified Code(s): R10.84 - Generalized abdominal pain (5) Cancer related pain Current Visit: Yes Status: Chronic Assessment and plan: Continue with Fentanyl patch. (6) Anxiety about health Current Visit: Yes Status: Acute Assessment and plan: Oral hydroxyzine (home medication) for management of anxiety. Zoloft for correction management as she has taken this in the past. (7) Weakness generalized Current Visit: Yes Status: Acute - Time Spent With Patient Total time spent is greater than 50% in coordination of care (as documented) at patient's floor/unit and/or counseling patient: - Subjective Interval history: Ms. Chino is sitting up in bed, her son-Colin-at bedside. She reports taking in some Ensure and sherbet today. Nausea/hunger pains continue. - Constitutional Vitals: Abnormal lab results Hgb 10.2 g/dL (11.5-15.4) L 05/25/16 05:30 Hct 32.9 % (35.3-44.9) L 05/25/16 05:30 MCH 26.0 pg (28.0-33.3) L 05/25/16 05:30 MCHC 31.0 g/dL (31.6-35.5) L 05/25/16 05:30 RDW 24.2 % (11.5-14.5) H 05/25/16 05:30 Nucleated RBCs/100 WBC 0.5 /100 WBC (0) H 05/16/16 05:35 Large Platelets Present (Not Present) A 05/25/16 05:30 Hypochromasia Present (Not Present) A 05/25/16 05:30 Anisocytosis 1+ (Not Present) A 05/25/16 05:30 Microcytosis Present (Not Present) A 05/24/16 05:15 Macrocytosis Present (Not Present) A 05/25/16 05:30 Ovalocytes 1+ (Not Present) A 05/25/16 05:30 Sodium 134 mEq/L (136-145) L 05/27/16 04:55 BUN/Creatinine Ratio 28 (6-26) H 05/27/16 04:55 Glucose 136 mg/dL (70-99) H 05/27/16 04:55 POC Glucose 129 (58-89) H 05/28/16 06:11 Calcium 8.2 mg/dL (8.6-10.8) L 05/27/16 04:55 Ionized Calcium 1.14 mmol/L (1.15-1.35) L 05/12/16 04:30 Alkaline Phosphatase 384 Units/L (38-126) H 05/25/16 05:30 Serum Total Protein 5.3 g/dL (6.0-8.3) L 05/25/16 05:30 Albumin 2.2 g/dL (3.5-5.0) L 05/25/16 05:30 Albumin/Globulin Ratio 0.7 (1.1-2.2) L 05/25/16 05:30 Urine Clarity Cloudy (Clear) A 05/12/16 04:30 Ur Specific [place] 1.027 (1.010-1.025) H 05/12/16 04:30 Urine Blood Moderate (Negative) H 05/12/16 04:30 Urine Microscopic RBC 5-15 per hpf (0-3) H 05/12/16 04:30 Urine Microscopic WBC 5-15 per hpf (0-3) H 05/12/16 04:30 Ur Squamous Epith Cells Many per lpf (None-Few) H 05/12/16 04:30 Ur Culture Indicated? YES (NO) A 05/12/16 04:30 General appearance: Present: cooperative, no acute distress - Eye Eye exam: Present: EOMI - Respiratory Respiratory exam: Absent: accessory muscle use, prolonged expiratory phase, respiratory distress, wheezes, tachypnea - Cardiovascular Cardiovascular exam: Present: RRR - GI/Abdominal GI/Abdominal exam: Absent: guarding, tenderness Additional comments: abdominal incision intact with jhonatan - Extremities Exam Extremities exam: Present: normal inspection - Neurological Exam Neurological exam: Present: alert, no focal deficits, strengths equal and symetr throughout - Psychiatric Psychiatric exam: Present: flat affect (poor eye contact) - Skin Skin exam: Present: dry, warm Palliative Quality Palliative Quality: Screen for Code Status: Yes, Screen for Goals of Care: Yes, Screen for Pain: Yes, If Pain Regimen Started, Initiate Bowel Regimen: Yes, Screen for Nausea/Vomitting: Yes Code Status: 05/20/16 08:49 CODE [Resuscitation Status: Active] [RES] Routine Comment: Resuscitation Status: DNR-Comfort Care-Arrest - Labs CBC & Chem 7: 05/29/16 06:00 05/29/16 06:00 Labs: Laboratory Results - last 24 hr 05/27/16 05/27/16 05/27/16 11:58 17:23 23:43 POC Glucose 117 H 88 107 H 05/28/16 06:11 POC Glucose 129 H Consult Discharge Plan - Plan Referrals: Enrique Aleman MD [Partnered Physician] - 06/06/16 9:45 am Lambert Gandhi MD [Primary Care Provider] -
[2016-05-28] MEDS ORDERED: Clinimix E 5%-15% SOLUTION 2,000 ML with MVI, adult with vitamin K 10 ML IVC SCH ×2 (17:00)
[2016-05-28] MEDS: *HR* FentaNYL PATCH 50 MCG PATCH TD SCH (22:03)
[2016-05-29] MEDS: Pantoprazole 40 MG VIAL IVP SCH (05:50)
[2016-05-29 06:19] LABS: Hematocrit 31.1 % (35.3-44.9); Hemoglobin 9.5 g/dL (11.5-15.4); Immature Granulocytes % 0.8 % (0-4); Lymphocytes # 0.5 K/mcL (0.6-4.6); Lymphocytes % 6.1 %; Mean Corpuscular HGB Conc 30.5 g/dL (31.6-35.5); Mean Corpuscular Hemoglobin 26.1 pg (28.0-33.3); Mean Corpuscular Volume 85.4 fL (83.0-100.0); Mean Platelet Volume 11.1 fL (9.4-12.4); Monocytes # 0.3 K/mcL (0.0-1.3); Monocytes % 4.3 %; Neutrophils # 7.1 K/mcL (1.6-8.9); Platelet Count 212 K/mcL (140-400); Red Blood Count 3.64 M/mcL (3.82-4.97); Red Cell Distribution Width 24.4 % (11.5-14.5); Segmented Neutrophils % 88.8 %
[2016-05-29 06:34] LABS: BUN/Creatinine Ratio 27 (6-26); Blood Urea Nitrogen 17 mg/dL (7-20); Carbon Dioxide 24 mEq/L (19-29); Chloride 103 mEq/L (98-109); Glucose 143 mg/dL (70-99); Potassium 4.1 mEq/L (3.5-4.5); Sodium 135 mEq/L (136-145); eGFR For African Americans > 60 (> 60); eGFR For Non-African Americans > 60 (> 60)
[2016-05-29 06:35] LABS: Alanine Aminotransferase 22 Units/L (0-55); Albumin 2.3 g/dL (3.5-5.0); Albumin/Globulin Ratio 0.7 (1.1-2.2); Alkaline Phosphatase 348 Units/L (38-126); Aspartate Amino Transferase 14 Units/L (5-34); Bilirubin,Total 0.6 mg/dL (0.2-1.2); Calcium 8.4 mg/dL (8.6-10.8); Globulin 3.2 g/dL (2.4-3.5); Osmolality,Calculated 284 (280-300); Total Protein 5.5 g/dL (6.0-8.3)
--- NOTE | 2016-05-29 08:05 | General Surgery Progress Note ---
Date of Encounter: 05/29/16 Time of Encounter: 07:45 - Assessment and Plan (1) Duodenal obstruction, acquired Current Visit: Yes Status: Acute POD#8 Gastrojejunostomy, palliative Normal bowel sounds present. She is having flatus and diarrhea. Her nausea is improved from yesterday, but still persists. Will advance diet to full liquids. Afebrile. Plan: full liquid diet, antiemetics, pain control, ambulate TID, TPN@50ml/hr (managed by credit union manager), protonix, lovenox. 05/26/2016 The patient has had interval improvement in her nausea but she still has early satiety. There is no evidence of vomiting. Discharge under palliative care is a reasonable option 05/29/2016. The patient has made interval improvement. She has no vomiting. With a long talk today about expectations of care. I believe that chemotherapy will only provide a marginal benefit. In my opinion this benefit is not worth the potential side effects. I strongly encouraged her to spend as much time at home as possible. I encouraged her to wean off the TPN and enter hospice care. Subjective Narrative: The patient complains of some nausea. Overall she feels better. With a long talk today about her expectations of therapy. It does not appear that chemotherapy is going to make much in the way of progress in her overall survival. She is on TPN as a bridge therapy to get her to chemotherapy. Since the chemotherapy will be marginally effective, I had a long talk with the patient today about going home off TPN and entering hospice care to maximize her time at home. I will see her again today at noon. I think that she is ready to go home with hospice care. Objective Vital Signs - Last 8 Hours Temp Pulse Resp BP Pulse Ox 05/29/16 05:41 98.3 F 69 16 98/61 98 Intake and Output 05/28/16 05/29/16 05/29/16 23:59 07:59 15:59 Intake Total 0 / 0 60 / 60 Balance 0 / 0 60 / 60 Intake: Oral 0 / 0 60 / 60 Other: # Voids 0 0 Weight 55.7 kg Blood Glucose* 106 141 Patient Weight 05/29/16 23:59 Weight 55.7 kg - General physical appearance chronically ill - Respiratory normal expansion, normal respiratory effort, clear to percussion, clear to auscultation - Cardiovascular Cardiovascular exam: Present: RRR, no murmurs/rubs/gallops - Abdomen Abdomen: Present: bowel sounds present, soft, non tender - Incision Incision: Present: clean and dry - Labs 05/29/16 06:00 05/29/16 06:00 Diabetes panel 05/29/16 Range/Units 06:00 Sodium 135 L (136-145) mEq/L Potassium 4.1 (3.5-4.5) mEq/L Chloride 103 (98-109) mEq/L Carbon Dioxide 24 (19-29) mEq/L BUN 17 (7-20) mg/dL Creatinine 0.64 (0.57-1.11) mg/dL Glucose 143 H (70-99) mg/dL Calcium 8.4 L (8.6-10.8) mg/dL AST 14 (5-34) Units/L ALT 22 (0-55) Units/L Alkaline Phosphatase 348 H (38-126) Units/L Albumin 2.3 L (3.5-5.0) g/dL Calcium panel 05/29/16 Range/Units 06:00 Calcium 8.4 L (8.6-10.8) mg/dL Albumin 2.3 L (3.5-5.0) g/dL Pituitary panel 05/29/16 Range/Units 06:00 Sodium 135 L (136-145) mEq/L Potassium 4.1 (3.5-4.5) mEq/L Chloride 103 (98-109) mEq/L Carbon Dioxide 24 (19-29) mEq/L BUN 17 (7-20) mg/dL Creatinine 0.64 (0.57-1.11) mg/dL Glucose 143 H (70-99) mg/dL Calcium 8.4 L (8.6-10.8) mg/dL Adrenal panel 05/29/16 Range/Units 06:00 Sodium 135 L (136-145) mEq/L Potassium 4.1 (3.5-4.5) mEq/L Chloride 103 (98-109) mEq/L Carbon Dioxide 24 (19-29) mEq/L BUN 17 (7-20) mg/dL Creatinine 0.64 (0.57-1.11) mg/dL Glucose 143 H (70-99) mg/dL Calcium 8.4 L (8.6-10.8) mg/dL Total Bilirubin 0.6 (0.2-1.2) mg/dL AST 14 (5-34) Units/L ALT 22 (0-55) Units/L Alkaline Phosphatase 348 H (38-126) Units/L Albumin 2.3 L (3.5-5.0) g/dL - VTE Documentation of Mechanical Device: Intermittent pneumatic compression device Consult Discharge Plan - Plan Referrals: Enrique Aleman MD [Partnered Physician] - 06/06/16 9:45 am Lambert Gandhi MD [Primary Care Provider] -
[2016-05-29] MEDS: ADVAIR 250/50 IH SCH (08:49)
[2016-05-29] MEDS: RESTASIS OPTH OP SCH (08:49)
[2016-05-29] MEDS: Dexamethasone 10 MG/ML VIAL IVP SCH (08:59)
[2016-05-29] MEDS: *HR* Enoxaparin 40 MG/0.4 ML SYRINGE SQ SCH (09:10)
--- NOTE | 2016-05-29 11:54 | Palliative Progress Note ---
Date of Encounter: 05/29/16 Time of Encounter: 08:50 - Assessment and plan (1) Cancer related pain Current Visit: Yes Status: Chronic Assessment and plan: Under good control at this time continue current medications. (2) Dehydration Current Visit: Yes Status: Acute Assessment and plan: Per patient we will be stopping TPN today. Patient will be discharged home. [facility]. (3) Failure to thrive Current Visit: Yes Status: Acute Assessment and plan: The patient is stopping TPN today. Patient wishes to go out with [facility]. She is going to discuss further treatment with her oncologist. Qualifiers: Failure to thrive age range: in adult Qualified Code(s): R62.7 - Adult failure to thrive (4) Nausea and vomiting Current Visit: No Status: Acute Assessment and plan: Having some nausea at this time but not actual vomiting. The patient's Ativan has been working well for her but it completely excised her sleepy. Even at low dosages. She does now opting for hospice care, hospice will now continue to follow her for this. Qualifiers: Vomiting type: unspecified Vomiting Intractability: intractable Qualified Code(s): R11.2 - Nausea with vomiting, unspecified (5) Goals of care, counseling/discussion Current Visit: Yes Status: Acute Assessment and plan: ER comfort care arrest, patient's goals are to return home. She has decided against any further TPN. She is was still awaiting to discuss with him about the possibility of further chemotherapy. At this time she does not seem to be interested in chemotherapy and wishes to be set up with hospice. She does understand that she may rescind hospice if she wants to give chemotherapy one last try. (6) Constipation due to pain medication Current Visit: No Status: Acute Assessment and plan: She is passing gas and having very small amounts of stool. (7) Colon cancer Current Visit: No Status: Acute Assessment and plan: Patient is currently postop. She will discuss with oncology any other possibilities regarding chemotherapy. Surgery feels that there will be very little be offered from oncology , and therefore has recommended hospice. Per patient request she will be set up with [facility] at time of discharge. Qualifiers: Colon location: unspecified part of colon Qualified Code(s): C18.9 - Malignant neoplasm of colon, unspecified - Time Spent With Patient Total time spent is greater than 50% in coordination of care (as documented) at patient's floor/unit and/or counseling patient: - Subjective Interval history: The patient is feeling like she still has some nausea. However when asked to describe this is really more bowel coming back to life. She is very disappointed that she is not enjoying eating more. But she is not having true nausea and she is not having any further vomiting. Has discussed the case at length with her injury, and I have reviewed their note. Appreciate their input. Patient has decided to stop TPN, as waiting discussing things further with Dr. Gomez. Please see the assessment and plan.... - Constitutional Vitals: Abnormal lab results RBC 3.64 M/mcL (3.82-4.97) L 05/29/16 06:00 Hgb 9.5 g/dL (11.5-15.4) L 05/29/16 06:00 Hct 31.1 % (35.3-44.9) L 05/29/16 06:00 MCH 26.1 pg (28.0-33.3) L 05/29/16 06:00 MCHC 30.5 g/dL (31.6-35.5) L 05/29/16 06:00 RDW 24.4 % (11.5-14.5) H 05/29/16 06:00 Lymphocytes # 0.5 K/mcL (0.6-4.6) L 05/29/16 06:00 Nucleated RBCs/100 WBC 0.5 /100 WBC (0) H 05/16/16 05:35 Large Platelets Present (Not Present) A 05/25/16 05:30 Hypochromasia Present (Not Present) A 05/25/16 05:30 Anisocytosis 1+ (Not Present) A 05/25/16 05:30 Microcytosis Present (Not Present) A 05/24/16 05:15 Macrocytosis Present (Not Present) A 05/25/16 05:30 Ovalocytes 1+ (Not Present) A 05/25/16 05:30 Sodium 135 mEq/L (136-145) L 05/29/16 06:00 BUN/Creatinine Ratio 27 (6-26) H 05/29/16 06:00 Glucose 143 mg/dL (70-99) H 05/29/16 06:00 POC Glucose 141 (58-89) H 05/29/16 05:51 Calcium 8.4 mg/dL (8.6-10.8) L 05/29/16 06:00 Ionized Calcium 1.14 mmol/L (1.15-1.35) L 05/12/16 04:30 Alkaline Phosphatase 348 Units/L (38-126) H 05/29/16 06:00 Serum Total Protein 5.5 g/dL (6.0-8.3) L 05/29/16 06:00 Albumin 2.3 g/dL (3.5-5.0) L 05/29/16 06:00 Albumin/Globulin Ratio 0.7 (1.1-2.2) L 05/29/16 06:00 Urine Clarity Cloudy (Clear) A 05/12/16 04:30 Ur Specific [place] 1.027 (1.010-1.025) H 05/12/16 04:30 Urine Blood Moderate (Negative) H 05/12/16 04:30 Urine Microscopic RBC 5-15 per hpf (0-3) H 05/12/16 04:30 Urine Microscopic WBC 5-15 per hpf (0-3) H 05/12/16 04:30 Ur Squamous Epith Cells Many per lpf (None-Few) H 05/12/16 04:30 Ur Culture Indicated? YES (NO) A 05/12/16 04:30 General appearance: Present: no acute distress - Head Head exam: Present: atraumatic, normal inspection - ENT ENT exam: Present: mucous membranes moist - GI/Abdominal GI/Abdominal exam: Present: normal bowel sounds, soft - Extremities Exam Extremities exam: Present: normal inspection. Absent: tenderness - Psychiatric Psychiatric exam: Present: anxious (Somewhat anxious about vomiting,). Absent: agitated - Skin Skin exam: Present: dry, warm Palliative Quality Palliative Quality: Screen for Code Status: Yes, Screen for Goals of Care: Yes, Screen for Pain: Yes, If Pain Regimen Started, Initiate Bowel Regimen: Yes, Screen for Nausea/Vomitting: Yes Code Status: 05/20/16 08:49 CODE [Resuscitation Status: Active] [RES] Routine Comment: Resuscitation Status: DNR-Comfort Care-Arrest - Labs CBC & Chem 7: 05/29/16 06:00 05/29/16 06:00 Labs: Laboratory Results - last 24 hr 05/28/16 05/28/16 05/29/16 12:24 17:55 00:06 WBC RBC Hgb Hct MCV MCH MCHC RDW Plt Count MPV Immature Gran % Seg Neutrophils % Lymphocytes % Monocytes % Eosinophils % Basophils % Neutrophils # Lymphocytes # Monocytes # Eosinophils # Basophils # Sodium Potassium Chloride Carbon Dioxide BUN Creatinine Est GFR ( Amer) Est GFR (Non-Af Amer) BUN/Creatinine Ratio Glucose POC Glucose 100 H 106 H 123 H Calculated Osmolality Calcium Total Bilirubin AST ALT Alkaline Phosphatase Serum Total Protein Albumin Globulin Albumin/Globulin Ratio 05/29/16 05/29/16 05/29/16 05:51 06:00 06:00 WBC 8.0 RBC 3.64 L Hgb 9.5 L Hct 31.1 L MCV 85.4 MCH 26.1 L MCHC 30.5 L RDW 24.4 H Plt Count 212 MPV 11.1 Immature Gran % 0.8 Seg Neutrophils % 88.8 Lymphocytes % 6.1 Monocytes % 4.3 Eosinophils % 0.0 Basophils % 0.0 Neutrophils # 7.1 Lymphocytes # 0.5 L Monocytes # 0.3 Eosinophils # 0.0 Basophils # 0.0 Sodium 135 L Potassium 4.1 Chloride 103 Carbon Dioxide 24 BUN 17 Creatinine 0.64 Est GFR ( Amer) > 60 Est GFR (Non-Af Amer) > 60 BUN/Creatinine Ratio 27 H Glucose 143 H POC Glucose 141 H Calculated Osmolality 284 Calcium 8.4 L Total Bilirubin 0.6 AST 14 ALT 22 Alkaline Phosphatase 348 H Serum Total Protein 5.5 L Albumin 2.3 L Globulin 3.2 Albumin/Globulin Ratio 0.7 L Consult Discharge Plan - Plan Referrals: Enrique Aleman MD [Partnered Physician] - 06/06/16 9:45 am Lambert Gandhi MD [Primary Care Provider] -
--- NOTE | 2016-05-29 13:09 | Discharge Summary ---
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 Priority: Primary Status: Acute (2) Dehydration Priority: Secondary Status: Acute (3) Failure to thrive Priority: Secondary Status: Acute Qualifiers: Failure to thrive age range: in adult Qualified Code(s): R62.7 - Adult failure to thrive (4) Hypophosphatemia Priority: Secondary Status: Acute - Discharge Medications Prescriptions: OxyCODONE/APAP 5/325 [Percocet 5/325 MG] 1 each PO Q6HR PRN #10 tablet PRN Reason: Severe Pain rated 7-10 Hydroxyzine HCl 25 mg PO Q6H PRN #30 tab PRN Reason: anxiety/itch Ondansetron Oral Soln [Zofran Oral Soln] 4 mg PO Q4H PRN #60 l PRN Reason: n/v OxyCODONE Immed Rel [Roxicodone 5 MG] 5 mg PO Q2H PRN #30 tab PRN Reason: Pain Home Medications: Cyclosporine [Restasis] 1 drop OP BID 02/04/16 [History] Fluticasone/Salmeterol [Advair 250-50 Diskus] 1 puff IH BID 02/04/16 [History] Omeprazole [PriLOSEC] 20 mg PO DAILY PRN 02/04/16 [History] Docusate [Colace] 100 mg PO Q3-4D PRN 03/21/16 [History] Multivits,Ca,Minerals/Iron/FA [Women's Daily Formula Caplet] 1 each PO DAILY [History] Sennosides/Docusate Sodium [Senna Plus] 1 each PO Q3-4D PRN 03/21/16 [History] Bisacodyl [Dulcolax] 10 mg RC DAILY PRN 04/19/16 [History] Lidocaine/Prilocaine [Emla] 1 appl TP AD #30 gm 04/19/16 [Rx] Magic Mouthwash 10 ml PO Q4H PRN #240 ml 04/19/16 [Rx] Magnesium Citrate [Citroma] 296 ml PO PRN PRN 04/19/16 [History] Ondansetron HCl [Zofran] 4 mg PO Q6H PRN #60 tablet 04/19/16 [Rx] Oxycodone HCl/Acetaminophen [Percocet 10-325 mg Tablet] 1 each PO Q4-6H PRN 03/07 [History] Polyethylene Glycol 3350 [MiraLAX Powder Bulk 17.9 Oz] 1 scoop PO DAILY PRN 03/07 [History] Prochlorperazine Maleate [Compazine] 10 mg PO Q8HR PRN 04/19/16 [History] Fluconazole [Diflucan] 100 mg PO DAILY #10 tablet 04/26/16 [Rx] HydrOXYzine Pamoate [Vistaril] 100 mg PO BID PRN #60 capsule 04/26/16 [Rx] Promethazine [Phenergan] 25 mg RC Q6HR PRN #30 supp.rect 04/27/16 [Rx] Metoclopramide [Reglan] 10 mg PO Q6HR #120 tablet 05/05/16 [Rx] Megestrol Acetate [Megace] 400 mg PO DAILY #300 mls 05/08/16 [Rx] Dronabinol [Marinol] 5 mg PO TID #90 capsule 05/10/16 [Rx] Fentanyl 50 mg TD Q72H #10 patch.td72 05/10/16 [Rx] Hydroxyzine HCl 25 mg PO Q6H PRN #30 tab 05/29/16 [Rx] Ondansetron Oral Soln [Zofran Oral Soln] 4 mg PO Q4H PRN #60 l 05/29/16 [Rx] OxyCODONE Immed Rel [Roxicodone 5 MG] 5 mg PO Q2H PRN #30 tab 05/29/16 [Rx] OxyCODONE/APAP 5/325 [Percocet 5/325 MG] 1 each PO Q6HR PRN #10 tablet 05/29/16 [Rx] Allergies/Adverse Reactions: Allergies morphine Adverse Reaction (Verified 04/19/16 09:44) Abdominal Pain and nausea Date of admission: 05/12/16 21:00 Primary care physician: Lambert Gandhi MD Consults: 05/15/16 10:49 Consult to Sorter Operator [CONS] Stat Reason for SW Consult: for advanced directives 05/15/16 13:35 Consult to Surgery [CONS] Routine Consulting Provider: Surgery [facility] Reason for Consult: Duodenal mass-obstructive Time Notified: :36 Call Completed: Yes 05/26/16 12:15 Consult to Physical Therapy [CONS] Routine Comment: Evaluate, develop and implement POC Discharging clinician: Jus Gonzalez - Patient Status Disposition: Hospice - Home Condition: Serious Functional capacity at discharge: uses cane/walker Overall status at discharge: patient is not back to baseline - Discharge Instructions Instructions: Oxycodone/Acetaminophen (By mouth) Follow Up With: Enrique Aleman MD [Partnered Physician] - 06/06/16 9:45 am Leticia Victoria CNP [Partnered Physician] - 05/31/16 10:30 am Lambert Gandhi MD [Primary Care Provider] - - Diet and Activity Activity: increase activity as tolerated Diet: low fat, low cholesterol Interval History: Ms. 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 This is not also apparently had done Gastrografin study one week ago, which caused her diarrhea. Over the weekend she has been feeling nauseated with poor appetite and oral intake, with episodes of vomiting. She reports about a 20 pound weight loss in the last 2 months. She reports abdominal discomfort intermittently, but no abdominal pain and distention. She is able to pass gas but had no bowel movement in a few days. Denies hematemesis, melena , hematochezia. Denies dysuria or hematuria. Denies shortness of breath, chest pain, fever, chills. She was seen in Dr. Esteban office today and was thought to be dehydrated with failure to thrive she is admitted for volume repletion and TPN. Hospital course: This patient had a prolonged hospital stay. This is a brief summary of her prolonged hospitalization. For details on the each section please refer to the inpatient notes. Hospital medicine: Patient was hospitalized to hospitalist service. IV fluids started. Dietitian/nutrition was consulted for possible TPN. Patient was started on TPN. Oncology was consulted. Oncology recommended nutrition buildup and followed by which chemotherapy which will be possibly palliative in nature. Hospitalist continue to manage the patient. Oncology: Oncologist send this patient to emergency medicine as patient was dehydrated. Oncology evaluated this patient and recommended also surgical consult for possible palliative surgery. The palliative surgery is gastro- jejunostomy which is solely done to bypass the mass which was compressing her duodenum. Oncology also referred to get palliative care on the board. I spoke oncology this morning and they will talk to patient regarding further plan of care. Surgery: Patient was evaluated by surgery. Palliative gastrojejunostomy was done. Patient tolerated surgery extremely well. Patient started taking oral intake. Initial days the oral intake was very poor but gradually she managed to eat well. As per surgery this is the best what she can get from the palliative gastrojejunostomy. Palliative care: Patient was seen by palliative care. Palliative care team was a mainly during her hospitalization. Palliative care team recommended palliative surgery, palliative TPN, pastoral support and also recommended hospice. Plan: Patient can go home today. Patient will be enrolling under the hospice care. Patient to follow-up with oncology. If patient changes her mind after discussion with oncology than palliative care will help her with the decision what she makes. I had a detailed talk with the patient, patient's significant other and other family members. The all on the same page regarding the discharge planning and calling hospice from home. At the time of discharge patient/family members did not have any concerns, questions, suggestions or recommendations regarding their hospital stay. - Time Spent with Patient Total time spent providing and/or coordinating discharge services: - Constitutional Vitals: Temp Pulse Resp BP Pulse Ox 97.8 F 85 18 96/67 97 05/29/16 08:20 05/29/16 08:20 05/29/16 08:20 05/29/16 08:20 05/29/16 08:20 General appearance: Present: A&O X 3, no acute distress, answers questions appropriately - Head Head exam: Present: atraumatic, normocephalic - Eye Eye exam: Present: PERRL, conjuntiva pink, sclera anicteric Pupils: Present: PERRL - Neck Neck exam general surgery: Present: supple, trachea midline. Absent: lymphadenopathy - Respiratory Respiratory exam: Present: CTAB. Absent: accessory muscle use, rales, rhonchi, wheezes - Cardiovascular Cardiovascular exam: Present: RRR, +S1, +S2. Absent: diastolic murmur, gallop, rubs, systolic murmur - GI/Abdominal GI/Abdominal exam: Present: normal bowel sounds, soft, no peritoneal signs. Absent: distended, tenderness - Extremities Exam Extremities exam: Present: warm, radial pulses palpable and symetrical. Absent : calf tenderness, cyanotic, pedal edema - Neurological Exam Neurological exam: Present: CN II-XII intact, oriented X3, no focal deficits. Absent: pronater drift, facial droop, speech deficit - Skin Skin exam: Present: dry, intact - VTE Documentation of Mechanical Device: Intermittent pneumatic compression device
[2016-05-29] MEDS: Ondansetron ODT 4 MG TAB.RAPDIS SL PRN (13:40)
[2016-05-30 10:28] VITALS: BP 96/67
== END 2016-05-29 15:23 | disposition hospice, home (50) | DRG 327 ==
LOC: EMEROO 14:48 → 2NENU 14:48 → SUATTDRO 05-12 21:00
PROVIDERS: ADMIT Internal Medicine; ATTEND Internal Medicine

== ENCOUNTER 2016-08-15 23:16 | Inpatient (IN) ==
[2016-08-15] MEDS ORDERED: Vancomycin 1,000 MG in D5% in Water 250 ML IVPB ONE (23:56)
[2016-08-15] MEDS ORDERED: Piperacillin/Tazobactam 3.375 GM in D5% in Water (Mini-Bag+) 100 ML IVPB ONE (23:56)
[2016-08-16] MEDS ORDERED: Prochlorperazine 10 MG/2 ML VIAL IVP ONE (00:07)
--- NOTE | 2016-08-16 00:08 | Emergency Department Note ---
Disposition Clinical Impression: SIRS (systemic inflammatory response syndrome), Fever Disposition: Admitted As Inpatient Time of Disposition: 05:50 Fever HPI - General Chief Complaint: ED Fever Stated Complaint: fever, chemo pt Time Seen by Provider: 08/15/16 23:26 Source: patient, family Nursing Notes Reviewed: Yes Vital Signs Reviewed: Yes - History of Present Illness HPI Narrative: Mrs. Chino, 56-year-old female, presents from home by POV for evaluation of fever. Measured at 102.7 by mouth at home at approximately 10:30 this evening. Patient has stage IV colorectal cancer and is in the midst of a 48 hour continuous chemotherapy infusion; will finish tomorrow at 14:00. Port in right upper chest placed in March at [facility]. Was accessed Sunday at the oncology center. Home health provides medication through [facility]. She notes her nausea is typically improved with Compazine. ROS: Positive: Fever, nausea, weakness Negative: Vomiting, chest pains, dyspnea, diaphoresis, unusual back pains, abdominal pains, diarrhea, constipation, dysuria or difficulty with urination, weakness, paresthesias. - Related Data Home Medications Medication Instructions Recorded Confirmed Fluticasone/Salmeterol [Advair 1 puff IH BID 02/04/16 08/16/16 250-50 Diskus] Omeprazole [PriLOSEC] 20 mg PO DAILY PRN 02/04/16 08/16/16 Sennosides/Docusate Sodium [Senna 1 each PO Q3-4D PRN 03/21/16 08/16/16 Plus] Dexamethasone [Decadron] 2 mg PO DAILY 06/06/16 08/16/16 ALPRAZolam [Xanax 0.25 MG Tablet] 2 tab PO HS PRN 07/03/16 08/16/16 Previous Rx's Medication Instructions Recorded Metoclopramide [Reglan] 10 mg PO Q6HR #120 tablet 07/11/16 Oxycodone HCl/Acetaminophen 1 tab PO Q4H PRN #120 tablet 07/14/16 [Percocet 10-325 mg Tablet] FentaNYL PATCH [Duragesic] 75 mcg TD Q72H #10 patch.td72 08/11/16 Allergies Allergy/AdvReac Type Severity Reaction Status Date / Time morphine AdvReac Abdominal Verified 07/14/16 14:24 Pain All systems ED: reviewed and negative except as stated. Fever PMH - Past Medical History Medical history: Reports: asthma, cancer, other Surgical history: Reports: cholecystectomy, hysterectomy Psychiatric history: Reports: no psych history - Social History Smoking Status: Never smoker Alcohol use: Reports: none Drug use: Reports: none Physical Exam Vital Signs Reviewed General: Patient is alert, oriented, ill-appearing, and in no acute distress. HEENT: No facial asymmetry. Head is normocephalic and atraumatic. PERRLA. Trachea midline. Cardiovascular: Heart regular rate and rhythm without clicks, rubs, gallops, or murmurs. No JVD. PMI nondisplaced. No pedal edema. Bilateral radial pulses 2 /4. Respiratory: Symmetric chest rise with good respiratory effort. Bilateral breath sounds are clear without wheezing, crackles, or rhonchi. Abdomen: Bowel sounds present normoactive x-4 quadrants. Abdomen is soft, nondistended, and nontender. No organomegaly noted. Skin: Port placed in the right upper chest wall. Stranding skin is clean, nonerythematous, non-pustular, with clean bandage intact. Psych: Patient's affect is appropriate for situation. - General General appearance: alert Course Course Narrative: At intake, patient is certain positive with tachycardia, tachypnea, fever. Will begin sepsis workup looking for source. Clinical concern is that patient is immunosuppressed with high fever. She is urged positive but source currently unknown. Urinalysis is unremarkable. Chest x-ray shows bibasilar atelectasis but is otherwise unremarkable. CT abdomen and pelvis without contrast is unremarkable for acute process. Patient is not neutropenic and has no elevation lactate, negative troponin. She does have elevated ALPs and bilirubin. Provided his total 2 L IV fluids and empiric vancomycin and Zosyn. Fever subjectively improved after Tylenol. Nausea improved after Compazine. Discussed with the patient. Admitted to hospital service for continued evaluation and workup. She agrees. Spoke with the admitting hospitalist, Dr. Gallegos, who agrees to accept the patient. He has no additional questions or concerns at this time. Vital Signs Temperature 103.1 F H 08/15/16 23:37 Pulse Rate 133 08/15/16 23:37 Respiratory Rate 20 08/15/16 23:37 Blood Pressure 110/73 08/15/16 23:37 O2 Sat by Pulse Oximetry 92 08/15/16 23:37 Temperature 98.6 F 08/16/16 03:10 Pulse Rate 104 08/16/16 03:10 Respiratory Rate 14 08/16/16 05:27 Blood Pressure 95/56 08/16/16 05:27 O2 Sat by Pulse Oximetry 94 08/16/16 03:10 Oxygen Delivery Oxygen Delivery Nasal Cannula Fever - Medical Records Medical records reviewed: Yes I reviewed the patient's medical records. - Lab Data Lab results reviewed: Yes I reviewed the patient's lab results. Result diagrams: 08/16/16 00:19 08/16/16 00:19 Lab Results 08/16/16 08/16/16 08/16/16 Range/Units 00:19 00:19 00:19 WBC 4.2 L D (4.3-11.1) K/mcL RBC 4.46 (3.82-4.97) M/mcL Hgb 13.3 D (11.5-15.4) g/dL Hct 40.9 (35.3-44.9) % MCV 91.7 (83.0-100.0) fL MCH 29.8 (28.0-33.3) pg MCHC 32.5 (31.6-35.5) g/dL RDW 14.9 H (11.5-14.5) % Plt Count 195 (140-400) K/mcL MPV 8.8 L (9.4-12.4) fL Immature Gran % 0.9 (0-4) % Seg Neutrophils % 87.0 % Lymphocytes % 9.0 % Monocytes % 1.7 % Eosinophils % 0.9 % Basophils % 0.5 % Neutrophils # 3.7 (1.6-8.9) K/mcL Lymphocytes # 0.4 L (0.6-4.6) K/mcL Monocytes # 0.1 (0.0-1.3) K/mcL Eosinophils # 0.0 (0.0-0.6) K/mcL Basophils # 0.0 (0.0-0.2) K/mcL PT 13.0 H (9.4-12.1) Seconds INR 1.2 APTT 28.7 (26.0-36.0) Seconds ABG pH (7.32-7.45) pH Units ABG pCO2 (35-45) mmHg ABG pO2 (85-104) mmHg ABG HCO3 (21-27) mEQ/L ABG Total CO2 (20-26) mEq/L ABG O2 Saturation (95-98) % ABG Base Excess (-2.0 to 3.0) mEq/L Liter Flow L/MIN Blood Gas Modality Sodium 132 L (136-145) mEq/L Potassium 3.8 (3.5-4.5) mEq/L Chloride 98 (98-109) mEq/L Carbon Dioxide 22 (19-29) mEq/L BUN 16 (7-20) mg/dL Creatinine 0.69 (0.57-1.11) mg/dL Est GFR ( Amer) > 60 (> 60) Est GFR (Non-Af Amer) > 60 (> 60) BUN/Creatinine Ratio 23 (6-26) Glucose 99 (70-99) mg/dL Calculated Osmolality 275 L (280-300) Lactic Acid (0.5-2.2) mmol/L Calcium 7.7 L (8.6-10.8) mg/dL Phosphorus (2.3-4.7) mg/dL Magnesium (1.6-2.6) mg/dL Total Bilirubin (0.2-1.2) mg/dL Direct Bilirubin (0.0-0.5) mg/dL Indirect Bilirubin (0.0-1.2) mg/dL AST (5-34) Units/L ALT (0-55) Units/L Alkaline Phosphatase (38-126) Units/L Troponin I (0-0.03) ng/mL Serum Total Protein (6.0-8.3) g/dL Albumin (3.5-5.0) g/dL Globulin (2.4-3.5) g/dL Albumin/Globulin Ratio (1.1-2.2) Lipase (8-78) Units/L Urine Color (Yellow) Urine Clarity (Clear) Urine pH (5.0-8.0) pH Units Ur Specific [place] (1.010-1.025) Urine Protein (Neg-Trace) mg/dL Urine Glucose (UA) (Normal) mg/dL Urine Ketones (Negative) mg/dL Urine Blood (Negative) Urine Nitrite (Negative) Urine Bilirubin (Negative) Urine Urobilinogen (Normal) mg/dL Ur Leukocyte Esterase (Negative) Urine Microscopic RBC (0-3) per hpf Urine Microscopic WBC (0-3) per hpf Ur Squamous Epith Cells (None-Few) per lpf Urine Bacteria (None-Few) per hpf Hyaline Casts (None-Few) per lpf Ur Culture Indicated? (NO) 08/16/16 08/16/16 08/16/16 Range/Units 00:19 00:19 00:19 WBC (4.3-11.1) K/mcL RBC (3.82-4.97) M/mcL Hgb (11.5-15.4) g/dL Hct (35.3-44.9) % MCV (83.0-100.0) fL MCH (28.0-33.3) pg MCHC (31.6-35.5) g/dL RDW (11.5-14.5) % Plt Count (140-400) K/mcL MPV (9.4-12.4) fL Immature Gran % (0-4) % Seg Neutrophils % % Lymphocytes % % Monocytes % % Eosinophils % % Basophils % % Neutrophils # (1.6-8.9) K/mcL Lymphocytes # (0.6-4.6) K/mcL Monocytes # (0.0-1.3) K/mcL Eosinophils # (0.0-0.6) K/mcL Basophils # (0.0-0.2) K/mcL PT (9.4-12.1) Seconds INR APTT (26.0-36.0) Seconds ABG pH (7.32-7.45) pH Units ABG pCO2 (35-45) mmHg ABG pO2 (85-104) mmHg ABG HCO3 (21-27) mEQ/L ABG Total CO2 (20-26) mEq/L ABG O2 Saturation (95-98) % ABG Base Excess (-2.0 to 3.0) mEq/L Liter Flow L/MIN Blood Gas Modality Sodium (136-145) mEq/L Potassium (3.5-4.5) mEq/L Chloride (98-109) mEq/L Carbon Dioxide (19-29) mEq/L BUN (7-20) mg/dL Creatinine (0.57-1.11) mg/dL Est GFR ( Amer) (> 60) Est GFR (Non-Af Amer) (> 60) BUN/Creatinine Ratio (6-26) Glucose (70-99) mg/dL Calculated Osmolality (280-300) Lactic Acid 0.7 (0.5-2.2) mmol/L Calcium (8.6-10.8) mg/dL Phosphorus 2.5 (2.3-4.7) mg/dL Magnesium 1.6 (1.6-2.6) mg/dL Total Bilirubin 1.3 H (0.2-1.2) mg/dL Direct Bilirubin 0.5 (0.0-0.5) mg/dL Indirect Bilirubin 0.8 (0.0-1.2) mg/dL AST 42 H (5-34) Units/L ALT 39 (0-55) Units/L Alkaline Phosphatase 625 H (38-126) Units/L Troponin I 0.00 (0-0.03) ng/mL Serum Total Protein 6.7 (6.0-8.3) g/dL Albumin 2.9 L (3.5-5.0) g/dL Globulin 3.8 H (2.4-3.5) g/dL Albumin/Globulin Ratio 0.8 L (1.1-2.2) Lipase 7 L (8-78) Units/L Urine Color (Yellow) Urine Clarity (Clear) Urine pH (5.0-8.0) pH Units Ur Specific [place] (1.010-1.025) Urine Protein (Neg-Trace) mg/dL Urine Glucose (UA) (Normal) mg/dL Urine Ketones (Negative) mg/dL Urine Blood (Negative) Urine Nitrite (Negative) Urine Bilirubin (Negative) Urine Urobilinogen (Normal) mg/dL Ur Leukocyte Esterase (Negative) Urine Microscopic RBC (0-3) per hpf Urine Microscopic WBC (0-3) per hpf Ur Squamous Epith Cells (None-Few) per lpf Urine Bacteria (None-Few) per hpf Hyaline Casts (None-Few) per lpf Ur Culture Indicated? (NO) 08/16/16 08/16/16 08/16/16 Range/Units 01:50 02:35 03:00 WBC (4.3-11.1) K/mcL RBC (3.82-4.97) M/mcL Hgb (11.5-15.4) g/dL Hct (35.3-44.9) % MCV (83.0-100.0) fL MCH (28.0-33.3) pg MCHC (31.6-35.5) g/dL RDW (11.5-14.5) % Plt Count (140-400) K/mcL MPV (9.4-12.4) fL Immature Gran % (0-4) % Seg Neutrophils % % Lymphocytes % % Monocytes % % Eosinophils % % Basophils % % Neutrophils # (1.6-8.9) K/mcL Lymphocytes # (0.6-4.6) K/mcL Monocytes # (0.0-1.3) K/mcL Eosinophils # (0.0-0.6) K/mcL Basophils # (0.0-0.2) K/mcL PT (9.4-12.1) Seconds INR APTT (26.0-36.0) Seconds ABG pH 7.43 (7.32-7.45) pH Units ABG pCO2 37 (35-45) mmHg ABG pO2 109 H (85-104) mmHg ABG HCO3 24.6 (21-27) mEQ/L ABG Total CO2 25.7 (20-26) mEq/L ABG O2 Saturation 98 (95-98) % ABG Base Excess 0.4 (-2.0 to 3.0) mEq/L Liter Flow 2 L/MIN Blood Gas Modality NO DATA Sodium (136-145) mEq/L Potassium (3.5-4.5) mEq/L Chloride (98-109) mEq/L Carbon Dioxide (19-29) mEq/L BUN (7-20) mg/dL Creatinine (0.57-1.11) mg/dL Est GFR ( Amer) (> 60) Est GFR (Non-Af Amer) (> 60) BUN/Creatinine Ratio (6-26) Glucose (70-99) mg/dL Calculated Osmolality (280-300) Lactic Acid 0.6 (0.5-2.2) mmol/L Calcium (8.6-10.8) mg/dL Phosphorus (2.3-4.7) mg/dL Magnesium (1.6-2.6) mg/dL Total Bilirubin (0.2-1.2) mg/dL Direct Bilirubin (0.0-0.5) mg/dL Indirect Bilirubin (0.0-1.2) mg/dL AST (5-34) Units/L ALT (0-55) Units/L Alkaline Phosphatase (38-126) Units/L Troponin I (0-0.03) ng/mL Serum Total Protein (6.0-8.3) g/dL Albumin (3.5-5.0) g/dL Globulin (2.4-3.5) g/dL Albumin/Globulin Ratio (1.1-2.2) Lipase (8-78) Units/L Urine Color Yellow (Yellow) Urine Clarity Clear (Clear) Urine pH 6.5 (5.0-8.0) pH Units Ur Specific [place] 1.010 (1.010-1.025) Urine Protein Negative (Neg-Trace) mg/dL Urine Glucose (UA) Normal (Normal) mg/dL Urine Ketones Negative (Negative) mg/dL Urine Blood Small H (Negative) Urine Nitrite Negative (Negative) Urine Bilirubin Negative (Negative) Urine Urobilinogen Normal (Normal) mg/dL Ur Leukocyte Esterase Negative (Negative) Urine Microscopic RBC 0-3 (0-3) per hpf Urine Microscopic WBC 0-3 (0-3) per hpf Ur Squamous Epith Cells Moderate H (None-Few) per lpf Urine Bacteria None Seen (None-Few) per hpf Hyaline Casts None Seen (None-Few) per lpf Ur Culture Indicated? NO (NO) - Radiology Data Radiology results reviewed: Yes I reviewed the patient's radiology results. Chest X-Ray 08/15/16 23:55 IMPRESSION: Minimal bibasilar atelectasis D/ / Miguel Moran MD / Miguel Moran MD Interpreting Provider: Miguel Moran MD Chest X-Ray 08/15/16 23:55 IMPRESSION: Minimal bibasilar atelectasis D/ / Miguel Moran MD / iMguel Moran MD Interpreting Provider: Miguel Moran MD Abdomen/Pelvis CT 08/16/16 03:20 IMPRESSION: No acute intra-abdominal or pelvic process. Large amount of retained large bowel stool without bowel obstruction. Progression of osseous and hepatic metastasis without pathologic fracture. Similar hepatic metastasis and similar to slightly improved metastasis in lung bases. D/ / Katya Armstrong MD / Katya Armstrong MD Interpreting Provider: Katya Armstrong MD - EKG Data EKG attestation: Yes I reviewed and interpreted this EKG. EKG results narrative: EKG dated 08/16/16 at 01:01 interpreted as sinus tachycardia with rate of 108. Expected intervals GA 116, QRS 100, QT/QTC 339/43. Normal axis. Nonspecific ST -T wave changes. T-wave inversions present diffuse in precordial leads. Compared to previous EKG dated 05/10/2016 also showing T-wave inversions; no acute ischemic changes comparison. Attestation Statement - Attestation Attestation: I, Mickey Mendez, examined this patient and my medical decision-making was reviewed with the BLUEPRINTER/PA/Advanced Practice Nurse/Resident Physician. I agree with the documented findings, disposition and treatment plan as described except to the extent set forth below. 56-year-old female presents with concerns of fever. 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 Patient states she is on a 36 hour infusion of a chemotherapy. She states she has had this chemotherapy agent in the past. She became concerned when she had a fever of 103 at home. Patient denies cough, nausea, vomiting, diarrhea. Denies recent rash or other injury. No sick contacts. Has never been neutropenic. On physical examination the patient has lungs that are clear to auscultation bilaterally. She is tachycardic but is normotensive. Patient met SIRS criteria and she was started on vancomycin and Zosyn as empiric therapy while we investigated for source of her fever. Chest x-ray did not show acute infiltrate. Her analysis did not show evidence of urinary tract infection. Patient had tenderness to palpation of her diffuse abdomen which she says is fairly chronic for her however due to her fever we obtained a CT of the abdomen and pelvis did not show evidence of colitis or diverticulitis. Patient feels significantly improved after administration of IV fluids in the emergency department. Patient received first dose of antibiotics in emergency department. She felt comfortable to be admitted to the hospital for further care and evaluation.
[2016-08-16] MEDS ORDERED: Acetaminophen 325 MG TABLET PO ONE (00:13)
[2016-08-16 00:30] LABS: Basophils % 0.5 %; Eosinophils % 0.9 %; Hematocrit 40.9 % (35.3-44.9); Hemoglobin 13.3 g/dL (11.5-15.4); Immature Granulocytes % 0.9 % (0-4); Lymphocytes # 0.4 K/mcL (0.6-4.6); Mean Corpuscular HGB Conc 32.5 g/dL (31.6-35.5); Mean Corpuscular Hemoglobin 29.8 pg (28.0-33.3); Mean Corpuscular Volume 91.7 fL (83.0-100.0); Mean Platelet Volume 8.8 fL (9.4-12.4); Monocytes # 0.1 K/mcL (0.0-1.3); Monocytes % 1.7 %; Neutrophils # 3.7 K/mcL (1.6-8.9); Platelet Count 195 K/mcL (140-400); Red Blood Count 4.46 M/mcL (3.82-4.97); Red Cell Distribution Width 14.9 % (11.5-14.5)
[2016-08-16 00:36] LABS: INR 1.2
[2016-08-16] MEDS: 0.9 % Sodium Chloride 1,000 ML IVC SCH ×4 (00:37→22:00)
[2016-08-16 00:38] LABS: Activated Partial Thrombo Time 28.7 Seconds (26.0-36.0)
[2016-08-16 00:43] LABS: Albumin 2.9 g/dL (3.5-5.0); Albumin/Globulin Ratio 0.8 (1.1-2.2); BUN/Creatinine Ratio 23 (6-26); Bilirubin,Direct 0.5 mg/dL (0.0-0.5); Bilirubin,Indirect 0.8 mg/dL (0.0-1.2); Bilirubin,Total 1.3 mg/dL (0.2-1.2); Blood Urea Nitrogen 16 mg/dL (7-20); Calcium 7.7 mg/dL (8.6-10.8); Carbon Dioxide 22 mEq/L (19-29); Chloride 98 mEq/L (98-109); Globulin 3.8 g/dL (2.4-3.5); Glucose 99 mg/dL (70-99); Magnesium 1.6 mg/dL (1.6-2.6); Osmolality,Calculated 275 (280-300); Phosphorous 2.5 mg/dL (2.3-4.7); Potassium 3.8 mEq/L (3.5-4.5); Sodium 132 mEq/L (136-145); Total Protein 6.7 g/dL (6.0-8.3); eGFR For African Americans > 60 (> 60); eGFR For Non-African Americans > 60 (> 60)
[2016-08-16 01:59] LABS: ABG Base Excess 0.4 mEq/L (-2.0 to 3.0); ABG HCO3 24.6 mEQ/L (21-27); ABG Oxygen Saturation 98 % (95-98); ABG PCO2 37 mmHg (35-45); ABG PH 7.43 pH Units (7.32-7.45); ABG PO2 109 mmHg (85-104); ABG TCO2 25.7 mEq/L (20-26)
[2016-08-16 02:00] LABS: Blood Gas Liter Flow 2 L/MIN
[2016-08-16] MEDS ORDERED: *HR* HYDROmorphone (PF) 1 MG/ML SYRINGE IVP ONE (03:21)
[2016-08-16 03:25] LABS: Bilirubin,Urine Negative (Negative); Blood,Urine Small (Negative); Clarity,Urine Clear (Clear); Color,Urine Yellow (Yellow); Glucose,Urine (UA) Normal (Normal); Ketones,Urine Negative (Negative); Leukocyte Esterase,Urine Negative (Negative); Nitrite,Urine Negative (Negative); PH,Urine 6.5 pH Units (5.0-8.0); Protein,Urine Negative (Neg-Trace); Urobilinogen,Urine Normal (Normal)
[2016-08-16 03:27] LABS: Bacteria,Urine None Seen per hpf (None-Few); Hyaline Casts,Urine None Seen per lpf (None-Few); RBC,Urine 0-3 per hpf (0-3); Squamous Epithelial Cell,Urine Moderate per lpf (None-Few); WBC,Urine 0-3 per hpf (0-3)
[2016-08-16] MEDS ORDERED: *HR* HYDROmorphone (PF) 1 MG/ML SYRINGE IVP PRN (08:18)
[2016-08-16] MEDS ORDERED: Naloxone 0.4 MG/ML INJ IVP PRN (08:18)
[2016-08-16] MEDS ORDERED: Acetaminophen 325 MG TABLET PO PRN ×2 (08:18→11:05)
[2016-08-16] MEDS ORDERED: *HR* OxyCODONE/APAP 10/325 TABLET PO PRN (08:21)
[2016-08-16] MEDS ORDERED: ALPRAZolam 0.25 MG TABLET PO PRN (08:21)
[2016-08-16] MEDS ORDERED: Vancomycin 1,000 MG in D5% in Water 250 ML IVPB SCH (09:00)
--- NOTE | 2016-08-16 09:06 | Internal Med History&Physical ---
Date of Encounter: 08/16/16 Time of Encounter: 09:06 Assessment and Plan (1) Sepsis Current visit: Yes Status: Acute 56 F on chemotherapy who presented with a self measured fever at home of 102 Febrile here on admission with T 103, tachycardic with HR 133, Leukopenia, WBC 4.2, WBC on 07/22 was 10 Patient is on chemotherapy via a R side port Absolute neutrophil count 3,700, no neutropenia CXR with atelectasis, UA unremarkable Abd/Pelvis CT with no evidence of infection-stable liver and bone mets Meets sepsis criteria with fever, tachycardia, leukopenia and suspected source - bacteremia Source of sepsis is likely bacteremia from her port lactate is normal LFTs mild bilirubinemia PLT count WNL Chem WNL, no SUMMER Received Vanco in ER 2 sets blood cultures have been sent Continue Vanco and Zosyn, pharmacy to dose Vanco and monitor trough Continue IVF hydration Follow blood cultures High risk patient due to risk of progression to severe sepsis and shock She is also on Vancomycin which is a high risk medication Patient and her spouse at the bedside educated about diagnosis, management and possible outcomes Qualifiers: Sepsis type: sepsis due to unspecified organism Qualified Code(s): A41.9 - Sepsis, unspecified organism (2) Colon cancer metastasized to liver Current visit: Yes Status: Chronic On chemotherapy Mets to bone and liver Oncology consulted as patient is currently undergoing an infusion that needs to be stopped at 2p.m Internal Medicine - H&P: HPI Chief complaint: Fever Admitted From: Home Plans for Post Hospital Care: Home History of present illness: Ms. Chino is a 56 year old female with Metastatic Colon CA on chemotherapy via a R sided chest wall port Who is currently receiving chemo -for 48 hrs, due to be finished at 1400 today Presented to the ER with fatigue and malaise, and a fever, with reading of 102 at home She denies chest pain, cough, phlegm production, difficulty breathing, skin rash , any wounds or lesions on any part of her body, the skin surrounding her port is not tender, or red. She denies changes in urinary habits, no frequency, no changes in urine color and no dysuria She is chronically constipated from pain meds but no diarrhea and no change in her bowel habits, no abdominal pain. She has nausea from chemo. No neck stiffness, no confusion, no focal weakness, no neurological symptoms She denies any other symptoms at time of review Past Med Surg Social Fam HX - Past Medical History Medical history: asthma, cancer, other Psychiatric history: no psych history - Past Surgical History Surgical History: cholecystectomy, hysterectomy - Social History Smoking Status: Never smoker Smokeless Tobacco Status: No Alcohol use: none Drug use: none Internal Medicine - H&P: Meds Fluticasone/Salmeterol [Advair 250-50 Diskus] 1 puff IH BID 02/04/16 [History] Omeprazole [PriLOSEC] 20 mg PO DAILY PRN 02/04/16 [History] Sennosides/Docusate Sodium [Senna Plus] 1 tab PO Q3-4D PRN 03/21/16 [History] Dexamethasone [Decadron] 2 mg PO DAILY 06/06/16 [History] ALPRAZolam [Xanax 0.25 MG Tablet] 0.25 mg PO BID PRN 07/03/16 [History] Metoclopramide [Reglan] 10 mg PO Q6HR #120 tablet 07/11/16 [Rx] Oxycodone HCl/Acetaminophen [Percocet 10-325 mg Tablet] 1 tab PO Q4H PRN #120 tablet 07/14/16 [Rx] FentaNYL PATCH [Duragesic] 75 mcg TD Q72H #10 patch.td72 08/11/16 [Rx] Allergies morphine Adverse Reaction (Verified 07/14/16 14:24) Abdominal Pain and nausea All Systems PM: A 10-system review of systems was performed and is negative for pertinent findings except as documented above in the HPI. - Constitutional Constitutional: as per HPI - EENT Eyes: as per HPI Ears: as per HPI Nose, mouth and throat: as per HPI - Cardiovascular Cardiovascular ROS IM: as per HPI - Respiratory Respiratory: as per HPI - Gastrointestinal Gastrointestinal: as per HPI - Genitourinary Genitourinary: as per HPI - Musculoskeletal Musculoskeletal ROS IM: as per HPI - Integumentary Integumentary IM: as per HPI - Neurological Neurological ROS: as per HPI - Hematologic/Lymphatic Hematologic/Lymphatic: as per HPI - Constitutional Vitals: Temp Pulse Resp BP Pulse Ox 98.3 F 93 19 95/68 96 08/16/16 06:33 08/16/16 06:33 08/16/16 06:33 08/16/16 06:33 08/16/16 06:33 Exam: Vital Signs Reviewed, Stable, afebrile at time of review but still tachycardic General: Patient is alert, oriented, chronically ill-appearing, and in no acute distress. HEENT: No facial asymmetry. Head is normocephalic and atraumatic. PERRLA. Trachea midline. Cardiovascular: Heart regular rate and rhythm without clicks, rubs, gallops, or murmurs. No JVD. PMI nondisplaced. No pedal edema. Bilateral radial pulses 2 /4. Respiratory: Symmetric chest rise with good respiratory effort. Bilateral breath sounds are clear without wheezing, crackles, or rhonchi. Abdomen: Bowel sounds present normoactive x-4 quadrants. Abdomen is soft, nondistended, and nontender. No organomegaly noted. Skin: Port placed in the right upper chest wall. Clean transparent dressing, surrounding skin is clean, nonerythematous, non-pustular, with clean bandage intact. Psych: Patient's affect is appropriate for situation. Internal Med - H&P Results - Labs CBC & Chem 7: 08/16/16 00:19 08/16/16 00:19
[2016-08-16] MEDS: Piperacillin/Tazobactam 3.375 GM in D5% in Water (Mini-Bag+) 100 ML IVPB SCH ×2 (09:11→17:31)
[2016-08-16] MEDS: *HR* FentaNYL PATCH 75 MCG PATCH TD SCH (09:14)
[2016-08-16] MEDS ORDERED: Sennosides 8.6 MG TABLET PO SCH (09:15)
[2016-08-16] MEDS: Budesonide/Formoterol 80/4.5 MDI IH SCH ×4 (10:28→20:15)
[2016-08-16] MEDS: *HR* Enoxaparin 40 MG/0.4 ML SYRINGE SQ SCH (10:48)
--- NOTE | 2016-08-16 16:29 | Oncology Inp Consult Note ---
<Guido Garces Jr - Last Filed: 08/16/16 17:08> Date of Encounter: 08/16/16 Time of Encounter: 16:26 Assessment and Plan (1) Malignant neoplasm metastatic to colon Status: Chronic Assessment and plan: This is a 56 year old female with Stage IV metastatic colon cancer on palliative chemotherapy at [facility] under Dr. Deepthi Tovar. CT chest w/contrast on 06/28/16 there has been progression of pulmonary, hepatic , skeletal, and mesenteric metastatic disease Switched chemotherapy from FOLFOX to FOLFIRI with avastin, the current regimen. She is currently receiving Irinotecan to 150 mg/m day 1-2 weeks. 5-FU bolus 200 mg/m day one with leucovorin 200 mg/m also home 5-FU home infusion standard dosing 2400 milligrams per meter square or 46 hours Difficulty walking with metastatic disease in iliac crests and femurs. MRI scan of hips showed metastatic lesions that could cause pathologic fractures. She recently received palliative radiation to hips on 07/21/[address] Valerie Gomez at [facility]. Treatment summary: 1. FOLFOX on 05/04/16, she was subsequently hospitalized with bowel obstruction, and she did not want this chemotherapy regimen. 2.Treatment changed to FOLFIRI with avastin: Cycle one on 07/11/2016 and tolerated it fairly well, she had severe fatigue and some weakness Cycle 2 scheduled for 07/31/26, but she cancelled due to son's wedding shower/ wedding planning Cycle 2 given on 08/14/16 [facility] starting MSI testing on 08/01/16 for possible use of nivolumab immunotherapy. Results returned today, oncology team reviewing results. Patient developed fever of 103 at home last night, and came to ER. She was admitted to unit 3A. Home 5-FU, 46 hour chemo home infusion stopped at 2pm today on the unit. She has no dysuria, cough, skin infections, or pain or tenderness at port site. So far, no obvious source as cultures are pending. Continue broad spectrum antibiotics and supportive care until cultures return. No neutropenia. We will follow along and discuss immunotherapy options with her after reviewed. Dr Tovar will assess patient as well. (2) Liver metastases Status: Chronic (3) Bone metastases Status: Acute (4) Lung nodules Status: Chronic - Data of Consult Patient: known to practice within the last 3 years Consult date: 08/16/16 Requesting Physician: Le Aaron MD Primary Care Provider: Lambert Gandhi MD - Consult Narrative Reason for consult: febrile illness on chemo, metastatic colon cancer History of present illness: Ms. Chino is a 56 year old female with a diagnosis of metastatic colon cancer to the liver, bones, and lung nodules. Metastatic adenocarcinoma colorectal origin CT-guided liver biopsy on 03/30/2016 CK 7 rare positive CK 20 strongly positive TTF-1 and Napsin and GATAe 3 negative Oncological history Right upper quadrant abdominal pain which to the left side. He had a EGD by Dr. Rosales on 02/04/2016 showed erythema friability granularity in the gastric antrum. She was evaluated by Dr. Hernandez pulmonology at [facility]. CT abdomen with oral and IV contrast on 03/13/2016 and this showed thickening of short segment of duodenum and proximal jejunum with stool in the colon. Also cystic lesions in the liver some of them have increased in size Right lobe 2.1 x 2.5 cm increased from 1.4 x 1.7 cm Also interval development of new liver lesions outside 1.7 cm on the left side 2.2 x 2.5 cm Increased density in the T9. Also increased density T10 and L2 This was followed by CT chest abdomen and pelvis with oral and IV contrast on Demonstrated the liver lesions. Largest about 2.5 cm Also persistent abnormal thickening short loop of proximal small bowel. Probable metastatic focus L2 vertebral body. Also probable metastasis T9-10. Anterolisthesis L5-S1 CT chest with contrast 03/17/2016 showed innumerable subcentimeter bilateral pulmonary nodules. She was evaluated by Dr. Quan Cm at [facility] and Dr. Andrea Reeves at [facility] who recommended FOLFOX Tumor markers on 03/21/2016 CEA low at 4.4 CA [id number] CEA 125 19 Alpha-fetoprotein [address] Rosales negative She has not had a colonoscopy Radiation Treatments SBRT 16 velez to T8-T10 for symptomatic metastasis on 04/26/2016 L2 metastasis SBRT 14 Velez on 04/27/2016 Palliative chemotherapy 1.As recommended by Dr. Andrea Reeves at [facility] start FOLFOX modified. Oxaliplatin 85 mg/m day 1, 5-FU bolus 200 mg/m with leucovorin. Also Avastin 5 mg per KG day 1 5-FU home infusion 2400 mg/m over 46 hours Cycle one on 05/04/2016. She is subsequently hospitalized with gastric outlet obstruction likely from a mass compressing the duodenum improved after palliative jejunostomy 2. She is not interested in getting the same chemotherapy. Changed to IV irinotecan to 150 mg/m day 1-2 weeks. 5-FU bolus 200 mg/m day one with leucovorin 200 mg/m. Also home 5-FU infusion standard dosing 2400 milligrams per meter square or 46 hours Treatment summary: Cycle one on 07/11/2016 and tolerated it fairly well, she had severe fatigue and some weakness Cycle 2 scheduled for 07/31/26, but she cancelled due to son's wedding shower/ wedding planning Cycle 2 given on 08/14/16 [facility] starting MSI testing on 08/01/16, for possible use of nivolumab. Results returned 08/16/16 and are pending review by oncology team. Admitted to [facility] 08/16/16 for febrile illness, suspected port infection. Past Med Surg Social Fam HX - Past Medical History Medical history: asthma, cancer, other Psychiatric history: no psych history - Past Surgical History Surgical History: cholecystectomy, hysterectomy - Social History Smoking Status: Never smoker Smokeless Tobacco Status: No Alcohol use: none Drug use: none Medications and Allergies Fluticasone/Salmeterol [Advair 250-50 Diskus] 1 puff IH BID 02/04/16 [History] Omeprazole [PriLOSEC] 20 mg PO DAILY PRN 02/04/16 [History] Sennosides/Docusate Sodium [Senna Plus] 1 tab PO Q3-4D PRN 03/21/16 [History] Dexamethasone [Decadron] 2 mg PO DAILY 06/06/16 [History] ALPRAZolam [Xanax 0.25 MG Tablet] 0.25 mg PO BID PRN 07/03/16 [History] Metoclopramide [Reglan] 10 mg PO Q6HR #120 tablet 07/11/16 [Rx] Oxycodone HCl/Acetaminophen [Percocet 10-325 mg Tablet] 1 tab PO Q4H PRN #120 tablet 07/14/16 [Rx] FentaNYL PATCH [Duragesic] 75 mcg TD Q72H #10 patch.td72 08/11/16 [Rx] Allergies morphine Adverse Reaction (Verified 07/14/16 14:24) Abdominal Pain and nausea Constitutional: Present: fatigue, fever(s) Oncology - Exam - Constitutional Vitals: Temp Pulse Resp BP Pulse Ox 100.1 F H 100 20 111/74 95 08/16/16 11:43 08/16/16 11:43 08/16/16 11:43 08/16/16 11:43 08/16/16 11:43 General appearance: febrile, cooperative, no acute distress - Head Head exam: Present: atraumatic, normal inspection - Eye Eye exam: Present: normal appearance, PERRL - ENT ENT exam: Present: mucous membranes moist, normal exam - Neck Neck exam: Present: full ROM, normal inspection - Respiratory Respiratory exam: Present: CTAB - Cardiovascular Cardiovascular exam: Present: RRR, +S1, +S2 - GI/Abdominal GI/Abdominal exam: Present: normal bowel sounds, soft - Extremities Exam Extremities exam: Present: full ROM, normal inspection - Neurological Exam Neurological exam: Present: alert, oriented X3, no focal deficits - Psychiatric Psychiatric exam: Present: normal affect, normal mood - Skin Skin exam: Present: dry, intact, warm Oncology - Results - Labs Labs: Laboratory Last Values WBC 4.2 K/mcL (4.3-11.1) L D 08/16/16 00:19 RBC 4.46 M/mcL (3.82-4.97) 08/16/16 00:19 Hgb 13.3 g/dL (11.5-15.4) D 08/16/16 00:19 Hct 40.9 % (35.3-44.9) 08/16/16 00:19 MCV 91.7 fL (83.0-100.0) 08/16/16 00:19 MCH 29.8 pg (28.0-33.3) 08/16/16 00:19 MCHC 32.5 g/dL (31.6-35.5) 08/16/16 00:19 RDW 14.9 % (11.5-14.5) H 08/16/16 00:19 Plt Count 195 K/mcL (140-400) 08/16/16 00:19 MPV 8.8 fL (9.4-12.4) L 08/16/16 00:19 Immature Gran % 0.9 % (0-4) 08/16/16 00:19 Seg Neutrophils % 87.0 % 08/16/16 00:19 Lymphocytes % 9.0 % 08/16/16 00:19 Monocytes % 1.7 % 08/16/16 00:19 Eosinophils % 0.9 % 08/16/16 00:19 Basophils % 0.5 % 08/16/16 00:19 Neutrophils # 3.7 K/mcL (1.6-8.9) 08/16/16 00:19 Lymphocytes # 0.4 K/mcL (0.6-4.6) L 08/16/16 00:19 Monocytes # 0.1 K/mcL (0.0-1.3) 08/16/16 00:19 Eosinophils # 0.0 K/mcL (0.0-0.6) 08/16/16 00:19 Basophils # 0.0 K/mcL (0.0-0.2) 08/16/16 00:19 PT 13.0 Seconds (9.4-12.1) H 08/16/16 00:19 INR 1.2 08/16/16 00:19 APTT 28.7 Seconds (26.0-36.0) 08/16/16 00:19 ABG pH 7.43 pH Units (7.32-7.45) 08/16/16 01:50 ABG pCO2 37 mmHg (35-45) 08/16/16 01:50 ABG pO2 109 mmHg (85-104) H 08/16/16 01:50 ABG HCO3 24.6 mEQ/L (21-27) 08/16/16 01:50 ABG Total CO2 25.7 mEq/L (20-26) 08/16/16 01:50 ABG O2 Saturation 98 % (95-98) 08/16/16 01:50 ABG Base Excess 0.4 mEq/L (-2.0 to 3.0) 08/16/16 01:50 Liter Flow 2 L/MIN 08/16/16 01:50 Blood Gas Modality NO DATA 08/16/16 01:50 Sodium 132 mEq/L (136-145) L 08/16/16 00:19 Potassium 3.8 mEq/L (3.5-4.5) 08/16/16 00:19 Chloride 98 mEq/L (98-109) 08/16/16 00:19 Carbon Dioxide 22 mEq/L (19-29) 08/16/16 00:19 BUN 16 mg/dL (7-20) 08/16/16 00:19 Creatinine 0.69 mg/dL (0.57-1.11) 08/16/16 00:19 Est GFR ( Amer) > 60 (> 60) 08/16/16 00:19 Est GFR (Non-Af Amer) > 60 (> 60) 08/16/16 00:19 BUN/Creatinine Ratio 23 (6-26) 08/16/16 00:19 Glucose 99 mg/dL (70-99) 08/16/16 00:19 Calculated Osmolality 275 (280-300) L 08/16/16 00:19 Lactic Acid 0.6 mmol/L (0.5-2.2) 08/16/16 02:35 Calcium 7.7 mg/dL (8.6-10.8) L 08/16/16 00:19 Phosphorus 2.5 mg/dL (2.3-4.7) 08/16/16 00:19 Magnesium 1.6 mg/dL (1.6-2.6) 08/16/16 00:19 Total Bilirubin 1.3 mg/dL (0.2-1.2) H 08/16/16 00:19 Direct Bilirubin 0.5 mg/dL (0.0-0.5) 08/16/16 00:19 Indirect Bilirubin 0.8 mg/dL (0.0-1.2) 08/16/16 00:19 AST 42 Units/L (5-34) H 08/16/16 00:19 ALT 39 Units/L (0-55) 08/16/16 00:19 Alkaline Phosphatase 625 Units/L (38-126) H 08/16/16 00:19 Troponin I 0.00 ng/mL (0-0.03) 08/16/16 00:19 Serum Total Protein 6.7 g/dL (6.0-8.3) 08/16/16 00:19 Albumin 2.9 g/dL (3.5-5.0) L 08/16/16 00:19 Globulin 3.8 g/dL (2.4-3.5) H 08/16/16 00:19 Albumin/Globulin Ratio 0.8 (1.1-2.2) L 08/16/16 00:19 Lipase 7 Units/L (8-78) L 08/16/16 00:19 Urine Color Yellow (Yellow) 08/16/16 03:00 Urine Clarity Clear (Clear) 08/16/16 03:00 Urine pH 6.5 pH Units (5.0-8.0) 08/16/16 03:00 Ur Specific [place] 1.010 (1.010-1.025) 08/16/16 03:00 Urine Protein Negative mg/dL (Neg-Trace) 08/16/16 03:00 Urine Glucose (UA) Normal mg/dL (Normal) 08/16/16 03:00 Urine Ketones Negative mg/dL (Negative) 08/16/16 03:00 Urine Blood Small (Negative) H 08/16/16 03:00 Urine Nitrite Negative (Negative) 08/16/16 03:00 Urine Bilirubin Negative (Negative) 08/16/16 03:00 Urine Urobilinogen Normal mg/dL (Normal) 08/16/16 03:00 Ur Leukocyte Esterase Negative (Negative) 08/16/16 03:00 Urine Microscopic RBC 0-3 per hpf (0-3) 08/16/16 03:00 Urine Microscopic WBC 0-3 per hpf (0-3) 08/16/16 03:00 Ur Squamous Epith Cells Moderate per lpf (None-Few) H 08/16/16 03:00 Urine Bacteria None Seen per hpf (None-Few) 08/16/16 03:00 Hyaline Casts None Seen per lpf (None-Few) 08/16/16 03:00 Ur Culture Indicated? NO (NO) 08/16/16 03:00 Consult Discharge Plan - Plan Referrals: Lambert Gandhi MD [Primary Care Provider] - <Deepthi Tovar - Last Filed: 08/16/16 20:07> Date of Encounter: 08/16/16 - Data of Consult Requesting Physician: Le Aaron MD Primary Care Provider: Lambert Gandhi MD - Consult Narrative History of present illness: Ms. Chino is a 56 year old female Oncology - Exam - Constitutional Vitals: Temp Pulse Resp BP Pulse Ox 100.1 F H 81 16 109/76 96 08/16/16 11:43 08/16/16 16:26 08/16/16 16:26 08/16/16 16:26 08/16/16 19:31 - Attending Attestation Non-neutropenic fever. Source of sepsis not clear. Currently on IV Zosyn and vancomycin. Vital signs are stable now with blood pressure 109/76. Pressure on 101 2. Metastatic adenocarcinoma likely GI in origin CT scan 08/15/2016 abdomen and pelvis with contrast showed progression of liver metastasis compared to 06/28/2016. Largest 2.5 cm increased from 2.3 cm. Another one in the caudate lobe increased to 13 mm from 8 mm. Also a new bony metastasis or spine She has tough time with chemotherapy given with multiple dose reductions. May be a candidate for immune checkpoint inhibitors. MSI testing pending
[2016-08-16] MEDS: Vancomycin 1,000 MG in D5% in Water 250 ML IVPB SCH (17:30)
[2016-08-16] MEDS: *HR* OxyCODONE/APAP 10/325 TABLET PO PRN (22:43)
[2016-08-16] MEDS: ALPRAZolam 0.25 MG TABLET PO PRN (22:43)
[2016-08-17] MEDS: Piperacillin/Tazobactam 3.375 GM in D5% in Water (Mini-Bag+) 100 ML IVPB SCH ×3 (01:29→15:27)
[2016-08-17] MEDS: Vancomycin 1,000 MG in D5% in Water 250 ML IVPB SCH ×2 (04:48→15:30)
[2016-08-17] MEDS: *HR* Enoxaparin 40 MG/0.4 ML SYRINGE SQ SCH (04:48)
[2016-08-17 05:43] LABS: Eosinophils % 1.4 %; Hematocrit 33.4 % (35.3-44.9); Immature Granulocytes % 1.4 % (0-4); Lymphocytes # 0.3 K/mcL (0.6-4.6); Lymphocytes % 8.7 %; Mean Corpuscular HGB Conc 31.1 g/dL (31.6-35.5); Mean Corpuscular Hemoglobin 29.5 pg (28.0-33.3); Mean Corpuscular Volume 94.6 fL (83.0-100.0); Mean Platelet Volume 9.2 fL (9.4-12.4); Monocytes % 1.4 %; Neutrophils # 2.5 K/mcL (1.6-8.9); Platelet Count 140 K/mcL (140-400); Red Blood Count 3.53 M/mcL (3.82-4.97); Red Cell Distribution Width 14.6 % (11.5-14.5); Segmented Neutrophils % 87.1 %
[2016-08-17 05:45] LABS: Hemoglobin 10.4 g/dL (11.5-15.4)
[2016-08-17 05:54] LABS: BUN/Creatinine Ratio 15 (6-26); Blood Urea Nitrogen 9 mg/dL (7-20); Calcium 6.8 mg/dL (8.6-10.8); Carbon Dioxide 22 mEq/L (19-29); Chloride 110 mEq/L (98-109); Glucose 115 mg/dL (70-99); Osmolality,Calculated 288 (280-300); Potassium 3.6 mEq/L (3.5-4.5); eGFR For African Americans > 60 (> 60); eGFR For Non-African Americans > 60 (> 60)
[2016-08-17 05:55] LABS: Sodium 139 mEq/L (136-145)
[2016-08-17 06:04] LABS: Platelet Estimate Normal (Normal)
[2016-08-17] MEDS: Budesonide/Formoterol 80/4.5 MDI IH SCH ×2 (07:51→20:14)
[2016-08-17] MEDS: Sennosides/Docusate Sodium TABLET PO SCH ×2 (08:55→21:45)
[2016-08-17] MEDS: *HR* OxyCODONE/APAP 10/325 TABLET PO PRN ×3 (08:55→21:45)
[2016-08-17] MEDS ORDERED: Sennosides/Docusate Sodium TABLET PO SCH (09:00)
[2016-08-17] MEDS: 0.9 % Sodium Chloride 1,000 ML IVC SCH ×2 (09:07→21:46)
[2016-08-17] MEDS ORDERED: Bisacodyl 10 MG RECTAL SUPPOSITORY RC PRN (11:00)
--- NOTE | 2016-08-17 11:18 | Electrocardiograph Report ---
[address] [place], [place] [address] Test Date: 2016-08-16 Pat Name: Sonya Chino Department: 103 Room: 2A38 Gender: Transformation Specialist: [facility] : 1960 Requested By: Le Aaron Order Number: [id number] Reading MD: Cody Vizcaino MD Measurements Intervals [place] Rate: 108 P: 14 CA: 116 QRS: -17 QRSD: 100 T: -10 QT: 339 QTc: 403 Interpretive Statements SINUS TACHYCARDIA WITH SHORT CA INTERVAL MINIMAL VOLTAGE CRITERIA FOR LVH ANTERIOR ISCHEMIA Electronically Signed On 08-17-2016 11:16:35 EDT by Cody Vizcaino MD
[2016-08-17] MEDS ORDERED: *HR* OxyCODONE Immed Rel 15 MG TABLET PO PRN (12:19)
[2016-08-17] MEDS ORDERED: Acetaminophen 325 MG TABLET PO PRN (12:20)
--- NOTE | 2016-08-17 18:33 | Internal Med Progress Note ---
Date of Encounter: 08/17/16 Time of Encounter: 09:30 - Assessment and plan (1) Sepsis Current Visit: Yes Status: Acute Assessment and plan: Overall doing better at this time. Cultures negative thus far. Qualifiers: Sepsis type: sepsis due to unspecified organism Qualified Code(s): A41.9 - Sepsis, unspecified organism (2) Febrile illness, acute Current Visit: Yes Status: Acute Assessment and plan: Currently all cultures are negative. On IV abx. Will ask for ID input tomorrow to plan any further treatment/work up. (3) Constipation due to pain medication Current Visit: No Status: Acute Assessment and plan: Medications adjusted for bowels. (4) Colon cancer Current Visit: No Status: Chronic Qualifiers: Colon location: unspecified part of colon Qualified Code(s): C18.9 - Malignant neoplasm of colon, unspecified (5) Liver metastases Current Visit: No Status: Chronic (6) Cancer related pain Current Visit: No Status: Chronic Assessment and plan: Appears to be controlled at this time. (7) Bone metastases Current Visit: Yes Status: Chronic - Subjective Interval history: Ms Chino is currently admitted for acute febrile illness while on chemotherapy for metastatic colon cancer. She is moderate to high risk due to potential for worsening infectious status. Ms. Chino is beginning to feel better. No CP or SOB. No cough. No fever today. Currently on IV abx. Chemo stopped. Cultures negative thus far. No diarrhea. - Constitutional Vitals: Temp Pulse Resp BP Pulse Ox 97.8 F 68 16 110/73 97 08/17/16 16:29 08/17/16 16:29 08/17/16 16:29 08/17/16 16:29 08/17/16 16:29 General appearance: Present: A&O X 3, answers questions appropriately - Head Head exam: Present: normocephalic - Eye Eye exam: Present: EOMI, conjuntiva pink - ENT ENT exam: Present: mucous membranes moist - Respiratory Respiratory exam: Present: CTAB. Absent: rales, rhonchi, wheezes - Cardiovascular Cardiovascular exam: Present: RRR. Absent: tachycardia - GI/Abdominal GI/Abdominal exam: Present: soft. Absent: tenderness - Extremities Exam Extremities exam: Present: warm. Absent: tenderness - Neurological Exam Neurological exam: Present: alert, oriented X3, no focal deficits - Skin Skin exam: Present: dry, warm. Absent: excoriation, rash Internal Medicine: Result - Labs CBC & Chem 7: 08/17/16 05:11 08/17/16 05:11 Labs: Short CBC 08/17/16 Range/Units 05:11 WBC 2.9 L (4.3-11.1) K/mcL Hgb 10.4 L D (11.5-15.4) g/dL Hct 33.4 L (35.3-44.9) % Plt Count 140 (140-400) K/mcL Neutrophils # 2.5 (1.6-8.9) K/mcL BMP 08/17/16 05:11 Sodium 139 D Potassium 3.6 Chloride 110 H Carbon Dioxide 22 BUN 9 Creatinine 0.60 Glucose 115 H Calcium 6.8 L - ABG Interpretation ABG results: ABG ABG pH 7.43 pH Units (7.32-7.45) 08/16/16 01:50 ABG pCO2 37 mmHg (35-45) 08/16/16 01:50 ABG pO2 109 mmHg (85-104) H 08/16/16 01:50 ABG O2 Saturation 98 % (95-98) 08/16/16 01:50 PT/INR, D-dimer PT 13.0 Seconds (9.4-12.1) H 08/16/16 00:19 Consult Discharge Plan - Plan Referrals: Lambert Gandhi MD [Primary Care Provider] - (Dr. Gandhi will do home visit once patient is discharged. Office will call family to arrange before seeing)
--- NOTE | 2016-08-17 19:18 | Oncology Inp Progress Note ---
<Guido Garces Jr - Last Filed: 08/17/16 19:16> Date of Encounter: 08/17/16 Time of Encounter: 18:00 (1) Malignant neoplasm metastatic to colon Current Visit: No Status: Chronic Assessment and plan: This is a 56 year old female with Stage IV metastatic colon cancer on palliative chemotherapy at [facility] under Dr. Deepthi Tovar. CT chest w/contrast on 06/28/16 there has been progression of pulmonary, hepatic , skeletal, and mesenteric metastatic disease She recently received palliative radiation to hips on 07/21/[address] Valerie Gomez at [facility] for metastatic hip involvement. Treatment summary: 1. FOLFOX on 05/04/16, she was subsequently hospitalized with bowel obstruction, and she did not want this chemotherapy regimen. 2.Treatment changed to FOLFIRI with avastin: Cycle one on 07/11/2016 and tolerated it fairly well, she had severe fatigue and some weakness Cycle 2 scheduled for 07/31/26, but she cancelled due to son's wedding shower/ wedding planning Cycle 2 given on 08/14/16 [facility] starting MSI testing on 08/01/16 for possible use of nivolumab immunotherapy inconclusive. Results reviewed with patient today. We are sending more tumor block for PDL-1 testing, also for immunotherapy. Because she has two hospitalizations after each chemo cycle, we will push ahead and start immunotherapy authorization process as outpatient. She has already signed copay assistance forms with me. Oncology social workers will handle that process at the cancer center. She does not wish for further chemo, she desires immunotherapy route. Continue broad spectrum antibiotics and supportive care until cultures return negative. Discharge when medically stable, and we will see as outpatient. (2) Liver metastases Current Visit: No Status: Chronic (3) Bone metastases Current Visit: Yes Status: Chronic (4) Lung nodules Current Visit: No Status: Chronic Oncology: Subj Interval history: Resting comfortably in bed with at bedside. No fevers or chills, significant pain, cough or dysuria. Port non tender and no edema. Constipated. Asked for a dulcolax tablet - Constitutional Vitals: Vital Signs Temp Pulse Resp BP Pulse Ox 08/17/16 16:29 97.8 F 68 16 110/73 97 08/17/16 11:09 98.1 F 79 17 94/61 97 08/17/16 08:12 98.0 F 78 16 102/64 97 08/17/16 07:52 14 97 08/17/16 03:02 97.5 F L 73 14 112/68 97 08/17/16 00:12 97.6 F 71 15 94/61 97 08/16/16 23:23 98.3 F 77 16 92/58 97 08/16/16 20:20 98.1 F 78 15 104/70 97 08/16/16 20:15 16 97 08/16/16 19:31 96 Intake and Output 08/17/16 08/17/16 08/17/16 07:59 15:59 23:59 Intake Total 100 / 100 2069 / 2069 100 / 100 Balance 100 / 100 2069 / 2069 100 / 100 Intake: IV Fluids 100 / 100 1350 / 1350 0.9 % Sodium Chloride 1, 1000 / 1000 000 ML @ 100 mls/hr IVC . Q10H PEPE Rx#:[id number] Zosyn 3.375 GM In 100 / 100 100 / 100 Dextrose 5% (Minibag+) 100 ML 100 ML @ 25 mls/hr IVPB Q8H PEPE Rx#: [id number] Vancocin 1,000 MG In 250 / 250 Dextrose 5% 250 ML @ 167 mls/hr IVPB Q12H PEPE Rx#: [id number] Oral 720 / 720 100 / 100 Other: Meal Lunch Dinner Percent of Meal Consumed 50% 45% # Voids 1 4 Weight 52.072 kg 66.9 kg Patient Weight 08/17/16 23:59 Weight 66.9 kg General appearance: cooperative, no acute distress - Head Head exam: Present: normal inspection, normocephalic - Eye Eye exam: Present: normal appearance, PERRL - ENT ENT exam: Present: mucous membranes moist - Neck Neck exam: Present: full ROM, normal inspection - Respiratory Respiratory exam: Present: CTAB - Cardiovascular Cardiovascular exam: Present: RRR, +S1, +S2 - GI/Abdominal GI/Abdominal exam: Present: distended, hypoactive bowel sounds, soft - Extremities Exam Extremities exam: Present: normal inspection, pedal edema - Neurological Exam Neurological exam: Present: alert, CN II-XII intact, oriented X3, no focal deficits - Psychiatric Psychiatric exam: Present: normal affect, normal mood - Skin Skin exam: Present: dry, intact, warm Oncology: Obj Data - Labs CBC & Chem 7: 08/17/16 05:11 08/17/16 05:11 Labs: Laboratory Results - last 24 hr 08/17/16 08/17/16 05:11 05:11 WBC 2.9 L RBC 3.53 L Hgb 10.4 L D Hct 33.4 L MCV 94.6 MCH 29.5 MCHC 31.1 L RDW 14.6 H Plt Count 140 MPV 9.2 L Immature Gran % 1.4 Seg Neutrophils % 87.1 Lymphocytes % 8.7 Monocytes % 1.4 Eosinophils % 1.4 Basophils % 0.0 Neutrophils # 2.5 Lymphocytes # 0.3 L Monocytes # 0.0 Eosinophils # 0.0 Basophils # 0.0 Platelet Estimate Normal Sodium 139 D Potassium 3.6 Chloride 110 H Carbon Dioxide 22 BUN 9 Creatinine 0.60 Est GFR ( Amer) > 60 Est GFR (Non-Af Amer) > 60 BUN/Creatinine Ratio 15 Glucose 115 H Calculated Osmolality 288 Calcium 6.8 L - ABG Interpretation ABG results: ABG ABG pH 7.43 pH Units (7.32-7.45) 08/16/16 01:50 ABG pCO2 37 mmHg (35-45) 08/16/16 01:50 ABG pO2 109 mmHg (85-104) H 08/16/16 01:50 ABG O2 Saturation 98 % (95-98) 08/16/16 01:50 PT/INR, D-dimer PT 13.0 Seconds (9.4-12.1) H 08/16/16 00:19 Consult Discharge Plan - Plan Referrals: Lambert Gandhi MD [Primary Care Provider] - (Dr. Gandhi will do home visit once patient is discharged. Office will call family to arrange before seeing) <Deepthi Tovar S - Last Filed: 08/18/16 09:35> Date of Encounter: 08/18/16 - Constitutional Vitals: Vital Signs Temp Pulse Resp BP Pulse Ox 08/18/16 06:46 97.6 F 75 18 103/71 96 08/18/16 02:51 97.9 F 72 16 98/65 96 08/18/16 00:58 97.7 F 67 16 109/69 96 08/17/16 20:15 16 97 08/17/16 19:39 97.8 F 73 15 106/71 96 08/17/16 16:29 97.8 F 68 16 110/73 97 08/17/16 11:09 98.1 F 79 17 94/61 97 Intake and Output 08/17/16 08/18/16 08/18/16 23:59 07:59 15:59 Intake Total 200 / 200 350 / 350 240 / 240 Balance 200 / 200 350 / 350 240 / 240 Intake: IV Fluids 100 / 100 350 / 350 Zosyn 3.375 GM In 100 / 100 100 / 100 Dextrose 5% (Minibag+) 100 ML 100 ML @ 25 mls/hr IVPB Q8H PEPE Rx#: [id number] Vancocin 1,250 MG In 250 / 250 Dextrose 5% 250 ML @ 166. 667 mls/hr IVPB Q12H PEPE Rx#:[id number] Oral 100 / 100 240 / 240 Other: Meal Dinner Breakfast Percent of Meal Consumed 45% 50% # Voids 1 1 Weight 66.9 kg Patient Weight 08/18/16 23:59 Weight 66.9 kg Oncology: Obj Data - Labs CBC & Chem 7: 08/18/16 01:47 08/18/16 01:47 Labs: Laboratory Results - last 24 hr 08/18/16 08/18/16 08/18/16 01:47 01:47 01:47 WBC 2.9 L RBC 3.22 L Hgb 9.8 L Hct 30.3 L MCV 94.1 MCH 30.4 MCHC 32.3 RDW 14.3 Plt Count 140 MPV 9.2 L Sodium 139 Potassium 4.0 Chloride 111 H Carbon Dioxide 24 BUN 7 Creatinine 0.57 Est GFR ( Amer) > 60 Est GFR (Non-Af Amer) > 60 BUN/Creatinine Ratio 12 Glucose 103 H Calculated Osmolality 286 Calcium 7.2 L Magnesium 2.2 Vancomycin Trough 10.9 - ABG Interpretation ABG results: ABG ABG pH 7.43 pH Units (7.32-7.45) 08/16/16 01:50 ABG pCO2 37 mmHg (35-45) 08/16/16 01:50 ABG pO2 109 mmHg (85-104) H 08/16/16 01:50 ABG O2 Saturation 98 % (95-98) 08/16/16 01:50 PT/INR, D-dimer PT 13.0 Seconds (9.4-12.1) H 08/16/16 00:19 - Attending Attestation I examined this patient and my medical decision-making was reviewed with the Advanced Practice Nurse. I agree with the documented findings, disposition and treatment plan as described except to the extent set forth below. 1. Fever has improved. No fever in last 24 hours and she is feeling stronger with more energy. Able to walk better. Source of fever could be contamination from 5-FU infusion. 2. She has multiple problems with chemotherapy. She is not very interested in future chemotherapy given above problems Microsatellite are mostly stable except indeterminate on one protein We will proceed with PDL1 testing. She may be a candidate for immune checkpoint inhibitor given metastatic adenocarcinoma. Response rate is around 15-20% but in people who have response it could be durable
[2016-08-17] MEDS: ALPRAZolam 0.25 MG TABLET PO PRN (21:45)
[2016-08-18] MEDS: Piperacillin/Tazobactam 3.375 GM in D5% in Water (Mini-Bag+) 100 ML IVPB SCH ×4 (00:02→23:44)
[2016-08-18 01:55] LABS: Hematocrit 30.3 % (35.3-44.9); Hemoglobin 9.8 g/dL (11.5-15.4); Mean Corpuscular HGB Conc 32.3 g/dL (31.6-35.5); Mean Corpuscular Hemoglobin 30.4 pg (28.0-33.3); Mean Corpuscular Volume 94.1 fL (83.0-100.0); Mean Platelet Volume 9.2 fL (9.4-12.4); Platelet Count 140 K/mcL (140-400); Red Blood Count 3.22 M/mcL (3.82-4.97); Red Cell Distribution Width 14.3 % (11.5-14.5)
[2016-08-18 02:07] LABS: BUN/Creatinine Ratio 12 (6-26); Blood Urea Nitrogen 7 mg/dL (7-20); Calcium 7.2 mg/dL (8.6-10.8); Carbon Dioxide 24 mEq/L (19-29); Chloride 111 mEq/L (98-109); Glucose 103 mg/dL (70-99); Magnesium 2.2 mg/dL (1.6-2.6); Osmolality,Calculated 286 (280-300); Sodium 139 mEq/L (136-145); eGFR For African Americans > 60 (> 60); eGFR For Non-African Americans > 60 (> 60)
[2016-08-18] MEDS: Vancomycin 1,250 MG in D5% in Water 250 ML IVPB SCH ×2 (03:03→14:56)
[2016-08-18] MEDS: *HR* Enoxaparin 40 MG/0.4 ML SYRINGE SQ SCH (05:47)
[2016-08-18] MEDS: *HR* OxyCODONE/APAP 10/325 TABLET PO PRN ×3 (06:39→20:56)
[2016-08-18] MEDS: Budesonide/Formoterol 80/4.5 MDI IH SCH ×2 (08:07→20:07)
[2016-08-18] MEDS: Sennosides/Docusate Sodium TABLET PO SCH ×2 (08:37→20:56)
--- NOTE | 2016-08-18 14:30 | Infectious Disease Consult ---
Date of Encounter: 08/18/16 Time of Encounter: 14:29 Assessment and Plan (1) Fever Status: Acute Assessment and plan: etiology not clear maybe drug induced (was getting a 5FU infusion) could be related to the malignancy no infectious etiology has been identified patient on broad spectrum Abx d/c vancomycin for now, keep zosyn repeat CXR in AM if fever resolves, May d/c consider stopping all antibiotics and observing d/w Dr. Lugo Qualifiers: Fever type: unspecified Qualified Code(s): R50.9 - Fever, unspecified (2) Sepsis Status: Acute Assessment and plan: had 2 SIRS criteria on admission no obvious infectious source identified (concern for intra abdominal source?) Qualifiers: Sepsis type: sepsis due to unspecified organism Qualified Code(s): A41.9 - Sepsis, unspecified organism (3) Malignant neoplasm metastatic to colon Status: Chronic (4) Liver metastases Status: Chronic (5) Liver lesion Status: Acute Infectious Disease HPI - Data of Consult Patient: new to practice Consult date: 08/18/16 Requesting Physician: Lui Lugo DO Primary Care Provider: Lambert Gandhi MD - Consult Narrative Reason for consult: sepsis History of present illness: Ms. Chino is a 56 year old female Patient is a 56-year-old woman who has an unfortunate history of metastatic colon cancer with metastases who has been on chemotherapy via right-sided chest wall port. Patient presented to the emergency department with fatigue and malaise fever of 102 Fahrenheit. Patient apparently denied any chest pain denies any cough denies any sputum production denied any shortness of breath or dyspnea on exertion. The patient denied any skin rash any abdominal pain any diarrhea. She does have chronic constipation. Patient denied any URI symptoms no runny nose no sore throat no earache no headache no neck stiffness. Patient was admitted for further workup and evaluation. Since admission patient has been febrile with MAXIMUM TEMPERATURE of 103.1, tachycardia with a heart rate in the 130s and presenting WBC of 4.2 with a 7% neutrophils. A chest x-ray was obtained which revealed minimal bibasilar atelectasis. CT abdomen and pelvis was also obtained which was read as no acute intra-abdominal or pelvic process. Large amount of retained large bowel stool without all obstruction. Progression of osseous and hepatic metastases with pathological fracture. Similar hepatic metastasis. Blood cultures were obtained and are no growth to date. Patient was started on empiric vancomycin and Zosyn. We are asked to evaluate the patients make further recommendations. Today patient states she is feeling very well. Eager to go home. Denies any complaints. CC: Lui Lugo, DO Past Med Surg Social Fam HX - Past Medical History Medical history: asthma, cancer, other Psychiatric history: no psych history - Past Surgical History Surgical History: cholecystectomy, hysterectomy - Social History Smoking Status: Never smoker Smokeless Tobacco Status: No Alcohol use: none Drug use: none Infectious Disease-CN:Meds Fluticasone/Salmeterol [Advair 250-50 Diskus] 1 puff IH BID 02/04/16 [History] Omeprazole [PriLOSEC] 20 mg PO DAILY PRN 02/04/16 [History] Sennosides/Docusate Sodium [Senna Plus] 1 tab PO Q3-4D PRN 03/21/16 [History] Dexamethasone [Decadron] 2 mg PO DAILY 06/06/16 [History] ALPRAZolam [Xanax 0.25 MG Tablet] 0.25 mg PO BID PRN 07/03/16 [History] Metoclopramide [Reglan] 10 mg PO Q6HR #120 tablet 07/11/16 [Rx] Oxycodone HCl/Acetaminophen [Percocet 10-325 mg Tablet] 1 tab PO Q4H PRN #120 tablet 07/14/16 [Rx] FentaNYL PATCH [Duragesic] 75 mcg TD Q72H #10 patch.td72 08/11/16 [Rx] Allergies morphine Adverse Reaction (Verified 07/14/16 14:24) Abdominal Pain and nausea Review of systems: 10 point ROS done, negative other for what's mentioned in the HPI Exam - Constitutional Vitals: Temp Pulse Resp BP Pulse Ox 97.9 F 60 18 102/64 95 08/18/16 10:49 08/18/16 10:49 08/18/16 10:49 08/18/16 10:49 08/18/16 10:49 General appearance: cooperative, no acute distress, no febrile - Head Head exam: Present: atraumatic, normocephalic - Eye Eye exam: Present: EOMI, PERRL, sclera anicteric - ENT ENT exam: Present: mucous membranes dry - Neck Neck exam: Present: full ROM. Absent: meningismus - Respiratory Additional comments: air sounds audible both lung vincent, coarse breath sounds bilaterally - Cardiovascular Cardiovascular exam: Present: RRR, +S1, +S2 - GI/Abdominal GI/Abdominal exam: Present: hypoactive bowel sounds, soft, tenderness - Extremities Exam Extremities exam: Present: full ROM, normal inspection - Neurological Exam Neurological exam: Present: alert, oriented X3 - Psychiatric Psychiatric exam: Present: normal affect, normal mood - Skin Skin exam: Absent: rash Infectious Disease CN: Results - Labs CBC & Chem 7: 08/18/16 01:47 08/18/16 01:47 Consult Discharge Plan - Plan Referrals: Lambert Gandhi MD [Primary Care Provider] - (Dr. Gandhi will do home visit once patient is discharged. Office will call family to arrange before seeing)
--- NOTE | 2016-08-18 18:28 | Internal Med Progress Note ---
Date of Encounter: 08/18/16 Time of Encounter: 11:25 - Assessment and plan (1) Sepsis Current Visit: Yes Status: Acute Assessment and plan: No further new symptoms. Continue supportive care and monitor for recurrent symptoms. Qualifiers: Sepsis type: sepsis due to unspecified organism Qualified Code(s): A41.9 - Sepsis, unspecified organism (2) Febrile illness, acute Current Visit: Yes Status: Resolved Assessment and plan: Cultures remain negative. ID eval appreciated. (3) Constipation due to pain medication Current Visit: No Status: Resolved Assessment and plan: Medications adjusted for bowels. Improved. (4) Colon cancer Current Visit: No Status: Chronic Assessment and plan: Appreciate oncology input. Qualifiers: Colon location: unspecified part of colon Qualified Code(s): C18.9 - Malignant neoplasm of colon, unspecified (5) Liver metastases Current Visit: No Status: Chronic (6) Cancer related pain Current Visit: No Status: Chronic Assessment and plan: Appears to be controlled at this time. (7) Bone metastases Current Visit: Yes Status: Chronic - Subjective Interval history: Ms Chino is currently admitted for acute febrile illness while on chemotherapy for metastatic colon cancer. She is moderate to high risk due to potential for worsening infectious status. Ms. Chino feels OK. No further fevers noted. Tolerating abx. No new issues overnight. Had bowel movement. No new symptoms. - Constitutional Vitals: Temp Pulse Resp BP Pulse Ox 98.0 F 68 18 102/68 96 08/18/16 15:56 08/18/16 15:56 08/18/16 15:56 08/18/16 15:56 08/18/16 15:56 General appearance: Present: A&O X 3, answers questions appropriately - Head Head exam: Present: normocephalic - Eye Eye exam: Present: EOMI, conjuntiva pink - ENT ENT exam: Present: mucous membranes moist - Respiratory Respiratory exam: Present: CTAB. Absent: rhonchi, wheezes - Cardiovascular Cardiovascular exam: Present: RRR. Absent: tachycardia - GI/Abdominal GI/Abdominal exam: Present: soft - Extremities Exam Extremities exam: Present: warm. Absent: pedal edema - Neurological Exam Neurological exam: Present: alert, oriented X3, no focal deficits - Skin Skin exam: Present: dry, warm. Absent: rash Internal Medicine: Result - Labs CBC & Chem 7: 08/18/16 01:47 08/18/16 01:47 Labs: Short CBC 08/18/16 Range/Units 01:47 WBC 2.9 L (4.3-11.1) K/mcL Hgb 9.8 L (11.5-15.4) g/dL Hct 30.3 L (35.3-44.9) % Plt Count 140 (140-400) K/mcL BMP 08/18/16 01:47 Sodium 139 Potassium 4.0 Chloride 111 H Carbon Dioxide 24 BUN 7 Creatinine 0.57 Glucose 103 H Calcium 7.2 L - ABG Interpretation ABG results: ABG ABG pH 7.43 pH Units (7.32-7.45) 08/16/16 01:50 ABG pCO2 37 mmHg (35-45) 08/16/16 01:50 ABG pO2 109 mmHg (85-104) H 08/16/16 01:50 ABG O2 Saturation 98 % (95-98) 08/16/16 01:50 PT/INR, D-dimer PT 13.0 Seconds (9.4-12.1) H 08/16/16 00:19 Consult Discharge Plan - Plan Referrals: Lambert Gandhi MD [Primary Care Provider] - (Dr. Gandhi will do home visit once patient is discharged. Office will call family to arrange before seeing)
[2016-08-18] MEDS: ALPRAZolam 0.25 MG TABLET PO PRN (20:55)
[2016-08-18] MEDS: 0.9 % Sodium Chloride 1,000 ML IVC SCH (21:03)
[2016-08-19] MEDS: *HR* OxyCODONE/APAP 10/325 TABLET PO PRN ×2 (03:08→10:36)
[2016-08-19] MEDS: Vancomycin 1,250 MG in D5% in Water 250 ML IVPB SCH (03:12)
[2016-08-19] MEDS: *HR* Enoxaparin 40 MG/0.4 ML SYRINGE SQ SCH (05:58)
[2016-08-19 08:00] LABS: Eosinophils # 0.1 K/mcL (0.0-0.6); Hematocrit 32.6 % (35.3-44.9); Hemoglobin 10.4 g/dL (11.5-15.4); Mean Corpuscular HGB Conc 31.9 g/dL (31.6-35.5); Mean Corpuscular Volume 93.9 fL (83.0-100.0); Mean Platelet Volume 8.9 fL (9.4-12.4); Monocytes # 0.1 K/mcL (0.0-1.3); Platelet Count 145 K/mcL (140-400); Red Blood Count 3.47 M/mcL (3.82-4.97); Red Cell Distribution Width 14.2 % (11.5-14.5)
[2016-08-19] MEDS: *HR* FentaNYL PATCH 75 MCG PATCH TD SCH (08:13)
[2016-08-19 08:15] LABS: Alanine Aminotransferase 30 Units/L (0-55); Albumin 2.5 g/dL (3.5-5.0); Albumin/Globulin Ratio 0.8 (1.1-2.2); Alkaline Phosphatase 324 Units/L (38-126); Aspartate Amino Transferase 42 Units/L (5-34); BUN/Creatinine Ratio 13 (6-26); Bilirubin,Total 0.6 mg/dL (0.2-1.2); Blood Urea Nitrogen 8 mg/dL (7-20); Calcium 7.9 mg/dL (8.6-10.8); Carbon Dioxide 23 mEq/L (19-29); Chloride 109 mEq/L (98-109); Globulin 3.2 g/dL (2.4-3.5); Glucose 100 mg/dL (70-99); Osmolality,Calculated 286 (280-300); Potassium 3.7 mEq/L (3.5-4.5); Sodium 139 mEq/L (136-145); Total Protein 5.7 g/dL (6.0-8.3); eGFR For African Americans > 60 (> 60); eGFR For Non-African Americans > 60 (> 60)
[2016-08-19] MEDS: Sennosides/Docusate Sodium TABLET PO SCH (08:16)
[2016-08-19 08:59] LABS: Lymphocytes # 0.7 K/mcL (0.6-4.6); Neutrophils # 2.5 K/mcL (1.6-8.9); Platelet Estimate Normal (Normal)
[2016-08-19] MEDS: Budesonide/Formoterol 80/4.5 MDI IH SCH (10:20)
[2016-08-19 10:36] VITALS: BP 110/74
[2016-08-19] MEDS: Piperacillin/Tazobactam 3.375 GM in D5% in Water (Mini-Bag+) 100 ML IVPB SCH (10:37)
[2016-08-19] MEDS ORDERED: levoFLOXacin 750 MG TABLET PO STA (11:34)
--- NOTE | 2016-08-19 11:38 | Discharge Summary ---
Date of Encounter: 08/19/16 Time of Encounter: 11:35 - Discharge Diagnosis (1) Sepsis Priority: Primary Status: Resolved Qualifiers: Sepsis type: sepsis due to unspecified organism Qualified Code(s): A41.9 - Sepsis, unspecified organism (2) Febrile illness, acute Priority: Primary Status: Resolved (3) Constipation due to pain medication Priority: Secondary Status: Resolved (4) Pneumonia Priority: Secondary Status: Acute Qualifiers: Pneumonia type: due to unspecified organism Laterality: bilateral Lung location: lower lobe of lung Qualified Code(s): J18.9 - Pneumonia, unspecified organism (5) Colon cancer Priority: Secondary Status: Chronic Qualifiers: Colon location: unspecified part of colon Qualified Code(s): C18.9 - Malignant neoplasm of colon, unspecified (6) Liver metastases Priority: Secondary Status: Chronic (7) Cancer related pain Priority: Secondary Status: Chronic (8) Bone metastases Priority: Secondary Status: Chronic - Discharge Medications Prescriptions: Prochlorperazine Maleate [Compazine] 10 mg PO Q8HR PRN #30 tablet PRN Reason: Nausea And Vomiting Fluconazole [Diflucan] 150 mg PO Q48H PRN #3 tab PRN Reason: Vaginal Irritation levoFLOXacin [Levaquin] 750 mg PO DAILY #4 tablet Home Medications: Fluticasone/Salmeterol [Advair 250-50 Diskus] 1 puff IH BID 02/04/16 [History] Omeprazole [PriLOSEC] 20 mg PO DAILY PRN 02/04/16 [History] Sennosides/Docusate Sodium [Senna Plus] 1 tab PO Q3-4D PRN 03/21/16 [History] Dexamethasone [Decadron] 2 mg PO DAILY 06/06/16 [History] ALPRAZolam [Xanax 0.25 MG Tablet] 0.25 mg PO BID PRN 07/03/16 [History] Metoclopramide [Reglan] 10 mg PO Q6HR #120 tablet 07/11/16 [Rx] Oxycodone HCl/Acetaminophen [Percocet 10-325 mg Tablet] 1 tab PO Q4H PRN #120 tablet 07/14/16 [Rx] FentaNYL PATCH [Duragesic] 75 mcg TD Q72H #10 patch.td72 08/11/16 [Rx] Bisacodyl [Dulcolax] 10 mg RC DAILY PRN #0 supp.rect 08/19/16 [Rx] Fluconazole [Diflucan] 150 mg PO Q48H PRN #3 tab 08/19/16 [Rx] Prochlorperazine Maleate [Compazine] 10 mg PO Q8HR PRN #30 tablet 08/19/16 [Rx] levoFLOXacin [Levaquin] 750 mg PO DAILY #4 tablet 08/19/16 [Rx] Allergies/Adverse Reactions: Allergies morphine Adverse Reaction (Verified 07/14/16 14:24) Abdominal Pain and nausea Date of admission: 08/16/16 08:18 Primary care physician: Lambert Gandhi MD Consults: 08/16/16 09:49 Consult to Oncology [CONS] Routine Consulting Provider: [facility] Reason for Consult: Stage IV colon CA, known to your team, on chemo, admitted for suspected sepsis Call Completed: Yes 08/17/16 10:48 Consult to [facility] [CONS] Routine Reason for SW Consult: Pt has home health 08/18/16 07:59 Consult to Infectious Diseases [CONS] Routine Consulting Provider: Infectious Disease Christa Reason for Consult: Fever, chemo patient. Cultures neg thus far. Discussed patient yesterday. Call Completed: Yes Discharging clinician: Lui Lugo Anticipated date of discharge: 08/19/16 - Patient Status Disposition: Home Health Service Condition: Fair Functional capacity at discharge: independent ambulation Overall status at discharge: patient is progressing back to baseline - Discharge Instructions Instructions: Fluconazole (By mouth), Levofloxacin (By mouth) Follow Up With: Lambert Gandhi MD [Primary Care Provider] - (Dr. Gandhi will do home visit once patient is discharged. Office will call family to arrange before seeing) - Diet and Activity Activity: increase activity as tolerated Diet: advance to your usual diet Hospital course: Ms. Chino is a 56 year old female with hx of metastatic colon cancer presented to ED with fever. She was receiving 5FU through her port when she developed a temp greater than 102. Denied cough, dyspnea, dysuria or any other infectious symptoms. She was admitted for further evaluation and treatment. Ms. Chino was admitted to [facility]. She was started on IV abx. Cultures done in ED. Chemo completed. She had no further fever during hospitalization and cultures remained negative. She had issues with constipation but resolved with med adjustments. Her pain was controlled during her time here. On 08/19 her labs were stable. CXR showed atelectasis versus PNA. She felt well and was afebrile. Due to her history she was placed on PO Levaquin at discharge due to CXR findings. She will follow with onc and PCP. - Time Spent with Patient Total time spent providing and/or coordinating discharge services: 42min - Constitutional Vitals: Temp Pulse Resp BP Pulse Ox 98.3 F 82 13 110/74 96 08/19/16 10:32 08/19/16 10:32 08/19/16 10:32 08/19/16 10:32 08/19/16 10:32 General appearance: Present: A&O X 3, pleasant, answers questions appropriately - Head Head exam: Present: normocephalic - Eye Eye exam: Present: EOMI, conjuntiva pink - ENT ENT exam: Present: mucous membranes moist - Respiratory Respiratory exam: Present: decreased breath sounds. Absent: rales, rhonchi, wheezes Additional comments: Decreased bases - Cardiovascular Cardiovascular exam: Present: RRR. Absent: tachycardia - GI/Abdominal GI/Abdominal exam: Present: soft - Extremities Exam Extremities exam: Present: warm. Absent: tenderness - Neurological Exam Neurological exam: Present: alert, oriented X3 - Psychiatric Psychiatric exam: Present: normal affect, normal mood - Skin Skin exam: Present: dry, warm. Absent: rash
--- NOTE | 2016-08-19 11:40 | Physician Discharge Referral ---
Home Health/Hosp Referral Info Transfer to: Home Health Attending Provider: Lui Lugo DO Provider in Charge Post Discharge: PCP - Diagnosis (1) Sepsis Priority: Primary Status: Resolved (2) Febrile illness, acute Priority: Primary Status: Resolved (3) Constipation due to pain medication Priority: Secondary Status: Resolved (4) Colon cancer Priority: Secondary Status: Chronic (5) Liver metastases Priority: Secondary Status: Chronic (6) Cancer related pain Priority: Secondary Status: Chronic (7) Bone metastases Priority: Secondary Status: Chronic - Respiratory Orders None Smoking Cessation: Smoking cessation has been advised. For more information, call the [place] Tobacco Quit Line at 1-869-MRVG-NOW. - Diet/Nutrition Diet/Nutrition Orders: Regular - Activity Activity Orders: Up ad momo - Services Needed Following services are medically necessary services: Nursing - Transfer Medications Prescriptions: Prochlorperazine Maleate [Compazine] 10 mg PO Q8HR PRN #30 tablet PRN Reason: Nausea And Vomiting Fluconazole [Diflucan] 150 mg PO Q48H PRN #3 tab PRN Reason: Vaginal Irritation levoFLOXacin [Levaquin] 750 mg PO DAILY #4 tablet Home Medications: Fluticasone/Salmeterol [Advair 250-50 Diskus] 1 puff IH BID 02/04/16 [History] Omeprazole [PriLOSEC] 20 mg PO DAILY PRN 02/04/16 [History] Sennosides/Docusate Sodium [Senna Plus] 1 tab PO Q3-4D PRN 03/21/16 [History] Dexamethasone [Decadron] 2 mg PO DAILY 06/06/16 [History] ALPRAZolam [Xanax 0.25 MG Tablet] 0.25 mg PO BID PRN 07/03/16 [History] Metoclopramide [Reglan] 10 mg PO Q6HR #120 tablet 07/11/16 [Rx] Oxycodone HCl/Acetaminophen [Percocet 10-325 mg Tablet] 1 tab PO Q4H PRN #120 tablet 07/14/16 [Rx] FentaNYL PATCH [Duragesic] 75 mcg TD Q72H #10 patch.td72 08/11/16 [Rx] Bisacodyl [Dulcolax] 10 mg RC DAILY PRN #0 supp.rect 08/19/16 [Rx] Fluconazole [Diflucan] 150 mg PO Q48H PRN #3 tab 08/19/16 [Rx] Prochlorperazine Maleate [Compazine] 10 mg PO Q8HR PRN #30 tablet 08/19/16 [Rx] levoFLOXacin [Levaquin] 750 mg PO DAILY #4 tablet 08/19/16 [Rx] Allergies/Adverse Reactions: Allergies morphine Adverse Reaction (Verified 07/14/16 14:24) Abdominal Pain and nausea Certification: Further, I certify that my clinical findings support that this patient is homebound (i.e. absences from home require considerable and taxing effort and are for medical reasons or religion services or infrequently or short duration when for other reasons) because: Homebound Reason: Absences from home are contraindicated except to recieve medical care, Leaving home requires considerable and taxing effort due to condition Attestation: My signature below is to certify that this patient is under my care and that I, or nurse practitioner, or a physician's special education teaching assistant working with me, has a face-to -face encounter with this patient.
[2016-08-19] MEDS ORDERED: Aminoglycoside Consult 1 EACH MC ONE (12:07)
== END 2016-08-19 12:08 | disposition home health service (06) ==
LOC: 2ANU 23:16 → EMEROO 23:16 → 2ANU 08-16 05:47 → SUATTDRO 08-16 08:18
PROVIDERS: ADMIT Internal Medicine; ATTEND Internal Medicine